=== PATIENT | male | born 1945 | race Caucasian/White ===

== ENCOUNTER → 2017-11-04 17:00 | Outpatient (CLI) | payer MEDICARE, SELFPAY ==
[2017-11-04 17:24] LABS: Absolute Lymphocyte Count 2.17 X10^3/ul (0.83-4.51); Absolute Neutrophil Count 3.2 X10^3/uL (2.0-7.7); Basophil# 0.03 X10^3/uL; Basophil% 0.5 % (0-1); Eosinophil# 0.21 X10^3/uL; Eosinophils% 3.3 % (0-5); Hematocrit 46.7 % (40-54); Hemoglobin 15.7 g/dl (13.0-16.5); Lymphocyte # 2.17 X10^3/ul (4.0); Lymphocyte % 34.5 % (19-41); Mean Corp Hgb Conc 33.6 g/gl (32-36); Mean Corpuscular Hgb 30.4 pg (27.0-32.0); Mean Corpuscular Volume 90.3 fL (80-94); Mean Platelet Vol. 9.8 fl (6.2-12.0); Monocyte# 0.65 X10^3/uL; Monocyte% 10.3 % (0-10); Neutrophil # 3.22 X10^3/uL (2.7-7.7); Neutrophil % 51.2 % (47-70); Platelet Count 216 K/mm3 (150-450); RBC Distribution Width CV 12.7 % (11.6-14.6); RBC Distribution Width SD 41.8 fl (35.1-43.9); Red Blood Count 5.17 M/mm3 (4.6-6.2); White Blood Count 6.3 K/mm3 (4.4-11.0)
[2017-11-04 17:26] LABS: POSITIVE COUNT NO; POSITIVE DIFFERENTIAL NO; POSITIVE MORPHOLOGY NO
[2017-11-04 18:02] LABS: AST(SGOT) 25 U/L (15-37); Alanine Aminotransfer ALT/SGPT 53 U/L (16-61); Albumin, Serum 3.7 g/dL (3.2-5.0); Alkaline Phosphatase 52 U/L (45-117); Anion Gap 7 (5-15); BUN 18 mg/dL (7-18); BUN/Creat Ratio 19.7 RATIO (10-20); Calcium,Total 9.6 mg/dL (8.5-10.1); Chloride 105 mmol/L (98-107); Creatinine, Serum 0.92 mg/dL (0.70-1.30); EST Glomerular Filtration Rate 86 mL/min (>60); Est Glom Filt Rate - Afr Amer 104 mL/min (>60); Globulin 3.6 g/dL (2.2-4.2); Glucose 239 mg/dL (74-106); Potassium 4.2 mmol/L (3.5-5.1); Protein, Total 7.3 g/dL (6.4-8.2); Sodium Level 139 mmol/L (136-145); Thyroid Stim Hormone (TSH) 2.67 uIU/mL (0.358-3.74)
== END ==
PROVIDERS: Family Provider Family Medicine Geriatric Medicine; PCP Family Medicine Geriatric Medicine; Visit Provider Family Medicine Geriatric Medicine
DX: E55.9 Vitamin D deficiency, unspecified (principal); I10 Essential (primary) hypertension; Z13.89 Encounter for screening for other disorder
CPT/HCPCS: 80053; 84443; 85025

== ENCOUNTER → 2017-11-17 06:00 | Outpatient (CLI) | payer MEDICARE, SELFPAY ==
[2017-11-17 07:28] LABS: AST(SGOT) 31 U/L (15-37); Alanine Aminotransfer ALT/SGPT 52 U/L (16-61); Albumin, Serum 3.7 g/dL (3.2-5.0); Alkaline Phosphatase 42 U/L (45-117); Anion Gap 9 (5-15); BUN 16 mg/dL (7-18); BUN/Creat Ratio 16.3 RATIO (10-20); Bilirubin, Direct 0.22 mg/dL (0.00-0.30); Calcium,Total 9.3 mg/dL (8.5-10.1); Chloride 103 mmol/L (98-107); Cholesterol 90 mg/dL (200); Creatinine, Serum 0.98 mg/dL (0.70-1.30); EST Glomerular Filtration Rate 79 mL/min (>60); Est Glom Filt Rate - Afr Amer 96 mL/min (>60); Globulin 3.2 g/dL (2.2-4.2); Glucose 201 mg/dL (74-106); High Density Lipoprotein 39 mg/dL; Potassium 4.1 mmol/L (3.5-5.1); Protein, Total 6.9 g/dL (6.4-8.2); Sodium Level 138 mmol/L (136-145); Triglycerides 63 mg/dL; Very Low Density Lipoprotein 13 mg/dL (5-40)
--- NOTE | 2017-11-17 13:26 | STRESSREP_ITS ---
Stress Test Report Pharmacologic myocardial perfusion stress test. 72-year-old man with a history of coronary artery disease status post previous stenting remotely. Stress protocol: Resting EKG demonstrates normal sinus rhythm with a rate of 63 bpm normal intervals are noted. Resting blood pressure is 116/80 mmHg. 0.4 mg of regadenoson was infused per usual protocol followed by rapid intravenous saline flush injection continuous EKG monitoring was performed. The maximum heart rate attained was 80 bpm which was 54% of maximum predicted heart rate the maximum workload attained was 1 metabolic equivalent. At rest there were no ST or T-wave changes noted suggest abnormal flow reserve at peak infusion no ST or T-wave changes were noted suggest abnormal flow reserve. No clinical angina was noted. The resting blood pressure is 116/80 with a final blood pressure 110 /72 mmHg. Myocardial perfusion protocol. 14.8 mCi of technetium 99m sestamibi was injected at rest. 0.4 mg regadenoson was infused per usual protocol peak infusion 45.0 mCi of technetium 99m sestamibi was injected. Stress images were obtained. Stress and rest images were reconstructed and compared in the short axis vertical long horizontal long axis. Gated images were also obtained. Perfusion SPECT analysis: Review of the stress images demonstrate normal uptake of tracer noted in the septum anterior wall and lateral wall. 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 No reversibility is noted suggest ischemia. Gated SPECT analysis. Gated ejection fraction is 67%. Conclusion: Normal pharmacologic myocardial perfusion stress test. Preserved ejection fraction.
== END ==
PROVIDERS: Family Provider Family Medicine Geriatric Medicine; PCP Family Medicine Geriatric Medicine; Visit Provider Physician Assistant Medical
DX: I25.10 Atherosclerotic heart disease of native coronary artery without angina pectoris (principal); I10 Essential (primary) hypertension; E78.5 Hyperlipidemia, unspecified; Z79.899 Other long term (current) drug therapy
CPT/HCPCS: 36415; 78452; 80048; 80061; 80076; 93017; A9500; G0108; A4216; J2785

== ENCOUNTER 2017-11-17 14:30 | Outpatient (RCR) | payer MEDICARE, SELFPAY | END 2017-11-17 14:31 | disposition home or self-care (01) | LOC: DC 14:30 | PROVIDERS: Family Provider Family Medicine Geriatric Medicine; PCP Family Medicine Geriatric Medicine; Visit Provider Family Medicine Geriatric Medicine | DX: E11.9 Type 2 diabetes mellitus without complications (principal); I25.10 Atherosclerotic heart disease of native coronary artery without angina pectoris; I10 Essential (primary) hypertension; E78.5 Hyperlipidemia, unspecified; Z79.899 Other long term (current) drug therapy; Z71.3 Dietary counseling and surveillance | CPT/HCPCS: 36415; 78452; 80048; 80061; 80076; 93017; 97802; A9500; G0108; A4216; J2785 ==

== ENCOUNTER 2017-11-30 07:48 | Emergency (ER) | payer MEDICARE, SELFPAY ==
[2017-11-30 07:49] VITALS: BP 157/82; PULSE 59; RESP 18; TEMP 36.3; O2SAT 98; BMI 34.1
--- NOTE | 2017-11-30 07:59 | CT_ITS ---
STUDY: CT ABDOMEN AND PELVIS WITHOUT CONTRAST REASON FOR EXAM: Male, 72 years old. Right flank and suprapubic pain. History of kidney stones. RADIATION DOSAGE (If Supplied By Facility): CTDIvol = ( 19.89 ) mGy, DLP = ( 998.81 ) mGycm TECHNIQUE: Transaxial images were obtained from the dome of the diaphragm to the symphysis pubis without oral contrast, and without intravenous contrast. Sagittal and coronal images were reconstructed. Individualized dose optimization techniques were used for this CT. COMPARISON: Comparison is made with prior study dated January 06, 2015. FINDINGS: Stable minimal degree of increased linear markings in the lingular segment of the left upper lobe and right lower lobe suggestive of mild scarring. Coronary artery calcification. Normal liver. Normal gallbladder and extrahepatic biliary system. Normal spleen. Normal pancreas. Normal bilateral adrenal glands. Mild degree of right perinephric stranding. 4 mm calculus is seen in the upper midportion of the right kidney. A tiny calculus is also seen in the lower pole calyx of the right kidney. Mild degree of left perinephric stranding. There is a 3 mm calculus in the upper pole calyx of the left kidney. A 3 mm calculus also seen in the lower pole of the left kidney. There is a 3.5 mm calculus at the base of the bladder on the left side. This most likely represents a recently passed left ureteral calculus. Normal visualized stomach. Normal small intestine. There are multiple colonic diverticula consistent with diverticulosis. The appendix is visualized and appears normal. There is diffuse atherosclerotic calcification of the abdominal aorta and its major visceral branches, without a demonstrated aneurysm. Normal inferior vena cava. There is borderline retroperitoneal lymphadenopathy with enlarged nodes no greater than 10mm in the short axis diameter. Normal urinary bladder. Normal abdominal wall. There are diffuse degenerative changes of the visualized lumbar spine. Grade 1 anterolisthesis of L4 on L5 without spondylolysis. CT/Abdomen/Pelvis without Cont IMPRESSION: Bilateral nonobstructive intrarenal calculi. 3.5 mm calculus at the base of the bladder on the left side most likely from a recently passed left ureteral stone. No significant hydronephrosis is seen. Sigmoid diverticulosis. Electronically Signed: Stephen Ruiz MD at 9:11 EDT Tel [phone], Service support ,
--- NOTE | 2017-11-30 08:01 | ED.VISSUMM ---
- ER Visit Summary Date of Service: 11/30/17 Chief Complaint: Right flank pain History of Present Illness: The patient is a [address] Marquis and was formerly a patient of Dr. Reynoso's. Reports that at 3:00 this morning at the sudden onset of right flank pain. Is a sharp pain is 10 out of 10 at worst and 6 out of 10 currently. Is worsening by nothing and relieved by nothing. Radiates down into the right lower quadrant and into his penis. Is been accompanied by chills and sweats. He has had nausea without vomiting. No diarrhea. His last bowel movements today. He has had no melena or hematochezia. He has had dysuria without frequency. States this is similar when he had kidney stones in the past. Physical Examination: Vitals: Stable. Afebrile. General: Well-nourished and well-developed. Head: Normocephalic atraumatic. Neck: Supple, no lymphadenopathy. No JVD. Nontender. Cardiovascular: Regular rate and rhythm. No murmurs. Respiratory: No respiratory distress. Clear to auscultation bilaterally. Abdominal: Soft, mild right lower quadrant tenderness to palpation, nondistended, normal bowel sounds. No guarding, rebound, or peritoneal signs. Back: Nontender. No CVA tenderness. Extremities: Nontender, no edema. Skin: Normal color, no rash. Neurologic: Alert and oriented ?3. Cranial nerves II through XII are intact. Normal strength and sensation. Psych: Normal affect. Test Results: Patient has bilateral nonobstructive intrarenal calculi. There is 3.5 mm calculus at the base of the bladder on the left. Most likely from a recently passed stone. No significant hydronephrosis. CBC is marked for 7 neutrophils 77 monocytes 14. Chem-7 is more for glucose 193. UA shows no infection. There is 50-100 red blood cells. Emergency Department Course and Treatment: Patient had an IV placed. He is treated with morphine and Zofran IV. He is resting comfortably. Treatment Plan: Will be discharged with Percocet naproxen. Instructed to follow Dr. Trimble as needed. Return to the emergency department for any worsening symptoms. Disposition: To home in improved and stable condition. Impression: 1. Ureteral stone, passed. This note was generated with [employer]ation software. It may contain incorrect words, spelling, and punctuation that were not noted in review of the chart prior to signing ED Disposition - Plan for ED Patient: Chief Complaint: Flank Pain Instructions: ED Stone Renal Passed Prescriptions: Hydrocodone Bitart/Apap 5-325 [[place] 5/325] 1 - 2 tablet PO Q4H PRN PRN 3 Days #20 tablet PRN Reason: Pain Naproxen [Naprosyn] 500 mg PO BID PRN #20 tablet Referrals: Gustavo Vinson Chi, MD [Primary Care Provider] - Alex Trimble MD [STAFF PHYSICIAN] - As Needed
--- NOTE | 2017-11-30 08:01 | NURSING ---
NO LW OR POA
[2017-11-30 08:11] LABS: Absolute Lymphocyte Count 1.21 X10^3/ul (0.83-4.51); Absolute Neutrophil Count 6.7 X10^3/uL (2.0-7.7); Basophil# 0.02 X10^3/uL; Basophil% 0.2 % (0-1); Eosinophils% 1.1 % (0-5); Hematocrit 46.9 % (40-54); Hemoglobin 15.5 g/dl (13.0-16.5); Lymphocyte # 1.21 X10^3/ul (4.0); Lymphocyte % 13.9 % (19-41); Mean Corpuscular Hgb 30.4 pg (27.0-32.0); Mean Platelet Vol. 9.9 fl (6.2-12.0); Monocyte# 0.65 X10^3/uL; Monocyte% 7.4 % (0-10); Neutrophil # 6.74 X10^3/uL (2.7-7.7); Neutrophil % 77.3 % (47-70); POSITIVE COUNT NO; POSITIVE DIFFERENTIAL NO; POSITIVE MORPHOLOGY NO; Platelet Count 212 K/mm3 (150-450); RBC Distribution Width CV 12.9 % (11.6-14.6); RBC Distribution Width SD 42.8 fl (35.1-43.9); White Blood Count 8.7 K/mm3 (4.4-11.0)
[2017-11-30] MEDS: Ondansetron 4 MG/2 ML Vial IV (08:13)
[2017-11-30] MEDS: 0.9% Normal Saline 1,000 ML 250 ML IV (08:13)
[2017-11-30 08:19] LABS: Anion Gap 7 (5-15); BUN 18 mg/dL (7-18); BUN/Creat Ratio 16.2 RATIO (10-20); Calcium,Total 9.6 mg/dL (8.5-10.1); Chloride 105 mmol/L (98-107); Creatinine, Serum 1.11 mg/dL (0.70-1.30); EST Glomerular Filtration Rate 69 mL/min (>60); Est Glom Filt Rate - Afr Amer 83 mL/min (>60); Estimated Creatinine Clearance 55.41 ml/min; Glucose 193 mg/dL (74-106); Potassium 3.9 mmol/L (3.5-5.1); Sodium Level 138 mmol/L (136-145)
[2017-11-30 09:26] LABS: Color, Urine Yellow (Yellow); Glucose, Dipstick Normal (Normal); Ketone-Dipstick 50 mg/dl (Negative); Leukocyte Esterase-Dipstick 25 /ul (Negative); Nitrite-Dipstick Negative (Negative); Occult Blood-Urine 250 /ul (Negative); Protein-Dipstick 15 mg/dl (Negative); Urine Bilirubin Dipstick Negative (Negative); Urine Clarity Cloudy (Clear); Urine Urobilinogen Normal (Normal)
[2017-11-30 09:41] LABS: Bacteria 1+ /hpf (None Seen); Mucous, Urine RARE /hpf (<or=2+); Red Blood Cells-Urine 50-100 SEEN /hpf (0-5); Squamous Epithelial Cells - UA 0-5 SEEN /hpf (0-5); White Blood Cells 0-5 SEEN /hpf (0-5)
[2017-11-30 10:00] VITALS: BP 108/74; PULSE 65; RESP 16; O2SAT 99
== END 2017-11-30 10:10 | disposition home or self-care (01) ==
PROVIDERS: Emergency Provider Emergency Medicine; Family Provider Family Medicine Geriatric Medicine; PCP Family Medicine Geriatric Medicine
DX: N20.1 Calculus of ureter (principal); Z87.442 Personal history of urinary calculi; I25.10 Atherosclerotic heart disease of native coronary artery without angina pectoris; I10 Essential (primary) hypertension; E11.9 Type 2 diabetes mellitus without complications; E78.00 Pure hypercholesterolemia, unspecified; Z79.82 Long term (current) use of aspirin; Z79.899 Other long term (current) drug therapy
CPT/HCPCS: 74176; 80048; 81001; 85025; 96361; 96374; 96375; 99284; J7030; A4216; J2405

== ENCOUNTER 2017-12-09 13:13 | Outpatient (RCR) | payer MEDICARE, SELFPAY | END 2017-12-18 23:59 | LOC: DC 13:13 | PROVIDERS: Family Provider Family Medicine Geriatric Medicine; PCP Family Medicine Geriatric Medicine; Visit Provider Family Medicine Geriatric Medicine | DX: E11.9 Type 2 diabetes mellitus without complications (principal); Z71.3 Dietary counseling and surveillance | CPT/HCPCS: 97803 ==

== ENCOUNTER 2018-01-06 11:00 | Outpatient (RCR) | payer MEDICARE, SELFPAY | END 2018-01-17 23:59 | LOC: DC 11:00 | PROVIDERS: Family Provider Family Medicine Geriatric Medicine; PCP Family Medicine Geriatric Medicine; Visit Provider Family Medicine Geriatric Medicine | DX: E11.9 Type 2 diabetes mellitus without complications (principal); Z71.3 Dietary counseling and surveillance | CPT/HCPCS: 97803; G0109 ==

== ENCOUNTER 2018-02-10 11:00 | Outpatient (RCR) | payer MEDICARE, SELFPAY | END 2018-02-17 23:59 | LOC: DC 11:00 | PROVIDERS: Family Provider Family Medicine Geriatric Medicine; PCP Family Medicine Geriatric Medicine; Visit Provider Family Medicine Geriatric Medicine | DX: E11.9 Type 2 diabetes mellitus without complications (principal); Z71.3 Dietary counseling and surveillance | CPT/HCPCS: 97803; G0109 ==

== ENCOUNTER 2018-03-02 14:59 | Outpatient (RCR) | payer MEDICARE, SELFPAY | END 2018-03-19 23:59 | LOC: DC 14:59 | PROVIDERS: Family Provider Family Medicine Geriatric Medicine; PCP Family Medicine Geriatric Medicine; Visit Provider Family Medicine Geriatric Medicine | DX: E11.9 Type 2 diabetes mellitus without complications (principal); Z71.3 Dietary counseling and surveillance | CPT/HCPCS: G0109 ==

== ENCOUNTER → 2018-03-21 14:47 | Outpatient (CLI) | payer MEDICARE, SELFPAY ==
--- NOTE | 2018-03-21 15:00 | RAD_ITS ---
STUDY: X-RAY - LUMBAR SPINE REASON FOR EXAM: Male, 72 years old. Low back pain after moving tires TECHNIQUE: 5 view(s) of the lumbar spine were obtained. COMPARISON: None FINDINGS: Normal lumbar lordosis. There is no substantial scoliosis. There is a grade 1 anterolisthesis of L4 relative to L5. There is no evidence of associated spondylolysis. There is multilevel endplate spondylosis of the lumbar vertebrae. There is multi-level degenerative disc disease with multi-level disc space narrowing. There is no demonstrated fracture. There are calcified plaques of the abdominal aorta and common iliac arteries. RAD/L/S Spine Min 4 Views IMPRESSION: Degenerative changes of the spine, as detailed above. Grade 1 anterolisthesis of L4 relative to L5. Calcified plaques of the abdominal aorta and common iliac arteries. Electronically Signed: Tesfaye Mcguire MD at 23:32 EDT , Service support ,
== END ==
PROVIDERS: Family Provider Family Medicine Geriatric Medicine; PCP Family Medicine Geriatric Medicine; Visit Provider Family Medicine Geriatric Medicine
DX: M47.896 Other spondylosis, lumbar region (principal); M51.36 Other intervertebral disc degeneration, lumbar region
CPT/HCPCS: 72110

== ENCOUNTER 2018-03-30 15:55 | Outpatient (RCR) | payer MEDICARE, SELFPAY | END 2018-03-30 15:56 | LOC: DC 15:55 | PROVIDERS: Family Provider Family Medicine Geriatric Medicine; PCP Family Medicine Geriatric Medicine; Visit Provider Family Medicine Geriatric Medicine | DX: E11.9 Type 2 diabetes mellitus without complications (principal); Z71.3 Dietary counseling and surveillance | CPT/HCPCS: G0109 ==

== ENCOUNTER → 2018-04-23 09:18 | Outpatient (CLI) | payer MEDICARE, SELFPAY ==
--- NOTE | 2018-04-23 09:21 | US_ITS ---
STUDY: RETROPERITONEAL ULTRASOUND - LIMITED REASON FOR EXAM: Male, 72 years old. History of smoking. TECHNIQUE: Ultrasound evaluation of the abdominal aorta was performed with real-time ultrasonography and static grayscale imaging. COMPARISON: None. FINDINGS: There are peripheral calcifications throughout the abdominal aorta. The proximal abdominal aorta measures 1.5 x 2.4 cm. The mid abdominal aorta measures 1.5 x 2.4 cm. The distal abdominal aorta measures 1.5 x 1.7 cm. The right common iliac artery measures 0.9 x 1.2 cm. The left common iliac artery measures 0.9 x 1.0 cm. No abdominal aortic aneurysm is visualized. US/Aorta IMPRESSION: No abdominal aortic aneurysm. Atherosclerosis. Electronically Signed: Dana Hand MD at 14:31 EDT Tel , Service support ,
== END ==
PROVIDERS: Family Provider Family Medicine Geriatric Medicine; PCP Family Medicine Geriatric Medicine; Visit Provider Family Medicine Geriatric Medicine
DX: I71.4 Abdominal aortic aneurysm, without rupture (principal)
CPT/HCPCS: 76775

== ENCOUNTER → 2018-05-10 13:46 | Outpatient (CLI) | payer MEDICARE, SELFPAY ==
[2018-05-10 15:32] LABS: Absolute Lymphocyte Count 1.71 X10^3/ul (0.83-4.51); Absolute Neutrophil Count 4.8 X10^3/uL (2.0-7.7); Basophil# 0.02 X10^3/uL; Basophil% 0.3 % (0-1); Eosinophil# 0.15 X10^3/uL; Hematocrit 43.9 % (40-54); Hemoglobin 14.7 g/dl (13.0-16.5); Lymphocyte # 1.71 X10^3/ul (4.0); Lymphocyte % 22.9 % (19-41); Mean Corp Hgb Conc 33.5 g/gl (32-36); Mean Corpuscular Hgb 30.8 pg (27.0-32.0); Mean Platelet Vol. 9.8 fl (6.2-12.0); Monocyte# 0.75 X10^3/uL; Neutrophil # 4.82 X10^3/uL (2.7-7.7); Neutrophil % 64.5 % (47-70); Platelet Count 231 K/mm3 (150-450); RBC Distribution Width CV 13.7 % (11.6-14.6); RBC Distribution Width SD 45.1 fl (35.1-43.9); Red Blood Count 4.77 M/mm3 (4.6-6.2); White Blood Count 7.5 K/mm3 (4.4-11.0)
[2018-05-10 15:41] LABS: POSITIVE COUNT NO; POSITIVE DIFFERENTIAL NO; POSITIVE MORPHOLOGY NO
[2018-05-10 16:13] LABS: ALB/GLOB Ratio 1.1 RATIO (0.9-2.4); AST(SGOT) 18 U/L (15-37); Alanine Aminotransfer ALT/SGPT 33 U/L (16-61); Albumin, Serum 3.5 g/dL (3.2-5.0); Alkaline Phosphatase 36 U/L (45-117); Anion Gap 11 (5-15); BUN 17 mg/dL (7-18); BUN/Creat Ratio 19.1 RATIO (10-20); Calcium,Total 9.7 mg/dL (8.5-10.1); Chloride 110 mmol/L (98-107); Creatinine, Serum 0.89 mg/dL (0.70-1.30); EST Glomerular Filtration Rate 89 mL/min (>60); Est Glom Filt Rate - Afr Amer 108 mL/min (>60); Globulin 3.2 g/dL (2.2-4.2); Glucose 157 mg/dL (74-106); Potassium 4.1 mmol/L (3.5-5.1); Protein, Total 6.7 g/dL (6.4-8.2); Sodium Level 146 mmol/L (136-145); Thyroid Stim Hormone (TSH) 3.05 uIU/mL (0.358-3.74)
== END ==
PROVIDERS: Family Provider Family Medicine Geriatric Medicine; PCP Family Medicine Geriatric Medicine; Visit Provider Family Medicine Geriatric Medicine
DX: E55.9 Vitamin D deficiency, unspecified (principal); I10 Essential (primary) hypertension
CPT/HCPCS: 36415; 80053; 82306; 84443; 85025

== ENCOUNTER → 2018-05-20 12:47 | Outpatient (CLI) | payer MEDICARE, SELFPAY | PROVIDERS: Family Provider Family Medicine Geriatric Medicine; PCP Family Medicine Geriatric Medicine; Visit Provider Family Medicine Geriatric Medicine | DX: M54.40 Lumbago with sciatica, unspecified side (principal); M48.07 Spinal stenosis, lumbosacral region | CPT/HCPCS: 72148 ==

== ENCOUNTER 2018-06-02 07:18 | Outpatient (RCR) | payer MEDICARE, SELFPAY ==
--- NOTE | 2018-08-19 09:23 | HP.PTEVAL ---
Patient's Visit Information SYEDA LOBO is a 73 year old M referred to Physical Therapy by Mary Prieto D.C. with a diagnosis of Lumbar DDD, anteriolithesis. Date of Evaluation: 06/02/18 Physical Therapist: Prakash Delgado - Visit Plan Frequency: 1x/Week Duration: 1 Week Plan: Pt. desires to be given core exericses and work on them on his own at this point in time. - Subjective Findings: Pt is here for his initial evaluaton with diagnosis of lumbar DDD, anteriolithesis. Pt. was referred here by his chiropractor. Pt. reports having lumbar spine pain, but no radicular symptoms. He reports no mechanism of injury, but has been progressively getting worse. Pt. reports no numbness or tingling in his legs, but does have occassional legs giving out on him. Pt. reports no changes in B/B. Pt. has had an MRI showing multi level stenosis, and multi level disc bulging. Pt. reports increased pain with sitting and standing. Pt. is also having increased difficulty with sleeping. Pt. 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 - Pain lumbar spine Pain Intensity (Out of 10): 3 Pain Intensity Range: 1, 4 - Objective POSTURE: Pt. has general slouched posture. Pt. has rounded shoulders and reduced lumbar lordosis. Pt. has normal iliac crest heights. PALPATION: Pt. has increased tenderness with spring testing to L1-L5 and increased pain with bilateral lumbar pararspinals. NEURO: Pt. has normal sensation throughout bilateral LEs. Pt. has 2+ achilles and patellar DTR bilateraly. Pt. is able to rise on heels and toes, but does use balance aide to correct. ROM: LUMBAR SPINE: flexion- min/mod loss increase NW, ext mod loss increase NW, SB mod loss increase NW bilat, rotation- mod loss bilat increase NW. Pt. has decreased HS length and decrased hip ext bilat. MMT: Pt. has generall 4+/5 BLE strength. Pt. reports no pain with LE testing. Pt. has no myotomal weakness noted. GAIT: Pt. is able to ambulate without AD. Pt. has flexed posture, decreased lumbar lordosis. Pt. has normal step length bilaterally. STAIRS: heavy use of HRs, step to pattern. - Special Tests L/S Slump test left side: Negative L/S Slump test right side: Negative L/S Left Straight Leg Raise: Negative L/S Right Straight Leg Raise: Negative Lumbar Standing: Flexion - Mechanical Response: No effect Lumbar Standing: Flexion - Symptoms During Testing: Increases Lumbar Standing: Flexion - Symptoms After Testing: No worse Lumbar Standing: Extension - Mechanical Response: No effect Lumbar Standing: Extension - Symptoms During Testing: Increases Lumbar Standing: Extension - Symptoms After Testing: Worse Lumbar Standing: Right Side Glides - Mechanical Response: No effect Lumbar Standing: Right Side [place] - Symptoms During Testing: Increases Lumbar Standing: Right Side [place] - Symptoms After Testing: No worse Lumbar Standing: Left Side [place] - Mechanical Response: No effect Lumbar Standing: Left Side [place] - Symptoms During Testing: Increases Lumbar Standing: Left Side [place] - Symptoms After Testing: No worse Lumbar Lying: Flexion - Mechanical Response: No effect Lumbar Lying: Flexion - Symptoms During Testing: No effect Lumbar Lying: Flexion - Symptoms After Testing: No effect Lumbar Lying: Extension - Mechanical Response: No effect Lumbar Lying: Extension - Symptoms During Testing: Increases Lumbar Lying: Extension - Symptoms After Testing: Worse Lumbar Static: Slouched Sit - Mechanical Response: No effect Lumbar Static: Slouched Sit - Symptoms During Testing: No effect Lumbar Static: Slouched Sit - Symptoms After Testing: No effect Lumbar Static: Sitting Erect - Mechanical Response: No effect Lumbar Static: Sitting Erect - Symptoms During Testing: No effect Lumbar Static: Sitting Erect - Symptoms After Testing: No effect Lumbar Static:Lying Prone in Extension - Mechanical Response: No effect Lumbar Static: Lying Prone in Extension - Sx During Testing: Increases Lumbar Static: Lying Prone in Extension - Sx After Testing: Worse - Goals Goal 1:: Pt. to be I with HEP. Goal Time Frame: 4-6 Weeks Goal 2:: Pt. to have increased ROM of lumbar spine by 25% in all directions. Goal Time Frame: 4-6 Weeks Goal 3:: Pt. to be able to sit with minimal increase in symptom 0-2/10 pain allowing for increase in quality of life. Goal Time Frame: 4-6 Weeks Goal 4:: Pt to walk unlimited distances with 0-2/10 pain allowing for increased functional tolerance. Goal Time Frame: 4-6 Weeks Goal 5:: Pt. to sleep throughout the night with 0-2/10 pain in lumbar spine. Goal Time Frame: 4-6 Weeks Goal 6:: Pt. to have increased core strength by 1/2 grade reudcing stress applied to lumbar spine with all functional mobility. - Rehabilitation Potential Physical Therapy Diagnosis: Pt. has signs and symptoms of lumbar DDD. Pt. did not appear to have a directional preference this date. Pt. would benefit from core stability exercises in neutral spine. Pt. Rehabilitation Potential: Fair - Anticipated Interventions Patient/Client Instruction: Educate patient on: Condition, Plan of Care, Risk Factors, Benefits of Fitness Program For the Purpose of:: To foster healthy habits, To improve decision making, To facilitate caregiver knowledge, To improve self management, To prevent re-injury, To improve ability to perform tasks related to life management, To improve tolerance to ADL's Therapeutic Exercise to Include: Strength training, Power training, Endurance training, Balance training, Postural training, Flexibilty training, Gait and locomotor training, Passive ROM, Active ROM, Dynamic Lumbar Stabilization, Lion Exercises For the Purpose of:: To decrease pain, To increase ROM, To improve nutrient delivery to tissue, To increase oxygenation perfusion, To improve muscle performance and motor function, To improve ability to perform ADL's, To improve health of tissue, To decrease soft tissue restriction Thank you for the opportunity to evaluate your patient. For Medicare and Medicare HMO plans, please review the plan of care and approve it. It will need to be FAXED BACK to us at [phone] for Medicare purposes. For Medicare only, by signing this I certify the plan of care. Please let me know if there are questions or concerns regarding this plan of care. Physician Signature: Date:
--- NOTE | 2018-08-19 09:25 | HP.PTDCNRP_ITS ---
HP - Discharge Summary (1) - Patient Information SYEDA LOBO was seen in my office for initial evaluation on 06/02/18. The following Plan of Care was established for this patient: Initial Frequency: 1x/Week Initial Duration: 1 Week - Anticipated Interventions Patient/Client Instruction: Educate patient on: Condition, Plan of Care, Risk Factors, Benefits of Fitness Program For the Purpose of:: To foster healthy habits, To improve decision making, To facilitate caregiver knowledge, To improve self management, To prevent re- injury, To improve ability to perform tasks related to life management, To improve tolerance to ADL's Therapeutic Exercise to Include: Strength training, Power training, Endurance training, Balance training, Postural training, Flexibilty training, Gait and locomotor training, Passive ROM, Active ROM, Dynamic Lumbar Stabilization, Lion Exercises For the Purpose of:: To decrease pain, To increase ROM, To improve nutrient delivery to tissue, To increase oxygenation perfusion, To improve muscle performance and motor function, To improve ability to perform ADL's, To improve health of tissue, To decrease soft tissue restriction This patient was last seen in our office 06/02/18. Pertinent comments regarding their Physical therapy will appear below: Pt. was seen for his DDD of his lumbar spine. Pt. was evaluation and desired to have exercises to work on his own. Pt. has not been seen since his initial evaluation and will be DC from PT at this point in time. At this point I will be discontinuing this patient from physical therapy. I would be happy to see this patient again in the future if found appropriate by the physician. Thank you! Prakash Delgado
== END 2018-06-02 19:00 | disposition home or self-care (01) ==
LOC: PT 07:18
PROVIDERS: Family Provider Family Medicine Geriatric Medicine; PCP Family Medicine Geriatric Medicine; Visit Provider Chiropractor
DX: M51.36 Other intervertebral disc degeneration, lumbar region (principal); M43.16 Spondylolisthesis, lumbar region
CPT/HCPCS: 97162

== ENCOUNTER → 2018-07-08 07:47 | Outpatient (CLI) | payer MEDICARE, SELFPAY ==
[2018-07-08 08:36] LABS: AST(SGOT) 20 U/L (15-37); Alanine Aminotransfer ALT/SGPT 36 U/L (16-61); Albumin, Serum 3.7 g/dL (3.2-5.0); Alkaline Phosphatase 37 U/L (45-117); Bilirubin, Direct 0.22 mg/dL (0.00-0.30); Cholesterol 101 mg/dL (200); Globulin 3.2 g/dL (2.2-4.2); High Density Lipoprotein 41 mg/dL; Protein, Total 6.9 g/dL (6.4-8.2); Triglycerides 69 mg/dL; Very Low Density Lipoprotein 14 mg/dL (5-40)
== END ==
PROVIDERS: Family Provider Family Medicine Geriatric Medicine; PCP Family Medicine Geriatric Medicine; Referring Provider Physician Assistant Medical; Visit Provider Physician Assistant Medical
DX: E78.5 Hyperlipidemia, unspecified (principal); Z79.899 Other long term (current) drug therapy
CPT/HCPCS: 36415; 80061; 80076

== ENCOUNTER → 2018-08-16 11:42 | Outpatient (CLI) | payer OTHER, SELFPAY ==
[2018-08-16 12:50] LABS: Absolute Lymphocyte Count 1.81 X10^3/ul (0.83-4.51); Absolute Neutrophil Count 4.4 X10^3/uL (2.0-7.7); Basophil# 0.03 X10^3/uL; Basophil% 0.4 % (0-1); Eosinophil# 0.28 X10^3/uL; Eosinophils% 3.8 % (0-5); Hematocrit 46.9 % (40-54); Hemoglobin 15.6 g/dl (13.0-16.5); Lymphocyte # 1.81 X10^3/ul (4.0); Lymphocyte % 24.8 % (19-41); Mean Corp Hgb Conc 33.3 g/gl (32-36); Mean Corpuscular Volume 93.2 fL (80-94); Mean Platelet Vol. 10.3 fl (6.2-12.0); Monocyte# 0.76 X10^3/uL; Monocyte% 10.4 % (0-10); Neutrophil % 60.3 % (47-70); Platelet Count 243 K/mm3 (150-450); RBC Distribution Width CV 12.5 % (11.6-14.6); RBC Distribution Width SD 42.1 fl (35.1-43.9); Red Blood Count 5.03 M/mm3 (4.6-6.2); White Blood Count 7.3 K/mm3 (4.4-11.0)
[2018-08-16 12:55] LABS: POSITIVE COUNT NO; POSITIVE DIFFERENTIAL NO; POSITIVE MORPHOLOGY NO
[2018-08-16 13:42] LABS: ALB/GLOB Ratio 1.2 RATIO (0.9-2.4); AST(SGOT) 24 U/L (15-37); Alanine Aminotransfer ALT/SGPT 38 U/L (16-61); Albumin, Serum 3.8 g/dL (3.2-5.0); Alkaline Phosphatase 37 U/L (45-117); Anion Gap 4 (5-15); BUN 10 mg/dL (7-18); BUN/Creat Ratio 12.1 RATIO (10-20); Calcium,Total 9.5 mg/dL (8.5-10.1); Chloride 107 mmol/L (98-107); Creatinine, Serum 0.83 mg/dL (0.70-1.30); EST Glomerular Filtration Rate 97 mL/min (>60); Est Glom Filt Rate - Afr Amer 117 mL/min (>60); Globulin 3.2 g/dL (2.2-4.2); Glucose 98 mg/dL (74-106); Potassium 4.2 mmol/L (3.5-5.1); Sodium Level 141 mmol/L (136-145); Thyroid Stim Hormone (TSH) 3.88 uIU/mL (0.358-3.74)
[2018-08-16 13:43] LABS: Vitamin D,25 Hydroxy 39.9 ng/mL (29.95-100.01)
--- OUTSIDE RECORDS SUMMARY | 2018-09-28 03:37 | XMS RPT_ITS ---
:1945 Author Organization OHIP Support Name Relationship Address Phone JOSE LUISNIKKO NASSARA Unavailable [address] + [place] [address] CYNDEE LOBO Unavailable . + AK CHIN LIGIA, PA . R Unavailable Unavailable Unavailable DAYAMI LOBO Unavailable [address] + [place] [address] CYNDEE LOBO Unavailable . + AK CHIN LIGIA, PA . R Unavailable Unavailable Unavailable DAYAMI LOBO Unavailable [address] + [place] [address] CYNDEE LOBO Unavailable Unavailable + AK CHIN LIGIA, PA R Unavailable Unavailable Unavailable DAYAMI LOBO Unavailable [address] + [place] [address] CYNDEE LOBO Unavailable Unavailable + AK CHIN LIGIA, PA R Unavailable Unavailable Unavailable DAYAMI LOBO Unavailable [address] + [place] [address] CYNDEE LOBO Unavailable . + AK CHIN LIGIA, PA . R Unavailable Unavailable Unavailable DAYAMI LOBO Unavailable [address] + [place] [address] CYNDEE OLBO Unavailable Unavailable + NADINE STRONG, PA R Unavailable Unavailable Unavailable DAYAMI LOBO Unavailable [address] + [place] [address] CYNDEE LOBO Unavailable . + AK CHIN LIGIA, PA . R Unavailable Unavailable Unavailable DAYAMI LOBO Unavailable [address] + [place] [address] KEMERER, CYNDEE Unavailable . + AK CHIN FALLS, PA . R Unavailable Unavailable Unavailable DAYAMI LOBO Unavailable [address] + [place] [address] KEMERER, YCNDEE Unavailable . + AK CHIN FALLS, PA . R Unavailable Unavailable Unavailable DAYAMI LOBO Unavailable [address] + [place] [address] KEMERER, CYNDEE Unavailable . + AK CHIN FALLS, PA . R Unavailable Unavailable Unavailable DAYAMI LOBO Unavailable [address] + [place] [address] KEMERER, CYNDEE Unavailable . + AK CHIN FALLS, PA . R Unavailable Unavailable Unavailable DAYAMI LOBO Unavailable [address] + [place] [address] KEMERER, CYNDEE Unavailable Unavailable + AK CHIN FALLS, PA U R Unavailable Unavailable Unavailable DAYAMI LOBO Unavailable [address] + [place] [address] KEMERER, CYNDEE Unavailable . + AK CHIN FALLS, PA . R Unavailable Unavailable Unavailable DAYAMI LOBO Unavailable [address] + [place] [address] KEMERER, CYNDEE Unavailable . + AK CHIN FALLS, PA . R Unavailable Unavailable Unavailable DAYAMI LOBO Unavailable [address] + [place] [address] KEMERER, CYNDEE Unavailable Unavailable + AK CHIN FALLS, PA R Unavailable Unavailable Unavailable DAYAMI LOBO Unavailable [address] + [place] [address] KEMERER, CYNDEE Unavailable . + AK CHIN FALLS, PA U R Unavailable Unavailable Unavailable DAYAMI LOBO Unavailable [address] + [place] [address] KEMERER, CYNDEE Unavailable . + NADINE STRONG, PA U R Unavailable Unavailable Unavailable DAYAMI LOBO Unavailable [address] + [place] [address] KEMERER, CYNEDE Unavailable Unavailable + NADINE STRONG, PA U R Unavailable Unavailable Unavailable DAYAMI LOBO Unavailable [address] + [place] [address] KEMERER, CYNDEE Unavailable . + NADINE STRONG, PA U R Unavailable Unavailable Unavailable DAYAMI LOBO Unavailable [address] + [place] [address] KEMERER, CYNDEE Unavailable . + NADINE STRONG, PA U R Unavailable Unavailable Unavailable DAYAMI LOBO Unavailable [address] + [place] [address] KEMERER, CYNDEE Unavailable . + NADINE STRONG, PA U R Unavailable Unavailable Unavailable DAYMAI LOBO Unavailable [address] + [place] [address] KEMERER, CYNDEE Unavailable . + NADINE STRONG, PA U R Unavailable Unavailable Unavailable DAYAMI LOBO Unavailable [address] + [place] [address] KEMERER, CYNDEE Unavailable . + NADINE STRONG, PA U R Unavailable Unavailable Unavailable DAYAMI LOBO Unavailable [address] + [place] [address] KEMERER, YCNDEE Unavailable . + NADINE STRONG, PA U R Unavailable Unavailable Unavailable DAYAMI LOBO Unavailable [address] + [place] [address] KEMERER, CYNDEE Unavailable . + NADINE STRONG, PA U R Unavailable Unavailable Unavailable KEMERER, DAYAMI Unavailable [address] + [place] [address] KEMERER, CYNDEE Unavailable . + AK CHIN FALLS, PA U R Unavailable Unavailable Unavailable DAYAMI LOBO Unavailable [address] + [place] [address] KEMERER, CYNDEE Unavailable . + AK CHIN FALLS, PA U R Unavailable Unavailable Unavailable NIKKO LOBOA Unavailable [address] + [place] [address] KEMERER, CYNDEE Unavailable . + AK CHIN FALLS, PA U S Unavailable Unavailable Unavailable DAYAMI LOBO Unavailable [address] + [place] [address] KEMERER, CYNDEE Unavailable . + AK CHIN FALLS, PA U S Unavailable Unavailable Unavailable Care Team Providers Name Role Phone Karel, Gustavo Chi Attending Unavailable Karel, Gustavo Chi Primary Care Unavailable Lamont Kaiser Attending Unavailable Maki Carmona Attending Unavailable Maki Carmona Referring Unavailable Karel, Gustavo Chi Primary Care Unavailable DossieMary D.C. Attending Unavailable Karel, Gustavo Chi Referring Unavailable Karel, Gustavo Chi Primary Care Unavailable Karel, Gustavo Chi Attending Unavailable Karel, Gustavo Chi Referring Unavailable Karel, Gustavo Chi Primary Care Unavailable DossieMary D.C. Attending Unavailable Karel, Gustavo Chi Referring Unavailable Karel, Gustavo Chi Primary Care Unavailable DossiMary tavares D.C. Attending Unavailable Karel, Gustavo Chi Referring Unavailable Karel, Gustavo Chi Primary Care Unavailable DossiMary tavares D.C. Attending Unavailable Karel, Gustavo Chi Attending Unavailable Karel, Gustavo Chi Primary Care Unavailable DossieMary D.C. Attending Unavailable Karel, Gustavo Chi Referring Unavailable Karel, Gustavo Chi Primary Care Unavailable DossieMary D.C. Attending Unavailable Karel, Gustavo Chi Referring Unavailable Karel, Gustavo Chi Primary Care Unavailable Karel, Gustavo Chi Attending Unavailable Karel, Gustavo Chi Referring Unavailable Karel, Gustavo Chi Primary Care Unavailable DossieMary D.C. Attending Unavailable Karel, Gustavo Chi Referring Unavailable Karel, Gustavo Chi Primary Care Unavailable Karel, Gustavo Chi Attending Unavailable Karel, Gustavo Chi Referring Unavailable Karel, Gustavo Chi Primary Care Unavailable Karel, Gustavo Chi Attending Unavailable Karel, Gustavo Chi Referring Unavailable Karel, Gustavo Chi Primary Care Unavailable Karel, Gustavo Chi Attending Unavailable Karel, Gustavo Chi Referring Unavailable Karel, Gustavo Chi Primary Care Unavailable Karel, Gustavo Chi Attending Unavailable Karel, Gustavo Chi Referring Unavailable Karel, Gustavo Chi Primary Care Unavailable Karel, Gustavo Chi Attending Unavailable Karel, Gustavo Chi Referring Unavailable Karel, Gustavo Chi Primary Care Unavailable Karel, Gustavo Chi Attending Unavailable Karel, Gustavo Chi Referring Unavailable Karel, Gustavo Chi Primary Care Unavailable Awilda, Warren Attending Unavailable CarmonaMaki cabrera Referring Unavailable Karel, Gustavo Chi Primary Care Unavailable Tommie Mills Attending Unavailable Karel, Gustavo Chi Attending Unavailable Karel, Gustavo Chi Referring Unavailable Karel, Gustavo Chi Primary Care Unavailable Karel, Gustavo Chi Attending Unavailable Karel, Gustavo Chi Referring Unavailable Karel, Gustavo Chi Primary Care Unavailable Maki Carmona Attending Unavailable Maki Carmona Referring Unavailable Karel, Gustavo Chi Primary Care Unavailable Karel, Gustavo Chi Attending Unavailable Karel, Gustavo Chi Referring Unavailable Karel, Gustavo Chi Primary Care Unavailable Karel, Gustavo Chi Attending Unavailable Karel, Gustavo Chi Primary Care Unavailable Douglas Walls Attending Unavailable Karel, Gustavo Chi Primary Care Unavailable DossiMary tavares D.C. Attending Unavailable Mary Neal D.C. Referring Unavailable Karel, Gustavo Chi Primary Care Unavailable DosMary mae D.C. Attending Unavailable Karel, Gustavo Chi Referring Unavailable Karel, Gustavo Chi Primary Care Unavailable PROBLEMS PROBLEMS DATE TYPE CONDITION / CODE ATTENDING STATUS SOURCE 07/28/2018 Unknown Z95.5 - Presence of Awilda, Warren Active [place] coronary angioplasty Community implant and graft / Hospital Z95.5(ICD-10) Repository 07/28/2018 Unknown I10 - Essential Awilda, Warren Active [place] (primary) hypertension Community / I10(ICD-10) Hospital Repository 07/28/2018 Unknown E78.1 - Pure Awilda, Warren Active [place] hyperglyceridemia / Community E78.1(ICD-10) Hospital Repository 08/23/2018 Unknown M51.36 - Other DosMary mae Active [place] intervertebral disc D.C. [facility] degeneration, lumbar Hospital region / Repository M51.36(ICD-10) 05/25/2018 Unknown M43.10 - Dossie, Mary Active [place] Spondylolisthesis, D.C. Community site unspecified / Hospital M43.10(ICD-10) Repository 05/25/2018 Unknown M99.05 - Segmental and Dossie, Mary Active [place] somatic dysfunction of D.C. [facility] pelvic region / Hospital M99.05(ICD-10) Repository 05/25/2018 Unknown M99.03 - Segmental and Dossie, Mary Active [place] somatic dysfunction of D.C. [facility] lumbar region / Hospital M99.03(ICD-10) Repository 05/25/2018 Unknown M99.02 - Segmental and Dossie, Mary Active [place] somatic dysfunction of D.C. [facility] thoracic region / Hospital M99.02(ICD-10) Repository 04/21/2018 Unknown E11.9 - Type 2 Karel, Gustavo Chi Active [place] diabetes mellitus [facility] without complications Hospital / E11.9(ICD-10) Repository 03/21/2018 Unknown M54.5 - Low back pain Karel, Gustavo Chi Active [place] / M54.5(ICD-10) [facility] Hospital Repository 11/30/2017 Unknown N20.0 - Calculus of Gene, Active [place] kidney / N20.0(ICD-10) [facility] Repository 11/17/2017 Unknown I25.10 - Carmona, Active [place] Atherosclerotic heart Maki Martinez [facility] disease of [facility] coronary artery Repository without angina pectoris / I25.10(ICD-10) 11/17/2017 Unknown E78.5 - Carmona, Active [place] Hyperlipidemia, Maki Martinez [facility] unspecified / Hospital E78.5(ICD-10) Repository 11/17/2017 Unknown Z79.899 - Other long Kristine Active [place] term (current) drug Maki Martinez [facility] therapy / Hospital Z79.899(ICD-10) Repository PROCEDURES PROCEDURES No Procedure Records FoundRESULTS RESULTS INITAL EVALUATION (1) Observed: 08/19/2018 Status: F Source: [place] - PT 9:23 AM [facility] REPOSITORY [facility] [address] [place] [address] Fax REHABILITATION SERVICES INITIAL EVALUATION MR#: [id number] Acct: [id number] Name: RICKIE LOBO Rep #: [id number] : 1945 73 From: Prakash Delgado DPT Referring Dr.: Mary Prieto D.C. Status: REG RCR Insurance: [employer] SELF PAY INSURANCE Patient's Visit Information RICKIE LOBO is a 73 year old M referred to Physical Therapy by Mary Prieto D.C. with a diagnosis of Lumbar DDD, anteriolithesis. Date of Evaluation: 06/02/18 Physical Therapist: Prakash Delgado - Visit Plan Frequency: 1x/Week Duration: 1 Week Plan: Pt. desires to be given core exericses and work on them on his own at this point in time. - Subjective Findings: Pt is here for his initial evaluaton with diagnosis of lumbar DDD, anteriolithesis. Pt. was referred here by his chiropractor. Pt. reports having lumbar spine pain, but no radicular symptoms. He reports no mechanism of injury, but has been progressively getting worse. Pt. reports no numbness or tingling in his legs, but does have occassional legs giving out on him. Pt. reports no changes in B/B. Pt. has had an MRI showing multi level stenosis, and multi level disc bulging. Pt. reports increased pain with sitting and standing. Pt. is also having increased difficulty with sleeping. Pt. 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 - Pain lumbar spine Pain Intensity (Out of 10): 3 Pain Intensity Range: 1, 4 - Objective POSTURE: Pt. has general slouched posture. Pt. has rounded shoulders and reduced lumbar lordosis. Pt. has normal iliac crest heights. PALPATION: Pt. has increased tenderness with spring testing to L1-L5 and increased pain with bilateral lumbar pararspinals. NEURO: Pt. has normal sensation throughout bilateral LEs. Pt. has 2+ achilles and patellar DTR bilateraly. Pt. is able to rise on heels and toes, but does use balance aide to correct. ROM: LUMBAR SPINE: flexion- min/mod loss increase NW, ext mod loss increase NW, SB mod loss increase NW bilat, rotation- mod loss bilat increase NW. Pt. has decreased HS length and decrased hip ext bilat. MMT: Pt. has generall 4+/5 BLE strength. Pt. reports no pain with LE testing. Pt. has no myotomal weakness noted. GAIT: Pt. is able to ambulate without AD. Pt. has flexed posture, decreased lumbar lordosis. Pt. has normal step length bilaterally. STAIRS: heavy use of HRs, step to pattern. - Special Tests L/S Slump test left side: Negative L/S Slump test right side: Negative L/S Left Straight Leg Raise: Negative L/S Right Straight Leg Raise: Negative Lumbar Standing: Flexion - Mechanical Response: No effect Lumbar Standing: Flexion - Symptoms During Testing: Increases Lumbar Standing: Flexion - Symptoms After Testing: No worse Lumbar Standing: Extension - Mechanical Response: No effect Lumbar Standing: Extension - Symptoms During Testing: Increases Lumbar Standing: Extension - Symptoms After Testing: Worse Lumbar Standing: Right Side Glides - Mechanical Response: No effect Lumbar Standing: Right Side [place] - Symptoms During Testing: Increases Lumbar Standing: Right Side [place] - Symptoms After Testing: No worse Lumbar Standing: Left Side [place] - Mechanical Response: No effect Lumbar Standing: Left Side [place] - Symptoms During Testing: Increases Lumbar Standing: Left Side [place] - Symptoms After Testing: No worse Lumbar Lying: Flexion - Mechanical Response: No effect Lumbar Lying: Flexion - Symptoms During Testing: No effect Lumbar Lying: Flexion - Symptoms After Testing: No effect Lumbar Lying: Extension - Mechanical Response: No effect Lumbar Lying: Extension - Symptoms During Testing: Increases Lumbar Lying: Extension - Symptoms After Testing: Worse Lumbar Static: Slouched Sit - Mechanical Response: No effect Lumbar Static: Slouched Sit - Symptoms During Testing: No effect Lumbar Static: Slouched Sit - Symptoms After Testing: No effect Lumbar Static: Sitting Erect - Mechanical Response: No effect Lumbar Static: Sitting Erect - Symptoms During Testing: No effect Lumbar Static: Sitting Erect - Symptoms After Testing: No effect Lumbar Static:Lying Prone in Extension - Mechanical Response: No effect Lumbar Static: Lying Prone in Extension - Sx During Testing: Increases Lumbar Static: Lying Prone in Extension - Sx After Testing: Worse - Goals Goal 1:: Pt. to be I with HEP. Goal Time Frame: 4-6 Weeks Goal 2:: Pt. to have increased ROM of lumbar spine by 25% in all directions. Goal Time Frame: 4-6 Weeks Goal 3:: Pt. to be able to sit with minimal increase in symptom 0-2/10 pain allowing for increase in quality of life. Goal Time Frame: 4-6 Weeks Goal 4:: Pt to walk unlimited distances with 0-2/10 pain allowing for increased functional tolerance. Goal Time Frame: 4-6 Weeks Goal 5:: Pt. to sleep throughout the night with 0-2/10 pain in lumbar spine. Goal Time Frame: 4-6 Weeks Goal 6:: Pt. to have increased core strength by 1/2 grade reudcing stress applied to lumbar spine with all functional mobility. - Rehabilitation Potential Physical Therapy Diagnosis: Pt. has signs and symptoms of lumbar DDD. Pt. did not appear to have a directional preference this date. Pt. would benefit from core stability exercises in neutral spine. Pt. Rehabilitation Potential: Fair - Anticipated Interventions Patient/Client Instruction: Educate patient on: Condition, Plan of Care, Risk Factors, Benefits of Fitness Program For the Purpose of:: To foster healthy habits, To improve decision making, To facilitate caregiver knowledge, To improve self management, To prevent re-injury, To improve ability to perform tasks related to life management, To improve tolerance to ADL's Therapeutic Exercise to Include: Strength training, Power training, Endurance training, Balance training, Postural training, Flexibilty training, Gait and locomotor training, Passive ROM, Active ROM, Dynamic Lumbar Stabilization, Lion Exercises For the Purpose of:: To decrease pain, To increase ROM, To improve nutrient delivery to tissue, To increase oxygenation perfusion, To improve muscle performance and motor function, To improve ability to perform ADL's, To improve health of tissue, To decrease soft tissue restriction Thank you for the opportunity to evaluate your patient. For Medicare and Medicare HMO plans, please review the plan of care and approve it. It will need to be FAXED BACK to us at [phone] for Medicare purposes. For Medicare only, by signing this I certify the plan of care. Please let me know if there are questions or concerns regarding this plan of care. Physician Signature: Date: <Electronically signed by Prakash Delgado DPT> 08/19/18 0923 CC: Mary Prieto D.C.; Gustavo Vinson MD CLS Signed CBC W/DIFF, AUTOMATED Collected: 08/16/2018 Status: F Source: [place] 11:55 AM [facility] REPOSITORY TYPE CODE TESTS RESULT OUT OF RANGE REFERENCE UNITS LAB L100.1000 4.4-11.0 K/mm3 Normal WBC 7.3 LAB L100.1200 4.6-6.2 M/mm3 Normal RBC 5.03 LAB L100.1300 13.0-16.5 g/dl Normal HGB 15.6 LAB L100.1400 40-54 % Normal HCT 46.9 LAB L100.1500 80-94 fL Normal MCV 93.2 LAB L100.1600 27.0-32.0 pg Normal MCH 31.0 LAB L100.1700 32-36 g/gl Normal MCHC 33.3 LAB L100.1810 11.6-14.6 % Normal RDW CV 12.5 LAB L100.1820 35.1-43.9 fl Normal RDW SD 42.1 LAB L100.1900 150-450 K/mm3 Normal PLT 243 LAB L100.2000 6.2-12.0 fl Normal MPV 10.3 LAB L100.2100 47-70 % Normal NEUT% 60.3 LAB L100.2200 19-41 % Normal LY% 24.8 LAB L100.2300 0-10 % High MONO% 10.4 LAB L100.2400 0-5 % Normal EO% 3.8 LAB L100.2500 0-1 % Normal BASO% 0.4 LAB L100.2550 0.0-0.9 % Normal IM GRAN % 0.300 Result Comment: IG% - Immature Granulocytes (promyelocytes, myelocytes and metamyelocytes) > 1% indicates that a LEFT SHIFT is Present. LAB L100.2620 2.0-7.7 X10 3/uL Normal Absolute Neut 4.4 LAB L100.2720 0.83-4.51 X10 3/ul Normal Absolute Lymph 1.81 Performed By: #### L100.0100 #### [facility] [address] [place], [address] COMPREHENSIVE METABOLIC Collected: 08/16/2018 Status: F Source: [place] 11:55 AM [facility] REPOSITORY TYPE CODE TESTS RESULT OUT OF RANGE REFERENCE UNITS LAB L501.0100 74-106 mg/dL Normal GLU 98 Result Comment: Please note revised GLUCOSE reference range effective 2017. LAB L501.1000 7-18 mg/dL Normal BUN 10 LAB L501.1100 0.70-1.30 mg/dL Normal CREAT,SERUM 0.83 Result Comment: The validity of the calculated GFR AND GFRAA in patients over 70 years has not been determined. Clinical correlation is essential. LAB L501.1110 >60 mL/min Normal EST GFR 97 Result Comment: Non- GFR Calc LAB L501.1115 >60 mL/min Normal EST GFR - AA 117 Result Comment: GFR Calc LAB L501.1300 10-20 RATIO Normal BUN/CRE 12.1 LAB L501.1500 6.4-8.2 g/dL T Normal PROT 7.0 LAB L501.1800 3.2-5.0 g/dL Normal ALB 3.8 LAB L501.1950 2.2-4.2 g/dL Normal GLOB 3.2 LAB L501.2000 0.9-2.4 RATIO Normal A/G 1.2 LAB L501.2200 8.5-10.1 mg/dL CA Normal 9.5 LAB L501.4100 15-37 U/L Normal AST 24 LAB L501.4305 45-117 U/L Low ALK P 37 LAB L501.4405 16-61 U/L Normal ALT 38 LAB L501.4600 0.20-1.00 mg/dL T Normal BILI 0.50 LAB L501.5300 136-145 mmol/L NA Normal 141 LAB L501.5600 3.5-5.1 mmol/L K Normal 4.2 LAB L501.5900 98-107 mmol/L CL Normal 107 LAB L501.6100 21.0-32.0 mmol/L Normal CO2 30.0 LAB L501.6200 5-15 Low GAP 4 Performed By: #### L500.4050, L501.9520 #### [facility] [address] [place], [address] THYROID STIM HORMONE Collected: 08/16/2018 Status: F Source: [place] (TSH) 11:55 AM [facility] REPOSITORY TYPE CODE TESTS RESULT OUT OF RANGE REFERENCE UNITS LAB L501.9520 0.358-3.74 uIU/mL High TSH 3.88 Performed By: #### L500.4050, L501.9520 #### [facility] [address] [place], [address] VITAMIN D,25 HYDROXY Collected: 08/16/2018 Status: F Source: [place] 11:55 AM [facility] REPOSITORY TYPE CODE TESTS RESULT OUT OF RANGE REFERENCE UNITS LAB L506.1000 29.95-100.01 ng/mL Normal Vitamin D 39.9 25-OH Result Comment: Vitamin D 25(OH) Status Range Deficiency <20 ng/mL (50nmol/L) Insuffciency 20 - 30 ng/mL (50 - 75 nmol/L) Sufficiency 30 - 100 ng/mL (75 - 250 nmol/L) Toxicity >100 ng/mL (>250 nmol/L) Performed By: #### L506.1000 #### [facility] [address] [place], [address] CARDIOLOGY VISIT Observed: 07/28/2018 Status: F Source: [place] REPORT 4:08 PM [facility] REPOSITORY [place] [facility] [place] [address] OFFICE VISIT Date of Service: 07/28/18 MR#: [id number] Acct: [id number] Name: RICKIE LOBO Rep #: [id number] : 1945 Provider: Lamont Kaiser MD Age/Sex: 72/M [place] [facility] [place]: Signed HPI [facility] Chief Complaint: Follow-up visit. Details: RICKIE LOBO, is a 72 M who presents to the office today for a follow-up visit. He is a gentleman with a history of coronary artery disease status post non-ST elevation myocardial infarction in 1998 with subsequent stenting to his left anterior descending artery. He returns for follow-up visit he denies any chest pain shortness of breath or paroxysmal nocturnal dyspnea or pedal edema he tells me that he has been recently diagnosed with diabetes mellitus. From the cardiac standpoint however he continues to do well. He is also had some back issues. He has not had any neck arm or jaw discomfort suggest angina no dizziness or diaphoresis no near syncope or syncope. His physical exam today demonstrates clear lung pretty regular rate and rhythm and no pedal edema. Intake Vital Signs07/28/18 Height 5 ft 6 in 07/28/18 Weight: 214 lb 07/28/18 Body Mass Index (BMI) 34.5 07/28/18 Blood Pressure 126/72 H H 07/28/18 Blood Pressure Location Lt brachial Intake Visit Reasons: 1 Y FU [employer] Required: No Accompanied by: none Is patient in pain?: No Allergies No Known Allergies Allergy (Verified 07/28/18 15:59) Medications Aspirin E.C. [Ecotrin] 81 mg PO DAILY@0800 12/20/13 [History Confirmed 07/28/18] Multivitamins,Therapeutic [Multivitamin] 1 tab PO DAILY 12/20/13 [History Confirmed 07/28/18] Nitroglycerin [Nitrostat] 0.4 mg SUBLINGUAL Q5M PRN 12/20/13 [History Confirmed 07/28/18] lisinopril 20 mg tablet 20 mg PO BID #180 tab 09/22/17 [Rx Confirmed 07/28/18] Ascorbic Acid [Vitamin C] 500 mg PO DAILY@0800 11/30/17 [History Confirmed 11/30/17] Glucosam/MSM/Chondroit/Vit D3 [Sv Glucosamine Chondroitin Tab] 1 ea PO DAILY 11/30/17 [History Confirmed 07/28/18] atorvastatin 80 mg tablet 80 mg PO QHS #90 tab 03/07/18 [Rx Confirmed 07/28/18] metoprolol tartrate 100 mg tablet 100 mg PO BID #180 tab 07/18/18 [Rx Confirmed 07/28/18] metformin 1,000 mg tablet 1,000 mg PO BID 07/28/18 [History Confirmed 07/28/18] [facility] Medical History DDD (degenerative disc disease), lumbar (Chronic) Anterolisthesis (Chronic) High triglycerides (Chronic) Environmental allergies (Chronic) Arthritis (Acute) Asthma (Acute) Bilateral headaches (Acute) Diabetes (Acute) Heart disease (Acute) Heart murmur (Acute) High cholesterol (Chronic) Hypertension (Chronic) Surgical History History of ankle surgery (Resolved) History of heart artery stent (Resolved) Family History Mother CAD (coronary artery disease) Myocardial infarction Father No problems noted. Other Arthritis Heart disease Hypertension Social History Smoking Status: Former smoker alcohol intake: current alcohol intake frequency: holidays/special occasions only substance use type: does not use what type of physical activity do you participate in: none ROS Const Const: Negative for fatigue, weakness, night sweats, excessive sweating, frequent falls, headache(s) or daytime sleepiness Eyes Eyes: Negative for loss of peripheral vision, transient loss of vision, blind spots, double vision or blurry vision ENT ENT: Negative for headache(s), dizziness, balance problems, Nosebleed/epistaxis, tongue swelling or lip swelling Cardio Chest Pain: No Palpitations: No Edema: None Muscle aches with walking: None Resp Respiratory: Negative for SOB at rest, SOB orthopnea\SOB lying down, Cough, paroxysmal nocturnal dyspnea or SOB with activity GI GI: Negative nausea, vomiting, heartburn, black,tarry stools or bright, red blood in stools : Negative for hematuria Musc Musc: Negative for balance problems, muscle aches/ myalgia, muscle weakness or joint pain Skin Skin: Negative non-healing lesions, unusual bruising or rash Neuro Neuro: Negative for weakness, frequent falls, headache(s), double vision, dizziness, lightheadedness, orthostatic symptoms, blurry vision or lack of coordination Howard Hematologic/Lymphatic: Negative for easy bruising or easy bleeding Endo Endo: Negative for fatigue, excessive sweating, cold intolerance, heat intolerance, increased thirst/drinking or hair loss Psych Psych: Negative for anxiety or depression Allergy Allergy/Immunology: Negative for throat swelling, Negative for tongue swelling, Negative for hives, Negative for rash, Negative for lip swelling Cardiology Exam Const Appearance: cooperative, healthy appearing, well developed, well groomed and no acute distress Nutritional Appearance: well nourished and average body habitus Orientation: alert, awake and oriented x3 Head Head: normal to inspection, normocephalic and atraumatic Ears: hearing grossly normal bilaterally and external ears normal Nose: external nose normal, nasal mucous membranes and turbinates normal, nares normal, septum normal, no nasal discharge Face and Sinus: face symmetric Mouth: oral mucosae normal, tongue normal, oropharynx normal and moist mucous membranes Teeth and gingiva: dentition normal Throat: posterior oropharynx normal, tonsils normal and uvula midline Eyes General: appearance normal, both eyes and all related structures Eyelids: eyelids normal Conjunctivae: conjunctivae normal Pupils: PERRL, normal by confrontation and accommodation normal EOM: EOM intact bilaterally Neck Neck: normal visual inspection, trachea midline and no JVD JVD: +5 Carotids: normal carotid upstroke and bounding pulses Chest Chest inspection: normal inspection of the chest, symmetric chest movement and normal respiratory effort Auscultation: Bilateral: Clear to Auscultation Cardio Palpation: normal PMI Rate: regular rate Rhythm: regular rhythm Heart sounds: S1 normal, S2 normal and normal, physiologic split S2; negative rub, gallop or murmur GI GI: normal to inspection, soft, no hepatosplenomegaly and bowel sounds present Neuro General: alert, awake, oriented x3, no focal sensory deficit, gait normal and moves all extremities Skin Skin: no rashes or lesions noted Extremities Pulses: Normal: Right Femoral Pulse, Left Femoral Pulse, Right Dorsalis Pedis Pulse, Left Dorsalis Pedis Pulse, Right Posterior Tibial Pulse, Left Posterior Tibial Pulse, Right Radial Pulse, Left Radial Pulse Lower Extremity Edema: None: Bilateral Musculoskel Musculoskeletal: No joint tenderness Psych Psychological: normal affect Assessment AND Plan 1. History of heart artery stent Z95.5 PTCA and stenting of RCA 01/01/99 Plan He does have a history of coronary artery disease status post previous stenting he remains free of any angina and my plan is to continue the same without making any changes. He did undergo stress testing we did not demonstrate any evidence of ischemia. We will continue with medical therapy. 2. Hypertension I10 Plan His blood pressure appears to be under good control at this particular time. No changes in his medications will be made he will remain on his lisinopril as well as his beta-eda. 3. High triglycerides E78.1 Plan He does have a history of hyperlipidemia. His most recent lipid profile was excellent with a total cholesterol 101, HDL 41 and LDL 46. His triglycerides were 69. No changes will be made at this time. He has been encouraged to continue with his weight loss. 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) Coding Level of Care Code Off vis,est,level 3 Diagnoses History of heart artery stent Z95.5 Hypertension I10 High triglycerides E78.1 Coding Level of Care Code Off vis,est,level 3 Diagnoses History of heart artery stent Z95.5 Hypertension I10 High triglycerides E78.1 07/28/18 1608 <Electronically signed by Lamont Kaiser MD> Date Lamont Kaiser MD Cosigner Signature: Date (if applicable) CC: LIVER PROFILE Collected: 07/08/2018 Status: F Source: [place] 7:51 AM [facility] [place] REPOSITORY TYPE CODE TESTS RESULT OUT OF RANGE REFERENCE UNITS LAB L501.1500 6.4-8.2 g/dL Normal T PROT 6.9 LAB L501.1800 3.2-5.0 g/dL Normal ALB 3.7 LAB L501.1950 2.2-4.2 g/dL Normal GLOB 3.2 LAB L501.4100 15-37 U/L Normal AST 20 LAB L501.4305 45-117 U/L Low ALK P 37 LAB L501.4405 16-61 U/L Normal ALT 36 LAB L501.4600 0.20-1.00 mg/dL Normal T BILI 0.80 LAB L501.4700 0.00-0.30 mg/dL Normal D BILI 0.22 Performed By: #### L500.3400, L500.4100 #### [facility] [address] [place], [address] LIPID PROFILE Collected: 07/08/2018 Status: F Source: [place] 7:51 AM [facility] [place] REPOSITORY TYPE CODE TESTS RESULT OUT OF RANGE REFERENCE UNITS LAB L501.4900 200 mg/dL Normal CHOL 101 Result Comment: <200 mg/dL Desirable 200-240 mg/dL Borderline >240 mg/dL High Risk LAB L501.5000 mg/dL Normal TRIG 69 Result Comment: The drugs N-Acetylcysteine and Metamizole may falsely depress this assay. Serum Triglycerides Reference Interval Normal <150 mg/dL Borderline high 150 - 199 mg/dL High 200 - 499 mg/dL Very High > or = 500 mg/dL LAB L501.6400 mg/dL Normal HDL 41 Result Comment: The drugs N-Acetylcysteine and Metamizole may falsely depress this assay. Reference Range HDL <40 mg/dL Low HDL Cholesterol HDL >or= 60 mg/dL High HDL Cholesterol LAB L501.6500 0-130 mg/dL Normal LDL 46 LAB L501.6600 5-40 mg/dL Normal VLDL 14 Performed By: #### L500.3400, L500.4100 #### [facility] [address] [place], [address] CHIROPRACTIC REPORT Observed: 05/24/2018 Status: F Source: [place] 9:19 AM [facility] [place] REPOSITORY [facility] [address] [place] [id number] OFFICE VISIT Date of Service: 05/24/18 MR#: [id number] Acct: [id number] Name: RICKIE LOBO Rep #: [id number] : 1945 Provider: Mary Prieto D.C. Age/Sex: 72/M Location: [facility] [place] Status: Signed Intake Vital Signs05/24/18 Height 5 ft 6.5 in 05/24/18 Weight: 208 lb 05/24/18 Body Mass Index (BMI) 33.0 Intake Visit Reasons: back pain Chief Complaint: low back pain Is patient in pain?: Yes Allergies No Known Allergies Allergy (Verified 10/13/17 11:29) Medications Aspirin E.C. [Ecotrin] 81 mg PO DAILY@0800 12/20/13 [History Confirmed 11/30/17] Metoprolol Tartrate [Lopressor (Beta Eda)] 100 mg PO BID 12/20/13 [History Confirmed 11/30/17] Multivitamins,Therapeutic [Multivitamin] 1 tab PO DAILY 12/20/13 [History Confirmed 11/30/17] Nitroglycerin [Nitrostat] 0.4 mg SUBLINGUAL Q5M PRN 12/20/13 [History Confirmed 11/30/17] lisinopril 20 mg tablet 20 mg PO BID #180 tab 09/22/17 [Rx Confirmed 11/30/17] Ascorbic Acid [Vitamin C] 500 mg PO DAILY@0800 11/30/17 [History Confirmed 11/30/17] Docusate Sodium [Stool Softener] 100 mg PO DAILY 11/30/17 [History Confirmed 11/30/17] Glucosam/MSM/Chondroit/Vit D3 [Sv Glucosamine Chondroitin Tab] 1 ea PO DAILY 11/30/17 [History Confirmed 11/30/17] Hydrocodone Bitart/Apap 5-325 [[place] 5/325] 1 - 2 tab PO Q4H PRN PRN 3 Days #20 tab 11/30/17 [Rx] Naproxen Sodium [Aleve] 220 mg PO DAILY 11/30/17 [History Confirmed 11/30/17] Naproxen [Naprosyn] 500 mg PO BID PRN #20 tab 11/30/17 [Rx] atorvastatin 80 mg tablet 80 mg PO QHS #90 tab 03/07/18 [Rx] PFSH Medical History Anterolisthesis (Chronic) Arthritis (Acute) Asthma (Acute) Bilateral headaches (Acute) Diabetes (Acute) Environmental allergies (Acute) Heart disease (Acute) Heart murmur (Acute) High cholesterol (Acute) High triglycerides (Acute) History of heart artery stent (Acute) Hypertension (Chronic) Family History Other Arthritis Heart disease Hypertension Social History Smoking Status: Former smoker alcohol intake: current alcohol intake frequency: holidays/special occasions only substance use type: does not use what type of physical activity do you participate in: none HPI back pain : Chief Complaint: low back pain Visit Number: 6 Details: RICKIE LOBO is a 72 year old M who presents with increased low back pain. He states that after the ultrasound therapy he is getting some relief for roughly 3 hours until the pain returns. Every day living causes increased pain, specifically walking and mowing (after he gets of the mower). The pain is still radiating into the thighs and lower legs with numbness and tingling. Currently Rickie rates his pain a 6/10 and describes it as a sharp shooting that bands across the low back, and into the legs. Location: low back Duration: constant Aggravating or associated factors: every day living Relieving factors: sitting, mowing Pain Quality: aching, dull, burning, cramping, sharp, radiating Exam Musc General: Yes joint tenderness (T10, T11, L3, L4, L5, B SI); no normal posture (R tilt, flexed antalgia when acute) or normal gait (uses a cane when acute) Thoracic/Lumbar Spine: thor and lumb spine abnorm to inspection (Right tilt), pain with thoraco-lumbar ROM with forward flexion, with lateral flexion to the right, with lateral flexion to the left, with rotation to the right, with rotation to the left and other (extension), thoraco-lumbar ROM limited (lumbar extension) with lateral flexion to the right and with lateral flexion to the left, negative Lasegue's sign, paraspinal tenderness bilaterally in the lower lumbar, in the mid lumbar, in the upper lumbar and in the lower thoracic, thoraco-lumbar spasm bilaterally in the lower thoracic, in the upper lumbar, in the lower lumbar and in the mid lumbar Sacroiliac joints: bilaterally tender to palpation Office Procedures Chiropractic Treatments Procedures Therapeutic Ultrasound, 1 or more areas; ea 15 mins: 15 mins (Thorcic and lumbar ) Assessment AND Plan 1. Anterolisthesis M43.10 L4 on L5 Orders Orders: 2. Segmental and somatic dysfunction of pelvic region M99.05 Orders Orders: 3. Segmental and somatic dysfunction of lumbar region M99.03 Orders Orders: 4. Segmental and somatic dysfunction of thoracic region M99.02 Orders Orders: 5. DDD (degenerative disc disease), lumbar M51.36 Plan Reviewed lumbar MRI. It revealed DDD, anterolisthesis of L4 on L5, disc bulges, Modic Change Type 2, and stenosis. Patient has an injection scheduled for 05/26/18. I provided Rickie with a physical therapy referral to begin after his injection. Should pain continue, refer to neurosurgeon. Plan Detail Goals Decrease pain and inflammation Increase ability to sleep Barriers Anterolisthesis Degenerative changes Follow Up Release from care. Transition to PT Coding Level of Care Code Prob focused, straight fwd Diagnoses Anterolisthesis M43.10 Segmental and somatic dysfunction of pelvic region M99.05 Segmental and somatic dysfunction of lumbar region M99.03 Segmental and somatic dysfunction of thoracic region M99.02 DDD (degenerative disc disease), lumbar M51.36 Additional Codes Procedures - Therapeutic Ultrasound, 1 or more areas; ea 15 mins: 15 mins ([id number]) 05/24/18918 <Electronically signed by Mary rPieto D.C.> Date Mary Prieto D.C. Cosigner Signature: Date (if applicable) CC: SPINE LUMBAR Observed: 05/20/2018 Status: F Source: [place] (ROUTINE) 12:59 PM [facility] [place] REPOSITORY [facility] Imaging Services [address] [place] [id number] Spine Lumbar (Routine) MR#: [id number] Acct: [id number] Name: RICKIE LOBO Rep #: [id number] : 1945 M 72 From: Marie Harmon MD PCP: Karel JIMENEZ,Gustavo Babb Status: REG CLI Study: Spine Lumbar (Routine) Date of Exam: 05/20/18 Exam# [id number] Ordering Dr: Gustavo Vinson MD STUDY: MRI LUMBAR SPINE WITHOUT CONTRAST REASON FOR EXAM: Male, 72 years old. LBP, BILAT leg and butt pain (LTgt;R), fall Oct 2017 Tamp; lifting injury February 2018 TECHNIQUE: Standardized fat and water weighted pulse sequences were obtained in the sagittal and axial planes. COMPARISON: None FINDINGS: There is an exaggerated lumbar lordosis. There is no substantial scoliosis. Normal conus medullaris that terminates at the L1 level. There is grade 1-2 anterolisthesis at L4-5. There is retrolisthesis at L2-3. There is loss of disc height at L2-3 through L5-S1. Vertebral body heights are maintained. There are Modic type II changes at T12-L1. There is prominence of posterior epidural fat at the L3-4 and L4-5 levels. There is multilevel facet arthropathy and ligamentum flavum hypertrophy. This is severe at L4-5. T12/L1: Sagittal images only were obtained. There is a diffuse bulge. There is impression on the ventral thecal sac and mild right without left neuroforaminal stenosis. L1/2: There is a diffuse bulge slightly larger on the left. There is impression on the ventral thecal sac and moderate to severe right and moderate left neuroforaminal stenosis. L2/3: There is a diffuse bulge slightly larger on the left and a moderate-sized left paracentral protrusion. There is severe central canal stenosis and severe left and moderate right neuroforaminal stenosis. L3/4: There is a diffuse bulge. There is moderate central canal stenosis and severe right and moderate left neuroforaminal stenosis. L4/5: There is anterolisthesis. No disc bulge or herniation. There is moderate central canal stenosis and moderate right and mild left neuroforaminal stenosis. L5/S1: There is a diffuse bulge slightly larger on the left. There is no central canal stenosis. There is moderate left and mild right neuroforaminal stenosis. Normal visualized sacral ala. Normal visualized paraspinous soft tissue structures. MRI/Spine Lumbar (Routine) IMPRESSION: Multilevel degenerative changes, as described above. There is an exaggerated lumbar lordosis. L1/2: There is a diffuse bulge slightly larger on the left. There is moderate to severe right and moderate left neuroforaminal stenosis. L2/3: There is a diffuse bulge slightly larger on the left and a moderate-sized left paracentral protrusion. There is severe central canal stenosis and severe left and moderate right neuroforaminal stenosis. L3/4: There is a diffuse bulge. There is moderate central canal stenosis and severe right and moderate left neuroforaminal stenosis. L4/5: There is anterolisthesis. There is moderate central canal stenosis and moderate right neuroforaminal stenosis. L5/S1: There is a diffuse bulge slightly larger on the left. There is moderate left neuroforaminal stenosis. Electronically Signed: Marie Harmon MD at 14:48 EDT , Service support , CC: Gustavo Vinson MD Material Handler: Signed CHIROPRACTIC REPORT Observed: 05/19/2018 Status: F Source: [place] 10:41 AM [facility] [address] [place] [address] OFFICE VISIT Date of Service: 05/19/18 MR#: [id number] Acct: [id number] Name: RICKIE LOBO Rep #: [id number] : 1945 Provider: Mary Prieto D.C. Age/Sex: 72/M [place] [facility] [place] [facility] Status: Signed Intake Vital Signs05/19/18 Height 5 ft 6.5 in 05/19/18 Weight: 208 lb 05/19/18 Body Mass Index (BMI) 33.0 Intake Visit Reasons: back pain Chief Complaint: low back pain Is patient in pain?: Yes Allergies No Known Allergies Allergy (Verified 10/13/17 11:29) Medications Aspirin E.C. [Ecotrin] 81 mg PO DAILY@0800 12/20/13 [History Confirmed 11/30/17] Metoprolol Tartrate [Lopressor (Beta Eda)] 100 mg PO BID 12/20/13 [History Confirmed 11/30/17] Multivitamins,Therapeutic [Multivitamin] 1 tab PO DAILY 12/20/13 [History Confirmed 11/30/17] Nitroglycerin [Nitrostat] 0.4 mg SUBLINGUAL Q5M PRN 12/20/13 [History Confirmed 11/30/17] lisinopril 20 mg tablet 20 mg PO BID #180 tab 09/22/17 [Rx Confirmed 11/30/17] Ascorbic Acid [Vitamin C] 500 mg PO DAILY@0800 11/30/17 [History Confirmed 11/30/17] Docusate Sodium [Stool Softener] 100 mg PO DAILY 11/30/17 [History Confirmed 11/30/17] Glucosam/MSM/Chondroit/Vit D3 [Sv Glucosamine Chondroitin Tab] 1 ea PO DAILY 11/30/17 [History Confirmed 11/30/17] Hydrocodone Bitart/Apap 5-325 [[place] 5/325] 1 - 2 tab PO Q4H PRN PRN 3 Days #20 tab 11/30/17 [Rx] Naproxen Sodium [Aleve] 220 mg PO DAILY 11/30/17 [History Confirmed 11/30/17] Naproxen [Naprosyn] 500 mg PO BID PRN #20 tab 11/30/17 [Rx] atorvastatin 80 mg tablet 80 mg PO QHS #90 tab 03/07/18 [Rx] PFSH Medical History Anterolisthesis (Chronic) Arthritis (Acute) Asthma (Acute) Bilateral headaches (Acute) Diabetes (Acute) Environmental allergies (Acute) Heart disease (Acute) Heart murmur (Acute) High cholesterol (Acute) High triglycerides (Acute) History of heart artery stent (Acute) Hypertension (Chronic) Family History Other Arthritis Heart disease Hypertension Social History Smoking Status: Former smoker alcohol intake: current alcohol intake frequency: holidays/special occasions only substance use type: does not use what type of physical activity do you participate in: none HPI back pain : Chief Complaint: Low back pain Visit Number: 5 Details: RICKIE LOBO is a 72 year old M who presents with persistent low back pain. He states that after his last treatment his pain increased while walking out of the office, although later in the day his pain did subside for roughly one hour. Today Rickie rates his pain a 6/10 and describes it as a deep and tight sharp shooting pain, that still radiates into the legs. Walking, bending, lifting, and twisting all cause increased pain. He is awaiting a lumbar MRI that is to be performed on 05/21/18. Location: low back Duration: constant Aggravating or associated factors: every day living Relieving factors: none Pain Quality: aching, dull, cramping, sharp, radiating Exam Musc General: Yes joint tenderness (T10, T11, L3, L4, L5, B SI); no normal posture (R tilt, flexed antalgia when acute) or normal gait (uses a cane when acute) Thoracic/Lumbar Spine: thor and lumb spine abnorm to inspection (Right tilt), pain with thoraco-lumbar ROM with forward flexion, with lateral flexion to the right, with lateral flexion to the left, with rotation to the right, with rotation to the left and other (extension), thoraco-lumbar ROM limited (lumbar extension) with lateral flexion to the right and with lateral flexion to the left, negative Lasegue's sign, paraspinal tenderness bilaterally in the lower lumbar, in the mid lumbar, in the upper lumbar and in the lower thoracic, thoraco-lumbar spasm bilaterally in the lower thoracic, in the upper lumbar, in the lower lumbar and in the mid lumbar Sacroiliac joints: bilaterally tender to palpation Office Procedures Chiropractic Treatments Procedures Therapeutic Ultrasound, 1 or more areas; ea 15 mins: 15 mins (lumbar ) Assessment AND Plan 1. Anterolisthesis M43.10 L4 on L5 Orders Orders: 2. Segmental and somatic dysfunction of pelvic region M99.05 Orders Orders: 3. Segmental and somatic dysfunction of lumbar region M99.03 Orders Orders: 4. Segmental and somatic dysfunction of thoracic region M99.02 Orders Orders: Plan Detail Additional Comments Review MRI findings on NPV. Goals Decrease pain and inflammation Increase ability to sleep Barriers Anterolisthesis Degenerative changes Follow Up 1x/wk Coding Level of Care Code No Charge Diagnoses Anterolisthesis M43.10 Segmental and somatic dysfunction of pelvic region M99.05 Segmental and somatic dysfunction of lumbar region M99.03 Segmental and somatic dysfunction of thoracic region M99.02 Additional Codes Procedures - Therapeutic Ultrasound, 1 or more areas; ea 15 mins: 15 mins ([id number]) 05/19/18 1041 <Electronically signed by Mary Prieto D.C.> Date Mary Prieto D.C. Cosigner Signature: Date (if applicable) CC: CHIROPRACTIC REPORT Observed: 05/18/2018 Status: F Source: [place] 9:[address] [facility] [facility] [address] [place] [address] OFFICE VISIT Date of Service: 05/17/18 MR#: [id number] Acct: [id number] Name: RICKIE LOBO Rep #: [id number] : 1945 Provider: Mary Prieto D.C. Age/Sex: 72/M Location: [facility] [place] Status: Signed Intake Vital Signs05/17/18 Height 5 ft 6.5 in 05/17/18 Weight: 208 lb 05/17/18 Body Mass Index (BMI) 33.0 Intake Visit Reasons: back pain Chief Complaint: low back pain Is patient in pain?: Yes Allergies No Known Allergies Allergy (Verified 10/13/17 11:29) Medications Aspirin E.C. [Ecotrin] 81 mg PO DAILY@0800 12/20/13 [History Confirmed 11/30/17] Metoprolol Tartrate [Lopressor (Beta Ead)] 100 mg PO BID 12/20/13 [History Confirmed 11/30/17] Multivitamins,Therapeutic [Multivitamin] 1 tab PO DAILY 12/20/13 [History Confirmed 11/30/17] Nitroglycerin [Nitrostat] 0.4 mg SUBLINGUAL Q5M PRN 12/20/13 [History Confirmed 11/30/17] lisinopril 20 mg tablet 20 mg PO BID #180 tab 09/22/17 [Rx Confirmed 11/30/17] Ascorbic Acid [Vitamin C] 500 mg PO DAILY@0800 11/30/17 [History Confirmed 11/30/17] Docusate Sodium [Stool Softener] 100 mg PO DAILY 11/30/17 [History Confirmed 11/30/17] Glucosam/MSM/Chondroit/Vit D3 [Sv Glucosamine Chondroitin Tab] 1 ea PO DAILY 11/30/17 [History Confirmed 11/30/17] Hydrocodone Bitart/Apap 5-325 [[place] 5/325] 1 - 2 tab PO Q4H PRN PRN 3 Days #20 tab 11/30/17 [Rx] Naproxen Sodium [Aleve] 220 mg PO DAILY 11/30/17 [History Confirmed 11/30/17] Naproxen [Naprosyn] 500 mg PO BID PRN #20 tab 11/30/17 [Rx] atorvastatin 80 mg tablet 80 mg PO QHS #90 tab 03/07/18 [Rx] PFSH Medical History Anterolisthesis (Chronic) Arthritis (Acute) Asthma (Acute) Bilateral headaches (Acute) Diabetes (Acute) Environmental allergies (Acute) Heart disease (Acute) Heart murmur (Acute) High cholesterol (Acute) High triglycerides (Acute) History of heart artery stent (Acute) Hypertension (Chronic) Family History Other Arthritis Heart disease Hypertension Social History Smoking Status: Former smoker alcohol intake: current alcohol intake frequency: holidays/special occasions only substance use type: does not use what type of physical activity do you participate in: none HPI back pain : Chief Complaint: Low back pain Visit Number: 4 Details: RICKIE LOBO is a 72 year old M who presents with low back pain. He states his pain has stayed consistent, and may have slightly increased. Today Rickie rates his pain a 6/10 and describes it as a tight, deep and sharp ache that across the entire low back. Walking and standing causing a sharp and increasing pain, he is walking with a very abnormal gait, leaning forward, and with a shuffle. He ambulates using a cane currently. The patient denies any numbness or tingling, although the pain is still radiating into both legs. Location: low back Duration: constant Aggravating or associated factors: walking and standing Relieving factors: chiro Pain Quality: aching, dull, cramping, sharp, radiating Exam Musc General: Yes joint tenderness (T10, T11, L3, L4, L5, B SI); no normal posture (R tilt, flexed antalgia when acute) or normal gait (uses a cane when acute) Thoracic/Lumbar Spine: thor and lumb spine abnorm to inspection (Right tilt), pain with thoraco-lumbar ROM with forward flexion, with lateral flexion to the right, with lateral flexion to the left, with rotation to the right, with rotation to the left and other (extension), thoraco-lumbar ROM limited (lumbar extension) with lateral flexion to the right and with lateral flexion to the left, negative Lasegue's sign, paraspinal tenderness bilaterally in the lower lumbar, in the mid lumbar, in the upper lumbar and in the lower thoracic, thoraco-lumbar spasm bilaterally in the lower thoracic, in the upper lumbar, in the lower lumbar and in the mid lumbar Sacroiliac joints: bilaterally tender to palpation Office Procedures Chiropractic Treatments Procedures Manipulation: 3-4 regions (T10, L3, L5, LIL) Electrical Stimulation: 15 mins (lumbar ) Therapeutic Ultrasound, 1 or more areas; ea 15 mins: 15 mins (lumbar ) Assessment AND Plan 1. Anterolisthesis M43.10 L4 on L5 Orders Orders: 2. Segmental and somatic dysfunction of pelvic region M99.05 Orders Orders: 3. Segmental and somatic dysfunction of lumbar region M99.03 Orders Orders: 4. Segmental and somatic dysfunction of thoracic region M99.02 Orders Orders: Plan Detail Additional Comments Patient is awaiting an injection next week. Recommend lumbar MRI as well. Goals Decrease pain and inflammation Increase ability to sleep Barriers Anterolisthesis Degenerative changes Follow Up 2 x week Coding Level of Care Code No Charge Diagnoses Anterolisthesis M43.10 Segmental and somatic dysfunction of pelvic region M99.05 Segmental and somatic dysfunction of lumbar region M99.03 Segmental and somatic dysfunction of thoracic region M99.02 Additional Codes Procedures - Manipulation: 3-4 regions (76651) Procedures - Electrical Stimulation: 15 mins (38306) Procedures - Therapeutic Ultrasound, 1 or more areas; ea 15 mins: 15 mins (89712) 05/18/18 0957 <Electronically signed by Mary Prieto D.C.> Date Mary Prieto D.C. Cosigner Signature: Date (if applicable) CC: CHIROPRACTIC REPORT Observed: 05/16/2018 Status: F Source: [place] 10:40 AM [facility] [address] [place] [id number] OFFICE VISIT Date of Service: 05/12/18 MR#: [id number] Acct: [id number] Name: RICKIE LOBO Rep #: [id number] : 1945 Provider: Mary Prieto D.C. Age/Sex: 72/M Location: [facility] Status: Signed Intake Intake Visit Reasons: back pain Chief Complaint: low back pain Is patient in pain?: Yes Allergies No Known Allergies Allergy (Verified 10/13/17 11:29) Medications Aspirin E.C. [Ecotrin] 81 mg PO DAILY@0800 12/20/13 [History Confirmed 11/30/17] Metoprolol Tartrate [Lopressor (Beta Eda)] 100 mg PO BID 12/20/13 [History Confirmed 11/30/17] Multivitamins,Therapeutic [Multivitamin] 1 tab PO DAILY 12/20/13 [History Confirmed 11/30/17] Nitroglycerin [Nitrostat] 0.4 mg SUBLINGUAL Q5M PRN 12/20/13 [History Confirmed 11/30/17] lisinopril 20 mg tablet 20 mg PO BID #180 tab 09/22/17 [Rx Confirmed 11/30/17] Ascorbic Acid [Vitamin C] 500 mg PO DAILY@0800 11/30/17 [History Confirmed 11/30/17] Docusate Sodium [Stool Softener] 100 mg PO DAILY 11/30/17 [History Confirmed 11/30/17] Glucosam/MSM/Chondroit/Vit D3 [Sv Glucosamine Chondroitin Tab] 1 ea PO DAILY 11/30/17 [History Confirmed 11/30/17] Hydrocodone Bitart/Apap 5-325 [[place] 5/325] 1 - 2 tab PO Q4H PRN PRN 3 Days #20 tab 11/30/17 [Rx] Naproxen Sodium [Aleve] 220 mg PO DAILY 11/30/17 [History Confirmed 11/30/17] Naproxen [Naprosyn] 500 mg PO BID PRN #20 tab 11/30/17 [Rx] atorvastatin 80 mg tablet 80 mg PO QHS #90 tab 03/07/18 [Rx] PFSH Medical History Anterolisthesis (Chronic) Arthritis (Acute) Asthma (Acute) Bilateral headaches (Acute) Diabetes (Acute) Environmental allergies (Acute) Heart disease (Acute) Heart murmur (Acute) High cholesterol (Acute) High triglycerides (Acute) History of heart artery stent (Acute) Hypertension (Chronic) Family History Other Arthritis Heart disease Hypertension Social History Smoking Status: Former smoker alcohol intake: current alcohol intake frequency: holidays/special occasions only substance use type: does not use what type of physical activity do you participate in: none HPI back pain : Chief Complaint: low back pain Visit Number: 3 Details: RICKIE LOBO is a 72 year old M who presents with increased low back pain. He states that daily his low back pain is increasing, causing a sharp and shooting pain to band across the low back. Rickie is walking with a cane due to the pain, causing the legs to be weak. Today the pain is rated a 7/10 and describes it as as sharp and shooting throb that bands across the low back and radiates into both legs. There is presence of numbness and tingling. Location: low back pain Duration: constant Aggravating or associated factors: walking, bending and prolonged sitting Relieving factors: chiro Pain Quality: aching, dull, sharp Exam Musc General: Yes joint tenderness (T10, T11, L3, L4, L5, B SI); no normal posture (R tilt, flexed antalgia when acute) or normal gait (uses a cane when acute) Thoracic/Lumbar Spine: thor and lumb spine abnorm to inspection (Right tilt), pain with thoraco-lumbar ROM with forward flexion, with lateral flexion to the right, with lateral flexion to the left, with rotation to the right, with rotation to the left and other (extension), thoraco-lumbar ROM limited (lumbar extension) with lateral flexion to the right and with lateral flexion to the left, negative Lasegue's sign, paraspinal tenderness bilaterally in the lower lumbar, in the mid lumbar, in the upper lumbar and in the lower thoracic, thoraco-lumbar spasm bilaterally in the lower thoracic, in the upper lumbar, in the lower lumbar and in the mid lumbar Sacroiliac joints: bilaterally tender to palpation Office Procedures Chiropractic Treatments Procedures Manipulation: 3-4 regions (T10, L3, L4, RIL) Assessment AND Plan Problems 1. Anterolisthesis M43.10 L4 on L5 2. Segmental and somatic dysfunction of pelvic region M99.05 3. Segmental and somatic dysfunction of lumbar region M99.03 4. Segmental and somatic dysfunction of thoracic region M99.02 Plan Referred for pain management. Reviewed knee-chest exercises. Orders Orders: Plan Detail Goals Decrease pain and inflammation Increase ability to sleep Barriers Anterolisthesis Degenerative changes Follow Up 2 x week Coding Level of Care Code No Charge Diagnoses Anterolisthesis M43.10 Segmental and somatic dysfunction of pelvic region M99.05 Segmental and somatic dysfunction of lumbar region M99.03 Segmental and somatic dysfunction of thoracic region M99.02 Additional Codes Procedures - Manipulation: 3-4 regions (24484) 05/16/18 1040 <Electronically signed by Mary Prieto D.C.> Date Mary Prieto D.C. Cosigner Signature: Date (if applicable) CC: CBC W/DIFF, AUTOMATED Collected: 05/10/2018 Status: F Source: [place] 1:47 PM [facility] REPOSITORY TYPE CODE TESTS RESULT OUT OF RANGE REFERENCE UNITS LAB L100.1000 4.4-11.0 K/mm3 Normal WBC 7.5 LAB L100.1200 4.6-6.2 M/mm3 Normal RBC 4.77 LAB L100.1300 13.0-16.5 g/dl Normal HGB 14.7 LAB L100.1400 40-54 % Normal HCT 43.9 LAB L100.1500 80-94 fL Normal MCV 92.0 LAB L100.1600 27.0-32.0 pg Normal MCH 30.8 LAB L100.1700 32-36 g/gl Normal MCHC 33.5 LAB L100.1810 11.6-14.6 % Normal RDW CV 13.7 LAB L100.1820 35.1-43.9 fl High RDW SD 45.1 LAB L100.1900 150-450 K/mm3 Normal PLT 231 LAB L100.2000 6.2-12.0 fl Normal MPV 9.8 LAB L100.2100 47-70 % Normal NEUT% 64.5 LAB L100.2200 19-41 % Normal LY% 22.9 LAB L100.2300 0-10 % Normal MONO% 10.0 LAB L100.2400 0-5 % Normal EO% 2.0 LAB L100.2500 0-1 % Normal BASO% 0.3 LAB L100.2550 0.0-0.9 % Normal IM GRAN % 0.300 Result Comment: IG% - Immature Granulocytes (promyelocytes, myelocytes and metamyelocytes) > 1% indicates that a LEFT SHIFT is Present. LAB L100.2620 2.0-7.7 X10 3/uL Normal Absolute Neut 4.8 LAB L100.2720 0.83-4.51 X10 3/ul Normal Absolute Lymph 1.71 Performed By: #### L100.0100 #### [facility] [address] [place], [address] COMPREHENSIVE METABOLIC Collected: 05/10/2018 Status: F Source: [facility] 1:47 PM [facility] REPOSITORY TYPE CODE TESTS RESULT OUT OF RANGE REFERENCE UNITS LAB L501.0100 74-106 mg/dL High GLU 157 Result Comment: Fasting Glucose result greater than or equal to 126 mg/dL suggests DIABETES MELLITUS per A.D.A. criteria. Please note revised GLUCOSE reference range effective 2017. LAB L501.1000 7-18 mg/dL Normal BUN 17 LAB L501.1100 0.70-1.30 mg/dL Normal CREAT,SERUM 0.89 Result Comment: The validity of the calculated GFR AND GFRAA in patients over 70 years has not been determined. Clinical correlation is essential. LAB L501.1110 >60 mL/min Normal EST GFR 89 Result Comment: Non- GFR Calc LAB L501.1115 >60 mL/min Normal EST GFR - AA 108 Result Comment: GFR Calc LAB L501.1300 10-20 RATIO Normal BUN/CRE 19.1 LAB L501.1500 6.4-8.2 g/dL T Normal PROT 6.7 LAB L501.1800 3.2-5.0 g/dL Normal ALB 3.5 LAB L501.1950 2.2-4.2 g/dL Normal GLOB 3.2 LAB L501.2000 0.9-2.4 RATIO Normal A/G 1.1 LAB L501.2200 8.5-10.1 mg/dL CA Normal 9.7 LAB L501.4100 15-37 U/L Normal AST 18 LAB L501.4305 45-117 U/L Low ALK P 36 LAB L501.4405 16-61 U/L Normal ALT 33 LAB L501.4600 0.20-1.00 mg/dL T Normal BILI 0.50 LAB L501.5300 136-145 mmol/L High NA 146 LAB L501.5600 3.5-5.1 mmol/L K Normal 4.1 LAB L501.5900 98-107 mmol/L High CL 110 LAB L501.6100 21.0-32.0 mmol/L Normal CO2 25.0 LAB L501.6200 5-15 Normal GAP 11 Performed By: #### L500.4050, L501.9520 #### [facility] [address] [place], [place], [address] THYROID STIM HORMONE Collected: 05/10/2018 Status: F Source: [facility] ([facility]) 1:47 PM [facility] REPOSITORY TYPE CODE TESTS RESULT OUT OF RANGE REFERENCE UNITS LAB L501.9520 0.358-3.74 uIU/mL Normal TSH 3.05 Performed By: #### L500.4050, L501.9520 #### [facility] [address] [place], [address] VITAMIN D,25 HYDROXY Collected: 05/10/2018 Status: F Source: [place] 1:47 PM [facility] REPOSITORY TYPE CODE TESTS RESULT OUT OF RANGE REFERENCE UNITS LAB L506.1000 29.95-100.01 ng/mL Normal Vitamin D 45.0 25-OH Result Comment: Vitamin D 25(OH) Status Range Deficiency <20 ng/mL (50nmol/L) Insuffciency 20 - 30 ng/mL (50 - 75 nmol/L) Sufficiency 30 - 100 ng/mL (75 - 250 nmol/L) Toxicity >100 ng/mL (>250 nmol/L) Performed By: #### L506.1000 #### [facility] [place], [address] CHIROPRACTIC REPORT Observed: 05/10/2018 Status: F Source: [place] 8:43 AM [facility] REPOSITORY [facility] [address] [place] [address] OFFICE VISIT Date of Service: 05/10/18 MR#: [id number] Acct: [id number] Name: JOSE LUISMADAYRICKIE Rep #: [id number] : 1945 Provider: Mray Prieto D.C. Age/Sex: 72/M Location: [facility] Status: Signed Intake Vital Signs05/10/18 Height 5 ft 6.5 in 05/10/18 Weight: 198 lb 05/10/18 Body Mass Index (BMI) 31.4 Intake Visit Reasons: back pain Chief Complaint: low back pain Is patient in pain?: Yes Allergies No Known Allergies Allergy (Verified 10/13/17 11:29) Medications Aspirin E.C. [Ecotrin] 81 mg PO DAILY@0800 12/20/13 [History Confirmed 11/30/17] Metoprolol Tartrate [Lopressor (Beta Eda)] 100 mg PO BID 12/20/13 [History Confirmed 11/30/17] Multivitamins,Therapeutic [Multivitamin] 1 tab PO DAILY 12/20/13 [History Confirmed 11/30/17] Nitroglycerin [Nitrostat] 0.4 mg SUBLINGUAL Q5M PRN 12/20/13 [History Confirmed 11/30/17] lisinopril 20 mg tablet 20 mg PO BID #180 tab 09/22/17 [Rx Confirmed 11/30/17] Ascorbic Acid [Vitamin C] 500 mg PO DAILY@0800 11/30/17 [History Confirmed 11/30/17] Docusate Sodium [Stool Softener] 100 mg PO DAILY 11/30/17 [History Confirmed 11/30/17] Glucosam/MSM/Chondroit/Vit D3 [Sv Glucosamine Chondroitin Tab] 1 ea PO DAILY 11/30/17 [History Confirmed 11/30/17] Hydrocodone Bitart/Apap 5-325 [[place] 5/325] 1 - 2 tab PO Q4H PRN PRN 3 Days #20 tab 11/30/17 [Rx] Naproxen Sodium [Aleve] 220 mg PO DAILY 11/30/17 [History Confirmed 11/30/17] Naproxen [Naprosyn] 500 mg PO BID PRN #20 tab 11/30/17 [Rx] atorvastatin 80 mg tablet 80 mg PO QHS #90 tab 03/07/18 [Rx] PFSH Medical History Anterolisthesis (Chronic) Arthritis (Acute) Asthma (Acute) Bilateral headaches (Acute) Diabetes (Acute) Environmental allergies (Acute) Heart disease (Acute) Heart murmur (Acute) High cholesterol (Acute) High triglycerides (Acute) History of heart artery stent (Acute) Hypertension (Chronic) Family History Other Arthritis Heart disease Hypertension Social History Smoking Status: Former smoker alcohol intake: current alcohol intake frequency: holidays/special occasions only substance use type: does not use what type of physical activity do you participate in: none HPI back pain : Chief Complaint: low back pain Visit Number: 2 Details: RICKIE LOBO is a 72 year old M who presents with low back pain. He states that over the weekend he did mow, causing him to sit for roughly six hours. While sitting on the mower the pain was minimal, although when standing up the pain was severe and intense. Since Wednesday his pain has increased, he is unable to walk without a cane. Today Rickie rates his pain a 6/10 and describes it as a tight and sharp ache that bands across the low back and radiates into the buttock and legs (left sided). He denies any numbness or tingling, although bending, lifting, twisting, leaning and walking all cause increased pain. Onset: 05/08/18 Location: low back Duration: constant Aggravating or associated factors: walking, sitting, mowing Relieving factors: laying down Pain Quality: aching, cramping, sharp, radiating, dull Exam Musc General: Yes joint tenderness (T10, T11, L3, L4, L5, B SI); no normal posture (R tilt, flexed antalgia when acute) or normal gait (uses a cane when acute) Thoracic/Lumbar Spine: thor and lumb spine abnorm to inspection (Right tilt), pain with thoraco-lumbar ROM with forward flexion, with lateral flexion to the right, with lateral flexion to the left, with rotation to the right, with rotation to the left and other (extension), thoraco-lumbar ROM limited (lumbar extension) with lateral flexion to the right and with lateral flexion to the left, negative Lasegue's sign, paraspinal tenderness bilaterally in the lower lumbar, in the mid lumbar, in the upper lumbar and in the lower thoracic, thoraco-lumbar spasm bilaterally in the lower thoracic, in the upper lumbar, in the lower lumbar and in the mid lumbar Sacroiliac joints: bilaterally tender to palpation Office Procedures Chiropractic Treatments Procedures Manipulation: 3-4 regions (T10, L3, L5, LIL) Assessment AND Plan 1. Anterolisthesis M43.10 L4 on L5 Orders Orders: 2. Segmental and somatic dysfunction of pelvic region M99.05 Orders Orders: 3. Segmental and somatic dysfunction of lumbar region M99.03 Orders Orders: 4. Segmental and somatic dysfunction of thoracic region M99.02 Orders Orders: Plan Detail Additional Comments Discussed a lumbar brace. Patient will follow up with Dr. Vinson for meds. Goals Decrease pain and inflammation Increase ability to sleep Barriers Anterolisthesis Degenerative changes Follow Up 2 x week Coding Level of Care Code No Charge Diagnoses Anterolisthesis M43.10 Segmental and somatic dysfunction of pelvic region M99.05 Segmental and somatic dysfunction of lumbar region M99.03 Segmental and somatic dysfunction of thoracic region M99.02 Additional Codes Procedures - Manipulation: 3-4 regions (89855) 05/10/18 0843 <Electronically signed by Mary Prieto D.C.> Date Mary Prieto D.C. Cosigner Signature: Date (if applicable) CC: CHIROPRACTIC REPORT Observed: 05/05/2018 Status: Gwendolyn Source: [place] 5:02 PM [facility] [address] [place] [address] OFFICE VISIT Date of Service: 04/28/18 MR#: [id number] Acct: [id number] Name: RICKIE LOBO Rep #: [id number] : 1945 Provider: Mary Prieto D.C. Age/Sex: 72/M Location: [facility] Status: Signed Intake Intake Visit Reasons: back pain Chief Complaint: low back pain Allergies No Known Allergies Allergy (Verified 10/13/17 11:29) Medications Aspirin E.C. [Ecotrin] 81 mg PO DAILY@0800 12/20/13 [History Confirmed 11/30/17] Metoprolol Tartrate [Lopressor (Beta Eda)] 100 mg PO BID 12/20/13 [History Confirmed 11/30/17] Multivitamins,Therapeutic [Multivitamin] 1 tab PO DAILY 12/20/13 [History Confirmed 11/30/17] Nitroglycerin [Nitrostat] 0.4 mg SUBLINGUAL Q5M PRN 12/20/13 [History Confirmed 11/30/17] lisinopril 20 mg tablet 20 mg PO BID #180 tab 09/22/17 [Rx Confirmed 11/30/17] Ascorbic Acid [Vitamin C] 500 mg PO DAILY@0800 11/30/17 [History Confirmed 11/30/17] Docusate Sodium [Stool Softener] 100 mg PO DAILY 11/30/17 [History Confirmed 11/30/17] Glucosam/MSM/Chondroit/Vit D3 [Sv Glucosamine Chondroitin Tab] 1 ea PO DAILY 11/30/17 [History Confirmed 11/30/17] Hydrocodone Bitart/Apap 5-325 [[place] 5/325] 1 - 2 tab PO Q4H PRN PRN 3 Days #20 tab 11/30/17 [Rx] Naproxen Sodium [Aleve] 220 mg PO DAILY 11/30/17 [History Confirmed 11/30/17] Naproxen [Naprosyn] 500 mg PO BID PRN #20 tab 11/30/17 [Rx] atorvastatin 80 mg tablet 80 mg PO QHS #90 tab 03/07/18 [Rx] PFSH Medical History Anterolisthesis (Chronic) Arthritis (Acute) Asthma (Acute) Bilateral headaches (Acute) Diabetes (Acute) Environmental allergies (Acute) Heart disease (Acute) Heart murmur (Acute) High cholesterol (Acute) High triglycerides (Acute) History of heart artery stent (Acute) Hypertension (Chronic) Family History Other Arthritis Heart disease Hypertension Social History Smoking Status: Former smoker alcohol intake: current alcohol intake frequency: holidays/special occasions only substance use type: does not use what type of physical activity do you participate in: none HPI back pain : Chief Complaint: low back pain Visit Number: 3 Details: RICKIE LOBO is a 72 year old M who presents with decreased low back pain. He states that after his last visit his pain greatly decreased, leaving him with a ache that can become sharp. Bending, lifting and twisting still cause increased pain, although it is not as intense. Rickie denies any numbness, tingling, or radiculopathy. Location: low back Duration: frequent Aggravating or associated factors: bending, lifting and twisting Relieving factors: chiro Pain Quality: aching, dull, cramping Exam Musc General: Yes joint tenderness (T10, T11, L3, L4, L5, B SI); no normal posture (R tilt, flexed antalgia when acute) or normal gait (uses a cane when acute) Thoracic/Lumbar Spine: thor and lumb spine abnorm to inspection (Right tilt), pain with thoraco-lumbar ROM with forward flexion, with lateral flexion to the right, with lateral flexion to the left, with rotation to the right, with rotation to the left and other (extension), thoraco-lumbar ROM limited (lumbar extension) with lateral flexion to the right and with lateral flexion to the left, negative Lasegue's sign, paraspinal tenderness (slightly improved) bilaterally in the lower lumbar, in the mid lumbar, in the upper lumbar and in the lower thoracic, thoraco-lumbar spasm (slightly improved) bilaterally in the lower thoracic, in the upper lumbar, in the lower lumbar and in the mid lumbar Sacroiliac joints: bilaterally tender to palpation Office Procedures Chiropractic Treatments Procedures Manipulation: 3-4 regions (T10, L3, L5, LIL) Assessment AND Plan Problems 1. Anterolisthesis M43.10 L4 on L5 2. Segmental and somatic dysfunction of pelvic region M99.05 3. Segmental and somatic dysfunction of lumbar region M99.03 4. Segmental and somatic dysfunction of thoracic region M99.02 Plan Continue with acute care treatment plan. Orders Orders: Plan Detail Goals Decrease pain and inflammation Increase ability to sleep Barriers Anterolisthesis Degenerative changes Follow Up 2 x week Coding Level of Care Code No Charge Diagnoses Anterolisthesis M43.10 Segmental and somatic dysfunction of pelvic region M99.05 Segmental and somatic dysfunction of lumbar region M99.03 Segmental and somatic dysfunction of thoracic region M99.02 Additional Codes Procedures - Manipulation: 3-4 regions (36587) 05/05/18 1702 <Electronically signed by Mary Prieto D.C.> Date Mary Prieto D.C. Cosigner Signature: Date (if applicable) CC: CHIROPRACTIC REPORT Observed: 05/03/2018 Status: F Source: [place] 2:19 PM [facility] [address] [place] [address] OFFICE VISIT Date of Service: 04/26/18 MR#: [id number] Acct: [id number] Name: KARENFERICKIE Rep #: [id number] : 1945 Provider: Mary Prieto D.C. Age/Sex: 72/M Location: [facility] Status: Signed Intake Vital Signs04/26/18 Height 5 ft 6.5 in 04/26/18 Weight: 198 lb 04/26/18 Body Mass Index (BMI) 31.4 Intake Visit Reasons: back pain Chief Complaint: low back pain Is patient in pain?: Yes Allergies No Known Allergies Allergy (Verified 10/13/17 11:29) Medications Aspirin E.C. [Ecotrin] 81 mg PO DAILY@0800 12/20/13 [History Confirmed 11/30/17] Metoprolol Tartrate [Lopressor (Beta Eda)] 100 mg PO BID 12/20/13 [History Confirmed 11/30/17] Multivitamins,Therapeutic [Multivitamin] 1 tab PO DAILY 12/20/13 [History Confirmed 11/30/17] Nitroglycerin [Nitrostat] 0.4 mg SUBLINGUAL Q5M PRN 12/20/13 [History Confirmed 11/30/17] lisinopril 20 mg tablet 20 mg PO BID #180 tab 09/22/17 [Rx Confirmed 11/30/17] Ascorbic Acid [Vitamin C] 500 mg PO DAILY@0800 11/30/17 [History Confirmed 11/30/17] Docusate Sodium [Stool Softener] 100 mg PO DAILY 11/30/17 [History Confirmed 11/30/17] Glucosam/MSM/Chondroit/Vit D3 [Sv Glucosamine Chondroitin Tab] 1 ea PO DAILY 11/30/17 [History Confirmed 11/30/17] Hydrocodone Bitart/Apap 5-325 [[place] 5/325] 1 - 2 tab PO Q4H PRN PRN 3 Days #20 tab 11/30/17 [Rx] Naproxen Sodium [Aleve] 220 mg PO DAILY 11/30/17 [History Confirmed 11/30/17] Naproxen [Naprosyn] 500 mg PO BID PRN #20 tab 11/30/17 [Rx] atorvastatin 80 mg tablet 80 mg PO QHS #90 tab 03/07/18 [Rx] PFSH Medical History Anterolisthesis (Chronic) Arthritis (Acute) Asthma (Acute) Bilateral headaches (Acute) Diabetes (Acute) Environmental allergies (Acute) Heart disease (Acute) Heart murmur (Acute) High cholesterol (Acute) High triglycerides (Acute) History of heart artery stent (Acute) Hypertension (Chronic) Family History Other Arthritis Heart disease Hypertension Social History Smoking Status: Former smoker alcohol intake: current alcohol intake frequency: holidays/special occasions only substance use type: does not use what type of physical activity do you participate in: none HPI back pain: Chief Complaint: low back pain Visit Number: 2 Details: RICKIE LOBO is a 72 year old M who presents with low back pain. He states that his pain has slightly increased, and is using a cane today, rating his pain a 5/10. Rickie describes his pain as a tight and sharp ache that bands across the low back. Twisting, leaning, walking and bending all cause increased pain. Currently Rickie denies any numbness, tingling, or radiculopathy. Location: low back Duration: constant Aggravating or associated factors: bending, lifting, twisting and leaning Pain Quality: aching, dull, cramping, sharp Exam Musc General: Yes joint tenderness (T10, T11, L3, L4, L5, B SI); no normal posture (R tilt, flexed antalgia when acute) or normal gait (uses a cane when acute) Thoracic/Lumbar Spine: thor and lumb spine abnorm to inspection (Right tilt), pain with thoraco-lumbar ROM with forward flexion, with lateral flexion to the right, with lateral flexion to the left, with rotation to the right, with rotation to the left and other (extension), thoraco-lumbar ROM limited (lumbar extension) with lateral flexion to the right and with lateral flexion to the left, negative Lasegue's sign, paraspinal tenderness bilaterally in the lower lumbar, in the mid lumbar, in the upper lumbar and in the lower thoracic, thoraco-lumbar spasm bilaterally in the lower thoracic, in the upper lumbar, in the lower lumbar and in the mid lumbar Sacroiliac joints: bilaterally tender to palpation Office Procedures Chiropractic Treatments Procedures Manipulation: 3-4 regions (T10, L4, LIL) Assessment AND Plan 1. Anterolisthesis M43.10 L4 on L5 Orders Orders: 2. Segmental and somatic dysfunction of pelvic region M99.05 Orders Orders: 3. Segmental and somatic dysfunction of lumbar region M99.03 Orders Orders: 4. Segmental and somatic dysfunction of thoracic region M99.02 Orders Orders: Plan Detail Goals Decrease pain and inflammation Increase ability to sleep Barriers Anterolisthesis Degenerative changes Follow Up 2 x week Coding Level of Care Code No Charge Diagnoses Anterolisthesis M43.10 Segmental and somatic dysfunction of pelvic region M99.05 Segmental and somatic dysfunction of lumbar region M99.03 Segmental and somatic dysfunction of thoracic region M99.02 Additional Codes Procedures - Manipulation: 3-4 regions (30829) 05/03/18 1419 <Electronically signed by Mary Prieto D.C.> Date Mary Prieto D.C. Cosigner Signature: Date (if applicable) CC: AORTA Observed: 04/23/2018 Status: F Source: [place] 9:21 AM [facility] REPOSITORY [facility] Imaging Services [address] [place] [address] Aorta MR#: [id number] Acct: [id number] Name: RICKIE LOBO Rep #: [id number] : 1945 M 72 From: Dana Hand MD PCP: Gustavo Vinson MD, Chi Status: REG CLI Study: Aorta Date of Exam: 04/23/18 Exam# [id number] Ordering Dr: Gustavo Vinson MD STUDY: RETROPERITONEAL ULTRASOUND - LIMITED REASON FOR EXAM: Male, 72 years old. History of smoking. TECHNIQUE: Ultrasound evaluation of the abdominal aorta was performed with real-time ultrasonography and static grayscale imaging. COMPARISON: None. FINDINGS: There are peripheral calcifications throughout the abdominal aorta. The proximal abdominal aorta measures 1.5 x 2.4 cm. The mid abdominal aorta measures 1.5 x 2.4 cm. The distal abdominal aorta measures 1.5 x 1.7 cm. The right common iliac artery measures 0.9 x 1.2 cm. The left common iliac artery measures 0.9 x 1.0 cm. No abdominal aortic aneurysm is visualized. US/Aorta IMPRESSION: No abdominal aortic aneurysm. Atherosclerosis. Electronically Signed: Dana Hand MD at 14:31 EDT Tel , Service support , CC: Gustavo Vinson MD Material Handler: Signed CHIROPRACTIC REPORT Observed: 04/21/2018 Status: F Source: [place] 3:29 PM [facility] [address] [place] [address] OFFICE VISIT Date of Service: 04/21/18 MR#: [id number] Acct: [id number] Name: RICKIE LOBO Rep #: [id number] : 1945 Provider: Mary Prieto D.C. Age/Sex: 72/M Location: [facility] Status: Signed Intake Vital Signs04/21/18 Height 5 ft 6.5 in 04/21/18 Weight: 198 lb 04/21/18 Body Mass Index (BMI) 31.4 Intake Visit Reasons: low back pain Is patient in pain?: Yes Allergies No Known Allergies Allergy (Verified 10/13/17 11:29) Medications Aspirin E.C. [Ecotrin] 81 mg PO DAILY@0800 12/20/13 [History Confirmed 11/30/17] Metoprolol Tartrate [Lopressor (Beta Eda)] 100 mg PO BID 12/20/13 [History Confirmed 11/30/17] Multivitamins,Therapeutic [Multivitamin] 1 tab PO DAILY 12/20/13 [History Confirmed 11/30/17] Nitroglycerin [Nitrostat] 0.4 mg SUBLINGUAL Q5M PRN 12/20/13 [History Confirmed 11/30/17] lisinopril 20 mg tablet 20 mg PO BID #180 tab 09/22/17 [Rx Confirmed 11/30/17] Ascorbic Acid [Vitamin C] 500 mg PO DAILY@0800 11/30/17 [History Confirmed 11/30/17] Docusate Sodium [Stool Softener] 100 mg PO DAILY 11/30/17 [History Confirmed 11/30/17] Glucosam/MSM/Chondroit/Vit D3 [Sv Glucosamine Chondroitin Tab] 1 ea PO DAILY 11/30/17 [History Confirmed 11/30/17] Hydrocodone Bitart/Apap 5-325 [[place] 5/325] 1 - 2 tab PO Q4H PRN PRN 3 Days #20 tab 11/30/17 [Rx] Naproxen Sodium [Aleve] 220 mg PO DAILY 11/30/17 [History Confirmed 11/30/17] Naproxen [Naprosyn] 500 mg PO BID PRN #20 tab 11/30/17 [Rx] atorvastatin 80 mg tablet 80 mg PO QHS #90 tab 03/07/18 [Rx] PFSH Medical History Anterolisthesis (Chronic) Arthritis (Acute) Asthma (Acute) Bilateral headaches (Acute) Diabetes (Acute) Environmental allergies (Acute) Heart disease (Acute) Heart murmur (Acute) High cholesterol (Acute) High triglycerides (Acute) History of heart artery stent (Acute) Hypertension (Chronic) Family History Other Arthritis Heart disease Hypertension Social History Smoking Status: Former smoker alcohol intake: current alcohol intake frequency: holidays/special occasions only substance use type: does not use what type of physical activity do you participate in: none HPI low back pain : Chief Complaint: low back pain Visit Number: 1 Referral source: Details: RICKIE LOBO is a 72 year old M who presents with bilateral low back pain. Rickie states that roughly two months ago the pain began after lifting four tires into the back of a car, at first the pain was achy and then progressed into a sharp shooting pain. The pain is at its worst first thing in the morning, rating it a 10/10, the patient states he has to walk with a cane and taking a shower is extremely painful, although around noon the pain subsides to a sore ache. Currently Rickie rates his pain a 2/10, although in the morning there is presence of pain radiating into the legs and buttock but denies any numbness or tingling. Lifting, standing, bending, and walking all cause increased pain, sitting causes the pain to slightly decrease. 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 Rickie has fallen multiple times in the past, but denies any injury or pain to the low back. Onset: 02/28/18 Location: low back Duration: constant in the morning Aggravating or associated factors: rising from bed, bending, and lifting Relieving factors: sitting Pain Quality: aching, dull, cramping, sharp, radiating Exam Musc General: Yes joint tenderness (T10, T11, L3, L4, L5, B SI); no normal posture (R tilt, flexed antalgia when acute) or normal gait (uses a cane when acute) Thoracic/Lumbar Spine: thor and lumb spine abnorm to inspection (Right tilt), pain with thoraco-lumbar ROM with forward flexion, with lateral flexion to the right, with lateral flexion to the left, with rotation to the right, with rotation to the left and other (extension), thoraco-lumbar ROM limited (lumbar extension) with lateral flexion to the right and with lateral flexion to the left, negative Lasegue's sign, paraspinal tenderness bilaterally in the lower lumbar, in the mid lumbar, in the upper lumbar and in the lower thoracic, thoraco-lumbar spasm bilaterally in the lower thoracic, in the upper lumbar, in the lower lumbar and in the mid lumbar Sacroiliac joints: bilaterally tender to palpation Neuro General: alert, awake, oriented x3, gait abnormal (cane at times), deep tendon reflexes not 2+ bilaterally (1+ bilaterally at patella) Ortho Test CERVICAL THORACIC Dawson: Negative LUMBAR Kemps: Positive, Rig Valsalvas: Positive SLR: Negative Iliac Compression: Positive, Rig Assessment AND Plan Problems 1. Segmental and somatic dysfunction of thoracic region M99.02 2. Segmental and somatic dysfunction of lumbar region M99.03 3. Segmental and somatic dysfunction of pelvic region M99.05 4. Anterolisthesis M43.10 Plan Reviewed previous lumbar xrays. Recommend acute treatment plan. Patient Instructions Ice and brace with mowing. Body pillow with side sleeping Plan Detail Goals Decrease pain and inflammation Increase ability to sleep Barriers Anterolisthesis Degenerative changes Follow Up 2x/wk/3wks Coding Level of Care Code Off vis,new,level 3 Diagnoses Segmental and somatic dysfunction of thoracic region M99.02 Segmental and somatic dysfunction of lumbar region M99.03 Segmental and somatic dysfunction of pelvic region M99.05 Anterolisthesis M43.10 04/21/18 6429 <Electronically signed by Mary Prieto D.C.> Date Mary Romero Signature: Date (if applicable) CC: L/S SPINE MIN 4 Observed: 03/21/2018 Status: F Source: [place] VIEWS 2:52 PM [facility] REPOSITORY [facility] Imaging Services [address] [place] [address] L/S Spine Min 4 Views MR#: [id number] Acct: [id number] Name: RICKIE LOBO Rep #: [id number] : 1945 M 72 From: Tesfaye Mcguire MD PCP: Karel JIMENEZ,Gustavo Babb Status: REG CLI Study: L/S Spine Min 4 Views Date of Exam: 03/21/18 Exam# [id number] Ordering Dr: Gustavo Vinson MD STUDY: X-RAY - LUMBAR SPINE REASON FOR EXAM: Male, 72 years old. Low back pain after moving tires TECHNIQUE: 5 view(s) of the lumbar spine were obtained. COMPARISON: None FINDINGS: Normal lumbar lordosis. There is no substantial scoliosis. There is a grade 1 anterolisthesis of L4 relative to L5. There is no evidence of associated spondylolysis. There is multilevel endplate spondylosis of the lumbar vertebrae. There is multi-level degenerative disc disease with multi-level disc space narrowing. There is no demonstrated fracture. There are calcified plaques of the abdominal aorta and common iliac arteries. RAD/L/S Spine Min 4 Views IMPRESSION: Degenerative changes of the spine, as detailed above. Grade 1 anterolisthesis of L4 relative to L5. Calcified plaques of the abdominal aorta and common iliac arteries. Electronically Signed: Tesfaye Mcguire MD at 23:32 EDT , Service support , CC: Gustavo Vinson MD Material Handler: Signed EMERGENCY DEPARTMENT Observed: 11/30/2017 Status: F Source: [place] SUMMARY 4:28 PM [facility] REPOSITORY [facility] Medical Records Department [address] [place] [address] Emergency Department Summary 11/30/17 0801 MR#: [id number] Acct: [id number] Name: RICKIE LOBO Rep #: [id number] : 1945 72 From: Tommie Mills MD PCP: Gustavo Vinson MD, Chi Status: DEP ER - ER Visit Summary Date of Service: 11/30/17 Chief Complaint: Right flank pain History of Present Illness: The patient is a [address] Marquis and was formerly a patient of Dr. Reynoso's. Reports that at 3:00 this morning at the sudden onset of right flank pain. Is a sharp pain is 10 out of 10 at worst and 6 out of 10 currently. Is worsening by nothing and relieved by nothing. Radiates down into the right lower quadrant and into his penis. Is been accompanied by chills and sweats. He has had nausea without vomiting. No diarrhea. His last bowel movements today. He has had no melena or hematochezia. He has had dysuria without frequency. States this is similar when he had kidney stones in the past. Physical Examination: Vitals: Stable. Afebrile. General: Well-nourished and well-developed. Head: Normocephalic atraumatic. Neck: Supple, no lymphadenopathy. No JVD. Nontender. Cardiovascular: Regular rate and rhythm. No murmurs. Respiratory: No respiratory distress. Clear to auscultation bilaterally. Abdominal: Soft, mild right lower quadrant tenderness to palpation, nondistended, normal bowel sounds. No guarding, rebound, or peritoneal signs. Back: Nontender. No CVA tenderness. Extremities: Nontender, no edema. Skin: Normal color, no rash. Neurologic: Alert and oriented 3. Cranial nerves II through XII are intact. Normal strength and sensation. Psych: Normal affect. Test Results: Patient has bilateral nonobstructive intrarenal calculi. There is 3.5 mm calculus at the base of the bladder on the left. Most likely from a recently passed stone. No significant hydronephrosis. CBC is marked for 7 neutrophils 77 monocytes 14. Chem-7 is more for glucose 193. UA shows no infection. There is 50-100 red blood cells. Emergency Department Course and Treatment: Patient had an IV placed. He is treated with morphine and Zofran IV. He is resting comfortably. Treatment Plan: Will be discharged with Percocet naproxen. Instructed to follow Dr. Trimble as needed. Return to the emergency department for any worsening symptoms. Disposition: To home in improved and stable condition. Impression: 1. Ureteral stone, passed. This note was generated with [employer] dictation software. It may contain incorrect words, spelling, and punctuation that were not noted in review of the chart prior to signing ED Disposition - Plan for ED Patient: Chief Complaint: Flank Pain Instructions: ED Stone Renal Passed Prescriptions: Hydrocodone Bitart/Apap 5-325 [[place] 5/325] 1 - 2 tablet PO Q4H PRN PRN 3 Days #20 tablet PRN Reason: Pain Naproxen [Naprosyn] 500 mg PO BID PRN #20 tablet Referrals: Gustavo Vinson Chi, MD [Primary Care Provider] - Alex Trimble MD [STAFF PHYSICIAN] - As Needed What to do if you have Problems For any increased pain, shortness of breath, bleeding, nausea or vomiting, chest pain, or any unexpected problems, contact your Primary Care Provider. Call [facility] ([phone]) or report to the closest Emergency Room. Call 911 if necessary. 11/30/17 5542 <Electronically signed by Tommie Mills MD> Date Tommie Mills MD Cosigner Signature (If Indicated): Date CC: Gustavo Vinson MD URINALYSIS, COMPLETE Collected: 11/30/2017 Status: F Source: [place] 9:20 AM [facility] REPOSITORY Order Comment: Order Date: 11/30/17 How was Urine Obtained? CLEAN CATCH TYPE CODE TESTS RESULT OUT OF RANGE REFERENCE UNITS LAB L400.3000 Yellow COLOR Normal Yellow LAB L400.3050 Clear Normal CLARITY Cloudy LAB L400.3200 Normal mg/dl Normal GLUCOSE, UR Normal LAB L400.3300 Negative mg/dL Normal BILIRUBIN URINE Negative LAB L400.3400 Negative mg/dl High 50 KETONE UR LAB L400.3465 1.002-1.030 Normal SP.GR. DIPSTX 1.020 LAB L400.3550 5.0 - 8.0 pH UR Normal 5.0 LAB L400.3600 Negative mg/dl High PROT 15 DIPSTX LAB L400.3700 Normal mg/dl Normal UROBILI Normal LAB L400.3750 Negative Normal NITRITE UR Negative LAB L400.3780 Negative /ul High OCCULT BLOOD-UR 250 LAB L400.3800 Negative /ul High LEUK 25 ESTERASE LAB L400.4050 0-5 /hpf WBC Normal 0-5 SEEN LAB L400.4100 0-5 /hpf Normal RBC-UA 50-100 SEEN LAB L400.4150 0-5 /hpf SQUAM Normal EPI 0-5 SEEN LAB L400.4300 None Seen /hpf 1+ Normal BACTERIA LAB L400.4350 <or=2+ /hpf Normal MUCUS, URINE RARE Performed By: #### L400.0001 #### [facility] [address], [address] ABDOMEN/PELVIS WITHOUT Observed: 11/30/2017 Status: F Source: [place] CONT 8:00 AM [facility] REPOSITORY [facility] Imaging Services [address] [place] [address] Abdomen/Pelvis without Cont MR#: [id number] Acct: [id number] Name: RICKIE LOBO Estee Rep #: [id number] : 1945 M 72 From: Stephen Ruiz MD PCP: Karel JIMENEZ,Gustavo Chi Status: REG ER Study: Abdomen/Pelvis without Cont Date of Exam: 11/30/17 Exam# [id number] Ordering Dr: Tommie Mills MD STUDY: CT ABDOMEN AND PELVIS WITHOUT CONTRAST REASON FOR EXAM: Male, 72 years old. Right flank and suprapubic pain. History of kidney stones. RADIATION DOSAGE (If Supplied By Facility): CTDIvol = ( 19.89 ) mGy, DLP = ( 998.81 ) mGycm TECHNIQUE: Transaxial images were obtained from the dome of the diaphragm to the symphysis pubis without oral contrast, and without intravenous contrast. Sagittal and coronal images were reconstructed. Individualized dose optimization techniques were used for this CT. COMPARISON: Comparison is made with prior study dated January 06, 2015. FINDINGS: Stable minimal degree of increased linear markings in the lingular segment of the left upper lobe and right lower lobe suggestive of mild scarring. Coronary artery calcification. Normal liver. Normal gallbladder and extrahepatic biliary system. Normal spleen. Normal pancreas. Normal bilateral adrenal glands. Mild degree of right perinephric stranding. 4 mm calculus is seen in the upper midportion of the right kidney. A tiny calculus is also seen in the lower pole calyx of the right kidney. Mild degree of left perinephric stranding. There is a 3 mm calculus in the upper pole calyx of the left kidney. A 3 mm calculus also seen in the lower pole of the left kidney. There is a 3.5 mm calculus at the base of the bladder on the left side. This most likely represents a recently passed left ureteral calculus. Normal visualized stomach. Normal small intestine. There are multiple colonic diverticula consistent with diverticulosis. The appendix is visualized and appears normal. There is diffuse atherosclerotic calcification of the abdominal aorta and its major visceral branches, without a demonstrated aneurysm. Normal inferior vena cava. There is borderline retroperitoneal lymphadenopathy with enlarged nodes no greater than 10mm in the short axis diameter. Normal urinary bladder. Normal abdominal wall. There are diffuse degenerative changes of the visualized lumbar spine. Grade 1 anterolisthesis of L4 on L5 without spondylolysis. CT/Abdomen/Pelvis without Cont IMPRESSION: Bilateral nonobstructive intrarenal calculi. 3.5 mm calculus at the base of the bladder on the left side most likely from a recently passed left ureteral stone. No significant hydronephrosis is seen. Sigmoid diverticulosis. Electronically Signed: Stephen Ruiz MD at 9:11 EDT Tel [phone], Service support , CC: Tommie Mills MD; Gustavo Vinson MD Material Handler: Signed CBC W/DIFF, AUTOMATED Collected: 11/30/2017 Status: F Source: [place] 7:55 AM [facility] REPOSITORY TYPE CODE TESTS RESULT OUT OF RANGE REFERENCE UNITS LAB L100.1000 4.4-11.0 K/mm3 Normal WBC 8.7 LAB L100.1200 4.6-6.2 M/mm3 Normal RBC 5.10 LAB L100.1300 13.0-16.5 g/dl Normal HGB 15.5 LAB L100.1400 40-54 % Normal HCT 46.9 LAB L100.1500 80-94 fL Normal MCV 92.0 LAB L100.1600 27.0-32.0 pg Normal MCH 30.4 LAB L100.1700 32-36 g/gl Normal MCHC 33.0 LAB L100.1810 11.6-14.6 % Normal RDW CV 12.9 LAB L100.1820 35.1-43.9 fl Normal RDW SD 42.8 LAB L100.1900 150-450 K/mm3 Normal PLT 212 LAB L100.2000 6.2-12.0 fl Normal MPV 9.9 LAB L100.2100 47-70 % High NEUT% 77.3 LAB L100.2200 19-41 % Low LY% 13.9 LAB L100.2300 0-10 % Normal MONO% 7.4 LAB L100.2400 0-5 % Normal EO% 1.1 LAB L100.2500 0-1 % Normal BASO% 0.2 LAB L100.2550 0.0-0.9 % Normal IM GRAN % 0.100 Result Comment: IG% - Immature Granulocytes (promyelocytes, myelocytes and metamyelocytes) > 1% indicates that a LEFT SHIFT is Present. LAB L100.2620 2.0-7.7 X10 3/uL Normal Absolute Neut 6.7 LAB L100.2720 0.83-4.51 X10 3/ul Normal Absolute Lymph 1.21 Performed By: #### L100.0100 #### [facility] [address] [place], [address] BASIC METABOLIC Collected: 11/30/2017 Status: F Source: [place] PROFILE ([facility]) 7:55 AM [facility] REPOSITORY TYPE CODE TESTS RESULT OUT OF RANGE REFERENCE UNITS LAB L501.0100 74-106 mg/dL High GLU 193 Result Comment: Fasting Glucose result greater than or equal to 126 mg/dL suggests DIABETES MELLITUS per A.D.A. criteria. Please note revised GLUCOSE reference range effective 2017. LAB L501.1000 7-18 mg/dL Normal BUN 18 LAB L501.1100 0.70-1.30 mg/dL Normal CREAT,SERUM 1.11 Result Comment: The validity of the calculated GFR AND GFRAA in patients over 70 years has not been determined. Clinical correlation is essential. LAB L501.1110 >60 mL/min Normal EST GFR 69 Result Comment: Non- GFR Calc LAB L501.1115 >60 mL/min Normal EST GFR - AA 83 Result Comment: GFR Calc LAB L501.1255 ml/min Normal Estimated CRCL 55.41 LAB L501.1300 10-20 RATIO Normal BUN/CRE 16.2 LAB L501.2200 8.5-10 mg/dL Normal .1 CA 9.6 LAB L501.5300 136-14 mmol/L Normal 5 NA 138 LAB L501.5600 3.5-5. mmol/L Normal 1 K 3.9 LAB L501.5900 98-107 mmol/L Normal CL 105 LAB L501.6100 21.0-3 mmol/L Normal 2.0 CO2 26.0 LAB L501.6200 5-15 Normal GAP 7 Performed By: #### L500.2500 #### [facility] [address] [facility] [place], [address] STRESS REPORT Observed: 11/17/2017 Status: F Source: [place] 1:26 PM [facility] REPOSITORY [facility] Cardiovascular Services [address] [place] [address] MR#: [id number] Acct: [id number] Name: RICKIE LOBO Rep #: [id number] : 1945 72 From: Lamont Kaiser MD Primary Care: Karel JIMENEZ,Gustavo Babb Status: REG CLI Ordering Dr: Arlet: Michelle Velásquez Stress Test Report Pharmacologic myocardial perfusion stress test. 72-year-old man with a history of coronary artery disease status post previous stenting remotely. Stress protocol: Resting EKG demonstrates normal sinus rhythm with a rate of 63 bpm normal intervals are noted. Resting blood pressure is 116/80 mmHg. 0.4 mg of regadenoson was infused per usual protocol followed by rapid intravenous saline flush injection continuous EKG monitoring was performed. The maximum heart rate attained was 80 bpm which was 54% of maximum predicted heart rate the maximum workload attained was 1 metabolic equivalent. At rest there were no ST or T-wave changes noted suggest abnormal flow reserve at peak infusion no ST or T-wave changes were noted suggest abnormal flow reserve. No clinical angina was noted. The resting blood pressure is 116/80 with a final blood pressure 110/72 mmHg. Myocardial perfusion protocol. 14.8 mCi of technetium 99m sestamibi was injected at rest. 0.4 mg regadenoson was infused per usual protocol peak infusion 45.0 mCi of technetium 99m sestamibi was injected. Stress images were obtained. Stress and rest images were reconstructed and compared in the short axis vertical long horizontal long axis. Gated images were also obtained. Perfusion SPECT analysis: Review of the stress images demonstrate normal uptake of tracer noted in the septum anterior wall and lateral wall. 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 No reversibility is noted suggest ischemia. Gated SPECT analysis. Gated ejection fraction is 67%. Conclusion: Normal pharmacologic myocardial perfusion stress test. Preserved ejection fraction. 11/17/17 1326 <Electronically signed by Lamont Kaiser MD> Date Lamont Kaiser MD CC: Maki Carmona; Gustavo Vinson MD Date Dictated: 11/17/171322 Date Transcribed: 11/17/171322 Material Handler: CO Signed BASIC METABOLIC Collected: 11/17/2017 Status: F Source: [place] PROFILE (BMP) 6:04 AM [facility] REPOSITORY Order Comment: Order Date: 07/28/17 Order Info: [id number] - *BMP Order Date: 05/28/17 Order Info: [id number] - *Hepatic Function Panel Order Info: [id number] - *Lipid Profile CC PCP Comments: 12 hours fasting, may have water. Comments: Reason: TYPE CODE TESTS RESULT OUT OF RANGE REFERENCE UNITS LAB L501.0100 74-106 mg/dL High GLU 201 Result Comment: Glucose result greater than or equal to 200 mg/dL suggests DIABETES MELLITUS per A.D.A. criteria. Please note revised GLUCOSE reference range effective 2017. LAB L501.1000 7-18 mg/dL Normal BUN 16 LAB L501.1100 0.70-1.30 mg/dL Normal CREAT,SERUM 0.98 Result Comment: The validity of the calculated GFR AND GFRAA in patients over 70 years has not been determined. Clinical correlation is essential. LAB L501.1110 >60 mL/min Normal EST GFR 79 Result Comment: Non- GFR Calc LAB L501.1115 >60 mL/min Normal EST GFR - AA 96 Result Comment: GFR Calc LAB L501.1300 10-20 RATIO Normal BUN/CRE 16.3 LAB L501.2200 8.5-10.1 mg/dL CA Normal 9.3 LAB L501.5300 136-145 mmol/L NA Normal 138 LAB L501.5600 3.5-5.1 mmol/L K Normal 4.1 LAB L501.5900 98-107 mmol/L CL Normal 103 LAB L501.6100 21.0-32.0 mmol/L Normal CO2 26.0 LAB L501.6200 5-15 Normal GAP 9 Performed By: #### L500.2500 #### [facility] [address] [place], [address] LIVER PROFILE Collected: 11/17/2017 Status: F Source: [place] 6:04 AM [facility] REPOSITORY Order Comment: Order Date: 07/28/17 Order Info: [id number] - *BMP Order Date: 05/28/17 Order Info: [id number] - *Hepatic Function Panel Order Info: [id number] - *Lipid Profile CC PCP Comments: 12 hours fasting, may have water. Comments: Reason: TYPE CODE TESTS RESULT OUT OF RANGE REFERENCE UNITS LAB L501.1500 6.4-8.2 g/dL Normal T PROT 6.9 LAB L501.1800 3.2-5.0 g/dL Normal ALB 3.7 LAB L501.1950 2.2-4.2 g/dL Normal GLOB 3.2 LAB L501.4100 15-37 U/L Normal AST 31 LAB L501.4305 45-117 U/L Low ALK P 42 LAB L501.4405 16-61 U/L Normal ALT 52 Result Comment: Please note revised ALT reference range effective 2017. LAB L501.4600 0.20-1.00 mg/dL Normal T BILI 0.80 LAB L501.4700 0.00-0.30 mg/dL Normal D BILI 0.22 Performed By: #### L500.3400 #### [facility] [address] [place], [address] LIPID PROFILE Collected: 11/17/2017 Status: F Source: [place] 6:04 AM [facility] REPOSITORY Order Comment: Order Date: 07/28/17 Order Info: [id number] - *BMP Order Date: 05/28/17 Order Info: [id number] - *Hepatic Function Panel Order Info: [id number] - *Lipid Profile CC PCP Comments: 12 hours fasting, may have water. Comments: Reason: TYPE CODE TESTS RESULT OUT OF RANGE REFERENCE UNITS LAB L501.4900 200 mg/dL Normal CHOL 90 Result Comment: <200 mg/dL Desirable 200-240 mg/dL Borderline >240 mg/dL High Risk LAB L501.5000 mg/dL Normal TRIG 63 Result Comment: The drugs N-Acetylcysteine and Metamizole may falsely depress this assay. Serum Triglycerides Reference Interval Normal <150 mg/dL Borderline high 150 - 199 mg/dL High 200 - 499 mg/dL Very High > or = 500 mg/dL LAB L501.6400 mg/dL Low HDL 39 Result Comment: The drugs N-Acetylcysteine and Metamizole may falsely depress this assay. Reference Range HDL <40 mg/dL Low HDL Cholesterol HDL >or= 60 mg/dL High HDL Cholesterol LAB L501.6500 0-130 mg/dL Normal LDL 38 LAB L501.6600 5-40 mg/dL Normal VLDL 13 Performed By: #### L500.4100 #### [facility] [place], [address] CBC W/DIFF, AUTOMATED Collected: 11/04/2017 Status: F Source: [place] 5:13 PM [facility] REPOSITORY TYPE CODE TESTS RESULT OUT OF RANGE REFERENCE UNITS LAB L100.1000 4.4-11.0 K/mm3 Normal WBC 6.3 LAB L100.1200 4.6-6.2 M/mm3 Normal RBC 5.17 LAB L100.1300 13.0-16.5 g/dl Normal HGB 15.7 LAB L100.1400 40-54 % Normal HCT 46.7 LAB L100.1500 80-94 fL Normal MCV 90.3 LAB L100.1600 27.0-32.0 pg Normal MCH 30.4 LAB L100.1700 32-36 g/gl Normal MCHC 33.6 LAB L100.1810 11.6-14.6 % Normal RDW CV 12.7 LAB L100.1820 35.1-43.9 fl Normal RDW SD 41.8 LAB L100.1900 150-450 K/mm3 Normal PLT 216 LAB L100.2000 6.2-12.0 fl Normal MPV 9.8 LAB L100.2100 47-70 % Normal NEUT% 51.2 LAB L100.2200 19-41 % Normal LY% 34.5 LAB L100.2300 0-10 % High MONO% 10.3 LAB L100.2400 0-5 % Normal EO% 3.3 LAB L100.2500 0-1 % Normal BASO% 0.5 LAB L100.2550 0.0-0.9 % Normal IM GRAN % 0.200 Result Comment: IG% - Immature Granulocytes (promyelocytes, myelocytes and metamyelocytes) > 1% indicates that a LEFT SHIFT is Present. LAB L100.2620 2.0-7.7 X10 3/uL Normal Absolute Neut 3.2 LAB L100.2720 0.83-4.51 X10 3/ul Normal Absolute Lymph 2.17 Performed By: #### L100.0100 #### [facility] [address] [place], [place], [address] COMPREHENSIVE METABOLIC Collected: 11/04/2017 Status: F Source: [facility] 5:13 PM [facility] REPOSITORY TYPE CODE TESTS RESULT OUT OF RANGE REFERENCE UNITS LAB L501.0100 74-106 mg/dL High GLU 239 Result Comment: Glucose result greater than or equal to 200 mg/dL suggests DIABETES MELLITUS per A.D.A. criteria. Please note revised GLUCOSE reference range effective 2017. LAB L501.1000 7-18 mg/dL Normal BUN 18 LAB L501.1100 0.70-1.30 mg/dL Normal CREAT,SERUM 0.92 Result Comment: The validity of the calculated GFR AND GFRAA in patients over 70 years has not been determined. Clinical correlation is essential. LAB L501.1110 >60 mL/min Normal EST GFR 86 Result Comment: Non- GFR Calc LAB L501.1115 >60 mL/min Normal EST GFR - AA 104 Result Comment: GFR Calc LAB L501.1300 10-20 RATIO Normal BUN/CRE 19.7 LAB L501.1500 6.4-8.2 g/dL T Normal PROT 7.3 LAB L501.1800 3.2-5.0 g/dL Normal ALB 3.7 LAB L501.1950 2.2-4.2 g/dL Normal GLOB 3.6 LAB L501.2000 0.9-2.4 RATIO Normal A/G 1.0 LAB L501.2200 8.5-10.1 mg/dL CA Normal 9.6 LAB L501.4100 15-37 U/L Normal AST 25 LAB L501.4305 45-117 U/L Normal ALK P 52 LAB L501.4405 16-61 U/L Normal ALT 53 Result Comment: Please note revised ALT reference range effective 2017. LAB L501.4600 0.20-1.00 mg/dL Normal T BILI 0.80 LAB L501.5300 136-145 mmol/L Normal NA 139 LAB L501.5600 3.5-5.1 mmol/L Normal K 4.2 LAB L501.5900 98-107 mmol/L Normal CL 105 LAB L501.6100 21.0-32.0 mmol/L Normal CO2 27.0 LAB L501.6200 5-15 Normal GAP 7 Performed By: #### L500.4050, L501.9520 #### [facility] [address] [place], [address] THYROID STIM HORMONE Collected: 11/04/2017 Status: F Source: IVON (TSH) 5:13 PM [facility] REPOSITORY TYPE CODE TESTS RESULT OUT OF RANGE REFERENCE UNITS LAB L501.9520 0.358-3.74 uIU/mL Normal TSH 2.67 Performed By: #### L500.4050, L501.9520 #### [facility] [address] [place], [address] EMERGENCY DEPARTMENT Observed: 10/13/2017 Status: F Source: IVON SUMMARY 4:50 PM [facility] REPOSITORY [facility] Medical Records Department [address] [place] [address] Emergency Department Summary 10/13/17 1213 MR#: [id number] Acct: [id number] Name: RICKIE LOBO Rep #: [id number] : 1945 72 From: Douglas Walls MD PCP: Gustavo Vinson MD, Chi Status: DEP ER - ER Visit Summary Date of Service: 10/13/17 Chief Complaint: Slipped and fell on the ice with medial right shoulder discomfort History of Present Illness: The patient is a 72 M doing well. He was walking today slipped on the ice and fell backwards. Said some discomfort in his right medial shoulder otherwise is okay. He is not on blood thinners other than aspirin. He did not have any significant head injury. He was not knocked out. He denies any back pain, chest pain, abdominal pain or lower extremity pain. He is right-hand dominant. He has never had any surgeries to his right shoulder. Physical Examination: Older male no acute distress. Vital signs are stable afebrile. HEENT exam is atraumatic. Nontender. No hematomas. Pupils round reactive light. Back and spine are completely nontender. He has normal range of motion to his neck. Trachea is midline. Lungs clear to auscultation bilaterally. Heart regular rate and rhythm. Chest wall nontender. Abdomen soft nontender. Pelvic girdle intact. Both the left upper extremity both lower extremities are nontender with normal range of motion, motor strength and sensation. He has a mild abrasion to his right elbow. However he has full range of motion the right elbow is nontender nonswollen. He has full flexion-extension supination and pronation. Right forearm wrist and hand are nontender neurovascular intact with normal DP pulses. 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 His right shoulder there is no deformity. There is no dislocation. He has full AB and adduction. He has full internal/external rotation. He is able lift his arm above his head without any difficulty and is able to put his right hand behind his head. There is no signs of any rotator cuff tear. Neurologic exam is normal. GCS is 15. He is awake alert answering all questions. Test Results: Right shoulder x-ray calcific tendinitis. Old avulsion of the distal. Degenerative arthritic changes but no acute fracture or dislocation read both by myself and the radiologist. I did reexamine the patient after the x-ray and I do not think that is an acute avulsion I think it is chronic. He is not significantly tender over that area. Emergency Department Course and Treatment: X-ray showed degenerative changes. Clinically he has no signs of a rotator cuff injury. He will be treated as a right shoulder strain. Treatment Plan: Repeat exam he is doing well at 1340. He has normal range of motion of the shoulder. I went over the x-ray with both the patient is . Disposition: Discharge Impression: Slipped and fell on ice. Right shoulder soft tissue strain This note was generated with [employer] dictation software. It may contain incorrect words, spelling, and punctuation that were not noted in review of the chart prior to signing ED Disposition - Plan for ED Patient: Chief Complaint: Fall Referrals: Gustavo Vinson Chi, MD [Primary Care Provider] - What to do if you have Problems For any increased pain, shortness of breath, bleeding, nausea or vomiting, chest pain, or any unexpected problems, contact your Primary Care Provider. Call [facility] ([phone]) or report to the closest Emergency Room. Call 911 if necessary. 10/13/17 1650 <Electronically signed by Douglas Walls MD> Date Douglas Walls MD Cosigner Signature (If Indicated): Date CC: Gustavo Vinson MD DISCHARGE INSTRUCTION Observed: 10/13/2017 Status: F Source: IVON 4:50 PM [facility] REPOSITORY [facility] Medical Records Department [address] [place] [address] Discharge Instruction 10/13/17 1346 MR#: [id number] Acct: [id number] Name: RICKIE LOBO Rep #: [id number] : 1945 72 From: Douglas Walls MD PCP: Gustavo Vinson MD, Chi Status: DEP ER ED Disposition - Plan for ED Patient: Disposition: Home or Assisted Living Chief Complaint: Fall Instructions: ED Sprain Shoulder Referrals: Gustavo Vinson Chi, MD [Primary Care Provider] - 1 Week if not improving Additional Instructions: Ice and rest the right shoulder. Increase activity as tolerated. Tylenol and Limited Motrin for pain and inflammation. If not improving in a week follow-up your primary care physician for further evaluation and possible MRI but at this time that is not needed. What to do if you have Problems For any increased pain, shortness of breath, bleeding, nausea or vomiting, chest pain, or any unexpected problems, contact your Primary Care Provider. Call [facility] ([phone]) or report to the closest Emergency Room. Call 911 if necessary. 10/13/17 1650 <Electronically signed by Douglas Walls MD> Date Douglas Walls MD Cosigner Signature (If Indicated): Date CC: Gustavo Vinson MD SHOULDER MIN 2 VIEWS Observed: 10/13/2017 Status: F Source: IVON 12:08 PM [facility] REPOSITORY [facility] Imaging Services [address] [place] [address] Shoulder min 2 Views MR#: [id number] Acct: [id number] Name: RICKIE LOBO Rep #: [id number] : 1945 M 72 From: Stephen Ruiz MD PCP: Gustavo Vinson MD, Chi Status: REG ER Study: Shoulder min 2 Views Date of Exam: 10/13/17 Exam# [id number] Ordering Dr: Douglas Walls MD STUDY: X-RAY - RIGHT SHOULDER REASON FOR EXAM: Male, 72 years old. Pain following a fall. TECHNIQUE: 5 view(s) of the shoulder. COMPARISON: None. FINDINGS: There is moderate degenerative arthrosis of the glenohumeral articulation. There is degenerative arthrosis of the acromioclavicular joint without inferior osseous spur formation. Questionable tiny avulsion fracture along the superior lateral portion of the acromion. Normal humeral head and visualized proximal humerus. There is periarticular soft tissue calcification consistent with a calcific tendinitis. Normal visualized pulmonary apex. 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 Questionable avulsion fracture of the acromion. Calcific tendinitis. Electronically Signed: Stephen Ruiz MD at 12:35 EST Tel [phone], Service support , CC: Douglas Walls MD; Gustavo Vinson MD Material Handler: Signed ALLERGIES ALLERGIES DATE TYPE / CODE NAME / CODE REACTION SEVERITY SOURCE 07/28/2018 Drug No Known Unknown [place] [facility] Allergy/4160 Allergies/F00 Hospital 90520(SNOMED 9771089(RXNOR Repository CT) M) ENCOUNTERS ENCOUNTERS ADMIT/DISCHARGE ACCOUNT ADMITTING ENCOUNTER LOCATION SOURCE NUMBER CLASS 08/16/2018 [id number] Ambulatory [place] 9 [facility] Hospital ing:POLAB3 Repository 07/28/2018/ [id number] Ambulatory BMSBuilding:B [facility] 8 3 [facility] Repository 07/08/2018 [id number] Ambulatory [place] 4 [facility] ing:LAB Repository 06/02/2018/ [id number] Ambulatory [place] 8 9 [facility] ing:PT Repository 05/24/2018/ [id number] Ambulatory BMSBuilding:B [place] 8 5 [facility] Repository 05/20/2018 [id number] Ambulatory [place] I[place] 6 [facility] ing:MRI Repository 05/19/2018/ [id number] Ambulatory BMSBuilding:B [place] 8 5 [facility] Repository 05/17/2018/ [id number] Ambulatory BMSBuilding:B [place] 8 8 [facility] Repository 05/12/2018/ [id number] Ambulatory BMSBuilding:B [place] 8 7 [facility] Repository 05/10/2018 [id number] Ambulatory [place] 9 [facility] Hospital ing:POLAB3 Repository 05/10/2018/ [id number] Ambulatory BMSBuilding:B [place] 8 9 [facility] Repository 04/30/2018 [id number] Ambulatory [place] 5 [facility] Hospital ing:DC Repository 04/28/2018/ [id number] Ambulatory BMSBuilding:B [place] 8 2 [facility] Repository 04/26/2018/ [id number] Ambulatory BMSBuilding:B [place] 8 9 [facility] Repository 04/23/2018 [id number] Ambulatory [place] 0 [facility] Hospital ing:US Repository 04/21/2018/ [id number] Ambulatory BMSBuilding:B [place] 8 1 [facility] Repository 03/30/2018/ [id number] [place] 5 [facility] Hospital ing:DC Repository 03/21/2018 [id number] Ambulatory [place] I[place] 3 [facility] Hospital ing:RAD Repository 03/02/2018/ [id number] Ambulatory [place] 8 8 [facility] ing[facility]DC Repository 02/10/2018 [id number] [facility] [place] [facility] [facility] Repository 02/10/2018/ [id number] Ambulatory [place] 8 7 [facility] ing[facility]DC Repository 01/06/2018/ [id number] Amb[place] 4 [facility] Hospital ing:DC Repository 12/09/2017/ [id number] [place] [facility] 6 [facility] ing:DC Repository 11/30/2017/ [id number] Emergency [place] [facility] 3 [facility] ing[facility]ED Repository 11/17/2017 [id number] Ambulatory BMSBuilding:W [place] 5 [facility] Repository 11/17/2017/ [id number] Ambulatory [place] I[place] 8 5 [facility] Hospital ing:DC Repository 11/17/2017 [id number] Ambulatory [place] 5 [facility] ing:[facility] Repository 11/04/2017 [id number] Ambulatory [place] 3 [facility] ing:LAB Repository 10/13/2017/ [id number] Emergency [place] 8 2 [facility] ing[facility]ED Repository PAYERS PAYERS ENCOUNTER GUARANTOR PAYER SUBSCRIBER SOURCE 08/16/2018 RICKIE [id number] Insurance:ABRAM NAIR: [facility] Number: [id number] [id number] Repository [address]Avl: (330) Date:0086-91-18GD [phone] (HP) [place] [address]JY: 08/16/2018 Secondary NOT GIVENUNK [place] Insurance:SELF PAY [facility] Number: Effective Repository Date:2018-08-16 07/28/2018 RICKIE Fontanez Primary [address] [place] [address] [id number] [facility] KEMERERDOB: [facility] Number: [id number] [id number] Repository [address]Wsh: (330) Date:3363-89-80ZB [phone] (HP) [address] [place] [address]LD: 07/28/2018 Secondary NOT GIVENUNK [place] Insurance:SELF PAY [facility] Number: Effective Repository Date:2018-07-28 07/08/2018 RICKIE Fontanez Primary RICKIE [address] [id number] Insurance:[facility] KEMERERDOB: Community [place]AMARACK MEDICAREPolicy [id number], [place] Number: Repository [address]His: (330) [id number] [phone] () Date:7340-59-23FV [address]OX [facility] [address]NR: 07/08/2018 Secondary NOT GIVENUNK [place] Insurance:SELF PAY [facility] Number: Effective Repository Date:2018-07-08 06/02/2018 RICKIE Fontanez Primary RICKIE [place] [id number] Insurance:[facility] CARE KEMERERDOB: Community TAMARACK MEDICAREPolicy [id number], [place] Number: Repository [address]Lqj: 330 [id number] [phone] (HP) Date:8504-12-29BV [address] CL[place]SV[place]AY[place], [place] [address]ED: 06/02/2018 Secondary NOT GIVENUNK [place] Insurance:SELF PAY [facility] Number: Effective Repository Date:2018-05-24 05/24/2018 RICKIE Fontanez Primary RICKIE [place] [id number] Insurance:[facility] CARE [facility]ULTMAN [facility]OSPITALERD[facility]: Community T[place] MEDICAREPolicy [address] [place] Number: Repository [address]Hvx: (330 [id number] [phone] (HP) Date:3595-40-24FS [address] CL[place]SV[place]AY[place], [place] [address]YT: 05/24/2018 Secondary NOT GIVENUNK [place] Insurance:SELF PAY [facility] Number: Effective Repository Date:2018-05-24 05/20/2018 RICKIE Fontanez Primary RICKIE [place] [id number] Insurance:[facility] Community TAM[place] MEDICAREPolicy 1944[facility] [place] Number: Repository [address]Gia: 330 [id number] [phone] (HP) Date:0847-96-63CT [address] [place] [address]CL: 05/20/2018 Secondary NOT GIVENUNK [place] Insurance:SELF PAY [facility] Number: Effective Repository Date:2018-05-17 05/19/2018 RICKIE Fontanez Primary RICKIE [place] [id number] Insurance:[facility] Community T[place] MEDICAREPolicy [address] [place] Number: Repository [address]Vfz: 330 [id number] [phone] (HP) Date:8045-57-97JS [address] [place] [address] 170[address]SA: 05/19/2018 Secondary NOT GIVENUNK [place] Insurance:SELF PAY [facility] Number: Effective Repository Date:2018-05-19 05/17/2018 RICKIE Fontanez Primary RICKIE [place] [id number] Insurance:[facility]: Community [place] MEDICAREPolicy [address] [place] Number: Repository [address]Bqe: 330 [id number] [phone] (HP) Date:2101-82-49LL [address] [place] [address] 73[address]SZ: 05/17/2018 Secondary NOT GIVENUNK [place] Insurance:SELF PAY [facility] Number: Effective Repository Date:2018-05-17 05/12/2018 RICKIE Fontanez Primary RICKIE [place] [id number] Insurance:[employer] KEMERERDOB: Community TAMARACK MEDICAREPolicy [id number] Number: Repository [address]Pyr: 330 [id number] [phone] () Date:2191-22-33HR [address] [place] [address] 88932GN: 05/12/2018 Secondary NOT GIVENUNK [place] Insurance:SELF PAY [facility] Hospital Number: Effective Repository Date:2018-05-12 05/10/2018 RICKIE Fontanez Primary RICKIE [place] [id number] Insurance:[facility] CARE KEMERERDOB: Community TAMARACK MEDICAREPolicy [id number] Number: Repository [address]Zys: 330 [id number] [phone] () Date:1052-02-21QT [address] [place] [address]IP: 05/10/2018 Secondary NOT GIVENUNK [place] Insurance:SELF PAY [facility] Number: Effective Repository Date:2018-05-10 05/10/2018 RICKIE Fontanez Primary RICKIE [place] [id number] Insurance:[employer] KEMERERDOB: Community [place] MEDICAREPolicy [address] [place] Number: Repository [address]Qpv: 330 [id number] [phone] () Date:8994-06-01RI [address] [place] [address] 14423MR: 05/10/2018 Secondary NOT GIVENUNK [place] Insurance:SELF PAY [facility] Number: Effective Repository Date:2018-05-10 04/30/2018 Rickie Fontanez Primary Rickie [place] [id number] Insurance:[facility] CARE KemererDOB: Community T[place] MEDICAREPolicy [address] [place] Number: Repository [address]Dce: 330 [id number] [phone] (HP) Date:2657-00-63RP [address] [place] [address] 87394YT: 04/30/2018 Secondary NOT GIVENUNK [place] Insurance:SELF PAY [facility] Number: Effective Repository Date:2018-04-20 04/28/2018 RICKIE Fontanez Primary RICKIE [place] [id number] Insurance:[employer] KEMERERDOB: Community [place] MEDICAREPolicy [place] Number: Repository [address]Qwn: 330 [id number] [phone] (HP) Date:0209-27-34JH [address] [place] [address] 844[address]GO: 04/28/2018 Secondary NOT GIVENUNK [place] Insurance:SELF PAY [facility] Number: Effective Repository Date:2018-04-28 04/26/2018 RICKIE Fontanez Primary RICKIE [place] [id number] Insurance:[employer] KEMERERDOB: Community [place] MEDICAREPolicy [address] [place] Number: Repository [address]Wkr: 330 [id number] [phone] (HP) Date:2876-28-92KL [address] [place] [address] 19733CI: 04/26/2018 Secondary NOT GIVENUNK [place] Insurance:SELF PAY [facility] Number: Effective Repository Date:2018-04-26 04/23/2018 RICKIE Fontanez Primary RICKIE [place] [id number] Insurance:[employer] KEMERERDOB: Community [place] MEDICAREPolicy [address] [place] Number: Repository [address]Jib: 330 [id number] [phone] (HP) Date:1284-96-22OQ [address] [place] [address] 51316PU: 04/23/2018 Secondary NOT GIVENUNK [place] Insurance:SELF PAY [facility] Number: Effective Repository Date:2018-04-18 04/21/2018 RICKIE R Primary RICKIE [place] [id number] Insurance:[facility]ARE [facility]: Community [place] MEDICAREPolicy [address] [place] Number: Repository [address]Lpv: 330 [id number] [phone] (HP) Date:8996-74-85VT [address] [place] [address] 46052IG: 04/21/2018 Secondary NOT GIVENUNK [place] Insurance:SELF PAY [facility] Number: Effective Repository Date:2018-04-21 03/30/2018 RICKIE R Primary RICKIE [place] [id number] Insurance:[facility]: Community [place] MEDICAREPolicy [address] [place] Number: Repository [address]Uwo: 330 [id number] [phone] (HP) Date:4539-76-45PK [address] [place] [address] 07507GL: 03/30/2018 Secondary NOT GIVENUNK [place] Insurance:SELF PAY [facility] Number: Effective Repository Date:2018-03-20 03/21/2018 Rickie R Primary Rickie [place] [id number] Insurance:[facility] CARE KemerDOB: Community T[place] MEDICAREPolicy [address] [place] Number: Repository [address]Swv: (330 [id number] [phone] (HP) Date:7715-46-38DU [address] [place] [address] 89453JM: 03/21/2018 Secondary NOT GIVENUNK [place] Insurance:SELF PAY [facility] Number: Effective Repository Date:2018-03-21 03/02/2018 Rickie R Primary Rickie [place] [id number] Insurance:[facility]ARE [facility] [place] MEDICAREPolicy [address] [place] Number: Repository [address]Jut: 330 [id number] [phone] (HP) Date:3848-22-52VY [address] [place] [address] 27490JJ: 03/02/2018 Secondary NOT GIVENUNK [place] Insurance:SELF PAY [facility] Number: Effective Repository Date:2018-02-18 02/10/2018 Rickie R Primary Rickie [place] [id number] Insurance:[facility] KemererDOB: Community [place] MEDICAREPolicy [address] [place] Number: Repository [address]Lfi: 330 [id number] [phone] (HP) Date:8991-42-18EM [address] [place] [address] 95860BW: 02/10/2018 Secondary NOT GIVENUNK [place] Insurance:SELF PAY [facility] Number: Effective Repository Date:2018-01-18 02/10/2018 Rickie R Primary Rickie [id number] Insurance:[facility] KemererDOB: Community T[place] MEDICAREPolicy [address] [place] Number: Repository [address]Gmk: 330 [id number] [phone] (HP) Date:5117-26-45WE [address] [place] [address] 41368DY: 02/10/2018 Secondary NOT GIVENUNK [place] Insurance:SELF PAY [facility] Number: Effective Repository Date:2017-11-18 01/06/2018 Rickie R Primary Rickie [place] [id number] Insurance:[employer] C[employer] KemererDOB: Community T[place] MEDICAREPolicy [address] [place] Number: Repository [id number]: 330 [id number] [phone] (HP) Date:8936-38-70BY [address] [place] [address] 41571OQ: 01/06/2018 Secondary NOT GIVENUNK [place] Insurance:[facility] Center Number: Effective Repository Date:2017-12-19 12/09/2017 Rickie R Primary Rickie Del Valle [id number] Insurance:[employer] KemererDOB: Community [employer] MEDICAREPolicy [id number] Number: Repository [id number]: 330 [id number] [phone] (HP) Date:[id number] [address] [place] [address]KP: 12/09/2017 Secondary NOT GIVENUNK [place] Insurance:SELF PAY [facility] Number: Effective Repository Date:2017-11-18 11/30/2017 Rickie R Primary Rickie Valenciaoster [id number] Insurance:[employer] KemererDOB: Community [place] [facility] [place] Number[place] Repository [id number]: (330 [id number] [phone] (HP) Date:7612-50-65GB [address] [place] [address] 87370OD: 11/30/2017 Secondary NOT GIVENUNK [place] Insurance:SELF PAY [facility] Number: Effective Repository Date:2017-11-30 11/17/2017 Rickie R Primary Rickie Del Valle [id number] Insurance:[employer] KemererDOB: Community [place] [address] [place] Number[place] Repository [id number]: (330 [id number] [phone] (HP) Date:2695-95-37NL [address] [place] [address] 49827QZ: 11/17/2017 Secondary NOT GIVENUNK [place] Insurance:SELF PAY [facility] Number: Effective Repository Date:2017-11-17 11/17/2017 Rickie Fontanez Primary Rickie Valenciaoster [id number] [facility] KemererDOB: Community [place] MEDICAREPolicy [address] [place] Number: Repository [id number]: (330 [id number] [phone] (HP) Date:3611-30-95VC [address] [place] [address] 938[address]FD: 11/17/2017 Secondary NOT GIVENUNK [place] Insurance:SELF PAY [facility] Number: Effective Repository Date:2017-11-15 11/17/2017 Rickie Fontanez Primary Rickie Del Valle [id number] [facility] [place] MED[employer]ARE[place] [address] [facility] [place] Number: Repository [id number]: 330 [id number] [phone] () Date:0564-83-09ZX [address] [place] [address] 05142HK: 11/17/2017 Secondary NOT GIVENUNK [place] Insurance:SELF PAY [facility] Number: Effective Repository Date:2017-11-05 11/04/2017 Rickie Fontanez Primary Rickie Del Valle [id number] [facility] [place] MED[place] [address] [facility] [place] Number[place] Repository [id number]: 330 [id number] [phone] () Date:5712-86-36BC [address] [place] [address] 67057OO: 11/04/2017 Secondary NOT GIVENUNK [place] Insurance:SELF PAY [facility] Number: Effective Repository Date:2017-11-04 10/13/2017 Rickie Fontanez Primary Rickie Del Valle [id number] [facility] Community [place] MED[employer] [address] [place] Number[place] Repository [phone]: (330 [id number] [phone] (HP) Date:8016-87-32XY [address] [place] [address] 29868VD: 10/13/2017 Secondary NOT GIVENUNK [place] Insurance:SELF PAY [facility] Number: Effective Repository Date:2017-10-13
== END ==
PROVIDERS: Family Provider Family Medicine Geriatric Medicine; PCP Family Medicine Geriatric Medicine; Visit Provider Family Medicine Geriatric Medicine
DX: E11.9 Type 2 diabetes mellitus without complications (principal); E55.9 Vitamin D deficiency, unspecified; I10 Essential (primary) hypertension
CPT/HCPCS: 36415; 80053; 82306; 84443; 85025

== ENCOUNTER → 2018-11-08 15:03 | Outpatient (CLI) | payer OTHER, SELFPAY ==
[2018-07-28 15:59] VITALS: BMI 34.5
[2018-11-08 15:47] LABS: Absolute Neutrophil Count 3.8 X10^3/uL (2.0-7.7); Basophil# 0.04 X10^3/uL; Basophil% 0.6 % (0-1); Eosinophils% 4.3 % (0-5); Hematocrit 48.5 % (40-54); Hemoglobin 16.1 g/dl (13.0-16.5); Lymphocyte % 28.9 % (19-41); Mean Corp Hgb Conc 33.2 g/gl (32-36); Mean Corpuscular Hgb 31.1 pg (27.0-32.0); Mean Corpuscular Volume 93.6 fL (80-94); Mean Platelet Vol. 10.4 fl (6.2-12.0); Monocyte# 0.76 X10^3/uL; Neutrophil # 3.81 X10^3/uL (2.7-7.7); Neutrophil % 54.9 % (47-70); Platelet Count 243 K/mm3 (150-450); RBC Distribution Width CV 13.2 % (11.6-14.6); RBC Distribution Width SD 44.2 fl (35.1-43.9); Red Blood Count 5.18 M/mm3 (4.6-6.2); White Blood Count 6.9 K/mm3 (4.4-11.0)
[2018-11-08 15:57] LABS: Vitamin D,25 Hydroxy 32.3 ng/mL (29.95-100.01)
[2018-11-08 16:02] LABS: ALB/GLOB Ratio 1.1 RATIO (0.9-2.4); AST(SGOT) 29 U/L (15-37); Alanine Aminotransfer ALT/SGPT 54 U/L (16-61); Albumin, Serum 3.9 g/dL (3.2-5.0); Alkaline Phosphatase 37 U/L (45-117); Anion Gap 9 (5-15); BUN 18 mg/dL (7-18); Calcium,Total 9.5 mg/dL (8.5-10.1); Chloride 104 mmol/L (98-107); EST Glomerular Filtration Rate 88 mL/min (>60); Est Glom Filt Rate - Afr Amer 106 mL/min (>60); Globulin 3.4 g/dL (2.2-4.2); Glucose 128 mg/dL (74-106); POSITIVE COUNT NO; POSITIVE DIFFERENTIAL NO; POSITIVE MORPHOLOGY NO; Potassium 4.1 mmol/L (3.5-5.1); Protein, Total 7.3 g/dL (6.4-8.2); Sodium Level 139 mmol/L (136-145); Thyroid Stim Hormone (TSH) 5.29 uIU/mL (0.358-3.74)
== END ==
PROVIDERS: Family Provider Family Medicine Geriatric Medicine; PCP Family Medicine Geriatric Medicine; Visit Provider Family Medicine Geriatric Medicine
DX: E05.90 Thyrotoxicosis, unspecified without thyrotoxic crisis or storm (principal); E55.9 Vitamin D deficiency, unspecified; I10 Essential (primary) hypertension
CPT/HCPCS: 36415; 80053; 82306; 84403; 84443; 85025

== ENCOUNTER → 2018-12-26 | Outpatient (CLI) | payer OTHER, SELFPAY ==
[2018-07-28 15:59] VITALS: BMI 34.5
[2018-12-26 12:39] LABS: Thyroid Stim Hormone (TSH) 2.96 uIU/mL (0.358-3.74)
== END | disposition home or self-care (01) ==
LOC: POLAB3 09:37
PROVIDERS: Family Provider Family Medicine Geriatric Medicine; PCP Family Medicine Geriatric Medicine; Visit Provider Family Medicine Geriatric Medicine
DX: E03.9 Hypothyroidism, unspecified (principal)
CPT/HCPCS: 36415; 84443

== ENCOUNTER → 2019-02-21 08:49 | Outpatient (CLI) | payer MEDICARE, SELFPAY | PROVIDERS: Family Provider Family Medicine Geriatric Medicine; PCP Family Medicine Geriatric Medicine; Referring Provider Internal Medicine Cardiovascular Disease; Visit Provider Internal Medicine Cardiovascular Disease | DX: I47.1 Supraventricular tachycardia (principal); I25.10 Atherosclerotic heart disease of native coronary artery without angina pectoris; I10 Essential (primary) hypertension; E78.5 Hyperlipidemia, unspecified; Z95.5 Presence of coronary angioplasty implant and graft | CPT/HCPCS: 93225; 93226 ==

== ENCOUNTER → 2019-05-08 10:49 | Outpatient (CLI) | payer MEDICARE, SELFPAY ==
[2018-07-28 15:59] VITALS: BMI 34.5
[2019-05-08 12:38] LABS: Absolute Lymphocyte Count 1.68 X10^3/uL (0.83-4.51); Absolute Neutrophil Count 4.6 X10^3/uL (2.0-7.7); Basophil# 0.04 X10^3/uL; Basophil% 0.5 % (0-1); Eosinophil# 0.31 X10^3/uL; Eosinophils% 4.2 % (0-5); Hematocrit 47.8 % (40-54); Lymphocyte # 1.68 X10^3/ul (4.0); Mean Corp Hgb Conc 33.5 g/dL (32-36); Mean Corpuscular Hgb 30.7 pg (27.0-32.0); Mean Corpuscular Volume 91.7 fL (80-94); Monocyte# 0.67 X10^3/uL; Monocyte% 9.2 % (0-10); NRBC Flagged by Analyzer 0 % (0-5); Neutrophil # 4.58 X10^3/uL (2.7-7.7); Neutrophil % 62.7 % (47-70); Platelet Count 252 K/mm3 (150-450); RBC Distribution Width CV 12.5 % (11.6-14.6); RBC Distribution Width SD 41.7 fl (35.1-43.9); Red Blood Count 5.21 M/mm3 (4.6-6.2); White Blood Count 7.3 K/mm3 (4.4-11.0)
[2019-05-08 12:57] LABS: ALB/GLOB Ratio 1.1 RATIO (0.9-2.4); AST(SGOT) 30 U/L (15-37); Alanine Aminotransfer ALT/SGPT 62 U/L (16-61); Albumin, Serum 3.6 g/dL (3.2-5.0); Alkaline Phosphatase 41 U/L (45-117); Anion Gap 7 (5-15); BUN 14 mg/dL (7-18); BUN/Creat Ratio 16.3 RATIO (10-20); Calcium,Total 9.4 mg/dL (8.5-10.1); Chloride 107 mmol/L (98-107); Creatinine, Serum 0.86 mg/dL (0.70-1.30); EST Glomerular Filtration Rate 92 mL/min (>60); Est Glom Filt Rate - Afr Amer 112 mL/min (>60); Globulin 3.3 g/dL (2.2-4.2); Glucose 133 mg/dL (74-106); Potassium 4.2 mmol/L (3.5-5.1); Protein, Total 6.9 g/dL (6.4-8.2); Sodium Level 140 mmol/L (136-145); Thyroid Stim Hormone (TSH) 3.33 uIU/mL (0.358-3.74)
== END ==
PROVIDERS: Family Provider Family Medicine Geriatric Medicine; PCP Family Medicine Geriatric Medicine; Visit Provider Family Medicine Geriatric Medicine
DX: E11.9 Type 2 diabetes mellitus without complications (principal); E55.9 Vitamin D deficiency, unspecified; I10 Essential (primary) hypertension
CPT/HCPCS: 36415; 80053; 82306; 84443; 85025

== ENCOUNTER → 2019-07-24 08:45 | Outpatient (CLI) | payer MEDICARE, SELFPAY ==
[2018-07-28 15:59] VITALS: BMI 34.5
[2019-07-24 09:41] LABS: AST(SGOT) 35 U/L (15-37); Alanine Aminotransfer ALT/SGPT 75 U/L (16-61); Albumin, Serum 3.8 g/dL (3.2-5.0); Alkaline Phosphatase 38 U/L (45-117); Bilirubin, Direct 0.15 mg/dL (0.00-0.30); Cholesterol 137 mg/dL (200); Globulin 3.2 g/dL (2.2-4.2); High Density Lipoprotein 42 mg/dL; Triglycerides 73 mg/dL; Very Low Density Lipoprotein 15 mg/dL (5-40)
== END ==
PROVIDERS: Family Provider Family Medicine Geriatric Medicine; PCP Family Medicine Geriatric Medicine; Referring Provider Internal Medicine Cardiovascular Disease; Visit Provider Internal Medicine Cardiovascular Disease
DX: E78.5 Hyperlipidemia, unspecified (principal); I25.10 Atherosclerotic heart disease of native coronary artery without angina pectoris; Z95.5 Presence of coronary angioplasty implant and graft
CPT/HCPCS: 36415; 80061; 80076

== ENCOUNTER → 2019-08-21 12:39 | Outpatient (CLI) | payer MEDICARE, SELFPAY ==
[2019-07-27 10:17] VITALS: BMI 35.8
--- NOTE | 2019-08-21 12:41 | ECHOD_ITS ---
Reason For Study: HTN Procedure This was a 2D Doppler, Color Flow transthoracic echocardiogram. Exam performed in department. Left Ventricle Normal LV size. Left ventricular systolic function is normal. The estimated ejection fraction is 60 %. No regional wall motion abnormalities noted. Right Ventricle Normal RV size. Normal systolic function. Atria Normal left atrium. Normal right atrium. Mitral Valve Normal mitral valve. Tricuspid Valve Normal tricuspid valve. Mild tricuspid valve insufficiency. Pulmonary artery systolic pressure is 23 mmHg. Aortic Valve Normal aortic valve. Mild (1+) aortic valve insufficiency. Pulmonic Valve Normal pulmonic valve. Great Vessels Normal aortic root. The pulmonary artery is normal size. Normal inferior vena cava. Pericardium/Pleural No pericardial effusion. MMode/2D Measurements & Calculations LVIDd: 4.1 cm IVSd: 0.93 cm Ao root diam: 3.8 cm LVIDs: 2.4 cm LVPWd: 1.2 cm LA dimension: 3.8 cm RVDd: 3.6 cm FS: 40.2 % LAV(MOD-bp): 48.4 ml LA A4 area: 18.5 cm2 RA A4 area: 12.6 cm2 LAV(MOD-bp) Indexed: 22.5 ml/m2 LAV(MOD-sp2): 47.2 ml LAV(MOD-sp4): 51.4 ml Time Measurements MV dec time: 0.28 sec Doppler Measurements & Calculations MV E max agustin: 75.1 cm/sec Lat Peak E' Agustin: 8.2 cm/sec Med Peak E' Agustin: 5.8 cm/sec MV A max agustin: 105.2 cm/sec E/E' lat: 9.2 E/E' med: 12.9 MV E/A: 0.71 MV V2 max: 92.5 cm/sec MV P1/2t max agustin: 93.4 cm/sec Ao V2 max: 138.9 cm/sec MV max P.4 mmHg MV P1/2t: 74.7 msec Ao max P.7 mmHg MV V2 mean: 55.0 cm/sec MV dec slope: 366.1 cm/sec2 Ao V2 mean: 88.2 cm/sec MV mean P.4 mmHg MVA(P1/2t): 2.9 cm2 Ao mean P.5 mmHg MV V2 VTI: 28.5 cm Ao V2 VTI: 25.1 cm AI max agustin: 327.2 cm/sec LV V1 max: 117.5 cm/sec PA V2 max: 139.6 cm/sec AI max P.8 mmHg LV V1 max P.5 mmHg LV V1 mean P.2 mmHg AI dec slope: 139.4 cm/sec2 LV V1 mean: 66.7 cm/sec AI P1/2t: 687.6 msec LV V1 VTI: 22.2 cm TR max agustin: 228.1 cm/sec TR max P.8 mmHg Interpretation Summary Normal LV size. Left ventricular systolic function is normal. The estimated ejection fraction is 60 %. No regional wall motion abnormalities noted. Mild (1+) aortic valve insufficiency. Mild tricuspid valve insufficiency. Ordering Physician: Lamont Kaiser Referring Physician: Gustavo Vinson Chi Performed By: Gabriel Oswald RCS
== END ==
PROVIDERS: Family Provider Family Medicine Geriatric Medicine; PCP Family Medicine Geriatric Medicine; Referring Provider Internal Medicine Cardiovascular Disease; Visit Provider Internal Medicine Cardiovascular Disease
DX: I10 Essential (primary) hypertension (principal); I47.1 Supraventricular tachycardia
CPT/HCPCS: 93306

== ENCOUNTER → 2019-11-13 09:09 | Outpatient (CLI) | payer MEDICARE, SELFPAY ==
[2019-07-27 10:17] VITALS: BMI 35.8
[2019-11-13 12:17] LABS: Basophil# 0.05 X10^3/uL; Basophil% 0.5 % (0-1); Eosinophil# 0.33 X10^3/uL; Eosinophils% 3.3 % (0-5); Hematocrit 49.9 % (40-54); Lymphocyte % 26.7 % (19-41); Mean Corp Hgb Conc 32.1 g/dL (32-36); Mean Corpuscular Hgb 29.7 pg (27.0-32.0); Mean Corpuscular Volume 92.6 fL (80-94); Mean Platelet Vol. 9.8 fl (6.2-12.0); Monocyte# 0.98 X10^3/uL; Monocyte% 9.7 % (0-10); NRBC Flagged by Analyzer 0 % (0-5); Neutrophil # 5.99 X10^3/uL (2.7-7.7); Neutrophil % 59.1 % (47-70); Platelet Count 352 K/mm3 (150-450); RBC Distribution Width CV 12.5 % (11.6-14.6); RBC Distribution Width SD 42.4 fl (35.1-43.9); Red Blood Count 5.39 M/mm3 (4.6-6.2); White Blood Count 10.1 K/mm3 (4.4-11.0)
[2019-11-13 12:29] LABS: ALB/GLOB Ratio 0.8 RATIO (0.9-2.4); AST(SGOT) 57 U/L (15-37); Alanine Aminotransfer ALT/SGPT 87 U/L (16-61); Albumin, Serum 3.5 g/dL (3.2-5.0); Alkaline Phosphatase 53 U/L (45-117); Anion Gap 7 (5-15); BUN 17 mg/dL (7-18); BUN/Creat Ratio 14.4 RATIO (10-20); Calcium,Total 9.7 mg/dL (8.5-10.1); Chloride 102 mmol/L (98-107); Creatinine, Serum 1.18 mg/dL (0.70-1.30); EST Glomerular Filtration Rate 64 mL/min (>60); Est Glom Filt Rate - Afr Amer 77 mL/min (>60); Globulin 4.4 g/dL (2.2-4.2); Glucose 150 mg/dL (74-106); Protein, Total 7.9 g/dL (6.4-8.2); Sodium Level 137 mmol/L (136-145); Thyroid Stim Hormone (TSH) 3.64 uIU/mL (0.358-3.74)
[2019-11-14 09:14] LABS: Vitamin D,25 Hydroxy 56.4 ng/mL
== END ==
PROVIDERS: PCP Family Medicine Geriatric Medicine; Visit Provider Family Medicine Geriatric Medicine
DX: E11.9 Type 2 diabetes mellitus without complications (principal); E55.9 Vitamin D deficiency, unspecified; R53.83 Other fatigue
CPT/HCPCS: 36415; 80053; 82306; 84443; 85025

== ENCOUNTER → 2020-01-30 08:20 | Outpatient (CLI) | payer MEDICARE, SELFPAY ==
[2019-07-27 10:17] VITALS: BMI 35.8
[2020-01-30 09:32] LABS: AST(SGOT) 32 U/L (15-37); Alanine Aminotransfer ALT/SGPT 57 U/L (16-61); Albumin, Serum 3.7 g/dL (3.2-5.0); Alkaline Phosphatase 40 U/L (45-117); Bilirubin, Direct 0.24 mg/dL (0.00-0.30); Cholesterol 112 mg/dL (200); Globulin 3.2 g/dL (2.2-4.2); High Density Lipoprotein 48 mg/dL; Protein, Total 6.9 g/dL (6.4-8.2); Triglycerides 66 mg/dL; Very Low Density Lipoprotein 13 mg/dL (5-40)
== END ==
PROVIDERS: PCP Family Medicine Geriatric Medicine; Referring Provider Internal Medicine Cardiovascular Disease; Visit Provider Internal Medicine Cardiovascular Disease
DX: E78.00 Pure hypercholesterolemia, unspecified (principal); E78.5 Hyperlipidemia, unspecified
CPT/HCPCS: 36415; 80061; 80076

== ENCOUNTER → 2020-02-15 10:24 | Outpatient (CLI) | payer MEDICARE, SELFPAY ==
[2019-07-27 10:17] VITALS: BMI 35.8
[2020-02-15 12:46] LABS: Absolute Lymphocyte Count 1.39 X10^3/uL (0.83-4.51); Absolute Neutrophil Count 3.9 X10^3/uL (2.0-7.7); Basophil# 0.04 X10^3/uL; Basophil% 0.6 % (0-1); Eosinophil# 0.28 X10^3/uL; Eosinophils% 4.5 % (0-5); Hematocrit 46.9 % (40-54); Hemoglobin 14.8 g/dL (13.0-16.5); Lymphocyte # 1.39 X10^3/ul (4.0); Lymphocyte % 22.3 % (19-41); Mean Corp Hgb Conc 31.6 g/dL (32-36); Mean Corpuscular Hgb 29.9 pg (27.0-32.0); Mean Corpuscular Volume 94.7 fL (80-94); Mean Platelet Vol. 10.2 fl (6.2-12.0); Monocyte# 0.58 X10^3/uL; Monocyte% 9.3 % (0-10); NRBC Flagged by Analyzer 0 % (0-5); Neutrophil # 3.93 X10^3/uL (2.7-7.7); Platelet Count 243 K/mm3 (150-450); RBC Distribution Width CV 13.2 % (11.6-14.6); RBC Distribution Width SD 46.7 fl (35.1-43.9); Red Blood Count 4.95 M/mm3 (4.6-6.2); White Blood Count 6.2 K/mm3 (4.4-11.0)
[2020-02-15 12:57] LABS: Vitamin D,25 Hydroxy 47.3 ng/mL
[2020-02-15 13:09] LABS: ALB/GLOB Ratio 1.1 RATIO (0.9-2.4); AST(SGOT) 24 U/L (15-37); Alanine Aminotransfer ALT/SGPT 48 U/L (16-61); Albumin, Serum 3.5 g/dL (3.2-5.0); Alkaline Phosphatase 37 U/L (45-117); Anion Gap 8 (5-15); BUN 17 mg/dL (7-18); Calcium,Total 9.5 mg/dL (8.5-10.1); Chloride 106 mmol/L (98-107); Creatinine, Serum 0.94 mg/dL (0.70-1.30); EST Glomerular Filtration Rate 83 mL/min (>60); Est Glom Filt Rate - Afr Amer 100 mL/min (>60); Globulin 3.3 g/dL (2.2-4.2); Glucose 135 mg/dL (74-106); Protein, Total 6.8 g/dL (6.4-8.2); Sodium Level 140 mmol/L (136-145); Thyroid Stim Hormone (TSH) 1.88 uIU/mL (0.358-3.74)
== END ==
PROVIDERS: PCP Family Medicine Geriatric Medicine; Visit Provider Family Medicine Geriatric Medicine
DX: E11.9 Type 2 diabetes mellitus without complications (principal); E55.9 Vitamin D deficiency, unspecified; I10 Essential (primary) hypertension
CPT/HCPCS: 36415; 80053; 82306; 84443; 85025

== ENCOUNTER → 2020-05-16 11:14 | Outpatient (CLI) | payer MEDICARE, SELFPAY ==
[2019-07-27 10:17] VITALS: BMI 35.8
[2020-05-16 12:18] LABS: Absolute Lymphocyte Count 1.46 X10^3/uL (0.83-4.51); Absolute Neutrophil Count 3.2 X10^3/uL (2.0-7.7); Basophil# 0.03 X10^3/uL; Basophil% 0.5 % (0-1); Eosinophil# 0.26 X10^3/uL; Eosinophils% 4.7 % (0-5); Hematocrit 45.5 % (40-54); Hemoglobin 14.5 g/dL (13.0-16.5); Lymphocyte # 1.46 X10^3/ul (4.0); Lymphocyte % 26.3 % (19-41); Mean Corp Hgb Conc 31.9 g/dL (32-36); Mean Corpuscular Hgb 30.6 pg (27.0-32.0); Mean Platelet Vol. 10.4 fl (6.2-12.0); Monocyte# 0.63 X10^3/uL; Monocyte% 11.4 % (0-10); NRBC Flagged by Analyzer 0 % (0-5); Neutrophil # 3.15 X10^3/uL (2.7-7.7); Neutrophil % 56.7 % (47-70); Platelet Count 222 K/mm3 (150-450); RBC Distribution Width CV 13.1 % (11.6-14.6); RBC Distribution Width SD 46.5 fl (35.1-43.9); Red Blood Count 4.74 M/mm3 (4.6-6.2); White Blood Count 5.6 K/mm3 (4.4-11.0)
[2020-05-16 12:32] LABS: Vitamin D,25 Hydroxy 51.8 ng/mL
[2020-05-16 12:39] LABS: ALB/GLOB Ratio 1.2 RATIO (0.9-2.4); AST(SGOT) 22 U/L (15-37); Alanine Aminotransfer ALT/SGPT 40 U/L (16-61); Albumin, Serum 3.7 g/dL (3.2-5.0); Alkaline Phosphatase 35 U/L (45-117); Anion Gap 2 (5-15); BUN 16 mg/dL (7-18); BUN/Creat Ratio 17.1 RATIO (10-20); Calcium,Total 9.3 mg/dL (8.5-10.1); Chloride 106 mmol/L (98-107); Creatinine, Serum 0.93 mg/dL (0.70-1.30); EST Glomerular Filtration Rate 84 mL/min (>60); Est Glom Filt Rate - Afr Amer 101 mL/min (>60); Globulin 3.2 g/dL (2.2-4.2); Glucose 125 mg/dL (74-106); Potassium 4.4 mmol/L (3.5-5.1); Protein, Total 6.9 g/dL (6.4-8.2); Sodium Level 139 mmol/L (136-145); Thyroid Stim Hormone (TSH) 1.88 uIU/mL (0.358-3.74)
== END ==
PROVIDERS: PCP Family Medicine Geriatric Medicine; Visit Provider Family Medicine Geriatric Medicine
DX: E11.9 Type 2 diabetes mellitus without complications (principal); E55.9 Vitamin D deficiency, unspecified; F52.8 Other sexual dysfunction not due to a substance or known physiological condition; I10 Essential (primary) hypertension
CPT/HCPCS: 36415; 80053; 82306; 84403; 84443; 85025

== ENCOUNTER → 2020-07-29 08:38 | Outpatient (CLI) | payer MEDICARE, SELFPAY ==
[2019-07-27 10:17] VITALS: BMI 35.8
[2020-07-29 09:36] LABS: AST(SGOT) 20 U/L (15-37); Alanine Aminotransfer ALT/SGPT 40 U/L (16-61); Albumin, Serum 3.7 g/dL (3.2-5.0); Alkaline Phosphatase 41 U/L (45-117); Bilirubin, Direct 0.26 mg/dL (0.00-0.30); Cholesterol 105 mg/dL (200); Globulin 3.3 g/dL (2.2-4.2); High Density Lipoprotein 50 mg/dL; Triglycerides 51 mg/dL; Very Low Density Lipoprotein 10 mg/dL (5-40)
== END ==
PROVIDERS: PCP Family Medicine Geriatric Medicine; Referring Provider Internal Medicine Cardiovascular Disease; Visit Provider Internal Medicine Cardiovascular Disease
DX: E78.00 Pure hypercholesterolemia, unspecified (principal); E78.5 Hyperlipidemia, unspecified
CPT/HCPCS: 36415; 80061; 80076

== ENCOUNTER 2020-08-18 23:14 | Emergency (ER) | payer MEDICARE, SELFPAY ==
[2020-08-08 08:52] VITALS: BMI 36.8
[2020-08-18 23:14] VITALS: BP 178/108; PULSE 73; RESP 16; TEMP 36.2; O2SAT 98; BMI 34.5
--- NOTE | 2020-08-18 23:18 | CT_ITS ---
STUDY: CT ABDOMEN AND PELVIS WITHOUT CONTRAST REASON FOR EXAM: Male, 75 years old. RIGHT FLANK PAIN SINCE WEDNESDAY, HS TURP X 2 AND KS REMOVAL RADIATION DOSAGE (If Supplied By Facility): CTDIvol = ( 17.59 ) mGy, DLP = ( 927.46 ) mGycm TECHNIQUE: Transaxial images were obtained from the dome of the diaphragm to the symphysis pubis without oral contrast, and without intravenous contrast. Sagittal and coronal images were reconstructed. Individualized dose optimization techniques were used for this CT. COMPARISON: None. FINDINGS: Mild bilateral lower lobe atelectasis. The visualized portions of the heart are within normal limits. Normal liver. Normal gallbladder and extrahepatic biliary system. Normal spleen. Normal pancreas. Normal bilateral adrenal glands. There are at least 2 small stones visualized within the right kidney, largest seen within the mid lower pole and measuring 2.8 mm. There is mild right hydronephrosis with perinephric stranding. There is mild periatrial stranding. Otherwise unremarkable right kidney. There is a 9.4 mm stone within the distal aspect of the right ureter, approximately 3 cm below the iliac crest. There is left perinephric stranding with at least 3 stones visualized within the left middle and lower pole, largest seen in the middle pole and measuring 9 mm. There is no left hydronephrosis, remainder of the left kidney unremarkable. Minimal hiatal hernia otherwise normal visualized stomach. Normal small intestine. Normal colon. The appendix is visualized and appears normal. There is mild atherosclerotic calcification of the abdominal aorta, without a demonstrated aneurysm. Normal inferior vena cava. Normal retroperitoneum. Urinary bladder is decompressed with nonspecific thickening of the wall. Normal abdominal wall. There are diffuse degenerative changes of the visualized lumbar spine. CT/Abdomen/Pelvis without Cont IMPRESSION: Mild right hydronephrosis due to a stone within the distal right ureter measuring 9.4 mm. Bilateral intrarenal stones as described. No acute appendicitis or bowel obstruction. Electronically Signed: Hilda Lopez MD at 0:24 EST , Service support ,
--- NOTE | 2020-08-18 23:41 | ED.VIS.GEN ---
History of Present Illness Chief Complaint: Flank Pain Informant: Patient Narrative: Patient stated he had some right-sided flank pain on Wednesday. Then again tonight at 8 PM it came back. He describes a sharp pain in his right flank lower. He has had this in the past and thinks he has a recurrent kidney stone. He has had 5 kidney stones in the past. One of them required surgery remotely. No home treatment. Feels nauseous. Waxes and wanes. Current severity is moderate. Difficult to get comfortable. Denies any blood in his urine. - Past Medical History (1) Atherosclerosis of coronary artery of [place] heart without angina pectoris Status: Chronic Comment: HRX-Pqdsf-Djth LAD w/ 4.0 x 13 mm Duet Stent 01/01/99 (2) Essential (primary) hypertension Status: Chronic (3) Hyperlipidemia Status: Chronic (4) Paroxysmal supraventricular tachycardia Status: Chronic (5) History of coronary artery stent placement Status: Resolved Comment: RSH-Ioaov-Sbaf LAD w/ 4.0 x 13 mm Duet Stent 01/01/99 Past Medical History - Allergies and Home Meds Allergies/Adverse Reactions: Allergies No Known Allergies Allergy (Verified 08/18/20 23:16) Primary Care Physician: Gustavo Vinson Chi, MD [Primary Care Provider] - Prior records reviewed: Yes Past Medical History: - - See problem list, kidney stone Surgical History: - - Reviewed Smoking Status: Former smoker Alcohol: None Drugs: None Review of Systems General: Denies: Chills, Fever, Sweats Eyes: Denies: Visual changes - bilaterally, Diplopia ENT: Denies: Rhinorrhea, Sore throat Cardiovascular: Denies: Chest pain, Palpitations Respiratory: Denies: Dyspnea, Cough, Dyspnea on exertion Gastrointestinal: Reports: Nausea. Denies: Abdominal pain, Vomiting, Diarrhea, Melena, Hematochezia Genitourinary: Denies: Dysuria, Hematuria, Frequency Musculoskeletal: Reports: Back pain - R Sided flank pain. Denies: Extremity Pain Skin: Denies: Rash, Wounds Neurological: Denies: Headache, Weakness, Numbness Physical Exam Vital Signs/Narrative: Vital Signs Temp Pulse Resp BP Pulse Ox 08/18/20 23:14 97.2 F L 73 16 178/108 H 98 General: Well nourished, Well developed, No Acute Distress Head: Normocephalic, Atraumatic Eyes: Perrl, EOMI ENT: Moist mucous membranes, No rhinorrhea Neck: Supple, Nontender Cardiovascular: Regular rate, Regular rhythm, No murmurs Respiratory: No distress, CTA bilaterally, Chest nontender Abdomen: Soft, Nontender, Nondistended, Normal bowel sounds Back: Nontender, Normal Inspection Extremities: Nontender, No edema Skin: Normal color, No rash Neurological: Alert, Oriented x3, Cranial nerves II-XII grossly intact, Normal Strength, Normal Sensation Psychological: Normal affect, Normal Mood Diagnostic/Tx/Re-eval - Medical Decision Making Given IV fluids lab work obtained. Given morphine and Zofran. CT abdomen pelvis obtained. CT abdomen pelvis shows mild right hydronephrosis with a 9.4 mm distal renal stone. Positive renal stones bilaterally. Mild perinephric stranding noted. Discussed the findings with the patient. Lab work shows mild white blood cells in his urine but no infection. CBC normal with no acute abnormalities. BUN slightly elevated with normal creatinine. Patient felt asymptomatic on reevaluation. He is pain-free. I discussed admission with the patient due to the fact that he has such a significant 9.4 mm stone that is unlikely to pass on its own. He stated he wants to try to pass it on his own see if he is able to as it is already in the distal ureter. I did offer him admission for inpatient treatment of the stone. He would like to follow-up with Dr. Trimble as an outpatient. He understands the risk of doing so. I do not feel there is any evidence of infection. He will be discharged with Zofran Flomax and Percocet. He will return if he worsens as he knows there is a large percentage chance he would not pass this. He has had a procedure done on a kidney stone in the past and understands he may and likely will need this ED Disposition - Plan for ED Patient: Disposition: Home or Assisted Living Diagnosis: Ureterolithiasis Instructions: ED Renal Stone w Colic Prescriptions: Tamsulosin HCl [Flomax] 0.4 mg PO DAILY #7 cap Transmission Status: Pending to [facility] [address] Oxycodone HCl/Acetaminophen [Percocet 5/325] 1 tab PO Q6H PRN PRN 5 Days #15 tab PRN Reason: Pain 1-10 Or Fever Transmission Status: Received by [facility] [address] Ondansetron [Zofran Odt] 8 mg PO Q8H PRN PRN #20 tab PRN Reason: Nausea Transmission Status: Pending to [id number] Referrals: Alex Trimble MD [STAFF PHYSICIAN] -
[2020-08-18] MEDS: Ondansetron 4 MG/2 ML Vial IV (23:48)
[2020-08-18] MEDS: Morphine 4 MG/ML Syringe IV (23:49)
[2020-08-18 23:51] LABS: Absolute Lymphocyte Count 1.88 X10^3/uL (0.83-4.51); Absolute Neutrophil Count 6.9 X10^3/uL (2.0-7.7); Basophil# 0.05 X10^3/uL; Basophil% 0.5 % (0-1); Eosinophil# 0.31 X10^3/uL; Eosinophils% 3.1 % (0-5); Hematocrit 48.9 % (40-54); Hemoglobin 15.7 g/dL (13.0-16.5); Lymphocyte # 1.88 X10^3/ul (4.0); Lymphocyte % 18.7 % (19-41); Mean Corp Hgb Conc 32.1 g/dL (32-36); Mean Corpuscular Hgb 30.8 pg (27.0-32.0); Mean Corpuscular Volume 96.1 fL (80-94); Mean Platelet Vol. 9.5 fl (6.2-12.0); Monocyte# 0.88 X10^3/uL; Monocyte% 8.8 % (0-10); NRBC Flagged by Analyzer 0 % (0-5); Neutrophil # 6.87 X10^3/uL (2.7-7.7); Neutrophil % 68.5 % (47-70); Platelet Count 255 K/mm3 (150-450); RBC Distribution Width CV 12.5 % (11.6-14.6); RBC Distribution Width SD 44.6 fl (35.1-43.9); Red Blood Count 5.09 M/mm3 (4.6-6.2)
[2020-08-18 23:52] LABS: Bacteria 0 SEEN /hpf (None Seen); Color, Urine Yellow (Yellow); Glucose, Dipstick Normal (Normal); Ketone-Dipstick 5 mg/dl (Negative); Leukocyte Esterase-Dipstick 25 /ul (Negative); Mucous, Urine 0 SEEN /hpf (<or=2+); Nitrite-Dipstick Negative (Negative); Occult Blood-Urine 250 /ul (Negative); Protein-Dipstick 30 mg/dl (Negative); Specific Gravity, Urine 1.025 (1.002-1.030); Squamous Epithelial Cells - UA 0 SEEN /hpf (0-5); Urine Bilirubin Dipstick Negative (Negative); Urine Clarity Clear (Clear); Urine Urobilinogen Normal (Normal)
[2020-08-18 23:58] LABS: Red Blood Cells-Urine 5-10 SEEN /hpf (0-5); White Blood Cells 10-25 SEEN /hpf (0-5)
[2020-08-19 00:04] LABS: Anion Gap 5 (5-15); BUN 23 mg/dL (7-18); BUN/Creat Ratio 19.7 RATIO (10-20); Calcium,Total 10.1 mg/dL (8.5-10.1); Chloride 109 mmol/L (98-107); Creatinine, Serum 1.17 mg/dL (0.70-1.30); EST Glomerular Filtration Rate 64 mL/min (>60); Est Glom Filt Rate - Afr Amer 78 mL/min (>60); Estimated Creatinine Clearance 51.97 ml/min; Glucose 166 mg/dL (74-106); Potassium 4.7 mmol/L (3.5-5.1); Sodium Level 143 mmol/L (136-145)
[2020-08-19 01:11] VITALS: BP 147/87; PULSE 78; RESP 16; O2SAT 96
== END 2020-08-19 01:23 | disposition home or self-care (01) ==
LOC: ED 08-19 01:19
PROVIDERS: Emergency Medicine; Emergency Provider Emergency Medicine; PCP Family Medicine Geriatric Medicine
DX: N20.1 Calculus of ureter (principal); I25.10 Atherosclerotic heart disease of native coronary artery without angina pectoris; E78.5 Hyperlipidemia, unspecified; I10 Essential (primary) hypertension; Z95.5 Presence of coronary angioplasty implant and graft; Z87.442 Personal history of urinary calculi; Z87.891 Personal history of nicotine dependence; Z79.82 Long term (current) use of aspirin; Z79.899 Other long term (current) drug therapy
CPT/HCPCS: 74176; 80048; 81001; 85025; 96374; 96375; 99283; J7040; A4216; J2405

== ENCOUNTER → 2020-08-19 10:30 | Outpatient (CLI) | payer MEDICARE, SELFPAY ==
[2020-08-18 23:14] VITALS: BMI 34.5
[2020-08-19 12:05] LABS: Absolute Lymphocyte Count 1.66 X10^3/uL (0.83-4.51); Absolute Neutrophil Count 5.2 X10^3/uL (2.0-7.7); Basophil# 0.06 X10^3/uL; Basophil% 0.7 % (0-1); Eosinophils% 2.4 % (0-5); Lymphocyte # 1.66 X10^3/ul (4.0); Lymphocyte % 20.2 % (19-41); Mean Corp Hgb Conc 31.9 g/dL (32-36); Mean Corpuscular Hgb 30.9 pg (27.0-32.0); Mean Corpuscular Volume 96.9 fL (80-94); Mean Platelet Vol. 10.1 fl (6.2-12.0); Monocyte# 1.05 X10^3/uL; Monocyte% 12.8 % (0-10); NRBC Flagged by Analyzer 0 % (0-5); Neutrophil # 5.21 X10^3/uL (2.7-7.7); Neutrophil % 63.7 % (47-70); Platelet Count 252 K/mm3 (150-450); RBC Distribution Width CV 12.8 % (11.6-14.6); Red Blood Count 4.85 M/mm3 (4.6-6.2); White Blood Count 8.2 K/mm3 (4.4-11.0)
[2020-08-19 12:11] LABS: Vitamin D,25 Hydroxy 34.3 ng/mL
[2020-08-19 12:18] LABS: ALB/GLOB Ratio 1.2 RATIO (0.9-2.4); AST(SGOT) 24 U/L (15-37); Alanine Aminotransfer ALT/SGPT 47 U/L (16-61); Albumin, Serum 3.7 g/dL (3.2-5.0); Alkaline Phosphatase 44 U/L (45-117); Anion Gap 5 (5-15); BUN 21 mg/dL (7-18); Calcium,Total 10.1 mg/dL (8.5-10.1); Chloride 107 mmol/L (98-107); Creatinine, Serum 1.05 mg/dL (0.70-1.30); EST Glomerular Filtration Rate 73 mL/min (>60); Est Glom Filt Rate - Afr Amer 88 mL/min (>60); Globulin 3.2 g/dL (2.2-4.2); Glucose 137 mg/dL (74-106); Potassium 4.4 mmol/L (3.5-5.1); Protein, Total 6.9 g/dL (6.4-8.2); Sodium Level 141 mmol/L (136-145); Thyroid Stim Hormone (TSH) 4.75 uIU/mL (0.358-3.74)
== END ==
PROVIDERS: PCP Family Medicine Geriatric Medicine; Visit Provider Family Medicine Geriatric Medicine
DX: E55.9 Vitamin D deficiency, unspecified (principal); F52.8 Other sexual dysfunction not due to a substance or known physiological condition; I10 Essential (primary) hypertension
CPT/HCPCS: 36415; 80053; 82306; 84403; 84443; 85025

== ENCOUNTER 2020-08-23 23:37 | Observation (INO) | payer MEDICARE, SELFPAY ==
[2020-08-23 23:38] VITALS: BP 152/86; PULSE 90; RESP 16; TEMP 35.8; O2SAT 96; BMI 34.7
[2020-08-24] VITALS (11 sets, daily range): BP systolic 104–168; BP diastolic 67–95; PULSE 71–97; RESP 16–22; TEMP 36.4–37.2; O2SAT 89–98; BMI 33.4; BMI 33.5
--- NOTE | 2020-08-24 00:01 | ED.VIS.GEN ---
History of Present Illness Chief Complaint: Flank Pain Informant: Patient Narrative: Patient is a 75-year-old male with a past medical history of CAD, diabetes who presents to the emergency department for right flank pain. He was recently diagnosed with a 9.4 mm right distal ureter stone. He had followed up with urology and is currently on oxycodone, Zofran and Flomax. He is returning to the emergency department because he states his pain is not controlled. It has been coming and going very frequently. It has been happening all day. He has been taking his oxycodone which does give him temporary relief. He states that lying flat seems to help. Whenever he stands up the pain gets better but he has bad knees so he cannot stand for long. He is scheduled for surgery this coming Wednesday. He has had some urinary frequency but states that this is chronic for him. He denies any fevers or chills. He has developed some lower abdominal pain. Past Medical History - Allergies and Home Meds Allergies/Adverse Reactions: Allergies No Known Allergies Allergy (Verified 08/23/20 23:41) Prior records reviewed: Yes Surgical History: - - Reviewed Smoking Status: Former smoker Review of Systems All systems negative except as indicated General: Denies: Chills, Fever, Sweats Eyes: Denies: Visual changes - bilaterally, Diplopia ENT: Denies: Rhinorrhea, Sore throat Cardiovascular: Denies: Chest pain, Palpitations Respiratory: Denies: Dyspnea, Cough, Dyspnea on exertion Gastrointestinal: Reports: Abdominal pain, Nausea. Denies: Vomiting, Diarrhea Genitourinary: Reports: Frequency. Denies: Dysuria, Hematuria Musculoskeletal: Reports: Back pain. Denies: Extremity Pain Skin: Denies: Rash, Wounds Neurological: Denies: Headache, Weakness, Numbness Physical Exam Vital Signs/Narrative: Vital Signs Temp Pulse Resp BP Pulse Ox 08/23/20 23:38 96.4 F L 90 16 152/86 H 96 Inital Vital Signs reviewed: Yes General: Well nourished, Well developed, No Acute Distress Head: Normocephalic, Atraumatic Eyes: Perrl, EOMI ENT: Moist mucous membranes, No rhinorrhea Neck: Supple, Nontender Cardiovascular: Regular rate, Regular rhythm, No murmurs Respiratory: No distress, CTA bilaterally, Chest nontender Abdomen: Soft, Nontender, Nondistended, Normal bowel sounds Back: Nontender, Normal Inspection Extremities: Nontender, No edema Skin: Normal color, No rash Neurological: Alert, Oriented x3, Normal Strength, Normal Sensation Psychological: Normal affect, Normal Mood Diagnostic/Tx/Re-eval - Medical Decision Making Patient presents to the ED for renal colic. He has a known right ureteral stone. Upon arrival to the emergency department he is mildly hypertensive but otherwise normal vital signs. He does not appear in any acute distress. His pain is currently at a 1 out of 10. I did call and speak to his urologist, Dr. Trimble. He said that he can place a stent in him tomorrow so we will bring him into the hospital for further evaluation and management. I did check basic lab work and urinalysis. His creatinine is showing a mild JETHRO. No evidence of urinary tract infection. Patient otherwise has been stable throughout ED stay. Patient understands and is agreeable with this plan. ED Disposition - Plan for ED Patient: Disposition: Acute Care [facility] Diagnosis: Renal colic on right side, Ureterolithiasis
[2020-08-24 00:33] LABS: Bacteria 0 SEEN /hpf (None Seen); Mucous, Urine 0 SEEN /hpf (<or=2+); White Blood Cells 0 SEEN /hpf (0-5)
[2020-08-24 00:35] LABS: Absolute Lymphocyte Count 0.94 X10^3/uL (0.83-4.51); Absolute Neutrophil Count 8.9 X10^3/uL (2.0-7.7); Basophil# 0.03 X10^3/uL; Basophil% 0.3 % (0-1); Eosinophil# 0.06 X10^3/uL; Eosinophils% 0.5 % (0-5); Hematocrit 44.9 % (40-54); Hemoglobin 14.7 g/dL (13.0-16.5); Lymphocyte # 0.94 X10^3/ul (4.0); Lymphocyte % 8.6 % (19-41); Mean Corp Hgb Conc 32.7 g/dL (32-36); Mean Corpuscular Hgb 31.2 pg (27.0-32.0); Mean Corpuscular Volume 95.3 fL (80-94); Mean Platelet Vol. 9.9 fl (6.2-12.0); Monocyte# 1.03 X10^3/uL; Monocyte% 9.4 % (0-10); NRBC Flagged by Analyzer 0 % (0-5); Neutrophil # 8.89 X10^3/uL (2.7-7.7); Neutrophil % 80.8 % (47-70); Platelet Count 236 K/mm3 (150-450); RBC Distribution Width CV 12.6 % (11.6-14.6); RBC Distribution Width SD 44.4 fl (35.1-43.9); Red Blood Count 4.71 M/mm3 (4.6-6.2)
[2020-08-24 00:39] LABS: Color, Urine Yellow (Yellow); Glucose, Dipstick Normal (Normal); Ketone-Dipstick 5 mg/dl (Negative); Leukocyte Esterase-Dipstick 25 /ul (Negative); Nitrite-Dipstick Negative (Negative); Occult Blood-Urine 50 /ul (Negative); Protein-Dipstick 30 mg/dl (Negative); Urine Bilirubin Dipstick Negative (Negative); Urine Clarity Clear (Clear); Urine Urobilinogen Normal (Normal)
[2020-08-24 00:56] LABS: Red Blood Cells-Urine 0-5 SEEN /hpf (0-5); Squamous Epithelial Cells - UA 0-5 SEEN /hpf (0-5)
[2020-08-24 01:03] LABS: Anion Gap 6 (5-15); BUN 30 mg/dL (7-18); BUN/Creat Ratio 15.4 RATIO (10-20); Calcium,Total 9.5 mg/dL (8.5-10.1); Chloride 105 mmol/L (98-107); Creatinine, Serum 1.95 mg/dL (0.70-1.30); EST Glomerular Filtration Rate 36 mL/min (>60); Est Glom Filt Rate - Afr Amer 43 mL/min (>60); Estimated Creatinine Clearance 31.18 ml/min; Glucose 160 mg/dL (74-106); Potassium 4.8 mmol/L (3.5-5.1); Sodium Level 140 mmol/L (136-145)
[2020-08-24] MEDS: Morphine 2 MG/ML Syringe IV ×3 (01:57→07:20)
[2020-08-24] MEDS: 0.9% Normal Saline 1,000 ML 75 ML IV ×2 (01:59→11:53)
[2020-08-24] MEDS: Ondansetron 4 MG/2 ML Vial IV (02:01)
--- NOTE | 2020-08-24 05:30 | EKG12_ITS ---
Test Reason : PRE-OP Blood Pressure : / mmHG Vent. Rate : 087 BPM Atrial Rate : 087 BPM P-R Int : 154 ms QRS Dur : 080 ms QT Int : 350 ms P-R-T Axes : 046 003 005 degrees QTc Int : 421 ms Normal sinus rhythm Normal ECG Confirmed by HANNA JIMENEZ, SYEDA ([id number]), supervising editor news reel CHLOÉ MIMS ([id number]) on 08/28/2020 1:29:23 PM Referred By: Alex Trimble Confirmed By:SYEDA FERREIRA MD
--- NOTE | 2020-08-24 07:41 | HP.PCM_ITS ---
Problem List (1) Renal colic on right side Status: Acute History of Present Illness Date of Admission: 08/24/20 Chief Complaint: Renal colic from kidney stone The patient is a 75 year old male who presented to the hospital with severe pain in the right side he has a known kidney stone I saw him in the office been having severe pain off-and-on pain is out of control so again taken to surgery put a stent in will be discharged after I put the stent in will plan for surgery this coming Wednesday to laser the stone. Past Medical History Past Medical History (Chronic Problems): Chronic Problems (Last Reviewed 08/08/20 @ 09:[address] Lamont Kaiser MD) Atherosclerosis of coronary artery of [place] heart without angina pectoris (Chronic) DWH-Mjmlo-Kjyx LAD w/ 4.0 x 13 mm Duet Stent 01/01/99 Paroxysmal supraventricular tachycardia (Chronic) Essential (primary) hypertension (Chronic) Hyperlipidemia (Chronic) Medical History: Medical History (Last Reviewed 08/24/20 @ 07:[address] Alex Trimble MD) Atherosclerosis of coronary artery of [place] heart without angina pectoris (Chronic) I25.10 SPO-Lnbpj-Nvmt LAD w/ 4.0 x 13 mm Duet Stent 01/01/99 Paroxysmal supraventricular tachycardia (Chronic) I47.1 Essential (primary) hypertension (Chronic) I10 Hyperlipidemia (Chronic) E78.5 Anterolisthesis M43.10 L4-L5 Arthritis M19.90 Asthma J45.909 Bilateral headaches R51 Obstructive sleep apnea G47.33 Segmental and somatic dysfunction of lumbar region M99.03 Segmental and somatic dysfunction of pelvic region M99.05 Segmental and somatic dysfunction of thoracic region M99.02 Type 2 diabetes mellitus E11.9 Environmental allergies (Inactive) Z91.09 Allergies No Known Allergies Allergy (Verified 08/23/20 23:41) Home Medications: Ambulatory Orders Medication Instructions Recorded Multivitamins,Therapeutic 1 tab PO DAILY 12/20/13 [Multivitamin] Nitroglycerin (INPATIENT USE) 0.4 mg SUBLINGUAL Q5M PRN 12/20/13 [Nitrostat] Glucosam/MSM/Chondroit/Vit D3 [Sv 1 ea PO DAILY 11/30/17 Glucosamine Chondroitin Tab] metformin 1,000 mg tablet 1,000 mg PO BID 07/28/18 aspirin 81 mg tablet,delayed 81 mg PO DAILY 07/27/19 release cinnamon bark 500 mg capsule 1,000 mg PO DAILY cap 07/27/19 levothyroxine 50 mcg capsule 50 mcg PO DAILY 07/27/19 atorvastatin 80 mg tablet 80 mg PO QHS #90 tab 01/15/20 metoprolol tartrate 100 mg tablet 100 mg PO BID #180 tab 04/17/20 lisinopril 20 mg tablet 20 mg PO BID #180 tab 07/15/20 amoxicillin 500 mg capsule 2,000 mg PO ONCE PRN cap 08/08/20 hydrochlorothiazide 25 mg tablet 25 mg PO DAILY #90 tab 08/08/20 pioglitazone 30 mg tablet 30 mg PO DAILY tab 08/08/20 sildenafil 100 mg tablet 100 mg PO DAILY PRN tab 08/08/20 Ondansetron [Zofran Odt] 8 mg PO Q8H PRN PRN #20 tab 08/19/20 Tamsulosin HCl [Flomax] 0.4 mg PO DAILY #7 cap 08/19/20 Oxycodone HCl/Acetaminophen 1 tab PO Q6H PRN PRN 08/24/20 [Percocet 5/325] Surgical History: Surgical History (Last Reviewed 08/08/20 @ 09:[address] Lamont Kaiser MD) History of coronary artery stent placement (Resolved) Onset Date: 01/01/99 Z95.5 EHV-Fynxh-Loco LAD w/ 4.0 x 13 mm Duet Stent 01/01/99 History of ankle surgery Z98.890 Surgical History: - - Reviewed Smoking Status: Former smoker Tobacco Use: Non-smoker Review of Systems Constitutional: Denies: Chills, Fever, Weight Change HEENT: Denies: Head Aches, Sinus Congestion, Sinus Drainage Cardiovascular: Denies: Chest Pain, Palpitations Respiratory: Denies: Cough, Shortness of breath at rest, Sputum production Gastrointestinal: Denies: Abdominal Pain, Nausea, Vomiting Genitourinary: Denies: Dysuria Musculoskeletal: Denies: Joint Pain, Joint Tenderness Skin: Denies: Rash, Wounds Neurological: Denies: Numbness, Tingling, Focal weakness Psychiatric: Denies: Anxiety, Depression, Homicidal Ideations, Suicidal Ideations Hematologic/ Lymphatic: Denies: Easy Bruising, Easy Bleeding VTE Information - Inpt Only VTE Present on Admission: No Patient Problems: Active and Suspected Problems (Last Reviewed 08/08/20 @ 09:[address] Lamont Kaiser MD) Renal colic on right side (Acute) Ureterolithiasis (Acute) - Physical Exam Vitals/I&O's: Vital Signs Temp Pulse Resp BP Pulse Ox 98.1 F 87 18 155/87 H 95 08/24/20 05:21 08/24/20 05:21 08/24/20 05:21 08/24/20 05:21 08/24/20 05:21 Oxygen Delivery Method Room Air Weight: 99.79 kg Body Mass Index (BMI) 33.4 Intake and Output for Last 24 Hours 08/22/20 08/23/20 08/24/20 23:59 23:59 23:59 Output Total 200 / 200 Balance -200 / -200 General: Alert, Oriented x3, Cooperative HEENT: Atraumatic, PERRLA, EOMI, Normocephalic Neck: Supple, No JVD, Negative Carotid Bruits Lungs: Clear to auscultation, Normal air movement Cardiovascular: Regular rate, No murmurs Abdomen: Bowel Sounds Present, Soft, Non Tender Extremities: No edema, Capillary Refill Less than 3 Seconds Skin: No rashes, No breakdown Musculoskeletal: No Tenderness to Palpation of Joints or Extremities Neurological: Cranial nerves II-XII grossly intact Psych/Mental Status: Normal Affect, Appropriate Microbiology Past 72 Hours 08/24/20 00:20 Mucosa - Nose SARS-CoV-2 Antigen (Rapid) - Final Laboratory Results 08/24/20 00:20: WBC 11.0, RBC 4.71, Hgb 14.7, Hct 44.9, MCV 95.3 H, MCH 31.2, MCHC 32.7, RDW Std Deviation 44.4 H, RDW Coeff of Zainab 12.6, Plt Count 236, MPV 9.9, Immature Gran % (Auto) 0.400, Neut % (Auto) 80.8 H, Lymph % (Auto) 8.6 L, [place] % (Auto) 9.4, Eos % (Auto) 0.5, Baso % (Auto) 0.3, Absolute Neuts (auto) 8.9 H, Absolute Lymphs (auto) 0.94, Nucleated RBC % 0 08/24/20 00:20: Sodium 140, Potassium 4.8, Chloride 105, Carbon Dioxide 29.0, Anion Gap 6, BUN 30 H, Creatinine 1.95 H, Estim Creat Clear Calc 31.18, Est GFR (MDRD) Af Amer 43 L, Est GFR (MDRD) Non-Af 36 L, BUN/Creatinine Ratio 15.4, Glucose 160 H, Calcium 9.5 08/24/20 00:20: Urine Color Yellow, Urine Clarity Clear, Urine pH 5.0, Ur Specific [place] 1.020, Urine Protein 30 H, Urine Glucose (UA) Normal, Urine Ketones 5 H, Urine Occult Blood 50 H, Urine Nitrite Negative, Urine Bilirubin Negative, Urine Urobilinogen Normal, Ur Leukocyte Esterase 25 H, Urine RBC 0-5 SEEN, Urine WBC 0 SEEN, Ur Squamous Epith Cells 0-5 SEEN, Urine Bacteria 0 SEEN, Urine Mucus 0 SEEN 08/24/20 00:20: Hemoglobin A1c Pending Current Medications Sodium Chloride () 1,000 mls @ 75 mls/hr IV .[id number] SANDY Last Admin: 08/24/20 01:59 Dose: 75 mls/hr Documented by: Morphine Sulfate (Morphine 2 Mg/Ml Syringe) 2 mg IV Q2H PRN PRN PRN Reason: Pain Score 1-10 Last Admin: 08/24/20 07:20 Dose: 2 mg Documented by: Ondansetron HCl (Ondansetron 4 Mg/2 Ml Vial) 4 mg IV Q6H PRN PRN PRN Reason: NAUSEA Last Admin: 08/24/20 02:01 Dose: 4 mg Documented by: Sodium Chloride (0.9% Saline Lock 10 Ml Syringe) 10 - 40 ml IV UD PRN PRN Reason: SALINE FLUSH Assessment/Plan All Active Problems (Last Reviewed 08/08/20 @ 09:[address] Lamont Kaiser MD) Renal colic on right side (Acute) Ureterolithiasis (Acute) History of coronary artery stent placement (Resolved 01/01/99) Plan for cystoscopy and right stent placement retrograde pyelogram today.
--- NOTE | 2020-08-24 08:16 | DCINST_ITS ---
Discharge Diet: No Restrictions Discharge Activity: Return to Normal Activity, May Not Drive - for 2 days. Additional Activity Instructions:: Please be aware that pain medications may cause nausea. You should typically eat light foods as you take your pain medication. Pain medication may cause constipation, if this is a problem for you, please discuss with your doctor. Allergies/Adverse Reactions: Allergies No Known Allergies Allergy (Verified 08/23/20 23:41) Medications to take at Discharge Multivitamins,Therapeutic [Multivitamin] 1 tab PO DAILY 12/20/13 Nitroglycerin (INPATIENT USE) [Nitrostat] 0.4 mg SUBLINGUAL Q5M PRN 12/20/13 Glucosam/MSM/Chondroit/Vit D3 [Sv Glucosamine Chondroitin Tab] 1 ea PO DAILY 11/30/17 metformin 1,000 mg tablet 1,000 mg PO BID 07/28/18 aspirin 81 mg tablet,delayed release 81 mg PO DAILY 07/27/19 cinnamon bark 500 mg capsule 1,000 mg PO DAILY cap 07/27/19 levothyroxine 50 mcg capsule 50 mcg PO DAILY 07/27/19 atorvastatin 80 mg tablet 80 mg PO QHS #90 tab 01/15/20 metoprolol tartrate 100 mg tablet 100 mg PO BID #180 tab 04/17/20 lisinopril 20 mg tablet 20 mg PO BID #180 tab 07/15/20 amoxicillin 500 mg capsule 2,000 mg PO ONCE PRN cap 08/08/20 hydrochlorothiazide 25 mg tablet 25 mg PO DAILY #90 tab 08/08/20 pioglitazone 30 mg tablet 30 mg PO DAILY tab 08/08/20 sildenafil 100 mg tablet 100 mg PO DAILY PRN tab 08/08/20 Ondansetron [Zofran Odt] 8 mg PO Q8H PRN PRN #20 tab 08/19/20 Tamsulosin HCl [Flomax] 0.4 mg PO DAILY #7 cap 08/19/20 Ciprofloxacin [Cipro] 500 mg PO BID #6 tab 08/24/20 Hydrocodone/Acetaminophen [[place] 5-325 Tablet] 1 each PO Q4H PRN PRN 7 Days #10 tablet 08/24/20 Oxycodone HCl/Acetaminophen [Percocet 5/325] 1 tab PO Q6H PRN PRN 08/24/20 Primary Care Physician: Gustavo Vinson Chi, MD [Primary Care Provider] - Test Results: Test results from this visit will be discussed in further detail at your follow- up appointment, if applicable. Please Follow Up With: Alex Trimble MD
--- NOTE | 2020-08-24 08:31 | PCM.OPRPT ---
Problem List (1) Renal colic on right side Status: Acute Report of Operation Date of Procedure: 08/24/20 Pre-Operative Diagnosis: Obstructing right ureteral calculi Post-Operative Diagnosis: Same Surgery/Procedure Performed:: Cystoscopy right stent placement Description of Surgical Findings:: 75-year-old male was taken back to the operating room at this of induction of general anesthesia he was placed in dorsolithotomy position went into the bladder with a 21 [place] rigid cystourethroscope the entire length of the urethra was normal the meatus was slightly tight but was able to get the 21 Palestinian scope through it without any problems the entire length the urethra is normal no scar tissue strictures along the urethra the sphincter was intact the prostate was normal he did have a resection of the prostate still had an open channel from that resection some mild regrowth but no obstruction inside the bladder identified the right ureteral orifice advanced a wire up into the kidney and over the wire I push the stent it was a 6 Palestinian by 26 cm stent once a stent was a good position pulled the wire in the kidney coiled in the kidney and bladder good position. He will be discharged home today and he will come back on Wednesday for planned ureteroscopy and laser of the stone. Type of Anesthesia:: General Drains: stent right - Admit VTE Documentation VTE Present on Admission: No
[2020-08-24 08:56] LABS: Bedside Glucose 116 mg/dL (70-110)
[2020-08-24 09:15] LABS: Hemoglobin A1c 6.9 % (3.8-5.6)
--- NOTE | 2020-08-24 15:27 | NURSING ---
Patient discharged home into the care of . [facility] at this time. VSS. IV d/c from [facility]. Discharge paperwork discussed with patient and Rxs sent to [facility].
== END 2020-08-24 15:22 | disposition home or self-care (01) ==
LOC: ED 08-24 00:11 → MS3 08-24 01:29
PROVIDERS: Anesthesiology; Admitting Provider Urology; Emergency Provider Emergency Medicine; PCP Family Medicine Geriatric Medicine; Visit Provider Urology
PROC: (CPT 52332; principal; 2020-08-24 08:00)
DX: N20.1 Calculus of ureter (principal); E11.9 Type 2 diabetes mellitus without complications; I25.10 Atherosclerotic heart disease of native coronary artery without angina pectoris; I10 Essential (primary) hypertension; E78.5 Hyperlipidemia, unspecified; M19.90 Unspecified osteoarthritis, unspecified site; J45.909 Unspecified asthma, uncomplicated; G47.33 Obstructive sleep apnea (adult) (pediatric); Z87.891 Personal history of nicotine dependence; Z79.899 Other long term (current) drug therapy; Z79.84 Long term (current) use of oral hypoglycemic drugs; Z79.82 Long term (current) use of aspirin
CPT/HCPCS: 00910; 52332; 76000; 80048; 81001; 82962; 83036; 85025; 87426; 93005; 96361; 96374; 96375; 96376; 99218; 99283; J7030; A4216; C1769; C2617; G0378; J2405

== ENCOUNTER 2020-08-28 09:49 | Day surgery (SDC) | payer MEDICARE, SELFPAY ==
[2020-08-24 07:44] VITALS: BMI 33.4
[2020-08-28 10:22] VITALS: BP 137/88; PULSE 75; RESP 18; TEMP 36.3; O2SAT 99; BMI 33.7
[2020-08-28] MEDS: Lactated Ringers 1,000 ML 100 ML IV (10:40)
[2020-08-28 11:21] LABS: Bedside Glucose 144 mg/dL (70-110)
--- NOTE | 2020-08-28 13:29 | HP.PCM_ITS ---
History of Present Illness Date of Admission: 08/28/20 Chief Complaint: Right obstructing ureteral calculus The patient is a 75 year old male who presented to the hospital with obstructing stone underwent a stent placement on the right side today he presents for ureteroscopy and laser and stent removal Past Medical History Past Medical History (Chronic Problems): Chronic Problems (Last Reviewed 08/24/20 @ 07:[address] Alex Trimble MD) Atherosclerosis of coronary artery of [place] heart without angina pectoris (Chronic) VQP-Ztjae-Ctwp LAD w/ 4.0 x 13 mm Duet Stent 01/01/99 Paroxysmal supraventricular tachycardia (Chronic) Essential (primary) hypertension (Chronic) Hyperlipidemia (Chronic) Medical History: Medical History (Last Reviewed 08/28/20 @ 13:[address] Alex Trimble MD) Atherosclerosis of coronary artery of [place] heart without angina pectoris (Chronic) I25.10 CAT-Awbwa-Cdov LAD w/ 4.0 x 13 mm Duet Stent 01/01/99 Paroxysmal supraventricular tachycardia (Chronic) I47.1 Essential (primary) hypertension (Chronic) I10 Hyperlipidemia (Chronic) E78.5 Anterolisthesis M43.10 L4-L5 Arthritis M19.90 Asthma J45.909 Bilateral headaches R51 Obstructive sleep apnea G47.33 Segmental and somatic dysfunction of lumbar region M99.03 Segmental and somatic dysfunction of pelvic region M99.05 Segmental and somatic dysfunction of thoracic region M99.02 Type 2 diabetes mellitus E11.9 Environmental allergies (Inactive) Z91.09 Allergies No Known Allergies Allergy (Verified 08/28/20 10:14) Home Medications: Ambulatory Orders Medication Instructions Recorded Multivitamins,Therapeutic 1 tab PO DAILY 12/20/13 [Multivitamin] Nitroglycerin (INPATIENT USE) 0.4 mg SUBLINGUAL Q5M PRN 12/20/13 [Nitrostat] Glucosam/MSM/Chondroit/Vit D3 [Sv 1 ea PO DAILY 11/30/17 Glucosamine Chondroitin Tab] metformin 1,000 mg tablet 1,000 mg PO BID 07/28/18 aspirin 81 mg tablet,delayed 81 mg PO QHS 07/27/19 release cinnamon bark 500 mg capsule 1,000 mg PO BID cap 07/27/19 levothyroxine 50 mcg capsule 50 mcg PO DAILY 07/27/19 atorvastatin 80 mg tablet 80 mg PO QHS #90 tab 01/15/20 amoxicillin 500 mg capsule 2,000 mg PO ONCE PRN cap 08/08/20 pioglitazone 30 mg tablet 30 mg PO DAILY tab 08/08/20 sildenafil 100 mg tablet 100 mg PO DAILY PRN tab 08/08/20 Ondansetron [Zofran Odt] 8 mg PO Q8H PRN PRN #20 tab 08/19/20 Tamsulosin HCl [Flomax] 0.4 mg PO DAILY #7 cap 08/19/20 Hydrocodone/Acetaminophen [[place] 1 ea PO Q4H PRN PRN 7 Days #10 tab 08/24/20 5-325 Tablet] Ciprofloxacin [Cipro] 500 mg PO BID 08/26/20 Lisinopril 20 mg PO BID 08/26/20 Metoprolol Tartrate [Lopressor 100 mg PO BID 08/26/20 (beta daniel)] Ciprofloxacin [Cipro] 500 mg PO BID #10 tab 08/28/20 Hydrochlorothiazide [Hctz] 25 mg PO DAILY 08/28/20 Surgical History: Surgical History (Last Reviewed 08/08/20 @ 09:[address] Lamont Kaiser MD) History of coronary artery stent placement (Resolved) Onset Date: 01/01/99 Z95.5 TUP-Fjxyq-Ntgt LAD w/ 4.0 x 13 mm Duet Stent 01/01/99 History of ankle surgery Z98.890 Surgical History: - - Reviewed Smoking Status: Former smoker Review of Systems Constitutional: Denies: Chills, Fever, Weight Change HEENT: Denies: Head Aches, Sinus Congestion, Sinus Drainage Cardiovascular: Denies: Chest Pain, Palpitations Respiratory: Denies: Cough, Shortness of breath at rest, Sputum production Gastrointestinal: Denies: Abdominal Pain, Nausea, Vomiting Genitourinary: Denies: Dysuria Musculoskeletal: Denies: Joint Pain, Joint Tenderness Skin: Denies: Rash, Wounds Neurological: Denies: Numbness, Tingling, Focal weakness Psychiatric: Denies: Anxiety, Depression, Homicidal Ideations, Suicidal Ideations Hematologic/ Lymphatic: Denies: Easy Bruising, Easy Bleeding VTE Information - Inpt Only VTE Present on Admission: No - Physical Exam Vitals/I&O's: Vital Signs Temp Pulse Resp BP Pulse Ox 97.3 F L 75 18 137/88 H 99 08/28/20 10:22 08/28/20 10:22 08/28/20 10:22 08/28/20 10:22 08/28/20 10:22 Oxygen Delivery Method Room Air Weight: 100.5 kg Body Mass Index (BMI) 33.7 Finger Stick Blood Glucose 117 General: Alert, Oriented x3, Cooperative HEENT: Atraumatic, PERRLA, EOMI, Normocephalic Neck: Supple, No JVD, Negative Carotid Bruits Lungs: Clear to auscultation, Normal air movement Cardiovascular: Regular rate, No murmurs Abdomen: Bowel Sounds Present, Soft, Non Tender Extremities: No edema, Capillary Refill Less than 3 Seconds Skin: No rashes, No breakdown Musculoskeletal: No Tenderness to Palpation of Joints or Extremities Neurological: Cranial nerves II-XII grossly intact Psych/Mental Status: Normal Affect, Appropriate Laboratory Results 08/28/20 10:26: POC Glucose 144 H Current Medications Lactated Ringer's () 1,000 mls @ 100 mls/hr IV .Q10H SANDY Last Admin: 08/28/20 10:40 Dose: 100 mls/hr Documented by: Assessment/Plan All Active Problems (Last Reviewed 08/08/20 @ 09:[address] Lamont Kaiser MD) Renal colic on right side (Acute) Ureterolithiasis (Acute) History of coronary artery stent placement (Resolved 01/01/99) Plan to proceed with right ureteroscopy laser lithotripsy of stone and stent removal.
--- NOTE | 2020-08-28 13:30 | DCINST_ITS ---
Discharge Diet: No Restrictions, Light diet - advance as tolerated Discharge Activity: Return to Normal Activity, May Not Drive - for 2 days. Additional Activity Instructions:: Please be aware that pain medications may cause nausea. You should typically eat light foods as you take your pain medication. Pain medication may cause constipation, if this is a problem for you, please discuss with your doctor. Allergies/Adverse Reactions: Allergies No Known Allergies Allergy (Verified 08/28/20 10:14) Medications to take at Discharge Multivitamins,Therapeutic [Multivitamin] 1 tab PO DAILY 12/20/13 Nitroglycerin (INPATIENT USE) [Nitrostat] 0.4 mg SUBLINGUAL Q5M PRN 12/20/13 Glucosam/MSM/Chondroit/Vit D3 [Sv Glucosamine Chondroitin Tab] 1 ea PO DAILY 11/30/17 metformin 1,000 mg tablet 1,000 mg PO BID 07/28/18 aspirin 81 mg tablet,delayed release 81 mg PO QHS 07/27/19 cinnamon bark 500 mg capsule 1,000 mg PO BID cap 07/27/19 levothyroxine 50 mcg capsule 50 mcg PO DAILY 07/27/19 atorvastatin 80 mg tablet 80 mg PO QHS #90 tab 01/15/20 amoxicillin 500 mg capsule 2,000 mg PO ONCE PRN cap 08/08/20 pioglitazone 30 mg tablet 30 mg PO DAILY tab 08/08/20 sildenafil 100 mg tablet 100 mg PO DAILY PRN tab 08/08/20 Ondansetron [Zofran Odt] 8 mg PO Q8H PRN PRN #20 tab 08/19/20 Tamsulosin HCl [Flomax] 0.4 mg PO DAILY #7 cap 08/19/20 Hydrocodone/Acetaminophen [[place] 5-325 Tablet] 1 ea PO Q4H PRN PRN 7 Days #10 tab 08/24/20 Ciprofloxacin [Cipro] 500 mg PO BID 08/26/20 Lisinopril 20 mg PO BID 08/26/20 Metoprolol Tartrate [Lopressor (beta daniel)] 100 mg PO BID 08/26/20 Ciprofloxacin [Cipro] 500 mg PO BID #10 tab 08/28/20 Hydrochlorothiazide [Hctz] 25 mg PO DAILY 08/28/20 The following prescriptions were given: Ciprofloxacin [Cipro] 500 mg PO BID #10 tab Transmission Status: Pending to [facility] Primary Care Physician: Gustavo Vinson Chi, MD [Primary Care Provider] - Test Results: Test results from this visit will be discussed in further detail at your follow- up appointment, if applicable. Please Follow Up With: Alex Trimble MD When: in 2 weeks, please call to make an appointment.
--- NOTE | 2020-08-28 14:18 | OP.PCM_ITS ---
Report of Operation Date of Procedure: 08/28/20 Pre-Operative Diagnosis: Right ureteral calculi status post stent Post-Operative Diagnosis: Same Surgery/Procedure Performed:: Cystoscopy, right ureteroscopy laser lithotripsy of stone and stent Description of Surgical Findings:: 75-year-old male taken back to the operating room with us with induction of general anesthesia he was placed in dorsolithotomy position. I went into the bladder with a 21 [place] rigid cystourethroscope grabbed the existing stent pulled out the meatus put a wire through the stent up into the right kidney and then went back into the bladder with a 21 [place] scope the first wire was then clipped to the drapes as a safety wire then put a second wire of the ureter and then backed out the scope over the wire over the working wire went in with a flexible ureteroscope was able to get into the ureter quite easily. Worked my way up the ureter and encountered a fairly large stone that was occupying the entire space of the ureter from [id number] safety wire was running underneath the stone up into the ureter I then advanced a 200 ?m laser fiber through the ureteroscope. I then started laser lithotripsy at energy 7 to 1 J 0.6 Hz I then lasered the stone little tiny pieces would break off in the laser the stone tiny pieces and then go behind behind my ureteroscope kept on lasering with the flexible scope and then I pulled this flexible scope back and laser some of the fragments of broken off and the need flow into the bladder. As I kept on working on the stone it was very impacted in the ureter a lot of scar tissue all the way around the stone had to be lasering very carefully to stand the stone but there was a lot of inflammation and scarring white scar tissue around the ureter on the stone as I lasered it finally it broke free and then floated down to the distal ureter I lasered it some more then I removed the flexible scope left the safety wire in place and then next of the safety wire went in with a Slim[place] rigid ureteroscope went up the ureter and laser the remaining fragments and then all these fragments passed into the bladder. In inspecting the ureter there was no perforation or trauma but there was a lot of scar tissue and whitish inflammation around the area where the stone was stuck from a chronic obstruction stuck being stuck in the ureter so in order to make sure that this heals up correctly but stent over the safety wire once a stent was a good position I pulled the wire and the stent coil in the kidney bladder good position I drained the bladder with a leave the stent in for 2 weeks and in the office I think the stent out. Type of Anesthesia:: General Drains: stent right - Admit VTE Documentation VTE Present on Admission: No VTE Mechan Device Prophylaxis: SCD's
[2020-08-28 14:29] VITALS: BP 137/88; BP 141/87; PULSE 78; RESP 14; TEMP 36.2; O2SAT 98
[2020-08-28 14:45] VITALS: BP 137/88; BP 138/85; PULSE 71; RESP 16; O2SAT 99
[2020-08-28 15:00] VITALS: BP 137/88; BP 146/93; PULSE 66; RESP 16; TEMP 36.4; O2SAT 99
[2020-08-28 15:11] LABS: Bedside Glucose 115 mg/dL (70-110)
[2020-08-28 16:10] VITALS: BP 137/88; BP 141/86; PULSE 81; RESP 16; TEMP 36.2; O2SAT 97
== END 2020-08-28 16:30 | disposition home or self-care (01) ==
LOC: SDC 09:55 → AC 09:55
PROVIDERS: PCP Family Medicine Geriatric Medicine; Referring Provider Urology; Visit Provider Urology
PROC: 0TJ98ZZ Inspection of Ureter, Via Natural or Artificial Opening Endoscopic (ICD-10-PCS; CPT 52352; principal; 2020-08-28 12:00)
DX: N20.1 Calculus of ureter (principal); I25.10 Atherosclerotic heart disease of native coronary artery without angina pectoris; I10 Essential (primary) hypertension; E78.5 Hyperlipidemia, unspecified; I47.1 Supraventricular tachycardia; J45.909 Unspecified asthma, uncomplicated; M19.90 Unspecified osteoarthritis, unspecified site; G47.33 Obstructive sleep apnea (adult) (pediatric); M99.02 Segmental and somatic dysfunction of thoracic region; M99.03 Segmental and somatic dysfunction of lumbar region; M99.05 Segmental and somatic dysfunction of pelvic region; E11.9 Type 2 diabetes mellitus without complications; Z79.899 Other long term (current) drug therapy; Z79.84 Long term (current) use of oral hypoglycemic drugs; Z79.82 Long term (current) use of aspirin; Z87.891 Personal history of nicotine dependence; E07.9 Disorder of thyroid, unspecified; I25.2 Old myocardial infarction
CPT/HCPCS: 52356; 82962; J7120; C2617; J2405

== ENCOUNTER 2020-09-27 09:51 | Day surgery (SDC) | payer MEDICARE, SELFPAY ==
--- NOTE | 2020-09-27 09:58 | RAD_ITS ---
STUDY: X-RAY - ABDOMEN/PELVIS REASON FOR EXAM: Male, 75 years old. Pre op eswl, left side stone TECHNIQUE: Single AP view of the abdomen / pelvis. COMPARISON: None. FINDINGS: There is a moderate amount of colonic fecal material. There is a 9.4 mm calculus in the upper midportion of the left kidney. A faint 7.7 mm linear calculus is seen in the lower pole calyx of the left kidney. There are calcified phleboliths in the pelvis. There are degenerative changes of the visualized lumbar spine. RAD/Abdomen Single View IMPRESSION: 9.4 mm calculus in the upper midportion of the left kidney as well as a 7.7 mm linear calculus in the lower pole of the left kidney Electronically Signed: Stephen Ruiz, at 10:21 EST , Service support ,
[2020-09-27 10:29] VITALS: BP 149/89; PULSE 71; RESP 16; TEMP 36.6; O2SAT 97; BMI 33.4
[2020-09-27] MEDS: Lactated Ringers 1,000 ML 100 ML IV (10:55)
[2020-09-27 11:35] LABS: Bedside Glucose 175 mg/dL (70-110)
--- NOTE | 2020-09-27 12:26 | HP.PCM_ITS ---
Problem List (1) Left renal stone Status: Acute History of Present Illness Date of Admission: 09/27/20 Chief Complaint: Left renal calculi The patient is a 75 year old male with a stone in the left kidney plan to treat the stone we will proceed with shockwave lithotripsy possible stent Past Medical History Past Medical History (Chronic Problems): Chronic Problems (Last Reviewed 08/28/20 @ 13:[address] Alex Trimble MD) Atherosclerosis of coronary artery of [place] heart without angina pectoris (Chronic) CUC-Fzxtf-Mlvz LAD w/ 4.0 x 13 mm Duet Stent 01/01/99 Paroxysmal supraventricular tachycardia (Chronic) Essential (primary) hypertension (Chronic) Hyperlipidemia (Chronic) Medical History: Medical History (Last Reviewed 09/27/20 @ 12:[address] Alex Trimble MD) Atherosclerosis of coronary artery of [place] heart without angina pectoris (Chronic) I25.10 VWO-Pcufj-Voqd LAD w/ 4.0 x 13 mm Duet Stent 01/01/99 Paroxysmal supraventricular tachycardia (Chronic) I47.1 Essential (primary) hypertension (Chronic) I10 Hyperlipidemia (Chronic) E78.5 Anterolisthesis M43.10 L4-L5 Arthritis M19.90 Asthma J45.909 Bilateral headaches R51 Obstructive sleep apnea G47.33 Segmental and somatic dysfunction of lumbar region M99.03 Segmental and somatic dysfunction of pelvic region M99.05 Segmental and somatic dysfunction of thoracic region M99.02 Type 2 diabetes mellitus E11.9 Environmental allergies (Inactive) Z91.09 Allergies No Known Allergies Allergy (Verified 09/18/20 14:15) Home Medications: Ambulatory Orders Medication Instructions Recorded Multivitamins,Therapeutic 1 tab PO DAILY 12/20/13 [Multivitamin] Nitroglycerin (INPATIENT USE) 0.4 mg SUBLINGUAL Q5M PRN 12/20/13 [Nitrostat] Glucosam/MSM/Chondroit/Vit D3 [Sv 1 ea PO DAILY 11/30/17 Glucosamine Chondroitin Tab] metformin 1,000 mg tablet 1,000 mg PO BID 07/28/18 aspirin 81 mg tablet,delayed 81 mg PO QHS 07/27/19 release cinnamon bark 500 mg capsule 1,000 mg PO BID cap 07/27/19 levothyroxine 50 mcg capsule 25 mcg PO DAILY 07/27/19 atorvastatin 80 mg tablet 80 mg PO QHS #90 tab 01/15/20 amoxicillin 500 mg capsule 2,000 mg PO ONCE PRN cap 08/08/20 pioglitazone 30 mg tablet 30 mg PO DAILY tab 08/08/20 sildenafil 100 mg tablet 100 mg PO DAILY PRN tab 08/08/20 Lisinopril 20 mg PO BID 08/26/20 Metoprolol Tartrate [Lopressor 100 mg PO BID 08/26/20 (beta daniel)] Surgical History: Surgical History (Last Reviewed 08/08/20 @ 09:[address] Lamont Kaiser MD) History of coronary artery stent placement (Resolved) Onset Date: 01/01/99 Z95.5 LDZ-Ydnxz-Pmee LAD w/ 4.0 x 13 mm Duet Stent 01/01/99 History of ankle surgery Z98.890 Surgical History: - - Reviewed Smoking Status: Former smoker Tobacco Use: Non-smoker Review of Systems Constitutional: Denies: Chills, Fever, Weight Change HEENT: Denies: Head Aches, Sinus Congestion, Sinus Drainage Cardiovascular: Denies: Chest Pain, Palpitations Respiratory: Denies: Cough, Shortness of breath at rest, Sputum production Gastrointestinal: Denies: Abdominal Pain, Nausea, Vomiting Genitourinary: Denies: Dysuria Musculoskeletal: Denies: Joint Pain, Joint Tenderness Skin: Denies: Rash, Wounds Neurological: Denies: Numbness, Tingling, Focal weakness Psychiatric: Denies: Anxiety, Depression, Homicidal Ideations, Suicidal Idea tions Hematologic/ Lymphatic: Denies: Easy Bruising, Easy Bleeding VTE Information - Inpt Only VTE Present on Admission: No VTE Mechan Device Prophylaxis: SCD's - Physical Exam Vitals/I&O's: Vital Signs Temp Pulse Resp BP Pulse Ox 97.8 F 71 16 149/89 H 97 09/27/20 10:29 09/27/20 10:29 09/27/20 10:29 09/27/20 10:29 09/27/20 10:29 Oxygen Delivery Method Room Air Weight: 102.6 kg Body Mass Index (BMI) 33.4 Finger Stick Blood Glucose 115 General: Alert, Oriented x3, Cooperative HEENT: Atraumatic, PERRLA, EOMI, Normocephalic Neck: Supple, No JVD, Negative Carotid Bruits Lungs: Clear to auscultation, Normal air movement Cardiovascular: Regular rate, No murmurs Abdomen: Bowel Sounds Present, Soft, Non Tender Extremities: No edema, Capillary Refill Less than 3 Seconds Skin: No rashes, No breakdown Musculoskeletal: No Tenderness to Palpation of Joints or Extremities Neurological: Cranial nerves II-XII grossly intact Psych/Mental Status: Normal Affect, Appropriate Microbiology Past 72 Hours 09/26/20 08:20 Interface Orders SARS-CoV-2 Antigen (Rapid) - Final Laboratory Results 09/27/20 10:42: POC Glucose 175 H Current Medications Lactated Ringer's () 1,000 mls @ 100 mls/hr IV .Q10H SANDY Last Admin: 09/27/20 10:55 Dose: 100 mls/hr Documented by: Assessment/Plan All Active Problems (Last Reviewed 08/08/20 @ 09:[address] Lamont Kaiser MD) Renal colic on right side (Acute) Ureterolithiasis (Acute) Left renal stone (Acute) History of coronary artery stent placement (Resolved 01/01/99) Plan to proceed with left ESWL possible stent
--- NOTE | 2020-09-27 12:30 | DCINST_ITS ---
Discharge Diet: Light diet - advance as tolerated Discharge Activity: Return to Normal Activity Call your doctor if your incision/area has: Continuous Slow Oozing, Sudden Increased Bleeding Suture Line Care: Avoid Pulling/Pushing, Avoid Pinching/Bending Instructions: Shock Wave Lithotripsy Allergies/Adverse Reactions: Allergies No Known Allergies Allergy (Verified 09/18/20 14:15) Medications to take at Discharge Multivitamins,Therapeutic [Multivitamin] 1 tab PO DAILY 12/20/13 Nitroglycerin (INPATIENT USE) [Nitrostat] 0.4 mg SUBLINGUAL Q5M PRN 12/20/13 Glucosam/MSM/Chondroit/Vit D3 [Sv Glucosamine Chondroitin Tab] 1 ea PO DAILY 11/30/17 metformin 1,000 mg tablet 1,000 mg PO BID 07/28/18 aspirin 81 mg tablet,delayed release 81 mg PO QHS 07/27/19 cinnamon bark 500 mg capsule 1,000 mg PO BID cap 07/27/19 levothyroxine 50 mcg capsule 25 mcg PO DAILY 07/27/19 atorvastatin 80 mg tablet 80 mg PO QHS #90 tab 01/15/20 amoxicillin 500 mg capsule 2,000 mg PO ONCE PRN cap 08/08/20 pioglitazone 30 mg tablet 30 mg PO DAILY tab 08/08/20 sildenafil 100 mg tablet 100 mg PO DAILY PRN tab 08/08/20 Lisinopril 20 mg PO BID 08/26/20 Metoprolol Tartrate [Lopressor (beta daniel)] 100 mg PO BID 08/26/20 Ciprofloxacin [Cipro] 500 mg PO BID #6 tab 09/27/20 Hydrocodone/Acetaminophen [[place] 5-325 Tablet] 1 each PO Q4H PRN PRN 7 Days #14 tablet 09/27/20 The following prescriptions were given: Ciprofloxacin [Cipro] 500 mg PO BID #6 tab Transmission Status: Pending to [facility] Hydrocodone/Acetaminophen [[place] 5-325 Tablet] 1 each PO Q4H PRN PRN 7 Days #14 tablet PRN Reason: Pain Score 1-10 Transmission Status: Sent to [facility] Primary Care Physician: Gustavo Vinson Chi, MD [Primary Care Provider] - Test Results: Test results from this visit will be discussed in further detail at your follow- up appointment, if applicable. Please Follow Up With: Alex Trimble MD When: please call to make an appointment.
[2020-09-27] MEDS: Cefazolin 2 GM in 0.9% Normal Saline 100 ML IV (12:34)
--- NOTE | 2020-09-27 13:32 | OP.PCM_ITS ---
Problem List (1) Left renal stone Status: Acute Report of Operation Date of Procedure: 09/27/20 Pre-Operative Diagnosis: Left proximal ureteral calculi Post-Operative Diagnosis: Same Surgery/Procedure Performed:: Cystoscopy left stent placement, left extracorporeal shockwave lithotripsy Description of Surgical Findings:: Patient presents to the hospital for treatment of a kidney stone with shockwave lithotripsy. In the preoperative area and x-ray was done to confirm the location of the stone on the Left side. The x-ray was reviewed and the stone location was reviewed. In the preoperative setting I spoke with the patient regarding the treatment of the stone how the treatment would be conducted and the expectations after surgery. The patient understands there is a risk of blee ding and infection. Also discussed the very rare risk of hematoma or damage to the kidney. We also discussed the risk that the shockwave machine will fail to break the stone adequately and that the patient may need other surgical procedures. We also discussed the possibility that the patient may need a stent after the procedure. After reviewing the procedure with the patient, the patient is signed the consent form all the patient's questions were addressed and was taken back to the operating room for treatment of a kidney stone. Patient was taken back to the operating room, patient was identified by the nursing staff, we identified the side of the treatment and the patient side of treatment had been marked by my initials. The patient underwent general anesthetic and was placed supine on the lithotripter table. We then used fluoroscopy to identify the stone on the Left side. We then positioned the patient under the lithotripter and we used triangulation technique to identify the location of the stone and then we made sure that the stone was engaged in the F2 focal point of F2 Donier lithoprior machine. Once the patient was positioned appropriately and the stone was identified and placed in the F2 focal point of the lithotripter machine we then proceeded with shockwave lithotripsy. In the beginning the shockwave was delivered at a rate of 90 shocks per minute, we monitor the EKG for any ectopy. The power was slowly increased to 5 kV and subsequently at the 7 kV. Using a 21 Turkmen rigid cystourethroscope the entire length of the urethra was normal then went into the bladder. Identified the trigone the left and right ureteral orifice. I then cannulated the left orifice and advanced a wire up into the kidney. I then backloaded a 5 Turkmen open ended catheter over the wire and injected contrast to delineate the anatomy. After the retrograde was performed I then used fluoroscopic images and guidance to advanced a wire up into the kidney and over the 0.038 glidewire I advanced a 6 Turkmen by 26 cm double pigtail stent. The stent had a string on it but cut it very short to prevent extraction. I then pulled the 0.038 Glidewire off and the stent coiled in the kidney bladder good position. The bladder was then drained. We confirmed the position of the stent by fluoroscopy. We then proceeded with more ESWL treatment we move the therapy had around du ring the treatment to make sure the stone stayed in the F2 focal point during the entire treatment. Once the stone had broken up completely then we stopped the treatment a total of about 4000 shockwaves were delivered to the stone under fluoroscopic guidance. At this point the patient's anesthetic was reversed patient was extubated and taken back to the PACU in stable condition. The patient was given instructions to call the office to make an a follow-up appointment. Type of Anesthesia:: General Drains: stent left side - Admit VTE Documentation VTE Present on Admission: No VTE Mechan Device Prophylaxis: SCD's
[2020-09-27 13:51] VITALS: BP 144/91; BP 149/89; PULSE 61; RESP 16; TEMP 36.3; O2SAT 93
[2020-09-27 14:00] VITALS: BP 148/82; BP 149/89; PULSE 68; RESP 16; O2SAT 95
[2020-09-27 14:10] LABS: Bedside Glucose 124 mg/dL (70-110)
[2020-09-27 14:15] VITALS: BP 132/90; BP 149/89; PULSE 65; RESP 16; O2SAT 94
[2020-09-27 14:29] VITALS: BP 149/89; PULSE 66; RESP 16; TEMP 36.2; O2SAT 94
[2020-09-27 14:56] VITALS: BP 149/89; BP 154/106; PULSE 74; RESP 18; TEMP 36.2; O2SAT 96
== END 2020-09-27 15:10 | disposition home or self-care (01) ==
LOC: SDC 09:52 → AC 09:52
PROVIDERS: PCP Family Medicine Geriatric Medicine; Referring Provider Urology; Visit Provider Urology
PROC: (CPT 50590; principal; 2020-09-27 12:05)
DX: N20.2 Calculus of kidney with calculus of ureter (principal); I25.10 Atherosclerotic heart disease of native coronary artery without angina pectoris; I10 Essential (primary) hypertension; E78.5 Hyperlipidemia, unspecified; G47.33 Obstructive sleep apnea (adult) (pediatric); M19.90 Unspecified osteoarthritis, unspecified site; J45.909 Unspecified asthma, uncomplicated; M99.03 Segmental and somatic dysfunction of lumbar region; M99.05 Segmental and somatic dysfunction of pelvic region; M99.02 Segmental and somatic dysfunction of thoracic region; E11.9 Type 2 diabetes mellitus without complications; Z79.84 Long term (current) use of oral hypoglycemic drugs; Z79.899 Other long term (current) drug therapy; Z79.82 Long term (current) use of aspirin; Z87.891 Personal history of nicotine dependence; I25.2 Old myocardial infarction; Z68.32 Body mass index [BMI] 32.0-32.9, adult
CPT/HCPCS: 00873; 50590; 52332; 74018; 82962; 87426; C9803; J7120; C1769; C2617; J2405

== ENCOUNTER → 2020-10-01 09:19 | Outpatient (CLI) | payer MEDICARE, SELFPAY ==
[2020-09-27 10:29] VITALS: BMI 33.4
--- NOTE | 2020-10-01 09:30 | RAD_ITS ---
STUDY: X-RAY - ABDOMEN/PELVIS REASON FOR EXAM: Male, 75 years old. CHECKING FOR KIDNEY STONES. HAD STONES REMOVED X2 WEEKS AGO. PATIENT STATES HE HAS HAD SOME BLOOD IN HIS URINE TECHNIQUE: Two AP supine views of the abdomen and pelvis. COMPARISON: September 27, 2020 [facility] FINDINGS: There is moderate stool in the colon. There is no demonstrated free abdominal air. Since prior, There is a left-sided double-J stent. The 2 stones that were seen on the prior study are not well visualized. In the mid aspect of the stent there is a suggestion that there may be several 1 to 2 mm stones along the left side of the stent this is allowing for summation of shadows with the adjacent bowel. Normal soft tissue structures. Normal visualized osseous structures. RAD/Abdomen Single View IMPRESSION: Possible multiple tiny stones versus artifact along the border of the mid aspect of the double-J stent stent. Constipation. Electronically Signed: Judy Arteaga MD at 2:58 EST Tel , Service support ,
== END ==
PROVIDERS: PCP Family Medicine Geriatric Medicine; Referring Provider Urology; Visit Provider Urology
DX: N20.0 Calculus of kidney (principal)
CPT/HCPCS: 74018

== ENCOUNTER → 2020-11-12 10:04 | Outpatient (CLI) | payer MEDICARE, SELFPAY ==
--- NOTE | 2020-11-12 10:06 | RAD_ITS ---
STUDY: X-RAY - ABDOMEN/PELVIS REASON FOR EXAM: Male, 75 years old. Previous left-sided kidney stone. Lithotripsy in September. TECHNIQUE: AP supine abdomen. COMPARISON: CT abdomen and pelvis August 18, 2020. Report only of abdomen October 01, 2020. FINDINGS: There is an unremarkable bowel gas pattern. There is no demonstrated free abdominal air. Faint 4 mm calcification overlies the superior pole left kidney. Probable phleboliths in the pelvis. Normal soft tissue structures. Degenerative changes of the hips and lower lumbar spine. RAD/Abdomen Single View IMPRESSION: Possible 4 mm left renal calculus. Electronically Signed: Cole Eduardo MD at 4:59 EST , Service support ,
== END ==
PROVIDERS: PCP Family Medicine Geriatric Medicine; Referring Provider Urology; Visit Provider Urology
DX: N20.0 Calculus of kidney (principal)
CPT/HCPCS: 74018

== ENCOUNTER → 2020-11-14 10:09 | Outpatient (CLI) | payer MEDICARE, SELFPAY ==
[2020-11-14 12:32] LABS: Absolute Lymphocyte Count 1.21 X10^3/uL (0.83-4.51); Absolute Neutrophil Count 3.6 X10^3/uL (2.0-7.7); Basophil# 0.05 X10^3/uL; Basophil% 0.8 % (0-1); Eosinophil# 0.39 X10^3/uL; Eosinophils% 6.5 % (0-5); Hematocrit 45.1 % (40-54); Hemoglobin 14.6 g/dL (13.0-16.5); Lymphocyte # 1.21 X10^3/ul (4.0); Lymphocyte % 20.1 % (19-41); Mean Corp Hgb Conc 32.4 g/dL (32-36); Mean Corpuscular Hgb 30.5 pg (27.0-32.0); Mean Corpuscular Volume 94.4 fL (80-94); Mean Platelet Vol. 10.4 fl (6.2-12.0); Monocyte# 0.71 X10^3/uL; Monocyte% 11.8 % (0-10); NRBC Flagged by Analyzer 0 % (0-5); Neutrophil # 3.63 X10^3/uL (2.7-7.7); Neutrophil % 60.5 % (47-70); Platelet Count 258 K/mm3 (150-450); RBC Distribution Width SD 44.7 fl (35.1-43.9); Red Blood Count 4.78 M/mm3 (4.6-6.2)
[2020-11-14 13:13] LABS: Vitamin D,25 Hydroxy 40.8 ng/mL
[2020-11-14 13:16] LABS: ALB/GLOB Ratio 1.1 RATIO (0.9-2.4); AST(SGOT) 25 U/L (15-37); Alanine Aminotransfer ALT/SGPT 52 U/L (16-61); Albumin, Serum 3.7 g/dL (3.2-5.0); Alkaline Phosphatase 43 U/L (45-117); Anion Gap 7 (5-15); BUN 19 mg/dL (7-18); Calcium,Total 9.6 mg/dL (8.5-10.1); Chloride 106 mmol/L (98-107); Creatinine, Serum 0.95 mg/dL (0.70-1.30); EST Glomerular Filtration Rate 82 mL/min (>60); Est Glom Filt Rate - Afr Amer 99 mL/min (>60); Globulin 3.3 g/dL (2.2-4.2); Glucose 159 mg/dL (74-106); Potassium 4.1 mmol/L (3.5-5.1); Sodium Level 139 mmol/L (136-145); Thyroid Stim Hormone (TSH) 3.45 uIU/mL (0.358-3.74)
== END ==
PROVIDERS: PCP Family Medicine Geriatric Medicine; Visit Provider Family Medicine Geriatric Medicine
DX: E11.9 Type 2 diabetes mellitus without complications (principal); E55.9 Vitamin D deficiency, unspecified; F52.8 Other sexual dysfunction not due to a substance or known physiological condition; I10 Essential (primary) hypertension
CPT/HCPCS: 36415; 80053; 82306; 84403; 84443; 85025

== ENCOUNTER 2020-11-26 10:34 | Outpatient (RCR) | payer MEDICARE, SELFPAY ==
[2020-11-26] MEDS: COVID-19 VACC, MRNA(PFIZER)/PF 30 MCG/0.3 ML SYRINGE IM (07:38)
[2020-12-17] MEDS: COVID-19 VACC, MRNA(PFIZER)/PF 30 MCG/0.3 ML SYRINGE IM (07:35)
== END 2021-02-25 23:59 ==
LOC: IMMUN 10:34
PROVIDERS: PCP Family Medicine Geriatric Medicine; Visit Provider Family Medicine
DX: Z23 Encounter for immunization (principal)
CPT/HCPCS: 0001A; 0002A; 91300

== ENCOUNTER → 2021-02-03 12:22 | Outpatient (CLI) | payer MEDICARE, SELFPAY ==
[2021-02-03 12:56] LABS: Absolute Lymphocyte Count 1.79 X10^3/uL (0.83-4.51); Absolute Neutrophil Count 3.6 X10^3/uL (2.0-7.7); Basophil# 0.04 X10^3/uL; Basophil% 0.6 % (0-1); Eosinophil# 0.17 X10^3/uL; Eosinophils% 2.7 % (0-5); Hematocrit 45.1 % (40-54); Hemoglobin 14.7 g/dL (13.0-16.5); Lymphocyte # 1.79 X10^3/ul (0.83-4.51); Lymphocyte % 28.9 % (19-41); Mean Corp Hgb Conc 32.6 g/dL (32-36); Mean Corpuscular Hgb 29.9 pg (27.0-32.0); Mean Corpuscular Volume 91.7 fL (80-94); Mean Platelet Vol. 10.1 fl (6.2-12.0); Monocyte# 0.59 X10^3/uL; Monocyte% 9.5 % (0-10); NRBC Flagged by Analyzer 0 % (0-5); Neutrophil # 3.59 X10^3/uL (2.7-7.7); Platelet Count 235 K/mm3 (150-450); RBC Distribution Width CV 12.5 % (11.6-14.6); RBC Distribution Width SD 42.3 fl (35.1-43.9); Red Blood Count 4.92 M/mm3 (4.6-6.2); White Blood Count 6.2 K/mm3 (4.4-11.0)
[2021-02-03 13:25] LABS: Vitamin D,25 Hydroxy 59.2 ng/mL
[2021-02-03 13:46] LABS: ALB/GLOB Ratio 1.1 RATIO (0.9-2.4); AST(SGOT) 27 U/L (15-37); Alanine Aminotransfer ALT/SGPT 43 U/L (16-61); Albumin, Serum 3.7 g/dL (3.2-5.0); Alkaline Phosphatase 43 U/L (45-117); Anion Gap 7 (5-15); BUN 18 mg/dL (7-18); BUN/Creat Ratio 20.3 RATIO (10-20); Calcium,Total 9.4 mg/dL (8.5-10.1); Chloride 108 mmol/L (98-107); Creatinine, Serum 0.89 mg/dL (0.70-1.30); EST Glomerular Filtration Rate 89 mL/min (>60); Est Glom Filt Rate - Afr Amer 107 mL/min (>60); Globulin 3.4 g/dL (2.2-4.2); Glucose 117 mg/dL (74-106); Protein, Total 7.1 g/dL (6.4-8.2); Sodium Level 140 mmol/L (136-145); Thyroid Stim Hormone (TSH) 2.75 uIU/mL (0.358-3.74)
== END ==
PROVIDERS: PCP Family Medicine Geriatric Medicine; Visit Provider Family Medicine Geriatric Medicine
DX: E11.9 Type 2 diabetes mellitus without complications (principal); I10 Essential (primary) hypertension; E55.9 Vitamin D deficiency, unspecified; E23.6 Other disorders of pituitary gland
CPT/HCPCS: 36415; 80053; 82306; 84403; 84443; 85025

== ENCOUNTER → 2021-05-19 12:13 | Outpatient (CLI) | payer MEDICARE, SELFPAY ==
[2021-05-19 12:36] LABS: Absolute Lymphocyte Count 1.81 X10^3/uL (0.83-4.51); Basophil# 0.04 X10^3/uL; Basophil% 0.6 % (0-1); Eosinophil# 0.23 X10^3/uL; Eosinophils% 3.4 % (0-5); Hematocrit 43.9 % (40-54); Hemoglobin 14.4 g/dL (13.0-16.5); Lymphocyte # 1.81 X10^3/ul (0.83-4.51); Mean Corp Hgb Conc 32.8 g/dL (32-36); Mean Corpuscular Hgb 30.4 pg (27.0-32.0); Mean Corpuscular Volume 92.8 fL (80-94); Mean Platelet Vol. 9.6 fl (6.2-12.0); Monocyte# 0.59 X10^3/uL; Monocyte% 8.8 % (0-10); NRBC Flagged by Analyzer 0 % (0-5); Neutrophil # 4.02 X10^3/uL (2.7-7.7); Neutrophil % 59.9 % (47-70); Platelet Count 222 K/mm3 (150-450); RBC Distribution Width SD 44.5 fl (35.1-43.9); Red Blood Count 4.73 M/mm3 (4.6-6.2); White Blood Count 6.7 K/mm3 (4.4-11.0)
[2021-05-19 13:07] LABS: Vitamin D,25 Hydroxy 57.3 ng/mL
[2021-05-19 13:15] LABS: ALB/GLOB Ratio 1.2 RATIO (0.9-2.4); AST(SGOT) 22 U/L (15-37); Alanine Aminotransfer ALT/SGPT 38 U/L (16-61); Albumin, Serum 3.7 g/dL (3.2-5.0); Alkaline Phosphatase 40 U/L (45-117); Anion Gap 4 (5-15); BUN 17 mg/dL (7-18); BUN/Creat Ratio 19.5 RATIO (10-20); Calcium,Total 9.6 mg/dL (8.5-10.1); Chloride 109 mmol/L (98-107); Creatinine, Serum 0.87 mg/dL (0.70-1.30); EST Glomerular Filtration Rate 91 mL/min (>60); Est Glom Filt Rate - Afr Amer 110 mL/min (>60); Glucose 113 mg/dL (74-106); Protein, Total 6.7 g/dL (6.4-8.2); Sodium Level 139 mmol/L (136-145)
== END ==
PROVIDERS: PCP Family Medicine Geriatric Medicine; Referring Provider Family Medicine Geriatric Medicine; Visit Provider Family Medicine Geriatric Medicine
DX: E11.9 Type 2 diabetes mellitus without complications (principal); E55.9 Vitamin D deficiency, unspecified; F52.8 Other sexual dysfunction not due to a substance or known physiological condition; I10 Essential (primary) hypertension
CPT/HCPCS: 36415; 80053; 82306; 84403; 84443; 85025

== ENCOUNTER 2021-06-09 09:13 | Emergency (ER) | payer MEDICARE, SELFPAY ==
[2021-06-09 09:13] VITALS: BP 100/71; PULSE 73; RESP 18; TEMP 35.7; O2SAT 98; BMI 33.2
--- NOTE | 2021-06-09 09:43 | RAD_ITS ---
STUDY: X-RAY CHEST REASON FOR EXAM: Male, 75 years old. Chest pain TECHNIQUE: Single AP portable view of the chest. COMPARISON: None. FINDINGS: EKG electrodes are seen. Mild increased markings at the left lung base suggestive of possible atelectasis and/or scarring. There is no demonstrated pleural abnormality. There is mild cardiac enlargement. Normal mediastinum and isabela. Normal visualized pulmonary arteries. There is atherosclerotic calcification of the aortic arch with tortuosity. There are diffuse degenerative changes of the visualized thoracic spine. Normal visualized ribs, clavicles, and shoulders. There is no demonstrated abnormality of the visualized soft tissue structures of the upper abdomen. RAD/Chest 1 View (Portable) IMPRESSION: Mild increased markings at the left lung base suggestive of atelectasis and/or scarring. Electronically Signed: Stephen Ruiz MD at 10:33 EDT , Service support ,
--- NOTE | 2021-06-09 09:43 | EKG12_ITS ---
Test Reason : CHEST PAIN Blood Pressure : / mmHG Vent. Rate : 066 BPM Atrial Rate : 066 BPM P-R Int : 160 ms QRS Dur : 082 ms QT Int : 396 ms P-R-T Axes : 037 016 021 degrees QTc Int : 415 ms Normal sinus rhythm Normal ECG Confirmed by JESSICA JIMENEZ, FERNANDA ([id number]), photography editor SAL SHARMA ([id number]) on 06/10/2021 2:05:32 PM Referred By: Confirmed By:FERNANDA LOPEZ MD
[2021-06-09 09:56] LABS: Absolute Lymphocyte Count 1.19 X10^3/uL (0.83-4.51); Absolute Neutrophil Count 9.7 X10^3/uL (2.0-7.7); Basophil# 0.04 X10^3/uL; Basophil% 0.3 % (0-1); Eosinophil# 0.29 X10^3/uL; Eosinophils% 2.3 % (0-5); Hematocrit 46.8 % (40-54); Hemoglobin 14.9 g/dL (13.0-16.5); Lymphocyte # 1.19 X10^3/ul (0.83-4.51); Lymphocyte % 9.6 % (19-41); Mean Corp Hgb Conc 31.8 g/dL (32-36); Mean Corpuscular Hgb 30.6 pg (27.0-32.0); Mean Corpuscular Volume 96.1 fL (80-94); Mean Platelet Vol. 10.1 fl (6.2-12.0); Monocyte# 1.07 X10^3/uL; Monocyte% 8.6 % (0-10); NRBC Flagged by Analyzer 0 % (0-5); Neutrophil # 9.74 X10^3/uL (2.7-7.7); Neutrophil % 78.7 % (47-70); Platelet Count 245 K/mm3 (150-450); RBC Distribution Width SD 46.1 fl (35.1-43.9); Red Blood Count 4.87 M/mm3 (4.6-6.2); White Blood Count 12.4 K/mm3 (4.4-11.0)
--- NOTE | 2021-06-09 10:02 | EX.ED.DYSGE1 ---
HPI History of Present Illness Chief Complaint: Abd Pain Informant: patient and spouse/S.O. Narrative Narrative: 75-year-old male presenting to the emergency department for the evaluation of chest pain. Patient states that last night prior to going to bed he had an upset stomach. This morning he had several bouts of diarrhea. He states that having diarrhea is not unusual for him due to his Metformin. He went to work but he began to feel like he was going to throw up. He states that he looked pale and was getting diaphoretic. He then began to have a midsternal discomfort. He went home and was not getting better so he took some nitroglycerin. He states overall now he feels significantly better. [facility] Medical History (Updated 06/09/21 @ 12:[address] 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 Bilateral headaches Environmental allergies Essential (primary) hypertension Hyperlipidemia Obstructive sleep apnea Paroxysmal supraventricular tachycardia Segmental and somatic dysfunction of lumbar region Segmental and somatic dysfunction of pelvic region Segmental and somatic dysfunction of thoracic region Type 2 diabetes mellitus Home Medications multivitamin with folic acid 1 tab PO DAILY 12/20/13 [History Last Taken Unknown] nitroglycerin 0.4 mg SUBLINGUAL Q5M PRN 12/20/13 [History Last Taken Unknown] nzoapwde-kwx-gfrfhfitx-vit D3 1 ea PO DAILY 11/30/17 [History Last Taken Unknown] metformin 1,000 mg tablet 1,000 mg PO BID 07/28/18 [History Last Taken Unknown] aspirin 81 mg tablet,delayed release 81 mg PO QHS 07/27/19 [History Last Taken 08/23/20] cinnamon bark 500 mg capsule 1,000 mg PO BID cap 07/27/19 [History Last Taken Unknown] levothyroxine 50 mcg capsule 25 mcg PO DAILY 07/27/19 [History Last Taken 09/27/20 09:00 25 MCG] pioglitazone 30 mg tablet 30 mg PO DAILY tab 08/08/20 [History Last Taken Unknown] sildenafil 100 mg tablet 100 mg PO DAILY PRN tab 08/08/20 [History Last Taken Unknown] lisinopril 20 mg PO BID 08/26/20 [History Last Taken 09/27/20 09:00 20 MG] atorvastatin 80 mg tablet 80 mg PO QHS #90 tab 02/27/21 [Rx Last Taken Unknown] metoprolol tartrate 100 mg tablet 100 mg PO BID #180 tab 04/14/21 [Rx Last Taken Unknown] Allergy/AdvReac Type Severity Reaction Status Date / Time No Known Allergies Allergy Verified 06/09/21 09:16 Family History Mother CAD (coronary artery disease) Myocardial infarction Father No problems noted. Other Arthritis Heart disease Hypertension Surgical History History of ankle surgery History of coronary artery stent placement (01/01/99) Social History Smoking Status: Former smoker alcohol intake: current alcohol intake frequency: holidays/special occasions only substance use type: does not use what type of physical activity do you participate in: none ROS ROS ED Constitutional Constitutional ED: Reports sweats; Denies chills or weight loss Eyes Eyes: Denies change in vision or diplopia ENT ENT ED: Denies ear pain, rhinorrhea or sore throat Cardiovascular Cardiovascular: Reports chest pain; Denies orthopnea, palpitations or racing heartbeat Respiratory/Chest Respiratory/Chest: Denies cough, dyspnea or orthopnea Gastrointestinal Gastrointestinal: Reports abdominal pain, diarrhea and nausea; Denies vomiting Genitourinary Genitourinary ED: Denies dysuria, hematuria or urinary frequency Musculoskeletal Musculoskeletal: Denies arthralgias or myalgias Integumentary Denies abscess or rash Neurologic Neurologic: Denies headache(s) or weakness Psychiatric Psychiatric: Denies anxiety, depression, suicidal ideation or suicidal thoughts Endocrine Endocrinology: Denies polydipsia, polyphagia or polyuria Allergic/Immunologic Allergic/Immunologic ED: Denies mouth swelling, tongue swelling or urticaria EXAM Physical Exam Const Vital Signs: 06/09/21 09:13 06/09/21 10:18 Temperature 96.2 F L Temperature Source Temporal Pulse Rate 73 70 Respiratory Rate 18 17 Blood Pressure 100/71 109/65 Blood Pressure Mean 80 79 Pulse Ox 98 95 Oxygen Delivery Method Room Air Room Air Positive well nourished and well developed General Appearance ED: well developed HEENT Reports normocephalic, head/scalp atraumatic and moist mucous membranes Eyes PERRL and EOMs intact bilaterally Neck no lymphadenopathy, supple and no JVD Resp normal respiratory effort and clear to auscultation bilaterally Cardio regular rate, regular rhythm and no murmurs GI normal to inspection, nondistended, normoactive bowel sounds and non-tender Palpation: soft Back/Spine no CVA tenderness and normal ROM Extremity normal to inspection General Extremety ED: Negative for edema General Extremity: Negative for edema Neuro oriented x3 and CN's II-XII intact bilaterally Sensorium / Orientation: alert Motor Exam: strength 5/5 throughout Psych mental status grossly normal Mood & Affect: Negative for depressed or tearful Skin no rashes or lesions noted and no wounds MDM MDM MDM Narrative Medical decision making narrative: My interpretation of the chest x-ray is no acute process. Basic blood work was obtained and was negative. Noted leukocytosis of 12.4 which is nonspecific. 2 sets of high-sensitivity troponins were ordered and essentially no change at 5 and 6. He said no events on the monitor. Most likely this was vagally mediated. He was experiencing diarrhea as well as nausea. He reports being pale and diaphoretic. Symptoms have abated as his abdominal symptoms abated. Think after this period of observation and 2 sets of heart enzymes I feel that this is most likely not ACS. Patient will be encouraged to follow-up with his doctors return if worsening or concerns Lab Data Attestation: I reviewed the patient's lab results. Labs: Laboratory Results - last 24 hr 06/09/21 06/09/21 06/09/21 09:25 09:25 11:25 WBC 12.4 H RBC 4.87 Hgb 14.9 Hct 46.8 MCV 96.1 H MCH 30.6 MCHC 31.8 L RDW Std Deviation 46.1 H RDW Coeff of Zainab 13.0 Plt Count 245 MPV 10.1 Immature Gran % (Auto) 0.500 Neut % (Auto) 78.7 H Lymph % (Auto) 9.6 L [place] % (Auto) 8.6 Eos % (Auto) 2.3 Baso % (Auto) 0.3 Absolute Neuts (auto) 9.7 H Absolute Lymphs (auto) 1.19 Nucleated RBC % 0 Sodium 141 Potassium 3.9 Chloride 107 Carbon Dioxide 29.0 Anion Gap 5 BUN 20 H Creatinine 1.03 Estim Creat Clear Calc 61.01 Est GFR (MDRD) Af Amer 90 Est GFR (MDRD) Non-Af 75 BUN/Creatinine Ratio 19.4 Glucose 175 H Calcium 9.5 Troponin I High Sens 5 6 Radiography Diagnostic Testing: Radiology Impression Chest X-Ray 06/09/21 09:43 IMPRESSION: Mild increased markings at the left lung base suggestive of atelectasis and/or scarring. Electronically Signed: Stephen Ruiz MD at 10:33 EDT , Service support , EKG Initial EKG: Attestation: I personally reviewed and interpreted this EKG as follows: Comments: Normal sinus rhythm with a ventricular rate of 66 bpm. No concerning features of ACS or ectopy noted Discharge Plan Triage Chief Complaint: Abd Pain ED Provider: Babatunde Silva Dx/Rx/DC Orders Clinical Impression: Chest pain Instructions: ED Chest Pain, Noncardiac Prescriptions: No Action metformin 1,000 mg tablet 1,000 mg PO BID RF: 0 cinnamon bark [Cinnamon] 500 mg capsule 1,000 mg PO BID RF: 0 levothyroxine 50 mcg capsule 50 mcg capsule 25 mcg PO DAILY RF: 0 aspirin [Adult Aspirin Regimen] 81 mg tablet,delayed release (DR/EC) 81 mg PO QHS RF: 0 pioglitazone 30 mg tablet 30 mg PO DAILY RF: 0 sildenafil 100 mg tablet 100 mg PO DAILY PRN (Reason: other) RF: 0 nitroglycerin 0.4 MG tablet 0.4 mg Sublingual Q5M PRN (Reason: Chest Pain) RF: 0 multivitamin with folic acid 1 TABLET tablet 1 tab PO DAILY RF: 0 uukrfaej-etj-knsdstkod-vit D3 1 EACH tablet 1 ea PO DAILY RF: 0 lisinopril 20 MG tablet 20 mg PO BID RF: 0 atorvastatin 80 mg tablet 80 mg PO QHS Qty: 90 RF: 3 metoprolol tartrate 100 mg tablet 100 mg PO BID Qty: 180 RF: 3 Primary Care Provider: Gustavo Vinson Chi Referrals: Lamont Kaiser MD [STAFF PHYSICIAN] - 1 Week if not improving Gustavo Vinson Chi, MD [Primary Care Provider] - As Needed Disposition Disposition: Home, Self Care
[2021-06-09 10:14] LABS: Anion Gap 5 (5-15); BUN 20 mg/dL (7-18); BUN/Creat Ratio 19.4 RATIO (10-20); Calcium,Total 9.5 mg/dL (8.5-10.1); Chloride 107 mmol/L (98-107); Creatinine, Serum 1.03 mg/dL (0.70-1.30); EST Glomerular Filtration Rate 75 mL/min (>60); Est Glom Filt Rate - Afr Amer 90 mL/min (>60); Estimated Creatinine Clearance 61.01 ml/min; Glucose 175 mg/dL (74-106); Potassium 3.9 mmol/L (3.5-5.1); Sodium Level 141 mmol/L (136-145); Troponin-I HS 5 pg/mL (3.0-78.0)
[2021-06-09 10:18] VITALS: BP 109/65; PULSE 70; RESP 17; O2SAT 95
[2021-06-09 11:53] LABS: Troponin-I HS 6 pg/mL (3.0-78.0)
[2021-06-09 12:30] VITALS: BP 115/72; PULSE 67; RESP 16; O2SAT 99
== END 2021-06-09 12:31 | disposition home or self-care (01) ==
PROVIDERS: Emergency Provider Emergency Medicine; PCP Family Medicine Geriatric Medicine
DX: R07.9 Chest pain, unspecified (principal); I25.10 Atherosclerotic heart disease of native coronary artery without angina pectoris; E11.9 Type 2 diabetes mellitus without complications; E78.5 Hyperlipidemia, unspecified; G47.33 Obstructive sleep apnea (adult) (pediatric); I10 Essential (primary) hypertension; Z79.82 Long term (current) use of aspirin; Z79.84 Long term (current) use of oral hypoglycemic drugs; Z87.891 Personal history of nicotine dependence
CPT/HCPCS: 71045; 80048; 84484; 85025; 93005; 99284

== ENCOUNTER → 2021-07-01 06:49 | Outpatient (CLI) | payer MEDICARE, SELFPAY ==
--- NOTE | 2021-07-01 06:53 | ECHOCS_ITS ---
Reason For Study: Unstable Angina Procedure This was a 2D Doppler, Color Flow transthoracic echocardiogram. The study was technically difficult. Contrast injection was performed. Exam performed in department. Left Ventricle Normal LV size. Mild concentric left ventricular hypertrophy. Left ventricular systolic function is normal. The estimated ejection fraction is 60 %. Stage 1 diastolic dysfunction. No regional wall motion abnormalities noted. Right Ventricle Normal RV size. Normal systolic function. Atria Normal left atrium. Normal right atrium. Mitral Valve Normal mitral valve. Tricuspid Valve Normal tricuspid valve. Mild tricuspid valve insufficiency. Pulmonary artery systolic pressure is 20 mmHg. Aortic Valve Trisinus/trileaflet aortic valve. Mild (1+) aortic valve insufficiency. Pulmonic Valve Normal pulmonic valve. Great Vessels Normal aortic root. The pulmonary artery is normal size. Normal inferior vena cava. Pericardium/Pleural No pericardial effusion. Medication 22 gauge I.V. with prn adaptor inserted into right arm. Diluted definity 2ml given slow IV push to enhance endocardial definition. MMode/2D Measurements & Calculations LVIDd: 4.4 cm IVSd: 1.3 cm LA dimension: 5.2 cm LVIDs: 3.2 cm LVPWd: 1.3 cm FS: 27.3 % LAV(MOD-bp): 54.0 ml LA A4 area: 19.9 cm2 LAV(MOD-bp) Indexed: 25.5 ml/m2 LAV(MOD-sp2): 50.4 ml LAV(MOD-sp4): 57.0 ml Time Measurements MV dec time: 0.27 sec Doppler Measurements & Calculations MV E max agustin: 65.8 cm/sec Lat Peak E' Agustin: 6.8 cm/sec Med Peak E' Agustin: 5.4 cm/sec MV A max agustin: 94.4 cm/sec E/E' lat: 9.7 E/E' med: 12.1 MV E/A: 0.70 MV V2 max: 96.5 cm/sec MV P1/2t max agustin: 74.4 cm/sec Ao V2 max: 123.1 cm/sec MV max P.7 mmHg MV P1/2t: 79.3 msec Ao max P.1 mmHg MV V2 mean: 49.0 cm/sec MV dec slope: 274.8 cm/sec2 MV mean P.1 mmHg MV V2 VTI: 28.2 cm MVA(P1/2t): 2.8 cm2 AI max agustin: 369.9 cm/sec LV V1 max: 90.2 cm/sec PA V2 max: 120.4 cm/sec AI max P.8 mmHg LV V1 max P.3 mmHg AI dec slope: 155.5 cm/sec2 AI P1/2t: 697.0 msec TR max agustin: 205.4 cm/sec TR max P.9 mmHg ECHO/Echo Complete W/ Contrast Interpretation Summary Normal LV size. Left ventricular systolic function is normal. The estimated ejection fraction is 60 %. Stage 1 diastolic dysfunction. Mild concentric left ventricular hypertrophy. Mild (1+) aortic valve insufficiency. Contrast injection was performed. Ordering Physician: Gustavo Vinson Referring Physician: Gustavo Vinson Chi Performed By: Gabriel Oswald RCS
--- NOTE | 2021-07-01 17:51 | STRESSREP ---
Stress Test Report Pharmacologic myocardial perfusion stress test. 75-year-old man with a history of chest pain. Stress protocol: Resting EKG demonstrates normal sinus rhythm with a rate of 62 bpm normal intervals are noted resting blood pressure is 124/78 mmHg. 0.4 mg of regadenoson was infused per usual protocol followed by rapid intravenous saline flush injection continuous EKG monitoring was performed. The maximum heart rate attained was 91 bpm which was 63% of maximum predicted heart rate the maximum workload was 1 metabolic equivalent. At rest there were no ST or T wave changes noted to suggest abnormal flow reserve and at peak infusion nonspecific ST changes were noted with did not meet the criteria for ischemia. No clinical angina was noted. The final blood pressure was 124/70 mmHg. Myocardial perfusion protocol. 14.8 mCi of technetium 99m sestamibi was injected at rest. 0.4 mg of regadenoson was infused per usual protocol. At peak infusion 44.7 mCi of technetium 99m sestamibi was injected stress images were obtained stress and rest images were reconstructed and compared in the short axis vertical long horizontal long axis. Gated images were also obtained to Perfusion SPECT analysis: Review of the stress images demonstrate normal uptake of tracer noted in all areas of the myocardium. The resting images similarly demonstrate normal uptake of tracer noted in all areas of the myocardium. No areas of reversibility are noted suggest ischemia and no previous infarct is noted. Gated SPECT analysis: The gated ejection fraction is noted to be 65%. Conclusion: Normal pharmacologic myocardial perfusion stress test. Preserved ejection fraction.
== END ==
PROVIDERS: PCP Family Medicine Geriatric Medicine; Visit Provider Family Medicine Geriatric Medicine
DX: I20.0 Unstable angina (principal)
CPT/HCPCS: 78452; 93017; 93306; A9500; Q9957; A4216; C8929; J2785; J3490

== ENCOUNTER → 2021-08-26 09:21 | Outpatient (CLI) | payer MEDICARE, SELFPAY ==
[2021-08-26 12:28] LABS: Absolute Lymphocyte Count 1.76 X10^3/uL (0.83-4.51); Absolute Neutrophil Count 3.7 X10^3/uL (2.0-7.7); Basophil# 0.05 X10^3/uL; Basophil% 0.8 % (0-1); Eosinophil# 0.37 X10^3/uL; Eosinophils% 5.6 % (0-5); Hematocrit 46.6 % (40-54); Hemoglobin 14.9 g/dL (13.0-16.5); Lymphocyte # 1.76 X10^3/ul (0.83-4.51); Lymphocyte % 26.4 % (19-41); Monocyte# 0.74 X10^3/uL; Monocyte% 11.1 % (0-10); NRBC Flagged by Analyzer 0 % (0-5); Neutrophil # 3.73 X10^3/uL (2.7-7.7); Neutrophil % 55.9 % (47-70); Platelet Count 251 K/mm3 (150-450); RBC Distribution Width CV 12.9 % (11.6-14.6); RBC Distribution Width SD 44.4 fl (35.1-43.9); Red Blood Count 4.96 M/mm3 (4.6-6.2); White Blood Count 6.7 K/mm3 (4.4-11.0)
[2021-08-26 12:42] LABS: Vitamin D,25 Hydroxy 46.3 ng/mL
[2021-08-26 12:49] LABS: AST(SGOT) 19 U/L (15-37); Alanine Aminotransfer ALT/SGPT 38 U/L (16-61); Albumin, Serum 3.5 g/dL (3.2-5.0); Alkaline Phosphatase 42 U/L (45-117); Anion Gap 6 (5-15); BUN 14 mg/dL (7-18); BUN/Creat Ratio 15.9 RATIO (10-20); Calcium,Total 9.3 mg/dL (8.5-10.1); Chloride 107 mmol/L (98-107); Creatinine, Serum 0.88 mg/dL (0.70-1.30); EST Glomerular Filtration Rate 89 mL/min (>60); Est Glom Filt Rate - Afr Amer 108 mL/min (>60); Globulin 3.5 g/dL (2.2-4.2); Glucose 139 mg/dL (74-106); Potassium 4.4 mmol/L (3.5-5.1); Sodium Level 139 mmol/L (136-145); Thyroid Stim Hormone (TSH) 2.69 uIU/mL (0.358-3.74)
== END ==
PROVIDERS: PCP Family Medicine Geriatric Medicine; Visit Provider Family Medicine Geriatric Medicine
DX: E11.9 Type 2 diabetes mellitus without complications (principal); E55.9 Vitamin D deficiency, unspecified; F52.8 Other sexual dysfunction not due to a substance or known physiological condition; I10 Essential (primary) hypertension
CPT/HCPCS: 36415; 80053; 82306; 84403; 84443; 85025

== ENCOUNTER 2021-11-25 11:10 | Outpatient (CLI) | payer MEDICARE, SELFPAY ==
[2021-11-25 12:31] LABS: Absolute Lymphocyte Count 1.39 X10^3/uL (0.83-4.51); Absolute Neutrophil Count 2.8 X10^3/uL (2.0-7.7); Basophil# 0.03 X10^3/uL; Basophil% 0.6 % (0-1); Eosinophil# 0.28 X10^3/uL; Eosinophils% 5.2 % (0-5); Hematocrit 47.5 % (40-54); Hemoglobin 15.5 g/dL (13.0-16.5); Lymphocyte # 1.39 X10^3/ul (0.83-4.51); Lymphocyte % 25.6 % (19-41); Mean Corp Hgb Conc 32.6 g/dL (32-36); Mean Corpuscular Hgb 30.5 pg (27.0-32.0); Mean Corpuscular Volume 93.5 fL (80-94); Mean Platelet Vol. 10.2 fl (6.2-12.0); Monocyte# 0.95 X10^3/uL; Monocyte% 17.5 % (0-10); NRBC Flagged by Analyzer 0 % (0-5); Neutrophil # 2.76 X10^3/uL (2.7-7.7); Neutrophil % 50.7 % (47-70); Platelet Count 225 K/mm3 (150-450); RBC Distribution Width CV 13.1 % (11.6-14.6); RBC Distribution Width SD 44.7 fl (35.1-43.9); Red Blood Count 5.08 M/mm3 (4.6-6.2); White Blood Count 5.4 K/mm3 (4.4-11.0)
[2021-11-25 12:40] LABS: Vitamin D,25 Hydroxy 46.9 ng/mL
[2021-11-25 13:00] LABS: ALB/GLOB Ratio 0.9 RATIO (0.9-2.4); AST(SGOT) 33 U/L (15-37); Alanine Aminotransfer ALT/SGPT 58 U/L (16-61); Albumin, Serum 3.5 g/dL (3.2-5.0); Alkaline Phosphatase 44 U/L (45-117); Anion Gap 6 (5-15); BUN 14 mg/dL (7-18); BUN/Creat Ratio 13.9 RATIO (10-20); Calcium,Total 9.6 mg/dL (8.5-10.1); Chloride 105 mmol/L (98-107); Creatinine, Serum 1.01 mg/dL (0.70-1.30); EST Glomerular Filtration Rate 76 mL/min (>60); Est Glom Filt Rate - Afr Amer 92 mL/min (>60); Globulin 3.8 g/dL (2.2-4.2); Glucose 133 mg/dL (74-106); Potassium 4.1 mmol/L (3.5-5.1); Protein, Total 7.3 g/dL (6.4-8.2); Sodium Level 137 mmol/L (136-145); Thyroid Stim Hormone (TSH) 6.01 uIU/mL (0.358-3.74)
== END 2021-11-25 23:59 | disposition home or self-care (01) ==
LOC: POLAB3 11:11
PROVIDERS: PCP Family Medicine Geriatric Medicine; Visit Provider Family Medicine Geriatric Medicine
DX: E55.9 Vitamin D deficiency, unspecified (principal); I10 Essential (primary) hypertension; F52.8 Other sexual dysfunction not due to a substance or known physiological condition
CPT/HCPCS: 36415; 80053; 82306; 84403; 84443; 85025

== ENCOUNTER → 2022-01-19 | Outpatient (CLI) | payer MEDICARE, SELFPAY ==
[2022-01-19 11:11] LABS: Thyroid Stim Hormone (TSH) 3.26 uIU/mL (0.358-3.74)
== END | disposition home or self-care (01) ==
LOC: LAB 09:09
PROVIDERS: PCP Family Medicine Geriatric Medicine; Referring Provider Family Medicine Geriatric Medicine; Visit Provider Family Medicine Geriatric Medicine
DX: E03.9 Hypothyroidism, unspecified (principal)
CPT/HCPCS: 36415; 84443

== ENCOUNTER → 2022-02-23 | Outpatient (CLI) | payer MEDICARE, SELFPAY ==
[2022-02-23 12:35] LABS: Absolute Lymphocyte Count 1.48 X10^3/uL (0.83-4.51); Absolute Neutrophil Count 3.8 X10^3/uL (2.0-7.7); Basophil# 0.04 X10^3/uL; Basophil% 0.6 % (0-1); Eosinophil# 0.26 X10^3/uL; Eosinophils% 4.2 % (0-5); Hematocrit 42.7 % (40-54); Hemoglobin 14.1 g/dL (13.0-16.5); Lymphocyte # 1.48 X10^3/ul (0.83-4.51); Lymphocyte % 23.9 % (19-41); Mean Corpuscular Hgb 30.8 pg (27.0-32.0); Mean Corpuscular Volume 93.2 fL (80-94); Mean Platelet Vol. 9.9 fl (6.2-12.0); Monocyte# 0.62 X10^3/uL; NRBC Flagged by Analyzer 0 % (0-5); Neutrophil # 3.78 X10^3/uL (2.7-7.7); Platelet Count 237 K/mm3 (150-450); RBC Distribution Width CV 13.2 % (11.6-14.6); RBC Distribution Width SD 45.1 fl (35.1-43.9); Red Blood Count 4.58 M/mm3 (4.6-6.2); White Blood Count 6.2 K/mm3 (4.4-11.0)
[2022-02-23 12:50] LABS: Vitamin D,25 Hydroxy 49.5 ng/mL
[2022-02-23 13:32] LABS: ALB/GLOB Ratio 1.1 RATIO (0.9-2.4); AST(SGOT) 24 U/L (15-37); Alanine Aminotransfer ALT/SGPT 43 U/L (16-61); Albumin, Serum 3.5 g/dL (3.2-5.0); Alkaline Phosphatase 41 U/L (45-117); Anion Gap 7 (5-15); BUN 14 mg/dL (7-18); BUN/Creat Ratio 15.5 RATIO (10-20); Calcium,Total 9.5 mg/dL (8.5-10.1); Chloride 108 mmol/L (98-107); EST Glomerular Filtration Rate 86 mL/min (>60); Est Glom Filt Rate - Afr Amer 105 mL/min (>60); Globulin 3.2 g/dL (2.2-4.2); Glucose 145 mg/dL (74-106); Potassium 4.2 mmol/L (3.5-5.1); Protein, Total 6.7 g/dL (6.4-8.2); Sodium Level 139 mmol/L (136-145); Thyroid Stim Hormone (TSH) 1.67 uIU/mL (0.358-3.74)
== END | disposition home or self-care (01) ==
LOC: LAB 11:54
PROVIDERS: PCP Family Medicine Geriatric Medicine; Referring Provider Family Medicine Geriatric Medicine; Visit Provider Family Medicine Geriatric Medicine
DX: E11.65 Type 2 diabetes mellitus with hyperglycemia (principal); E55.9 Vitamin D deficiency, unspecified; F52.8 Other sexual dysfunction not due to a substance or known physiological condition; I10 Essential (primary) hypertension
CPT/HCPCS: 36415; 80053; 82306; 84403; 84443; 85025

== ENCOUNTER → 2022-06-01 | Outpatient (CLI) | payer MEDICARE, SELFPAY ==
[2022-06-01 12:03] LABS: Absolute Lymphocyte Count 1.75 X10^3/uL (0.83-4.51); Absolute Neutrophil Count 4.3 X10^3/uL (2.0-7.7); Basophil# 0.04 X10^3/uL; Basophil% 0.6 % (0-1); Eosinophil# 0.36 X10^3/uL; Hematocrit 46.4 % (40-54); Hemoglobin 15.7 g/dL (13.0-16.5); Lymphocyte # 1.75 X10^3/ul (0.83-4.51); Lymphocyte % 24.5 % (19-41); Mean Corp Hgb Conc 33.8 g/dL (32-36); Mean Corpuscular Hgb 31.6 pg (27.0-32.0); Mean Corpuscular Volume 93.4 fL (80-94); Mean Platelet Vol. 10.1 fl (6.2-12.0); Monocyte# 0.67 X10^3/uL; Monocyte% 9.4 % (0-10); NRBC Flagged by Analyzer 0 % (0-5); Neutrophil # 4.31 X10^3/uL (2.7-7.7); Neutrophil % 60.2 % (47-70); Platelet Count 269 K/mm3 (150-450); RBC Distribution Width SD 44.1 fl (35.1-43.9); Red Blood Count 4.97 M/mm3 (4.6-6.2); White Blood Count 7.2 K/mm3 (4.4-11.0)
[2022-06-01 12:32] LABS: Vitamin D,25 Hydroxy 42.6 ng/mL
[2022-06-01 12:43] LABS: AST(SGOT) 24 U/L (15-37); Alanine Aminotransfer ALT/SGPT 46 U/L (16-61); Albumin, Serum 3.6 g/dL (3.2-5.0); Alkaline Phosphatase 43 U/L (45-117); Anion Gap 7 (5-15); BUN 21 mg/dL (7-18); BUN/Creat Ratio 22.8 RATIO (10-20); Calcium,Total 10.3 mg/dL (8.5-10.1); Chloride 107 mmol/L (98-107); Creatinine, Serum 0.92 mg/dL (0.70-1.30); EST Glomerular Filtration Rate 85 mL/min (>60); Est Glom Filt Rate - Afr Amer 102 mL/min (>60); Globulin 3.6 g/dL (2.2-4.2); Glucose 144 mg/dL (74-106); Potassium 4.2 mmol/L (3.5-5.1); Protein, Total 7.2 g/dL (6.4-8.2); Sodium Level 139 mmol/L (136-145)
== END | disposition home or self-care (01) ==
LOC: POLAB3 09:26
PROVIDERS: PCP Family Medicine Geriatric Medicine; Visit Provider Family Medicine Geriatric Medicine
DX: E11.9 Type 2 diabetes mellitus without complications (principal); E55.9 Vitamin D deficiency, unspecified; F52.8 Other sexual dysfunction not due to a substance or known physiological condition; I10 Essential (primary) hypertension
CPT/HCPCS: 36415; 80053; 82306; 84403; 84443; 85025

== ENCOUNTER → 2022-07-14 | Outpatient (CLI) | payer MEDICARE, SELFPAY ==
[2022-07-14 15:58] LABS: Thyroid Stim Hormone (TSH) 1.69 uIU/mL (0.358-3.74)
== END | disposition home or self-care (01) ==
LOC: LAB 13:56
PROVIDERS: PCP Family Medicine Geriatric Medicine; Referring Provider Family Medicine Geriatric Medicine; Visit Provider Family Medicine Geriatric Medicine
DX: E03.9 Hypothyroidism, unspecified (principal)
CPT/HCPCS: 36415; 84443

== ENCOUNTER → 2022-08-31 | Outpatient (CLI) | payer MEDICARE, SELFPAY ==
[2022-08-31 12:41] LABS: AST(SGOT) 25 U/L (15-37); Alanine Aminotransfer ALT/SGPT 51 U/L (16-61); Albumin, Serum 3.6 g/dL (3.2-5.0); Alkaline Phosphatase 41 U/L (45-117); Bilirubin, Direct 0.24 mg/dL (0.00-0.30); Cholesterol 101 mg/dL (200); Globulin 3.1 g/dL (2.2-4.2); High Density Lipoprotein 46 mg/dL; Protein, Total 6.7 g/dL (6.4-8.2); Triglycerides 47 mg/dL; Very Low Density Lipoprotein 9 mg/dL (5-40)
== END | disposition home or self-care (01) ==
LOC: LAB 11:02
PROVIDERS: PCP Family Medicine Geriatric Medicine; Referring Provider Internal Medicine Cardiovascular Disease; Visit Provider Internal Medicine Cardiovascular Disease
DX: E78.5 Hyperlipidemia, unspecified (principal)
CPT/HCPCS: 36415; 80061; 80076

== ENCOUNTER → 2022-09-03 | Outpatient (CLI) | payer MEDICARE, SELFPAY ==
[2022-09-03 10:34] LABS: Absolute Lymphocyte Count 1.43 X10^3/uL (0.83-4.51); Absolute Neutrophil Count 3.5 X10^3/uL (2.0-7.7); Basophil# 0.04 X10^3/uL; Basophil% 0.7 % (0-1); Eosinophils% 5.1 % (0-5); Hematocrit 46.2 % (40-54); Hemoglobin 14.7 g/dL (13.0-16.5); Lymphocyte # 1.43 X10^3/ul (0.83-4.51); Lymphocyte % 24.2 % (19-41); Mean Corp Hgb Conc 31.8 g/dL (32-36); Mean Corpuscular Hgb 30.1 pg (27.0-32.0); Mean Corpuscular Volume 94.5 fL (80-94); Mean Platelet Vol. 10.1 fl (6.2-12.0); Monocyte# 0.59 X10^3/uL; NRBC Flagged by Analyzer 0 % (0-5); Neutrophil # 3.53 X10^3/uL (2.7-7.7); Neutrophil % 59.7 % (47-70); Platelet Count 229 K/mm3 (150-450); RBC Distribution Width CV 13.1 % (11.6-14.6); RBC Distribution Width SD 45.4 fl (35.1-43.9); Red Blood Count 4.89 M/mm3 (4.6-6.2); White Blood Count 5.9 K/mm3 (4.4-11.0)
[2022-09-03 10:49] LABS: Vitamin D,25 Hydroxy 44.2 ng/mL
[2022-09-03 11:49] LABS: ALB/GLOB Ratio 1.1 RATIO (0.9-2.4); AST(SGOT) 20 U/L (15-37); Alanine Aminotransfer ALT/SGPT 41 U/L (16-61); Albumin, Serum 3.5 g/dL (3.2-5.0); Alkaline Phosphatase 39 U/L (45-117); Anion Gap 7 (5-15); BUN 16 mg/dL (7-18); BUN/Creat Ratio 17.1 RATIO (10-20); Calcium,Total 9.5 mg/dL (8.5-10.1); Chloride 107 mmol/L (98-107); Creatinine, Serum 0.94 mg/dL (0.70-1.30); EST Glomerular Filtration Rate 83 mL/min (>60); Est Glom Filt Rate - Afr Amer 100 mL/min (>60); Globulin 3.3 g/dL (2.2-4.2); Glucose 155 mg/dL (74-106); Potassium 3.8 mmol/L (3.5-5.1); Protein, Total 6.8 g/dL (6.4-8.2); Sodium Level 140 mmol/L (136-145); Thyroid Stim Hormone (TSH) 2.35 uIU/mL (0.358-3.74)
== END | disposition home or self-care (01) ==
LOC: POLAB3 09:53
PROVIDERS: PCP Family Medicine Geriatric Medicine; Visit Provider Family Medicine Geriatric Medicine
DX: E55.9 Vitamin D deficiency, unspecified (principal); E11.65 Type 2 diabetes mellitus with hyperglycemia; I10 Essential (primary) hypertension; F52.8 Other sexual dysfunction not due to a substance or known physiological condition
CPT/HCPCS: 36415; 80053; 82306; 84403; 84443; 85025

== ENCOUNTER 2022-09-27 23:15 | Emergency (ER) | payer MEDICARE, SELFPAY ==
[2022-09-27 23:15] VITALS: BP 162/92; PULSE 76; RESP 15; TEMP 36.3; O2SAT 98; BMI 35.7
--- NOTE | 2022-09-27 23:47 | EDS_ITS ---
HPI HPI - GI History of Present Illness Chief Complaint: Flank Pain Informant: patient Abdominal Pain/Flank Pain Onset: Hours (2-3) Context: Sudden Onset Timing: Continuous and Waxes and wanes Quality: Aching Location: Right Flank Current Severity: 2/10 Maximum Severity: Severe Worsened by: Nothing Relieved by: Nothing Nausea/Vomiting/Emesis GI Symptom: Positive for Nausea; Negative for Vomiting Diarrhea/Melena/Hematochezia GI Symptom: Negative for Diarrhea, Melena or Hematochezia Associated Symptoms Associated Symptoms: Negative for Dysuria, Frequency, Hematuria or Urgency Narrative Narrative: 77-year-old male with a history of kidney stones states that he had sudden onset of kidney stone pain several hours ago. Pain was severe. He waited in the waiting room for 20 or 30 minutes before getting to bed, he states in that period of time the pain is almost completely resolved and now is barely there. He took a shower and urinated prior to leaving his home. He does not remember seeing a stone. He urinated here and to a cup for urinalysis and there is no stone in it. He states he feels a lot better now. He was feeling fine prior to this. He had some mild discomfort in his low back coming around his lower abdomen bilaterally for the past 2 or 3 days but states that he has bad knees and has been having to work on his feet using his cane for the past week and thinks it might be affecting his low back as well. No fevers or chills or hematuria or other urinary symptoms. He has had lithotripsy a couple times in the past for stones. [facility] Medical History Anterolisthesis Arthritis Asthma Atherosclerosis of coronary artery of [place] heart without angina pectoris Bilateral headaches Environmental allergies Essential (primary) hypertension Hyperlipidemia Left renal stone Obstructive sleep apnea Paroxysmal supraventricular tachycardia Renal colic on right side Segmental and somatic dysfunction of lumbar region Segmental and somatic dysfunction of pelvic region Segmental and somatic dysfunction of thoracic region Type 2 diabetes mellitus Ureterolithiasis Home Medications nitroglycerin 0.4 mg sublingual tablet 0.4 mg sublingual Q5M PRN Chest Pain 12/20/13 [History Last Taken Unknown] glucosamine 750 mg-msm 125 mg-chondroitin 600 mg-D3 1,000 unit tablet 1 ea PO DAILY 11/30/17 [History Last Taken Unknown] metformin 1,000 mg tablet 1,000 mg PO BID 07/28/18 [History Last Taken Unknown] aspirin 81 mg tablet,delayed release (Adult Aspirin Regimen) 81 mg PO QHS 07/27/19 [History Last Taken 08/23/20] pioglitazone 30 mg tablet 30 mg PO DAILY 08/08/20 [History Last Taken Unknown] sildenafil 100 mg tablet 100 mg PO DAILY PRN other 08/08/20 [History Last Taken Unknown] atorvastatin 80 mg tablet 80 mg PO QHS #90 tabs 01/14/22 [Rx Last Taken Unknown] metoprolol tartrate 100 mg tablet 100 mg PO BID bp,heart #180 tabs 01/14/22 [Rx Last Taken Unknown] lisinopril 20 mg tablet 20 mg PO BID b p #180 tabs 07/14/22 [Rx Last Taken Unknown] amoxicillin 500 mg tablet 2,000 mg PO ONCE PRN 09/08/22 [History Last Taken Unknown] levothyroxine 75 mcg tablet 75 mcg PO DAILY 09/08/22 [History Last Taken Unknown] Allergy/AdvReac Type Severity Reaction Status Date / Time No Known Allergies Allergy Verified 09/27/22 23:15 Family History Mother CAD (coronary artery disease) Myocardial infarction Father No problems noted. Other Arthritis Heart disease Hypertension Surgical History History of ankle surgery History of coronary artery stent placement (01/01/99) Social History Smoking Status: Former smoker how long ago did patient quit smokin alcohol intake: current alcohol intake frequency: a few times a month Alcohol type: beer and wine substance use type: does not use caffeine: Yes Type: tea Number of servings: 1 what type of physical activity do you participate in: none ROS ROS ED Constitutional Constitutional ED: Denies chills or fever(s) Eyes Eyes: Denies change in vision or diplopia ENT ENT ED: Denies rhinorrhea or sore throat Cardiovascular Cardiovascular: Denies chest pain or palpitations Respiratory/Chest Respiratory/Chest: Denies cough or dyspnea Gastrointestinal Gastrointestinal: Reports abdominal pain and nausea; Denies diarrhea or vomiting Genitourinary Genitourinary ED: Reports flank pain; Denies dysuria or hematuria Musculoskeletal Musculoskeletal: Reports back pain; Denies neck pain Integumentary Denies abscess or rash Neurologic Neurologic: Denies headache(s), paresthesias or weakness Psychiatric Psychiatric: Denies anxiety or suicidal thoughts EXAM Physical Exam Const Vital Signs: 09/27/22 23:15 Temperature 97.3 F L Temperature Source Temporal Pulse Rate 76 Respiratory Rate 15 Blood Pressure 162/92 H Blood Pressure Mean 115 Pulse Ox 98 Oxygen Delivery Method Room Air Positive well nourished, well developed and obese General Appearance ED: well developed and NAD Nutritional Appearance: obese HEENT Reports moist mucous membranes normocephalic and atraumatic Eyes PERRL and EOMs intact bilaterally Neck full ROM and supple Resp normal respiratory effort Cardio Cardio Narrative: Equal 2+/4 bilateral dorsalis pedis pulses. No pulsatile mass in the abdomen. GI non-tender and non-distended Auscultation: normoactive bowel sounds Palpation: soft Back/Spine no CVA tenderness General Back: other FROM Extremity normal to inspection General Extremety ED: Negative for edema, pulses abnormal or tenderness General Extremity: Negative for edema or pulses abnormal Neuro oriented x3, CN's II-XII intact bilaterally and no sensory deficits noted Sensorium / Orientation: awake and alert Motor Exam: strength 5/5 throughout Skin no rashes or lesions noted and no wounds MDM MDM MDM Narrative Medical decision making narrative: Patient was offered analgesics for his residual pain, he declined and preferred to be observed while we are any urinalysis. With observation, his pain completely resolved. He was monitored for a while longer, did not recur. Urinalysis interpreted by myself shows red cells no signs of infection, all consistent with his symptoms of a stone. Since his symptoms resolved, he is comfortable going home with strainers and no prescriptions, expectant management indicated at this time I do not think he needs to be scanned even though he has had large stones in the past, suspect this 1 passed into his bladder and he needs to urinate it out. Lab Data Attestation: I reviewed the patient's lab results. Labs: Laboratory Results - last 24 hr 09/27/22 23:37 Urine Color Yellow Urine Clarity Clear Urine pH 5.0 Ur Specific [place] 1.020 Urine Protein 30 H Urine Glucose (UA) Normal Urine Ketones 5 H Urine Occult Blood 250 H Urine Nitrite Negative Urine Bilirubin Negative Urine Urobilinogen Normal Ur Leukocyte Esterase Negative Urine RBC 25-50 SEEN Urine WBC 0 SEEN Ur Squamous Epith Cells 0-5 SEEN Urine Bacteria 0 SEEN Urine Mucus 0 SEEN Discharge Plan Triage Chief Complaint: Flank Pain ED Provider: Jonny Hoff Dx/Rx/DC Orders Clinical Impression: Renal colic on right side Instructions: ED Kidney Stone w/ Colic Prescriptions: No Action metformin 1,000 mg tablet 1,000 mg PO BID aspirin [Adult Aspirin Regimen] 81 mg tablet,delayed release (DR/EC) 81 mg PO QHS Label Comments: stopped for surgery pioglitazone 30 mg tablet 30 mg PO DAILY sildenafil 100 mg tablet 100 mg PO DAILY PRN (Reason: other) Label Comments: take 1 tablet by mouth by mouth prior to intercourse levothyroxine 75 mcg tablet 75 mcg PO DAILY amoxicillin 500 mg tablet 2,000 mg PO ONCE PRN Rx Instructions: Take 1 hour prior to dental procedure. nitroglycerin 0.4 MG tablet 0.4 mg sublingual Q5M PRN (Reason: Chest Pain) Label Comments: CHEST PAIN [id number] D3 1 EACH tablet 1 ea PO DAILY atorvastatin 80 mg tablet 80 mg PO QHS Qty: 90 3RF metoprolol tartrate 100 mg tablet 100 mg PO BID Qty: 180 3RF lisinopril 20 mg tablet 20 mg PO BID Qty: 180 3RF Primary Care Provider: Gustavo Vinson Chi Referrals: Urologist, your [Other] - 1 Week if not improving Gustavo Vinson Chi, MD [Primary Care Provider] - Disposition Disposition: Home, Self Care
[2022-09-28 00:07] LABS: Bacteria 0 SEEN /hpf (None Seen); Mucous, Urine 0 SEEN /hpf (<or=2+)
[2022-09-28 00:18] LABS: Color, Urine Yellow (Yellow); Glucose, Dipstick Normal (Normal); Ketone-Dipstick 5 mg/dl (Negative); Leukocyte Esterase-Dipstick Negative /ul (Negative); Nitrite-Dipstick Negative (Negative); Occult Blood-Urine 250 /ul (Negative); Protein-Dipstick 30 mg/dl (Negative); Urine Bilirubin Dipstick Negative (Negative); Urine Clarity Clear (Clear); Urine Urobilinogen Normal (Normal)
[2022-09-28 00:36] LABS: Red Blood Cells-Urine 25-50 SEEN /hpf (0-5); Squamous Epithelial Cells - UA 0-5 SEEN /hpf (0-5); White Blood Cells 0 SEEN /hpf (0-5)
== END 2022-09-28 01:44 | disposition home or self-care (01) ==
PROVIDERS: Emergency Provider Emergency Medicine; PCP Family Medicine Geriatric Medicine; Visit Provider Emergency Medicine
DX: N23 Unspecified renal colic (principal); I25.10 Atherosclerotic heart disease of native coronary artery without angina pectoris; G47.33 Obstructive sleep apnea (adult) (pediatric); E66.9 Obesity, unspecified; Z95.5 Presence of coronary angioplasty implant and graft; Z87.891 Personal history of nicotine dependence
CPT/HCPCS: 81001; 99283; A4216

== ENCOUNTER → 2022-10-27 | Outpatient (CLI) | payer MEDICARE, OTHER, SELFPAY ==
--- NOTE | 2022-10-27 16:19 | CT_ITS ---
STUDY: CT BRAIN WITHOUT CONTRAST REASON FOR EXAM: Male, 77 years old. CLOSED HEAD INJURY RADIATION DOSAGE (If Supplied By Facility): CTDIvol = ( 47.06 ) mGy, DLP = ( 925.62 ) mGycm TECHNIQUE: Transaxial CT imaging of the brain was performed without administration of intravenous contrast material. Individualized dose optimization techniques were used for this CT. COMPARISON: No relevant priors. FINDINGS: Normal soft tissue structures. Normal calvarium. Mild atrophy and periventricular white matter ischemic changes.. Normal basal ganglia and thalami. Normal brainstem. Normal cerebellum. There is no intracranial hemorrhage. There are no findings of an acute ischemic infarction. Postsurgical changes of the orbits. Normal visualized paranasal sinuses. CT/Brain/Head without Contrast IMPRESSION: Mild atrophy and periventricular white matter ischemic change No evidence for acute intracranial bleed. Electronically Signed: Douglas Quinteros MD at 16:39 EST ,
--- NOTE | 2022-10-27 16:25 | RAD_ITS ---
STUDY: X-RAY - RIGHT KNEE REASON FOR EXAM: Male, 77 years old. PAIN TECHNIQUE: 3 view(s) of the knee. COMPARISON: None. FINDINGS: Normal visualized distal femur. Normal visualized proximal tibia and fibula. Normal proximal tibiofibular articulation. Narrowed medial femorotibial compartment with mild valgus deformity. Normal lateral femorotibial compartment. Narrowed patellofemoral articulation. The soft tissue structures are unremarkable. RAD/Knee 3 Views IMPRESSION: Moderate osteoarthritic changes. No evidence for acute fracture or other significant bony pathology Electronically Signed: Douglas Quinteros MD at 20:57 EST ,
== END | disposition home or self-care (01) ==
LOC: CT 16:18
PROVIDERS: PCP Family Medicine Geriatric Medicine; Referring Provider Family Medicine Geriatric Medicine; Visit Provider Family Medicine Geriatric Medicine
DX: S09.90XA Unspecified injury of head, initial encounter (principal); M25.561 Pain in right knee
CPT/HCPCS: 70450; 73562

== ENCOUNTER → 2022-12-03 | Outpatient (CLI) | payer MEDICARE, SELFPAY ==
[2022-12-03 12:23] LABS: Absolute Lymphocyte Count 1.28 X10^3/uL (0.83-4.51); Absolute Neutrophil Count 5.5 X10^3/uL (2.0-7.7); Basophil# 0.03 X10^3/uL; Basophil% 0.4 % (0-1); Eosinophil# 0.19 X10^3/uL; Eosinophils% 2.5 % (0-5); Hematocrit 45.7 % (40-54); Hemoglobin 14.9 g/dL (13.0-16.5); Lymphocyte # 1.28 X10^3/ul (0.83-4.51); Lymphocyte % 16.6 % (19-41); Mean Corp Hgb Conc 32.6 g/dL (32-36); Mean Corpuscular Hgb 30.9 pg (27.0-32.0); Mean Corpuscular Volume 94.8 fL (80-94); Mean Platelet Vol. 9.7 fl (6.2-12.0); Monocyte# 0.67 X10^3/uL; Monocyte% 8.7 % (0-10); NRBC Flagged by Analyzer 0 % (0-5); Neutrophil # 5.47 X10^3/uL (2.7-7.7); Platelet Count 274 K/mm3 (150-450); RBC Distribution Width CV 12.8 % (11.6-14.6); RBC Distribution Width SD 44.9 fl (35.1-43.9); Red Blood Count 4.82 M/mm3 (4.6-6.2); White Blood Count 7.7 K/mm3 (4.4-11.0)
[2022-12-03 12:51] LABS: Vitamin D,25 Hydroxy 39.2 ng/mL
[2022-12-03 13:10] LABS: AST(SGOT) 22 U/L (15-37); Alanine Aminotransfer ALT/SGPT 42 U/L (16-61); Albumin, Serum 3.5 g/dL (3.2-5.0); Alkaline Phosphatase 45 U/L (45-117); Anion Gap 9 (5-15); BUN 17 mg/dL (7-18); BUN/Creat Ratio 17.7 RATIO (10-20); Chloride 108 mmol/L (98-107); Creatinine, Serum 0.96 mg/dL (0.70-1.30); EST Glomerular Filtration Rate 80 mL/min (>60); Est Glom Filt Rate - Afr Amer 97 mL/min (>60); Globulin 3.5 g/dL (2.2-4.2); Glucose 147 mg/dL (74-106); Potassium 4.3 mmol/L (3.5-5.1); Sodium Level 142 mmol/L (136-145); Thyroid Stim Hormone (TSH) 1.54 uIU/mL (0.358-3.74)
== END | disposition home or self-care (01) ==
PROVIDERS: PCP Family Medicine Geriatric Medicine; Visit Provider Family Medicine Geriatric Medicine
DX: E55.9 Vitamin D deficiency, unspecified (principal); E11.65 Type 2 diabetes mellitus with hyperglycemia; I10 Essential (primary) hypertension; N52.9 Male erectile dysfunction, unspecified
CPT/HCPCS: 36415; 80053; 82306; 84403; 84443; 85025

== ENCOUNTER 2022-12-25 21:01 | Emergency (ER) | payer MEDICARE, SELFPAY ==
[2022-12-25 21:01] VITALS: BP 175/97; PULSE 68; RESP 15; TEMP 36.4; O2SAT 94; BMI 34.9
[2022-12-25 21:28] LABS: Bacteria 0 SEEN /hpf (None Seen); Mucous, Urine 0 SEEN /hpf (<or=2+); Squamous Epithelial Cells - UA 0 SEEN /hpf (0-5); White Blood Cells 0 SEEN /hpf (0-5)
[2022-12-25 21:30] LABS: Color, Urine Yellow (Yellow); Glucose, Dipstick Normal (Normal); Ketone-Dipstick 5 mg/dl (Negative); Leukocyte Esterase-Dipstick Negative /ul (Negative); Nitrite-Dipstick Negative (Negative); Occult Blood-Urine 150 /ul (Negative); Protein-Dipstick 30 mg/dl (Negative); Specific Gravity, Urine 1.025 (1.002-1.030); Urine Bilirubin Dipstick Negative (Negative); Urine Clarity Clear (Clear); Urine Urobilinogen Normal (Normal)
[2022-12-25 21:36] LABS: Red Blood Cells-Urine 0-5 SEEN /hpf (0-5)
--- NOTE | 2022-12-25 21:48 | CT_ITS ---
STUDY: CT ABDOMEN AND PELVIS WITHOUT CONTRAST REASON FOR EXAM: Male, 77 years old. Kidney stone RADIATION DOSAGE (If Supplied By Facility): CTDIvol = ( 19.14 ) mGy, DLP = ( 1018.81 ) mGycm TECHNIQUE: Transaxial images were obtained from the dome of the diaphragm to the symphysis pubis without oral contrast, and without intravenous contrast. Sagittal and coronal images were reconstructed. Individualized dose optimization techniques were used for this CT. COMPARISON: August 18, 2020 CT scan abdomen and pelvis FINDINGS: There is minimal lower lobe atelectasis. And/or minimal fibrosis. There are trace coronary calcifications. Normal liver. Normal gallbladder and extrahepatic biliary system. Normal spleen. Normal pancreas. Normal bilateral adrenal glands. There is moderate right hydronephrosis. There is right-sided perinephric stranding. There is distention of the right ureter proximal to the distal ureter approximately 1.2 cm proximal to the bladder, where there is a distal right ureteral stone obstructing the ureter measuring 8 x 5.8 mm.. There is mild left perinephric stranding there is a punctate stone left kidney no hydronephrosis. Both kidneys are surrounded by hypertrophy of perinephric fat. Normal visualized stomach. Normal small intestine. There is mild to moderate stool within the colon. The appendix is visualized and appears normal. The aorta is partially calcified. Normal inferior vena cava. Normal retroperitoneum. The bladder is mostly decompressed. Normal visualized prostate gland. Normal abdominal wall. There is visualized degenerative change in the thoracolumbar spine. There is multilevel disc space narrowing spondylosis vacuum phenomenon. At L2-L3 there is a left lateral disc osteophyte protrusion moderate neural foramina narrowing mild central stenosis. At L3-L4 there is a right lateral disc osteophyte protrusion facet arthropathy moderate to severe neural foramina narrowing moderate central stenosis. At L4-L5 there is disc space narrowing vacuum phenomenon and slight anterolisthesis moderate neural foramina narrowing moderate central stenosis. At L5-S1 there is vacuum phenomena and disc space narrowing and mild left neural foramina narrowing. There is degenerative change of the SI joints. There is degenerative change of the hip joints. CT/Abdomen/Pelvis without Cont IMPRESSION: Moderate right hydronephrosis distention of the right ureter secondary to a stone measuring 8.0 x 5.8 mm in the distal right ureter approximately 1.2 cm proximal to the bladder. Punctate Stone left kidney no hydronephrosis Constipation. Advanced degenerative change of the thoracolumbar spine. Visualized coronary calcification. Minimal lower lobe atelectasis. Electronically Signed: Judy Arteaga MD at 22:42 EDT ,
--- NOTE | 2022-12-25 21:50 | EX.ED.DYSGE1 ---
HPI History of Present Illness Chief Complaint: Flank Pain Detail of Chief Complaint: Right flank pain Informant: patient Onset/Context/Timing Onset: Today Context: Gradual Onset Narrative Narrative: Patient presents secondary to right flank pain. He states this evening he noted pain in the right lower quadrant initially thought he may have appendicitis. As the night progressed he has pain wrapping around into his back and it feels more like his kidney stones that he has had previously. He did take 1 ibuprofen prior to arrival. He states his pain is currently only a 2 or 3. He has required surgery for kidney stones in the past. [facility] Medical History Anterolisthesis Arthritis Asthma Atherosclerosis of coronary artery of [place] heart without angina pectoris Bilateral headaches Environmental allergies Essential (primary) hypertension Hyperlipidemia Left renal stone Obstructive sleep apnea Paroxysmal supraventricular tachycardia Renal colic on right side Segmental and somatic dysfunction of lumbar region Segmental and somatic dysfunction of pelvic region Segmental and somatic dysfunction of thoracic region Type 2 diabetes mellitus Ureterolithiasis Home Medications nitroglycerin 0.4 mg sublingual tablet 0.4 mg sublingual Q5M PRN Chest Pain 12/20/13 [History Last Taken Unknown] glucosamine 750 mg-msm 125 mg-chondroitin 600 mg-D3 1,000 unit tablet 1 ea PO DAILY 11/30/17 [History Last Taken Unknown] metformin 1,000 mg tablet 1,000 mg PO BID 07/28/18 [History Last Taken Unknown] aspirin 81 mg tablet,delayed release (Adult Aspirin Regimen) 81 mg PO QHS 07/27/19 [History Last Taken 08/23/20] pioglitazone 30 mg tablet 30 mg PO DAILY 08/08/20 [History Last Taken Unknown] sildenafil 100 mg tablet 100 mg PO DAILY PRN other 08/08/20 [History Last Taken Unknown] atorvastatin 80 mg tablet 80 mg PO QHS #90 tabs 01/14/22 [Rx Last Taken Unknown] metoprolol tartrate 100 mg tablet 100 mg PO BID bp,heart #180 tabs 01/14/22 [Rx Last Taken Unknown] lisinopril 20 mg tablet 20 mg PO BID b p #180 tabs 07/14/22 [Rx Last Taken Unknown] amoxicillin 500 mg tablet 2,000 mg PO ONCE PRN 09/08/22 [History Last Taken Unknown] levothyroxine 75 mcg tablet 75 mcg PO DAILY 09/08/22 [History Last Taken Unknown] hydrocodone-acetaminophen 5-325mg 5mg-325mg 1 tab PO Q6H PRN PRN Pain 3 days #10 TABLETS 12/25/22 [Rx Last Taken Unknown] ondansetron 4 mg disintegrating tablet 4 mg PO Q8H PRN PRN Nausea #10 tabs 12/25/22 [Rx Last Taken Unknown] tamsulosin 0.4 mg capsule (Flomax) 0.4 mg PO DAILY #7 caps 12/25/22 [Rx Last Taken Unknown] Allergy/AdvReac Type Severity Reaction Status Date / Time No Known Allergies Allergy Verified 12/25/22 21:05 Family History Mother CAD (coronary artery disease) Myocardial infarction Father No problems noted. Other Arthritis Heart disease Hypertension Surgical History History of ankle surgery History of coronary artery stent placement (01/01/99) Social History Smoking Status: Former smoker how long ago did patient quit smokin alcohol intake: current alcohol intake frequency: a few times a month Alcohol type: beer and wine substance use type: does not use caffeine: Yes Type: tea Number of servings: 1 what type of physical activity do you participate in: none ROS ROS ED Constitutional Constitutional ED: Denies chills or fever(s) Eyes Eyes: Denies change in vision or discharge from eye(s) ENT ENT ED: Denies discharge from eye(s), rhinorrhea or sore throat Cardiovascular Cardiovascular: Denies chest pain or palpitations Respiratory/Chest Respiratory/Chest: Denies cough or dyspnea Gastrointestinal Gastrointestinal: Reports abdominal pain; Denies diarrhea, nausea or vomiting Genitourinary Genitourinary ED: Denies difficulty urinating or dysuria Musculoskeletal Musculoskeletal: Reports back pain; Denies extremity pain Integumentary Denies Abrasions or rash Neurologic Neurologic: Denies headache(s) or weakness Allergic/Immunologic Allergic/Immunologic ED: Denies lip swelling or urticaria EXAM Physical Exam Const Vital Signs: 12/25/22 21:01 12/25/22 22:46 12/25/22 23:39 Temperature 97.5 F L Temperature Source Temporal Pulse Rate 68 75 Respiratory Rate 15 Respiratory Effort Normal Non-Labored Respiratory Pattern Normal Blood Pressure 175/97 H 132/64 H Blood Pressure Mean 123 Pulse Ox 94 95 Oxygen Delivery Method Room Air Positive well nourished and well developed General Appearance ED: well developed HEENT Reports normocephalic and head/scalp atraumatic Eyes PERRL and EOMs intact bilaterally Neck supple Chest Wall inspection of chest normal and palpation of chest normal Resp normal respiratory effort and clear to auscultation bilaterally Cardio regular rate and regular rhythm GI normal to inspection, nondistended, normoactive bowel sounds Palpation: soft Back/Spine no CVA tenderness Extremity normal to inspection Neuro oriented x3 and no sensory deficits noted Sensorium / Orientation: alert Motor Exam: strength 5/5 throughout Psych mental status grossly normal Skin no rashes or lesions noted MDM MDM MDM Narrative Medical decision making narrative: Patient was given 15 mg of IV Toradol. He declined anything stronger for pain at this time. IV fluids initiated. Labwork obtained to evaluate for leukocytosis, anemia, and electrolyte derangement. Urinalysis obtained to evaluate for infection/hematuria. CT flank obtained to evaluate for kidney stone. Lab Data Attestation: I reviewed the patient's lab results. Labs: Laboratory Results - last 24 hr 12/25/22 12/25/22 12/25/22 21:20 22:05 22:05 WBC 7.5 RBC 4.79 Hgb 14.8 Hct 45.0 MCV 93.9 MCH 30.9 MCHC 32.9 RDW Std Deviation 46.6 H RDW Coeff of Zainab 13.5 Plt Count 267 MPV 10.4 Immature Gran % (Auto) 0.300 Neut % (Auto) 65.2 Lymph % (Auto) 19.1 [place] % (Auto) 12.7 H Eos % (Auto) 2.0 Baso % (Auto) 0.7 Absolute Neuts (auto) 4.9 Absolute Lymphs (auto) 1.43 Nucleated RBC % 0 Sodium 142 Potassium 4.1 Chloride 109 H Carbon Dioxide 28.0 Anion Gap 5 BUN 19 H Creatinine 1.43 H Estim Creat Clear Calc 42.57 Est GFR (MDRD) Af Amer 61 Est GFR (MDRD) Non-Af 51 L BUN/Creatinine Ratio 13.3 Glucose 153 H Calcium 10.0 Urine Color Yellow Urine Clarity Clear Urine pH 5.0 Ur Specific [place] 1.025 Urine Protein 30 H Urine Glucose (UA) Normal Urine Ketones 5 H Urine Occult Blood 150 H Urine Nitrite Negative Urine Bilirubin Negative Urine Urobilinogen Normal Ur Leukocyte Esterase Negative Urine RBC 0-5 SEEN Urine WBC 0 SEEN Ur Squamous Epith Cells 0 SEEN Urine Bacteria 0 SEEN Urine Mucus 0 SEEN Radiography Diagnostic Testing: Clinical Impression(s) from Imaging Studies Abdomen/Pelvis CT 12/25/22 21:48 IMPRESSION: Moderate right hydronephrosis distention of the right ureter secondary to a stone measuring 8.0 x 5.8 mm in the distal right ureter approximately 1.2 cm proximal to the bladder. Punctate Stone left kidney no hydronephrosis Constipation. Advanced degenerative change of the thoracolumbar spine. Visualized coronary calcification. Minimal lower lobe atelectasis. Electronically Signed: Judy Arteaga MD at 22:42 EDT Reading Location ID and State: [facility] / [place] Tel , Service support , Differential Diagnosis Abdominal Pain: Appendicitis Reason(s) appendicitis less likely: Positive for clinical exam does not supportclinical exam does not support and Appendix Normal on Imaging and UTI Reason(s) UTI less likely: no evidence of infection on urinalysis Additional Tests and Interventions Additional Tests or Interventions: CBC unremarkable. Chemistry studies significant for a creatinine of 1.43. This is slightly elevated from his baseline of 0.9-1.0. Urinalysis reveals 3-5 RBCs but no sign of infection. CT flank reveals an 8 x 6 mm stone in the distal right ureter with hydronephrosis. On repeat evaluation patient denies any pain. Test results are discussed with patient and . He will be written for analgesics for home. He will call Dr. Trimble's office on Wednesday for follow-up. Return instructions are provided. Discharge Plan Triage Chief Complaint: Flank Pain ED Provider: Erika Davalos Dx/Rx/DC Orders Clinical Impression: Ureterolithiasis Instructions: ED Kidney Stone w/ Colic Prescriptions: New hydrocodone-acetaminophen 5-325 mg tablet 1 tab PO Q6H PRN PRN (Reason: Pain) 3 Days Qty: 10 0RF ondansetron 4 mg tablet,disintegrating 4 mg PO Q8H PRN PRN (Reason: Nausea) Qty: 10 0RF tamsulosin [Flomax] 0.4 mg capsule 0.4 mg PO DAILY Qty: 7 0RF No Action metformin 1,000 mg tablet 1,000 mg PO BID aspirin [Adult Aspirin Regimen] 81 mg tablet,delayed release (DR/EC) 81 mg PO QHS Label Comments: stopped for surgery pioglitazone 30 mg tablet 30 mg PO DAILY sildenafil 100 mg tablet 100 mg PO DAILY PRN (Reason: other) Label Comments: take 1 tablet by mouth by mouth prior to intercourse levothyroxine 75 mcg tablet 75 mcg PO DAILY amoxicillin 500 mg tablet 2,000 mg PO ONCE PRN Rx Instructions: Take 1 hour prior to dental procedure. nitroglycerin 0.4 MG tablet 0.4 mg sublingual Q5M PRN (Reason: Chest Pain) Label Comments: CHEST PAIN [id number]-vit D3 1 EACH tablet 1 ea PO DAILY atorvastatin 80 mg tablet 80 mg PO QHS Qty: 90 3RF metoprolol tartrate 100 mg tablet 100 mg PO BID Qty: 180 3RF lisinopril 20 mg tablet 20 mg PO BID Qty: 180 3RF Primary Care Provider: Gustavo Vinson Chi Referrals: Alex Trimble MD [Med Staff - Active Staff] - 3-5 Days if not improving Gustavo Vinson Chi, MD [Primary Care Provider] - Disposition Disposition: Home, Self Care Discharge Date/Time: 12/25/22 23:40
[2022-12-25] MEDS: 0.9% Normal Saline 1,000 ML 150 ML IV (22:14)
[2022-12-25] MEDS: Ketorolac 15 MG/ML Vial IV (22:15)
[2022-12-25 22:22] LABS: Absolute Lymphocyte Count 1.43 X10^3/uL (0.83-4.51); Absolute Neutrophil Count 4.9 X10^3/uL (2.0-7.7); Basophil# 0.05 X10^3/uL; Basophil% 0.7 % (0-1); Eosinophil# 0.15 X10^3/uL; Hemoglobin 14.8 g/dL (13.0-16.5); Lymphocyte # 1.43 X10^3/ul (0.83-4.51); Lymphocyte % 19.1 % (19-41); Mean Corp Hgb Conc 32.9 g/dL (32-36); Mean Corpuscular Hgb 30.9 pg (27.0-32.0); Mean Corpuscular Volume 93.9 fL (80-94); Mean Platelet Vol. 10.4 fl (6.2-12.0); Monocyte# 0.95 X10^3/uL; Monocyte% 12.7 % (0-10); NRBC Flagged by Analyzer 0 % (0-5); Neutrophil # 4.87 X10^3/uL (2.7-7.7); Neutrophil % 65.2 % (47-70); Platelet Count 267 K/mm3 (150-450); RBC Distribution Width CV 13.5 % (11.6-14.6); RBC Distribution Width SD 46.6 fl (35.1-43.9); Red Blood Count 4.79 M/mm3 (4.6-6.2); White Blood Count 7.5 K/mm3 (4.4-11.0)
[2022-12-25 22:48] LABS: Anion Gap 5 (5-15); BUN 19 mg/dL (7-18); BUN/Creat Ratio 13.3 RATIO (10-20); Chloride 109 mmol/L (98-107); Creatinine, Serum 1.43 mg/dL (0.70-1.30); EST Glomerular Filtration Rate 51 mL/min (>60); Est Glom Filt Rate - Afr Amer 61 mL/min (>60); Estimated Creatinine Clearance 42.57 ml/min; Glucose 153 mg/dL (74-106); Potassium 4.1 mmol/L (3.5-5.1); Sodium Level 142 mmol/L (136-145)
[2022-12-25 23:39] VITALS: BP 132/64; PULSE 75; O2SAT 95
== END 2022-12-25 23:40 | disposition home or self-care (01) ==
PROVIDERS: Emergency Provider Emergency Medicine; PCP Family Medicine Geriatric Medicine; Visit Provider Emergency Medicine
DX: N20.2 Calculus of kidney with calculus of ureter (principal); I25.10 Atherosclerotic heart disease of native coronary artery without angina pectoris; G47.33 Obstructive sleep apnea (adult) (pediatric); Z95.5 Presence of coronary angioplasty implant and graft; Z87.891 Personal history of nicotine dependence
CPT/HCPCS: 74176; 80048; 81001; 85025; 96374; 99282; J7030

== ENCOUNTER → 2023-01-04 | Outpatient (CLI) | payer MEDICARE, SELFPAY ==
[2023-01-09 16:22] LABS: Source Not Provided
== END | disposition home or self-care (01) ==
LOC: LABSPEC 16:34
PROVIDERS: PCP Family Medicine Geriatric Medicine; Referring Provider Urology; Visit Provider Urology
DX: N20.1 Calculus of ureter (principal)
CPT/HCPCS: 82360

== ENCOUNTER → 2023-02-26 | Outpatient (CLI) | payer MEDICARE, SELFPAY ==
--- NOTE | 2023-02-26 12:58 | CT_ITS ---
STUDY: CT ABDOMEN AND PELVIS WITHOUT CONTRAST REASON FOR EXAM: Male, 77 years old. CALCULUS OF URETER RADIATION DOSAGE (If Supplied By Facility): CTDIvol = ( 17.28 ) mGy, DLP = ( 910.67 ) mGycm TECHNIQUE: Transaxial images were obtained from the dome of the diaphragm to the symphysis pubis without oral contrast, and without intravenous contrast. Sagittal and coronal images were reconstructed. Individualized dose optimization techniques were used for this CT. COMPARISON: December 25, 2022. FINDINGS: The visualized lung bases are unremarkable. The visualized portions of the heart are within normal limits. There are coronary arterial calcifications. Normal liver. Normal gallbladder and extrahepatic biliary system. Normal spleen. Normal pancreas. Normal bilateral adrenal glands. Normal right kidney. Normal left kidney. Small hiatal hernia. Normal small intestine. Normal colon. The appendix is visualized and appears normal. Calcified abdominal aorta. Normal inferior vena cava. Normal retroperitoneum. Normal urinary bladder. Normal abdominal wall. Degenerative vertebral changes. Grade 1 spondylolisthesis at L4-5. CT/Abdomen/Pelvis without Cont IMPRESSION: Small hiatal hernia. No hydronephrosis. No obstructive urinary calculi. Electronically Signed: Audi Strickland DO at 23:36 EDT Reading Location ID and State: [facility] / [place] Tel [phone], Service support ,
== END | disposition home or self-care (01) ==
PROVIDERS: PCP Family Medicine Geriatric Medicine; Referring Provider Urology; Visit Provider Urology
DX: N20.1 Calculus of ureter (principal)
CPT/HCPCS: 74176

== ENCOUNTER → 2023-03-01 | Outpatient (CLI) | payer MEDICARE, SELFPAY ==
[2023-03-01 11:25] LABS: Absolute Lymphocyte Count 1.44 X10^3/uL (0.83-4.51); Absolute Neutrophil Count 4.1 X10^3/uL (2.0-7.7); Basophil# 0.05 X10^3/uL; Basophil% 0.8 % (0-1); Eosinophil# 0.34 X10^3/uL; Eosinophils% 5.2 % (0-5); Hematocrit 46.6 % (40-54); Hemoglobin 14.9 g/dL (13.0-16.5); Lymphocyte # 1.44 X10^3/ul (0.83-4.51); Lymphocyte % 22.1 % (19-41); Mean Corpuscular Hgb 30.7 pg (27.0-32.0); Mean Corpuscular Volume 96.1 fL (80-94); Monocyte# 0.62 X10^3/uL; Monocyte% 9.5 % (0-10); NRBC Flagged by Analyzer 0 % (0-5); Neutrophil # 4.06 X10^3/uL (2.7-7.7); Neutrophil % 62.1 % (47-70); Platelet Count 227 K/mm3 (150-450); RBC Distribution Width CV 13.1 % (11.6-14.6); RBC Distribution Width SD 46.6 fl (35.1-43.9); Red Blood Count 4.85 M/mm3 (4.6-6.2); White Blood Count 6.5 K/mm3 (4.4-11.0)
[2023-03-01 11:49] LABS: Vitamin D,25 Hydroxy 62.7 ng/mL
[2023-03-01 11:57] LABS: AST(SGOT) 20 U/L (15-37); Alanine Aminotransfer ALT/SGPT 34 U/L (16-61); Albumin, Serum 3.5 g/dL (3.2-5.0); Alkaline Phosphatase 43 U/L (45-117); Bilirubin, Direct 0.23 mg/dL (0.00-0.30); Cholesterol 99 mg/dL (200); Globulin 3.5 g/dL (2.2-4.2); High Density Lipoprotein 43 mg/dL; Thyroid Stim Hormone (TSH) 1.31 uIU/mL (0.358-3.74); Triglycerides 71 mg/dL; Very Low Density Lipoprotein 14 mg/dL (5-40)
== END | disposition home or self-care (01) ==
LOC: LAB 10:43
PROVIDERS: PCP Family Medicine Geriatric Medicine; Referring Provider Nurse Practitioner Gerontology; Visit Provider Nurse Practitioner Gerontology
DX: E11.65 Type 2 diabetes mellitus with hyperglycemia (principal); I10 Essential (primary) hypertension; E55.9 Vitamin D deficiency, unspecified
CPT/HCPCS: 36415; 80061; 80076; 82306; 84443; 85025

== ENCOUNTER → 2023-06-07 | Outpatient (CLI) | payer MEDICARE, SELFPAY ==
[2023-06-07 11:00] LABS: Absolute Neutrophil Count 4.1 X10^3/uL (2.0-7.7); Basophil# 0.05 X10^3/uL; Basophil% 0.8 % (0-1); Eosinophil# 0.24 X10^3/uL; Eosinophils% 3.8 % (0-5); Hematocrit 46.4 % (40-54); Hemoglobin 14.8 g/dL (13.0-16.5); Lymphocyte % 20.6 % (19-41); Mean Corp Hgb Conc 31.9 g/dL (32-36); Mean Corpuscular Hgb 30.1 pg (27.0-32.0); Mean Corpuscular Volume 94.5 fL (80-94); Mean Platelet Vol. 10.2 fl (6.2-12.0); Monocyte# 0.58 X10^3/uL; Monocyte% 9.2 % (0-10); NRBC Flagged by Analyzer 0 % (0-5); Neutrophil # 4.12 X10^3/uL (2.7-7.7); Neutrophil % 65.1 % (47-70); Platelet Count 245 K/mm3 (150-450); RBC Distribution Width CV 13.4 % (11.6-14.6); RBC Distribution Width SD 46.3 fl (35.1-43.9); Red Blood Count 4.91 M/mm3 (4.6-6.2); White Blood Count 6.3 K/mm3 (4.4-11.0)
[2023-06-07 11:15] LABS: Vitamin D,25 Hydroxy 48.7 ng/mL
[2023-06-07 11:22] LABS: ALB/GLOB Ratio 1.1 RATIO (0.9-2.4); AST(SGOT) 23 U/L (15-37); Alanine Aminotransfer ALT/SGPT 42 U/L (16-61); Albumin, Serum 3.7 g/dL (3.2-5.0); Alkaline Phosphatase 44 U/L (45-117); Anion Gap 6 (5-15); BUN 15 mg/dL (7-18); BUN/Creat Ratio 14.7 RATIO (10-20); Calcium,Total 9.3 mg/dL (8.5-10.1); Chloride 106 mmol/L (98-107); Creatinine, Serum 1.02 mg/dL (0.70-1.30); EST Glomerular Filtration Rate 75 mL/min (>60); Est Glom Filt Rate - Afr Amer 91 mL/min (>60); Globulin 3.3 g/dL (2.2-4.2); Glucose 146 mg/dL (74-106); Potassium 4.1 mmol/L (3.5-5.1); Sodium Level 140 mmol/L (136-145); Thyroid Stim Hormone (TSH) 2.67 uIU/mL (0.358-3.74)
== END | disposition home or self-care (01) ==
LOC: POLAB3 10:16
PROVIDERS: PCP Family Medicine Geriatric Medicine; Visit Provider Family Medicine Geriatric Medicine
DX: E11.65 Type 2 diabetes mellitus with hyperglycemia (principal); E55.9 Vitamin D deficiency, unspecified; I10 Essential (primary) hypertension
CPT/HCPCS: 36415; 80053; 82306; 84443; 85025

== ENCOUNTER → 2023-08-28 | Outpatient (CLI) | payer MEDICARE, SELFPAY ==
[2023-08-28 10:20] LABS: AST(SGOT) 22 U/L (15-37); Alanine Aminotransfer ALT/SGPT 37 U/L (16-61); Albumin, Serum 3.5 g/dL (3.2-5.0); Alkaline Phosphatase 42 U/L (45-117); Bilirubin, Direct 0.22 mg/dL (0.00-0.30); Cholesterol 112 mg/dL (200); Globulin 3.5 g/dL (2.2-4.2); High Density Lipoprotein 47 mg/dL; Triglycerides 72 mg/dL; Very Low Density Lipoprotein 14 mg/dL (5-40)
== END | disposition home or self-care (01) ==
LOC: LAB 09:07
PROVIDERS: PCP Family Medicine Geriatric Medicine; Referring Provider Nurse Practitioner Gerontology; Visit Provider Nurse Practitioner Gerontology
DX: E78.00 Pure hypercholesterolemia, unspecified (principal)
CPT/HCPCS: 36415; 80061; 80076

== ENCOUNTER → 2023-10-05 | Outpatient (CLI) | payer MEDICARE, SELFPAY ==
--- NOTE | 2023-10-05 09:19 | SKIN_PTH ---
PATHOLOGY RESULTS PATIENT: SYEDA LOBO LOC: [facility] U#:[id number] AGE/SX: 78/M ROOM: RE10/05/[address]: Dr. Gustavo Vinson MD : 1945 BED: DIS: 10/05/2023 SPEC #: [id number] RECD: 10/05/23 13:27 STATUS: HODAN JUAN #: [id number] KESHIA: 10/05/23 09:[address]: Gustavo Vinson [facility] DEPT: SURGICAL PATHOLOGY RECD BY: Macey Bianchi ENTERED: 10/05/23 13:28 SP TYPE: SKIN Tissues: Skin of forehead Procedures: Surgery Specimen Level IV HEADER OPERATION: Not noted PRE-OP DIAGNOSIS: L81.9 Disorder of pigmentation TISSUE SUBMITTED: Forehead MICROSCOPIC DIAGNOSIS Forehead lesion, shave biopsy: Seborrheic keratosis with focal features of actinic keratosis with mild atypia. See comment. BINU:giorgio 10/06/2023 COMMENT The specimen consists of superficial portion of the lesion. Complete excision of the lesion is suggested for definite classification, if clinically indicated. Case has been reviewed in consultation with Dr. Longoria who concurs with the above diagnosis. IDC:AM MICROSCOPIC DESCRIPTION Slides are reviewed. GROSS DESCRIPTION Received in fixative is one container labeled with the patient's name and designated forehead. The specimen consists of a piece of doran-white skin measuring 0.6 x 0.5 x 0.1 cm. The specimen is inked, serially sectioned and submitted entirely in one cassette. / SJ:rg 10/05/2023 TC:5 CPT: 76903
== END | disposition home or self-care (01) ==
LOC: LABSPEC 10:05
PROVIDERS: PCP Family Medicine Geriatric Medicine; Visit Provider Family Medicine Geriatric Medicine
DX: L81.9 Disorder of pigmentation, unspecified (principal)
CPT/HCPCS: 88305

== ENCOUNTER → 2023-12-08 | Outpatient (CLI) | payer MEDICARE, SELFPAY ==
[2023-12-08 11:09] LABS: Absolute Lymphocyte Count 1.19 X10^3/uL (0.83-4.51); Basophil# 0.05 X10^3/uL; Basophil% 0.8 % (0-1); Eosinophil# 0.33 X10^3/uL; Eosinophils% 5.2 % (0-5); Hematocrit 46.8 % (40-54); Lymphocyte # 1.19 X10^3/ul (0.83-4.51); Lymphocyte % 18.9 % (19-41); Mean Corp Hgb Conc 32.1 g/dL (32-36); Mean Corpuscular Hgb 29.9 pg (27.0-32.0); Mean Corpuscular Volume 93.2 fL (80-94); Mean Platelet Vol. 10.3 fl (6.2-12.0); Monocyte# 0.75 X10^3/uL; Monocyte% 11.9 % (0-10); NRBC Flagged by Analyzer 0 % (0-5); Neutrophil # 3.97 X10^3/uL (2.7-7.7); Neutrophil % 62.9 % (47-70); Platelet Count 248 K/mm3 (150-450); RBC Distribution Width CV 13.3 % (11.6-14.6); RBC Distribution Width SD 45.1 fl (35.1-43.9); Red Blood Count 5.02 M/mm3 (4.6-6.2); White Blood Count 6.3 K/mm3 (4.4-11.0)
[2023-12-08 11:27] LABS: Vitamin D,25 Hydroxy 45.5 ng/mL
[2023-12-08 11:36] LABS: ALB/GLOB Ratio 1.1 RATIO (0.9-2.4); AST(SGOT) 21 U/L (15-37); Alanine Aminotransfer ALT/SGPT 42 U/L (16-61); Albumin, Serum 3.6 g/dL (3.2-5.0); Alkaline Phosphatase 43 U/L (45-117); Anion Gap 6 (5-15); BUN 16 mg/dL (7-18); Calcium,Total 9.5 mg/dL (8.5-10.1); Chloride 107 mmol/L (98-107); Cholesterol 109 mg/dL (200); Creatinine, Serum 0.94 mg/dL (0.70-1.30); EST Glomerular Filtration Rate 82 mL/min (>60); Est Glom Filt Rate - Afr Amer 100 mL/min (>60); Globulin 3.4 g/dL (2.2-4.2); Glucose 150 mg/dL (74-106); High Density Lipoprotein 46 mg/dL; Potassium 4.3 mmol/L (3.5-5.1); Sodium Level 139 mmol/L (136-145); Thyroid Stim Hormone (TSH) 1.39 uIU/mL (0.358-3.74); Triglycerides 63 mg/dL; Very Low Density Lipoprotein 13 mg/dL (5-40)
[2023-12-08 13:34] LABS: Hemoglobin A1c 7.4 % (3.8-5.6)
== END | disposition home or self-care (01) ==
LOC: POLAB3 09:49
PROVIDERS: PCP Family Medicine Geriatric Medicine; Visit Provider Family Medicine Geriatric Medicine
DX: E11.65 Type 2 diabetes mellitus with hyperglycemia (principal); I10 Essential (primary) hypertension; E55.9 Vitamin D deficiency, unspecified; E78.5 Hyperlipidemia, unspecified
CPT/HCPCS: 36415; 80053; 80061; 82306; 83036; 84443; 85025

== ENCOUNTER → 2024-06-09 | Outpatient (CLI) | payer MEDICARE, SELFPAY ==
[2024-06-09 10:02] LABS: Absolute Lymphocyte Count 1.87 X10^3/uL (0.83-4.51); Absolute Neutrophil Count 4.1 X10^3/uL (2.0-7.7); Basophil# 0.05 X10^3/uL; Basophil% 0.7 % (0-1); Eosinophil# 0.34 X10^3/uL; Eosinophils% 4.6 % (0-5); Hematocrit 45.4 % (40-54); Hemoglobin 14.6 g/dL (13.0-16.5); Lymphocyte # 1.87 X10^3/ul (0.83-4.51); Lymphocyte % 25.5 % (19-41); Mean Corp Hgb Conc 32.2 g/dL (32-36); Mean Corpuscular Hgb 30.2 pg (27.0-32.0); Mean Corpuscular Volume 93.8 fL (80-94); Mean Platelet Vol. 10.2 fl (6.2-12.0); Monocyte% 12.3 % (0-10); NRBC Flagged by Analyzer 0 % (0-5); Neutrophil # 4.14 X10^3/uL (2.7-7.7); Neutrophil % 56.5 % (47-70); Platelet Count 254 K/mm3 (150-450); RBC Distribution Width CV 13.3 % (11.6-14.6); RBC Distribution Width SD 45.6 fl (35.1-43.9); Red Blood Count 4.84 M/mm3 (4.6-6.2); White Blood Count 7.3 K/mm3 (4.4-11.0)
[2024-06-09 11:02] LABS: ALB/GLOB Ratio 1.1 RATIO (0.9-2.4); AST(SGOT) 23 U/L (15-37); Alanine Aminotransfer ALT/SGPT 40 U/L (16-61); Albumin, Serum 3.7 g/dL (3.2-5.0); Alkaline Phosphatase 49 U/L (45-117); Anion Gap 7 (5-15); BUN 15 mg/dL (7-18); BUN/Creat Ratio 15.3 RATIO (10-20); Calcium,Total 9.2 mg/dL (8.5-10.1); Chloride 110 mmol/L (98-107); Cholesterol 105 mg/dL (200); Creatinine, Serum 0.98 mg/dL (0.70-1.30); EST Glomerular Filtration Rate 78 mL/min (>60); Est Glom Filt Rate - Afr Amer 95 mL/min (>60); Globulin 3.3 g/dL (2.2-4.2); Glucose 153 mg/dL (74-106); High Density Lipoprotein 49 mg/dL; Potassium 4.1 mmol/L (3.5-5.1); Sodium Level 140 mmol/L (136-145); Triglycerides 83 mg/dL; Very Low Density Lipoprotein 17 mg/dL (5-40)
[2024-06-09 11:24] LABS: Vitamin D,25 Hydroxy 37.3 ng/mL
[2024-06-09 12:19] LABS: Hemoglobin A1c 7.5 % (3.8-5.6)
== END | disposition home or self-care (01) ==
LOC: POLAB3 09:09
PROVIDERS: PCP Family Medicine Geriatric Medicine; Visit Provider Family Medicine Geriatric Medicine
DX: E11.65 Type 2 diabetes mellitus with hyperglycemia (principal); E55.9 Vitamin D deficiency, unspecified; E78.5 Hyperlipidemia, unspecified; I10 Essential (primary) hypertension
CPT/HCPCS: 36415; 80053; 80061; 82306; 83036; 84443; 85025

== ENCOUNTER 2024-06-12 15:58 | Outpatient (CLI) | payer MEDICARE, SELFPAY | END 2024-06-12 23:59 | disposition home or self-care (01) | LOC: POLAB3 15:59 | PROVIDERS: PCP Family Medicine Geriatric Medicine; Visit Provider Family Medicine Geriatric Medicine | DX: R50.9 Fever, unspecified (principal) | CPT/HCPCS: 87631 ==

== ENCOUNTER → 2024-10-31 | Outpatient (CLI) | payer MEDICARE, SELFPAY ==
[2024-10-31 09:23] LABS: AST(SGOT) 22 U/L (15-37); Alanine Aminotransfer ALT/SGPT 37 U/L (16-61); Albumin, Serum 3.5 g/dL (3.2-5.0); Alkaline Phosphatase 43 U/L (45-117); Bilirubin, Direct 0.16 mg/dL (0.00-0.30); Cholesterol 107 mg/dL (200); Globulin 3.4 g/dL (2.2-4.2); High Density Lipoprotein 48 mg/dL; Protein, Total 6.9 g/dL (6.4-8.2); Triglycerides 69 mg/dL; Very Low Density Lipoprotein 14 mg/dL (5-40)
== END | disposition home or self-care (01) ==
LOC: LAB 07:41
PROVIDERS: PCP Family Medicine Geriatric Medicine; Referring Provider Internal Medicine Cardiovascular Disease; Visit Provider Internal Medicine Cardiovascular Disease
DX: E78.5 Hyperlipidemia, unspecified (principal); I25.10 Atherosclerotic heart disease of native coronary artery without angina pectoris
CPT/HCPCS: 36415; 80061; 80076

== ENCOUNTER → 2024-12-08 | Outpatient (CLI) | payer MEDICARE, SELFPAY ==
[2024-12-08 09:28] LABS: Absolute Lymphocyte Count 1.37 X10^3/uL (0.83-4.51); Absolute Neutrophil Count 4.7 X10^3/uL (2.0-7.7); Basophil# 0.04 X10^3/uL; Basophil% 0.6 % (0-1); Eosinophil# 0.28 X10^3/uL; Eosinophils% 3.9 % (0-5); Hematocrit 47.4 % (40-54); Hemoglobin 15.5 g/dL (13.0-16.5); Lymphocyte # 1.37 X10^3/ul (0.83-4.51); Lymphocyte % 19.2 % (19-41); Mean Corp Hgb Conc 32.7 g/dL (32-36); Mean Corpuscular Hgb 30.5 pg (27.0-32.0); Mean Corpuscular Volume 93.1 fL (80-94); Mean Platelet Vol. 9.9 fl (6.2-12.0); Monocyte# 0.73 X10^3/uL; Monocyte% 10.2 % (0-10); NRBC Flagged by Analyzer 0 % (0-5); Neutrophil # 4.69 X10^3/uL (2.7-7.7); Neutrophil % 65.7 % (47-70); Platelet Count 247 K/mm3 (150-450); RBC Distribution Width SD 44.4 fl (35.1-43.9); Red Blood Count 5.09 M/mm3 (4.6-6.2); White Blood Count 7.1 K/mm3 (4.4-11.0)
[2024-12-08 10:08] LABS: Hemoglobin A1c 8.3 % (<=5.6)
[2024-12-08 10:14] LABS: ALB/GLOB Ratio 1.5 RATIO (0.9-2.4); AST(SGOT) 26 U/L (<=37); Alanine Aminotransfer ALT/SGPT 32 U/L (<=46); Albumin, Serum 4.2 g/dL (3.4-4.8); Alkaline Phosphatase 47 U/L (40-129); Anion Gap 12 (5-15); BUN 14 mg/dL (4-19); BUN/Creat Ratio 14.7 RATIO (10-20); Carbon Dioxide 22.4 mmol/L (21.0-32.0); Chloride 105 mmol/L (98-108); Cholesterol 113 mg/dL (<=200); Creatinine, Serum 0.94 mg/dL (0.70-1.20); EST Glomerular Filtration Rate 82 (>60); Globulin 2.8 g/dL (2.2-4.2); Glucose 157 mg/dL (70-99); High Density Lipoprotein 48 mg/dL; Low Density Lipoprotein Calc. 49 mg/dL; Potassium 4.2 mmol/L (3.3-5.1); Sodium Level 139 mmol/L (133-145); Triglycerides 80 mg/dL; Very Low Density Lipoprotein 16 mg/dL (5-40); Vitamin D,25 Hydroxy 26.4 ng/mL (30-100); cholesterol:hdl ratio screen 2.37
[2024-12-08 11:04] LABS: Microalbumin,Random Urine 57.5 mg/L (NO RANGE EST.); Microalbumin:Creatinine Ratio 321.2 mg/g CRE
== END | disposition home or self-care (01) ==
LOC: POLAB3 09:17
PROVIDERS: PCP Family Medicine Geriatric Medicine; Visit Provider Family Medicine Geriatric Medicine
DX: E11.65 Type 2 diabetes mellitus with hyperglycemia (principal); E78.5 Hyperlipidemia, unspecified; I10 Essential (primary) hypertension; E55.9 Vitamin D deficiency, unspecified
CPT/HCPCS: 36415; 80053; 80061; 82043; 82306; 82570; 83036; 84443; 85025

== ENCOUNTER → 2025-03-06 | Outpatient (CLI) | payer MEDICARE, SELFPAY ==
[2025-03-06 13:32] LABS: Hemoglobin A1c 6.9 % (<=5.6)
--- OUTSIDE RECORDS SUMMARY | 2025-03-06 22:36 | XMS RPT_ITS | CCD ---
Author Organization [facility] Care Team Providers Care Reconciliation Manager Name Role Phone Dr. Gustavo Vinson Chi Primary Care Provider Karel, Dr. Gustavo Babb Referring Provider Dr. Lamont Kaiser Attending Provider Karel, Dr. Gustavo Babb Primary Care Provider [phone] Karel, Dr. Gustavo Babb Referring Provider Akil SHOTBLAST EQUIPMENT OPERATOR, SHOTBLAST EQUIPMENT OPERATOR-C Lisha Attending Provider Karel, Dr. Gustavo Babb Primary Care Provider [phone] Karel, Dr. Gustavo Babb Referring Provider Akil SHOTBLAST EQUIPMENT OPERATOR, SHOTBLAST EQUIPMENT OPERATOR-C Lisha Attending Provider Lamont Kaiser Attending Unavailable Lamont Kaiser Referring Unavailable Karel, Gustavo Chi Primary Care Unavailable Karel, Gustavo Chi Attending Unavailable Karel, Gustavo Chi Primary Care Unavailable Karel, Gustavo Chi Attending Unavailable Karel, Gustavo Chi Primary Care Unavailable Karel, Gustavo Chi Attending Unavailable Karel, Gustavo Chi Primary Care Unavailable Karel, Gustavo Chi Referring Unavailable Karel, Gustavo Chi Primary Care Unavailable Lamont Kaiser Attending Unavailable KarelDr. Gustavo ortiz MD, Chi Primary Care Provider Dr. Lamont Kaiser MD Attending Provider Dr. Lamont aKiser MD Referring Provider Dr. Gustavo Vinson MD, Chi Referring Provider Dr. Gustavo Vinson MD, Chi Attending Provider Medications Current Medications Medication Drug Class(es) Dates Sig (Normalized) Sig (Original) aspirin 81 mg delayed release oral tablet (20 sources) Platelet Aggregation Inhibitor, Nonsteroidal Anti-inflammatory Drug Start: 07-27-2019 take 1 tablet by mouth at bedtime Aspirin (Adult Aspirin Regimen) 81 mg tablet,delayed release (DR/EC) Active 81 mg PO AT BEDTIME July 27, 2019 1:00am Start: 12-20-2013 End: 07-27-2019 Aspirin 325 MG tablet Discon tinued 81 mg PO DAILY@799December 20, 2013 12:00am July 27, 2019 4:25pm Start: 12-20-2013 End: 07-27-2019 take 81 mg by mouth once daily Aspirin Discontinued 81 MG PO DAILY@799December 20, 2013 12:00am July 27, 2019 4:25pm atorvastatin 80 mg oral tablet (20 sources) HMG-CoA Reductase Inhibitor Start: 10-13-2017 End: 04-03-2024 take 1 tablet by mouth at bedtime Atorvastatin 80 mg tablet Active 80 mg PO AT BEDTIME 90 April 03, 2024 8:02am Ugyjpgwb-Ofg-Jqmteu oit-Vit D3 (12 sources) Start: 11-30-2017 Pvkxksea-Osz-L hondr oit-Vit D3 Active 1 EACH PO DAILY November 30, 2017 8:17am Start: 11-30-2017 Tnsdgpwh-Dti-E hondroit-Vit D3 Active 1 EACH PO DAILY November 29, 2017 11:00pm Start: 11-30-2017 Bpcrzbuo-Orp-D hondroit-Vit D3 Active 1 EACH PO DAILY November 30, 2017 12:00am Hldlwgxf-Ssw-Hldinraao-Vit D 3 750 mg-125 mg -600 mg tablet (1 source) Start: 10-31-2024 Bjqygyre-Skw-Vhnyvdhsf-Vit D 3 750 mg-125 mg -600 mg tablet Active 1 {tbl} PO TWICE A DAY October 31, 2024 2:56pm levothyroxine sodium 0.075 m g oral tablet (20 sources) l-Th yrox ine Start: 09-08-2022 take 1 tablet by mouth once daily Levothyroxine 75 mcg tablet Active 75 ug PO DAILY September 08, 2022 1:00am Start: 07-27-2019 End: 09-08-2022 Levothyroxine 50 mcg capsule Discontinued 25 ug PO DAILY July 27, 2019 1:00am September 08, 2022 2:37pm lisinopril 20 mg oral tablet (20 sources) Angiotensin Converting Enzyme Inhibitor Start: 12-20-2013 End: 09-19-2024 take 1 tablet by mouth twice daily Lisinopril 20 mg tablet Active 20 mg PO TWICE A DAY 180 September 19, 2024 11:07am metFORMIN hydrochloride 1000 mg oral tablet (13 sources) Biguanide Start: 07-28-2018 take 1 tablet by mouth twice daily Metformin 1,000 mg tablet Active 1000 mg PO TWICE A DAY July 28, 2018 1:00am metoprolol tartrate 100 mg oral tablet (20 sources) beta-Adrenergic Eda Start: 12-20-2013 End: 04-03-2024 take 1 tablet by mouth twice daily Metoprolol Tartrate 100 mg tablet Active 100 mg PO TWICE A DAY 180 April 03, 2024 8:02am Multivitamin With Folic Acid (12 sources) Start: 12-20-2013 take 1 tablet by mouth once daily Multivitamin With Folic Acid Active 1 TABLET PO DAILY December 20, 2013 2:59pm Start: 12-20-2013 End: 09-08-2022 take 1 tablet by mouth once daily Multivitamin With Folic Acid Discontinued 1 TABLET PO DAILY December 20, 2013 12:00am September 08, 2022 2:36pm Start: 12-20-2013 End: 09-08-2022 take 1 tablet by mouth once daily Multivitamin With Folic Acid Discontinued 1 TABLET PO DAILY December 19, 2013 11:00pm September 08, 2022 1:36pm Start: 12-20-2013 take 1 tablet by berhane th once daily Multivitamin With Folic Acid Active 1 TABLET PO DAILY December 19, 2013 11:00pm Start: 12-20-2013 take 1 tablet by berhane th once daily Multivitamin With Folic Acid Active 1 TABLET PO DAILY December 20, 2013 12:00am nitroglycerin 0.4 mg sublingual tablet (13 sources) Nitrate Vasodilator Start: 12-20-2013 Nitroglyce rin 0.4 MG tablet Active 0.4 mg SL Q5M as needed for Chest Pain December 20, 2013 12:00am Start: 12-20-2013 Nitroglycerin Active 0.4 MG SL Q5M December 20, 2013 12:00am pioglitazone 30 mg oral tablet (13 sources) Peroxisome Proliferator Receptor alpha Agonist, Peroxisome Proliferator Receptor gamma Agonist, Thiazolidinedione Start: 08-08-2020 take 1 tablet by mouth once daily Pioglitazone 30 mg tablet Active 30 mg PO DAILY August 08, 2020 1:00am sildenafil 100 mg oral tablet (13 sources) Phosphodiesterase 5 Inhibitor Start: 08-08-2020 take 1 tablet by mouth once daily as needed Sildenafil 100 mg tablet Active 100 mg PO DAILY as needed for other August 08, 2020 1:00am Completed/Discontinued Medications Medication Drug Class(es) Dates Sig (Normalized) Sig (Original) acetaminophen 325 mg / HYDROcodone bitartrate 5 mg oral tablet (20 sources) Opioid Agonist Start: 12-25-2022 End: 08-30-2023 Hydrocodone-Acetami nophen 5-325 mg tablet Discontinued 1 {tbl} PO EVERY 6 HOURS NEEDED as needed for Pain 10 December 25, 2022 August 30, 2023 11:43am Start: 12-25-2022 End: 08-30-2023 take 1 tablet by mouth every six hours as needed Hydrocodone-Acetaminophen Discontinued 1 TABLET PO EVERY 6 HOURS NEEDED 10 December 25, 2022 August 30, 2023 11:43am Start: 09-27-2020 End: 10-04-2020 Hydrocodone-Acetaminophen 1 EACH tablet Discontinued 1 NMA PO EVERY 4 HOURS NEEDED as needed for Pain Score 1-10 14 September 27, 2020 October 03, 2020 1:00am October 04, 2020 1:03am Start: 09-27-2020 End: 10-04-2020 Hydrocodone-Acetaminophen Di scontinued 1 EACH PO EVERY 4 HOURS NEEDED 14 September 27, 2020 October 04, 2020 1:03am Start: 08-24-2020 End: 08-31-2020 Hydrocodone-Acetaminophen 1 EACH tablet Discontinued 1 NMA PO EVERY 4 HOURS NEEDED as needed for Pain Score 1-10 10 August 24, 2020 August 30, 2020 1:00am August 31, 2020 1:03am Start: 08-24-2020 End: 08-31-2020 Hydrocodone-Acetaminophen Di scontinued 1 EACH PO EVERY 4 HOURS NEEDED 10 August 24, 2020 August 31, 2020 1:03am Start: 11-30-2017 End: 07-28-2018 Hydrocodone-Acetaminophen 1 TABLET tablet Discontinued 1 - 2 {tbl} PO EVERY 4 HOURS NEEDED as needed for Pain 20 November 30, 2017 12:00am July 28, 2018 4:58pm Start: 11-30-2017 End: 07-28-2018 take 1 tablet by mouth every four hours as needed Hydrocodone-Acetaminophen Discontinued 1 - 2 TABLET PO EVERY 4 HOURS NEEDED 07 12November 30, 2017 12:00am July 28, 2018 4:58pm acetaminophen 325 mg / oxyCODONE hydrochloride 5 mg oral tablet (13 sources) Opioid Agonist Start: 08-19-2020 End: 08-24-2020 take 1-10 tablets by mouth every six hours as needed for pain Oxycodone-Acetaminophen 1 TABLET tablet Discontinued 1 {tbl} PO EVERY 6 HOURS NEEDED as needed for Pain 1-10 Or Fever 15 August 19, 2020 August 23, 2020 1:00am August 24, 2020 1:03am Start: 08-19-2020 End: 08-24-2020 take 1 tablet by mouth every six hours as needed Oxycodone-Acetaminophen Discontinued 1 TABLET PO EVERY 6 HOURS NEEDED 15 August 19, 2020 August 24, 2020 1:03am amoxicillin 500 mg oral tablet (8 sources) Penicillin-class Antibacterial Start: 09-08-2022 End: 08-30-2023 take 4 tablets by mouth once as needed Amoxicillin 500 mg tablet Discontinued 2000 mg PO ONCE as needed September 08, 2022 1:00am August 30, 2023 11:43am Take 1 hour prior to dental procedure. Start: 09-08-2022 End: 08-30-2023 take 2000 mg by mouth once Amoxicillin Discontinued 20 00 MG PO ONCE September 08, 2022 1:00am August 30, 2023 11:43am Take 1 hour prior to dental procedure. ascorbic acid 500 mg oral tablet (13 sources) Vitamin C Start: 11-30-2017 End: 07-27-2019 take 1 tablet by mouth once daily Ascorbic Acid (Vitamin C) 500 MG tablet Discontinued 500 mg PO DAILY@799November 30, 2017 12:00am July 27, 2019 4:25pm cinnamon bark 500 mg oral capsule (13 sources) Start: 07-27-2019 End: 09-08-2022 take 1 capsule by mouth twice daily Cinnamon Bark (Cinnamon) 500 mg capsule Discontinued 1000 mg PO TWICE A DAY July 27, 2019 1:00am September 08, 2022 2:38pm docusate sodium 100 mg oral capsule (13 sources) Start: 11-30-2017 End: 07-28-2018 take 1 capsule by mouth once daily Docusate Sodium 100 MG capsule Discontinued 100 mg PO DAILY November 30, 2017 12:00am July 28, 2018 4:58pm Nmwshpmv-Pha-Pwihkiojd- Vit D3 1 EACH tablet (1 source) Start: 11-30-2017 End: 10-31-2024 Zkjdslww-Qmx-Fzopdqrwp -Vit D3 1 EACH tablet Discontinued 1 NMA PO DAILY November 30, 2017 12:00am October 31, 2024 2:57pm hydroCHLOROthiazide 25 mg oral tablet (13 sources) Thiazide Diuretic Start: 08-11-2021 End: 09-08-2022 take 1 tablet by mouth once daily Hydrochlorothiazide 25 mg tablet Discontinued 25 mg PO DAILY August 11, 2021 1:04pm September 08, 2022 2:38pm Multivitamin With Folic Acid 1 TABLET tablet (1 source) Start: 12-20-2013 End: 09-08-2022 take 1 tablet by mouth once daily Multivitamin With Folic Acid 1 TABLET tablet Discontinued 1 {tbl} PO DAILY December 20, 2013 12:00am September 08, 2022 2:36pm naproxen sodium 220 mg oral tablet (20 sources) Nonsteroidal Anti-inflammator y Drug Start: 11-30-2017 End: 07-28-2018 take 1 tablet by mouth twice daily as needed Naproxen 500 MG tablet Discontinued 500 mg PO TWICE DAILY NEEDED November 30, 2017 12:00am July 28, 2018 4:58pm Start: 11-30-2017 End: 07-28-2018 take 1 tablet by mouth once daily Naproxen Sodium 220 MG tablet Discontinued 220 mg PO DAILY November 30, 2017 12:00am July 28, 2018 4:58pm ondansetron 4 mg disintegrating oral tablet (7 sources) Serotonin-3 Receptor Antagonist Start: 12-25-2022 End: 08-30-2023 take 1 tablet by mouth every eight hours as needed for nausea Ondansetron 4 mg tablet,disintegrating Discontinued 4 mg PO EVERY 8 HOURS NEEDED as needed for Nausea December 25, 2022 12:00am August 30, 2023 11:42am tamsulosin hydrochloride 0.4 mg oral capsule (7 sources) alpha-Adrenergic Eda Start: 12-25-2022 End: 08-30-2023 take 1 capsule by mouth once daily Tamsulosin (Flomax) 0.4 mg capsule Discontinued 0.4 mg PO DAILY December 25, 2022 12:00am August 30, 2023 11:42am Problems Active Problems Problem Classification Problem Date Documented Date Episodic/Chronic Allergic reactions (13 sources) Environmental allergy; Translations: [Other allergy status, other than to drugs and biological substances] 02-04-2019 Episodic Calculus of urinary tract (20 sources) Ureteric stone; Translations: [Calculus of ureter] 12-25-2022 Episodic Cardiac dysrhythmias (18 sources) Paroxysmal supraventricular tachycardia; Translations: [Supraventricular tachycardia] Chronic Coronary atherosclerosis and other heart disease (18 sources) Coronary atherosclerosis; Translations: [Atherosclerotic heart disease of [place] coronary artery without angina pectoris] Chronic Comment on above: WVJ-Nvkry-Mqgp LAD w / 4.0 x 13 mm Duet Stent 01/01/99 Diabetes mellitus with complications (1 source) Type 2 diabetes mellitus with hyperglycemia; Translations: [Type 2 diabetes mellitus with hyperglycemia] Onset: 12-14-2024 Chronic Disorders of lipid metabolism (19 sources) Hyperlipidemia; Translations: [Hyperlipidemia, unspecified] Onset: 11-16-2024 Chronic Essential hypertension (18 sources) Essential hypertension; Translations: [Essential (primary) hypertension] Chronic Nonspecific chest pain (13 sources) Chest pain; Translations: [Chest pain, unspecified] 06-17-2021 Episodic Past or Other Problems Problem Classification Problem Date Documented Da te Episodic/Chronic Fever of unknown origin (1 source) Fever, unspecified; Translations: [Fever, unspecified] Onset: 2024 Episodic Results Test Name Value Interpretation Reference Range Facility Absolute neutrophil countOrd ered By: Gustavo Vinson on 12-08-2024 Neutrophils (Bld) [#/Vol] 4.7 10*3/uL 2.0-7.7 [facility] Albumin DL <= 20 mg/L (U) [M ass/Vol]Ordered By: Gustavo Vinson on 12-08-2024 Urine Random Microalbumin 57.5 mg/L NO RANGE EST. [facility] Anion gap in Serum or Plasma Ordered By: Gustavo Vinson on 12-08-2024 Anion gap [Moles/Vol] 12 mmol/L 5-15 [facility] BUN/creatinine ratioOrdered By: Gustavo Vinson on 12-08-2024 Urea nitrogen/Creatinine [Mass ratio] 14.7 mg/mg 10-20 [facility] Basophil percentageOrdered B y: Gustavo Vinson on 12-08-2024 Basophils/100 WBC (Bld) 0.6 % 0-1 [facility] Bilirubin, totalOrdered By: Gustavo Vinson on 12-08-2024 Bilirubin [Mass/Vol] 0.60 mg/dL 0.00-1.30 [facility] CBC W/Diff, Automatedon 11-19-2024 Absolute Lymph 1.37 X10 3/uL Normal 0.83-4.51 [facility] Comment on above: Performed By: #### L 502.0250, L500.4050, L501.9985, L500.4100, L506.1001, L501.9520, L100.0100 #### [facility] [address] [place], [address] Absolute Neut 4.7 X10 3/uL Normal 2.0-7.7 [facility] Comment on above: Performed By: #### L 502.0250, L500.4050, L501.9985, L500.4100, L506.1001, L501.9520, L100.0100 #### [facility] [address] [place], [address] Basophils/100 WBC (Bld) 0.6 % Normal 0-1 [facility] Comment on above: Performed By: #### L 502.0250, L500.4050, L501.9985, L500.4100, L506.1001, L501.9520, L100.0100 #### [facility] [address] [place], [address] Eosinophils/100 WBC (Bld) 3.9 % Normal 0-5 [facility] Comment on above: Performed By: #### L 502.0250, L500.4050, L501.9985, L500.4100, L506.1001, L501.9520, L100.0100 #### [facility] [address] [place], [address] Erythrocyte distribution width (RBC) [Ratio] 13.0 % Normal 11.6-14.6 [facility] Comment on above: Performed By: #### L 502.0250, L500.4050, L501.9985, L500.4100, L506.1001, L501.9520, L100.0100 #### [facility] [address] [place], [address] Hematocrit (Bld) [Volume fraction] 47.4 % Normal 40-54 [facility] Comment on above: Performed By: #### L 502.0250, L500.4050, L501.9985, L500.4100, L506.1001, L501.9520, L100.0100 #### [facility] [address] [place], [address] Hemoglobin (Bld) [Mass/Vol] 15.5 g/dL Normal 13.0-16.5 [facility] Comment on above: Performed By: #### L 502.0250, L500.4050, L501.9985, L500.4100, L506.1001, L501.9520, L100.0100 #### [facility] [address] [place], [address] IG% 0.400 Normal 0.0-0.9 [facility] Comment on above: Result Comment: IG% - Immature Granulocytes (promyelocytes, myelocytes and metamyelocytes) > 1% indicates that a LEFT SHIFT is Present. Performed By: #### L 502.0250, L500.4050, L501.9985, L500.4100, L506.1001, L501.9520, L100.0100 #### [facility] [address] [place], [address] Lymphocytes/100 WBC (Bld) 19.2 % Normal 19-41 [facility] Comment on above: Performed By: #### L 502.0250, L500.4050, L501.9985, L500.4100, L506.1001, L501.9520, L100.0100 #### [facility] [address] [place], [address] MCH (RBC) [Entitic mass] 30.5 pg Normal 27.0-32.0 [facility] Comment on above: Performed By: #### L 502.0250, L500.4050, L501.9985, L500.4100, L506.1001, L501.9520, L100.0100 #### [facility] [address] [place], [address] MCHC (RBC) [Mass/Vol] 32.7 g/dL Normal 32-36 [facility] Comment on above: Performed By: #### L 502.0250, L500.4050, L501.9985, L500.4100, L506.1001, L501.9520, L100.0100 #### [facility] [address] [place], [address] MCV (RBC) [Entitic vol] 93.1 fL Normal 80-94 [facility] Comment on above: Performed By: #### L 502.0250, L500.4050, L501.9985, L500.4100, L506.1001, L501.9520, L100.0100 #### [facility] [address] [place], [address] Monocytes/100 WBC (Bld) 10.2 % High 0-10 [facility] Comment on above: Performed By: #### L 502.0250, L500.4050, L501.9985, L500.4100, L506.1001, L501.9520, L100.0100 #### [facility] [address] [place], [address] Neutrophils/100 WBC (Bld) 65.7 % Normal 47-70 [facility] Comment on above: Performed By: #### L 502.0250, L500.4050, L501.9985, L500.4100, L506.1001, L501.9520, L100.0100 #### [facility] [address] [place], [address] Nucleated RBC (Bld) [#/Vol] 0 10*3/uL Normal 0-5 [facility] Comment on above: Performed By: #### L 502.0250, L500.4050, L501.9985, L500.4100, L506.1001, L501.9520, L100.0100 #### [facility] [address] [place], [address] Platelet mean volume (Bld) [Entitic vol] 9.9 fL Normal 6.2-12.0 [facility] Comment on above: Performed By: #### L 502.0250, L500.4050, L501.9985, L500.4100, L506.1001, L501.9520, L100.0100 #### [facility] [address] [place], [address] Platelets (Bld) [#/Vol] 247 10*3/uL Normal 150-450 [facility] Comment on above: Performed By: #### L 502.0250, L500.4050, L501.9985, L500.4100, L506.1001, L501.9520, L100.0100 #### [facility] [address] [place], [address] RBC (Bld) [#/Vol] 5.09 10*6/uL Normal 4.6-6.2 [facility] Comment on above: Performed By: #### L 502.0250, L500.4050, L501.9985, L500.4100, L506.1001, L501.9520, L100.0100 #### [facility] [address] [place], [place], [id number] RDW SD 44.4 fl High 35.1-43.9 [facility] Comment on above: Performed By: #### L 502.0250, L500.4050, L501.9985, L500.4100, L506.1001, L501.9520, L100.0100 #### [facility] [address] [place], [address] WBC (Bld) [#/Vol] 7.1 10*3/uL Normal 4.4-11.0 [facility] Comment on above: Performed By: #### L 502.0250, L500.4050, L501.9985, L500.4100, L506.1001, L501.9520, L100.0100 #### [facility] [address] [place], [address] Calculated very low density lipoprotein (VLDL) cholesterol measurementOrdered By: Gustavo Vinson on 12-08-2024 VLDL Cholesterol 16 mg/dL 5-40 [facility] Carbon dioxide, total [Moles /volume] in Central venous bloodOrdered By: Gustavo Vinson on 12-08-2024 CO2 [Moles/Vol] 22.4 mmol/L 21.0-32.0 [facility] Chloride assayOrdered By: George Vinson on 12-08-2024 Chloride [Moles/Vol] 105 mmol/L 98-108 [facility] Comprehensive Metabolic Prof ilon 12-08-2024 Albumin [Mass/Vol] 4.2 g/dL Normal 3.4-4.8 [facility] Comment on above: Performed By: #### L 502.0250, L500.4050, L501.9985, L500.4100, L506.1001, L501.9520, L100.0100 #### [facility] [address] [place], [address] Albumin/Globulin [Mass ratio] 1.5 {ratio} Normal 0.9-2.4 [facility] Comment on above: Performed By: #### L 502.0250, L500.4050, L501.9985, L500.4100, L506.1001, L501.9520, L100.0100 #### [facility] [address] [place], [address] ALK PHOS 47 U/L Normal 40-129 [facility] Comment on above: Performed By: #### L 502.0250, L500.4050, L501.9985, L500.4100, L506.1001, L501.9520, L100.0100 #### [facility] [address] [place], [address] ALT [Catalytic activity/Vol] 32 U/L Normal <=46 [facility] Comment on above: Performed By: #### L 502.0250, L500.4050, L501.9985, L500.4100, L506.1001, L501.9520, L100.0100 #### [facility] [address] [place], [address] AST [Catalytic activity/Vol] 26 U/L Normal <=37 [facility] Comment on above: Performed By: #### L 502.0250, L500.4050, L501.9985, L500.4100, L506.1001, L501.9520, L100.0100 #### [facility] [address] [place], [address] Bilirubin [Mass/Vol] 0.60 mg/dL Normal 0.00-1.30 [facility] Comment on above: Performed By: #### L 502.0250, L500.4050, L501.9985, L500.4100, L506.1001, L501.9520, L100.0100 #### [facility] [address] [place], [address] BUN/CRE 14.7 RATIO Normal 10-20 [facility] Comment on above: Performed By: #### L 502.0250, L500.4050, L501.9985, L500.4100, L506.1001, L501.9520, L100.0100 #### [facility] [address] [place], [address] Calcium [Mass/Vol] 10.0 mg/dL Normal 7.6-11.0 [facility] Comment on above: Performed By: #### L 502.0250, L500.4050, L501.9985, L500.4100, L506.1001, L501.9520, L100.0100 #### [facility] [address] [place], [address] Chloride [Moles/Vol] 105 mmol/L Normal 98-108 [facility] Comment on above: Performed By: #### L 502.0250, L500.4050, L501.9985, L500.4100, L506.1001, L501.9520, L100.0100 #### [facility] [address] [place], [address] CO2 [Moles/Vol] 22.4 mmol/L Normal 21.0-32.0 [facility] Comment on above: Performed By: #### L 502.0250, L500.4050, L501.9985, L500.4100, L506.1001, L501.9520, L100.0100 #### [facility] [address] [place], [address] Creatinine [Mass/Vol] 0.94 mg/dL Normal 0.70-1.20 [facility] Comment on above: Performed By: #### L 502.0250, L500.4050, L501.9985, L500.4100, L506.1001, L501.9520, L100.0100 #### [facility] [address] [place], [address] GAP 12 Normal 5-15 [facility] Comment on above: Performed By: #### L 502.0250, L500.4050, L501.9985, L500.4100, L506.1001, L501.9520, L100.0100 #### [facility] [address] [place], [address] GFR/1.73 sq M.predicted among non-blacks MDRD (S/P/Bld) [Vol rate/Area] 82 mL/min/{1.73_m2} Normal >60 [facility] Comment on above: Result Comment: mL/m in/1.73m2 CKD-EPI Creatinine Equation (2020) Performed By: #### L 502.0250, L500.4050, L501.9985, L500.4100, L506.1001, L501.9520, L100.0100 #### [facility] [address] [place], [address] Globulin (S) [Mass/Vol] 2.8 g/dL Normal 2.2-4.2 [facility] Comment on above: Performed By: #### L 502.0250, L500.4050, L501.9985, L500.4100, L506.1001, L501.9520, L100.0100 #### [facility] [address] [place], [address] Glucose [Mass/Vol] 157 mg/dL High 70-99 [facility] Comment on above: Performed By: #### L 502.0250, L500.4050, L501.9985, L500.4100, L506.1001, L501.9520, L100.0100 #### [facility] Laboratory [address] [place], [address] Potassium [Moles/Vol] 4.2 mmol/L Normal 3.3-5.1 [facility] Comment on above: Performed By: #### L 502.0250, L500.4050, L501.9985, L500.4100, L506.1001, L501.9520, L100.0100 #### [facility] Laboratory [address] [place], [address] Sodium [Moles/Vol] 139 mmol/L Normal 133-145 [facility] Comment on above: Performed By: #### L 502.0250, L500.4050, L501.9985, L500.4100, L506.1001, L501.9520, L100.0100 #### [facility] Laboratory [address] [place], [address] T PROT 7.0 g/dL Normal 5.9-8.4 [facility] Comment on above: Performed By: #### L 502.0250, L500.4050, L501.9985, L500.4100, L506.1001, L501.9520, L100.0100 #### [facility] Laboratory [address] [place], [address] Urea nitrogen [Mass/Vol] 14 mg/dL Normal 4-19 [facility] Comment on above: Performed By: #### L 502.0250, L500.4050, L501.9985, L500.4100, L506.1001, L501.9520, L100.0100 #### [facility] Laboratory [address] [place], [address] Creatinine Unsp time (U) [Ma ss/Vol]Ordered By: Gustavo Vinson on 12-08-2024 Creatinine (U) [Mass/Vol] 179.00 mg/dL 39.00-259.00 [facility] Eosinophil percentageOrdered By: Gustavo Vinson on 12-08-2024 Eosinophils/100 WBC (Bld) 3.9 % 0-5 [facility] Erythrocyte distribution wid th ratioOrdered By: Gustavo Vinson on 12-08-2024 Erythrocyte distribution width (RBC) [Ratio] 13.0 % 11.6-14.6 [facility] Erythrocyte distribution wid th standard deviationOrdered By: Gustavo Vinson on 12-08-2024 Erythrocyte distribution width (RBC) [Entitic vol] 44.4 fL High 35.1-43.9 [facility] GFR/1.73 sq M.predicted lexi g non-blacks MDRD (S/P/Bld) [Vol rate/Area]Ordered By: Gustavo Vinson on 12-08-2024 Estimated GFR (MDRD) Non-Af Amer 82 >60 [facility] Comment on above: mL/min/1.73m2 CKD-EP I Creatinine Equation (2020) Hematocrit Auto (Bld) [Volum e fraction]Ordered By: Gustavo Vinson on 12-08-2024 Hematocrit (Bld) [Volume fraction] 47.4 % 40-54 [facility] Hemoglobin A1con 12-08-2024 HbA1c (Bld) [Mass fraction] 8.3 % Normal <=5.6 [facility] Comment on above: Performed By: #### L 502.0250, L500.4050, L501.9985, L500.4100, L506.1001, L501.9520, L100.0100 #### [facility] Laboratory [address] [place] [address], [address] Hemoglobin A1c percentageOrd ered By: Gustavo Vinson on 12-08-2024 HbA1c (Bld) [Mass fraction] 8.3 % >5.7 [facility] Hemoglobin measurementOrdere d By: Gustavo Vinson on 12-08-2024 Hemoglobin (Bld) [Mass/Vol] 15.5 g/dL 13.0-16.5 [facility] Immature granulocytes/100 WB C Auto (Bld)Ordered By: Gustavo Vinson on 12-08-2024 Immature granulocytes/100 WBC (Bld) 0.400 % 0.0-0.9 [facility] Comment on above: IG% - Immature Granu locytes (promyelocytes, myelocytes and metamyelocytes) > 1% indicates that a LEFT SHIFT is Present. L506.1001on 12-08-2024 Vitamin D 25-OH 26.4 ng/mL Low 30-100 [facility] Comment on above: Result Comment: Yessenia min D Status Deficiency: <20 ng/mL (50nmol/L) Insufficiency: 20-30 ng/mL (50-75 nmol/L) Sufficiency: 30-100 ng/mL (75-250 nmol/L) Toxicity: >100 ng/mL (>250 nmol/L) Performed By: #### L 502.0250, L500.4050, L501.9985, L500.4100, L506.1001, L501.9520, L100.0100 #### [facility] Laboratory [address] [place], [address] LDL calc ser/plasOrdered By: Gustavo Vinson on 12-08-2024 LDL Cholesterol, Calculated 49 mg/dL [facility] Comment on above: Xrbevywved=592-206 m g/dL & Higher Jusd=861 mg/dL or greater Laboratory - Chemistry and C hemistry - challengeOrdered By: Gustavo Vinson on 12-08-2024 AST [Catalytic activity/Vol] 26 U/L <38 [facility] Lipid Profileon 12-08-2024 CHOL:HDL 2.37 Normal [facility] Comment on above: Performed By: #### L 502.0250, L500.4050, L501.9985, L500.4100, L506.1001, L501.9520, L100.0100 #### [facility] Laboratory [address] [place], [address] Cholesterol [Mass/Vol] 113 mg/dL Normal <=200 [facility] Comment on above: Result Comment: Chol esterol level, Desirable <200 mg/dL Borderline high cholesterol 200-239 mg/dL High cholesterol >=240 mg/dL Recommendations of the NCEP Adult Treatment Panel for the following risk-cutoff thresholds for the [place] population. Performed By: #### L 502.0250, L500.4050, L501.9985, L500.4100, L506.1001, L501.9520, L100.0100 #### [facility] Laboratory [address] [place], [address] Cholesterol in HDL [Mass/Vol] 48 mg/dL Normal [facility] Comment on above: Result Comment: Luann onal Cholesterol Education Program (NCEP) guidelines: <40 mg/dL: Low HDL-cholesterol (major risk factor for CHD) >= 60 mg/dL: High HDL-cholesterol (negative risk factor for CHD) HDL-cholesterol is affected by a number of factors, e.g. smoking, exercise, hormones, sex and age. Performed By: #### L 502.0250, L500.4050, L501.9985, L500.4100, L506.1001, L501.9520, L100.0100 #### [facility] Laboratory [address] [place], [address] Cholesterol in LDL [Mass/Vol] 49 mg/dL Normal [facility] Comment on above: Result Comment: Bord czywkq=844-252 mg/dL Higher Njsr=579 mg/dL or greater Performed By: #### L 502.0250, L500.4050, L501.9985, L500.4100, L506.1001, L501.9520, L100.0100 #### [facility] Laboratory [address] [place], [address] Cholesterol in VLDL [Mass/Vol] 16 mg/dL Normal 5-40 [facility] Comment on above: Performed By: #### L 502.0250, L500.4050, L501.9985, L500.4100, L506.1001, L501.9520, L100.0100 #### [facility] Laboratory [address] [place], [address] Triglyceride [Mass/Vol] 80 mg/dL Normal [facility] Comment on above: Result Comment: The drugs N-Acetylcysteine and Metamizole may falsely depress this assay. Normal range: <150 mg/dL Borderline High: 150-199 mg/dL High: 200-499 mg/dL Very High: >500 mg/dL Performed By: #### L 502.0250, L500.4050, L501.9985, L500.4100, L506.1001, L501.9520, L100.0100 #### [facility] Laboratory [address] [place], [place], [address] Lymphocytes Auto (Unsp spec) [#/Vol]Ordered By: Gustavo Vinson on 12-08-2024 Lymphocytes (Bld) [#/Vol] 1.37 10*3/uL 0.83-4.51 [facility] Lymphocytes/100 WBC Auto (Un sp spec)Ordered By: Gustavo Vinson on 12-08-2024 Lymphocytes/100 WBC (Bld) 19.2 % 19-41 [facility] MCV (mean corpuscular volume ) determinationOrdered By: Gustavo Vinson on 12-08-2024 MCV (RBC) [Entitic vol] 93.1 fL 80-94 [facility] Mean corpuscular hemoglobin (MCH) determinationOrdered By: Gustavo Vinson on 12-08-2024 MCH (RBC) [Entitic mass] 30.5 pg 27.0-32.0 [facility] Mean corpuscular hemoglobin concentration (MCHC) determinationOrdered By: Gustavo Vinson on 12-08-2024 MCHC (RBC) [Mass/Vol] 32.7 g/dL 32-36 [facility] Mean platelet volume determi nationOrdered By: Gustavo Vinson on 12-08-2024 Platelet mean volume (Bld) [Entitic vol] 9.9 fL 6.2-12.0 [facility] Microalb:Creat Ratio,Random URon 12-08-2024 Creatinine [Mass/Vol] 179.00 mg/dL Normal 39.00-259.00 [facility] Comment on above: Performed By: #### L 502.0250, L500.4050, L501.9985, L500.4100, L506.1001, L501.9520, L100.0100 #### [facility] Laboratory [address] [place], [address] MALB:CREAT 321.2 mg/g CRE Normal [facility] Comment on above: Performed By: #### L 502.0250, L500.4050, L501.9985, L500.4100, L506.1001, L501.9520, L100.0100 #### [facility] Laboratory [address] [place], [address] MICROALBUMIN,UR 57.5 mg/L Normal NO RANGE EST. [facility] Comment on above: Performed By: #### L 502.0250, L500.4050, L501.9985, L500.4100, L506.1001, L501.9520, L100.0100 #### [facility] Laboratory [address] [place], [address] Microalbumin/creat ratio urO rdered By: Gustavo Vinson on 12-08-2024 Urine Microalbumin/Creatinine Ratio 321.2 mg/g CRE [facility] Monocyte percentageOrdered B y: Gustavo Vinson on 12-08-2024 Monocytes/100 WBC (Bld) 10.2 % High 0-10 [facility] Neutrophil percentageOrdered By: Gustavo Vinson on 12-08-2024 Neutrophils/100 WBC (Bld) 65.7 % 47-70 [facility] Nucleated red blood cell per centageOrdered By: Gustavo Vinson on 12-08-2024 Nucleated RBC/100 WBC (Bld) [Ratio] 0 % 0-5 [facility] Platelet countOrdered By: George Vinson on 12-08-2024 Platelets (Bld) [#/Vol] 247 10*3/uL 150-450 [facility] Potassium (Unsp spec) [Mass/ Vol]Ordered By: Gustavo Vinson on 12-08-2024 Potassium [Moles/Vol] 4.2 mmol/L 3.3-5.1 [facility] RBC Auto (Bld) [#/Vol]Ordere d By: Gustavo Vinson on 12-08-2024 RBC (Bld) [#/Vol] 5.09 10*6/uL 4.6-6.2 [facility] Screening total cholesterol/ high density lipoprotein (HDL) cholesterol ratioOrdered By: Gustavo Vinson on 12-08-2024 Cholesterol.total/Choles terol in HDL [Mass ratio] 2.37 {ratio} [facility] Serum creatinine measurement (mass/volume)Ordered By: Gustavo Vinson on 12-08-2024 Creatinine [Mass/Vol] 0.94 mg/dL 0.70-1.20 [facility] Serum globulin measurementOr dered By: Gustavo Vinson on 12-08-2024 Globulin (S) [Mass/Vol] 2.8 g/dL 2.2-4.2 [facility] Serum glucose measurement (m ass/volume)Ordered By: Gustavo Vinson on 12-08-2024 Glucose [Mass/Vol] 157 mg/dL High 70-99 [facility] Serum or plasma alanine [place]aver[place] otransferase (ALT) measurementOrdered By: Gustavo Vinson 12-08-2024 ALT [Catalytic activity/Vol] 32 U/L <47 [facility] Serum or plasma albumin emmy urement (mass/volume)Ordered By: Gustavo Vinson 12-08-2024 Albumin [Mass/Vol] 4.2 g/dL 3.4-4.8 [facility] Serum or plasma albumin/glob ulin mass ratioOrdered By: Gustavo Vinson 12-08-2024 Albumin/Globulin [Mass ratio] 1.5 {ratio} 0.9-2.4 [facility] Serum or plasma alkaline ciro sphatase measurementOrdered By: Gustavo Vinson 12-08-2024 ALP [Catalytic activity/Vol] 47 U/L 40-129 [facility] Serum or plasma calcium emmy urement (mass/volume)Ordered By: Gustavo Vinson 12-08-2024 Calcium [Mass/Vol] 10.0 mg/dL 7.6-11.0 [facility] Serum or plasma cholesterol in HDL measurement (mass/volume)Ordered By: Gustavo Vinson 12-08-2024 Cholesterol in HDL [Mass/Vol] 48 mg/dL >40 [facility] Comment on above: National Cholesterol Education Program (NCEP) guidelines:<40 mg/dL: Low HDL-cholesterol (major risk factor for CHD)>= 60 mg/dL: High HDL-cholesterol (negative risk factor for CHD)HDL-cholesterol is affected by a number of factors, e.g. smoking, exercise, hormones, sex and age. Serum or plasma cholesterol measurement (mass/volume)Ordered By: Gustavo Vinson on 12-08-2024 Cholesterol [Mass/Vol] 113 mg/dL <201 [facility] Comment on above: Cholesterol level, D esirable <200 mg/dLBorderline high cholesterol 200-239 mg/dLHigh cholesterol >=240 mg/dLRecommendations of the NCEP Adult Treatment Panel for the following risk-cutoff thresholds for the [place] population. Serum or plasma urea nitroge n measurement (mass/volume)Ordered By: Gustavo Vinson on 12-08-2024 Urea nitrogen [Mass/Vol] 14 mg/dL 4-19 [facility] Sodium levelOrdered By: Gustavo Vinson on 12-08-2024 Sodium [Moles/Vol] 139 mmol/L 133-145 [facility] TSH DL <= 0.005 mIU/L QnOrde red By: Gustavo Vinson on 12-08-2024 Thyroid Stimulating Hormone (TSH) 3.480 uIU/mL 0.300-4.200 [facility] Thyroid Stim Hormone (TSH)on 12-08-2024 TSH 3.480 uIU/mL Normal 0.300-4.200 [facility] Comment on above: Performed By: #### L 502.0250, L500.4050, L501.9985, L500.4100, L506.1001, L501.9520, L100.0100 #### [facility] Laboratory [address] [place], [address] Total proteinOrdered By: Gustavo Vinson on 12-08-2024 Protein [Mass/Vol] 7.0 g/dL 5.9-8.4 [facility] Triglycerides measurementOrd ered By: Gustavo Vinson on 12-08-2024 Triglyceride [Mass/Vol] 80 mg/dL <199 [facility] Comment on above: The drugs N-Acetylcy steine and Metamizole may falsely depress this assay. Normal range: <150 mg/dLBorderline High: 150-199 mg/dLHigh: 200-499 mg/dLVery High: >500 mg/dL Vitamin D, 25-hydroxyOrdered By: Gustavo Vinson on 12-08-2024 Vitamin D 25-Hydroxy 26.4 ng/mL Low 30-100 [facility] Comment on above: Vitamin D StatusDefi ciency: <20 ng/mL (50nmol/L)Insufficiency: 20-30 ng/mL (50-75 nmol/L)Sufficiency: 30-100 ng/mL (75-250 nmol/L)Toxicity: >100 ng/mL (>250 nmol/L) White blood cell (WBC) count Ordered By: Gustavo Vinson on 12-08-2024 WBC (Bld) [#/Vol] 7.1 10*3/uL 4.4-11.0 [facility] Bilirubin directOrdered By: Lamont Kaiser on 10-31-2024 Bilirubin.direct [Mass/Vol] 0.16 mg/dL 0.00-0.30 [facility] Bilirubin, totalOrdered By: Lamont Kaiser on 10-31-2024 Bilirubin [Mass/Vol] 0.50 mg/dL 0.20-1.00 [facility] Comment on above: For patients on eltr ombopag therapy, use of Dimension [place]angel[place] TBIL is not recommended. Cardiology Visit Reporton Cardiology Visit Report [facility] [address] [place] [address] OFFICE VISIT Date of Service: 10/31/24 MR#: [id number] Acct: [id number] Name: SYEDA LOBO Rep #: [id number] : 1945 Provider: Dr. Lamont Kaiser MD Age/Sex: 79/M Location: [facility] Status: Signed HPI HPI History of Present Illness Details: SYEDA LOBO, is a 79 M who presents to the office today for a follow-up visit. He is a gentleman with a history of coronary artery disease status post non-ST elevation myocardial infarction in 1998 with subsequent stenting to his left anterior descending artery. From a cardiac standpoint, the patient is doing well. He denies any palpitations, chest pain, pressure or heaviness. He denies SOB, Orthopnea, and PND. He does use a CPAP at night. He does not have bleeding issues; no blood in urine, stool or nosebleeds. He denies any decrease in energy level, myalgias, or claudication. He does not have edema, or sudden weight gain. He denies dizziness, lightheadedness, syncopal or near syncopal episodes, and headaches. Intake Vital Signs 08/30/23 10:44 10/31/24 13:51 Height 5 ft 9 in 5 ft 9 in Weight: 236 lb BMI 34.8 BP 153/94 H Blood Pressure Location Rt brachial Position Sitting Respiration 18 Pulse 68 Pulse Source Monitor Intake Visit Reasons: 1 Y FU Flexible Babysitter Required: No Accompanied by: Self Is patient in pain?: No Allergies No Known Allergies Allergy (Verified 10/31/24 13:55) Medications ???Medication ???Instructions ???Recorded ???Confirmed ???Type nitroglycerin 0.4 mg sublingual 0.4 mg sublingual Q5M PRN Chest 10/31/24 History tablet Pain metformin 1,000 mg tablet 1,000 mg PO BID 07/28/18 10/31/24 History aspirin 81 mg tablet,delayed 81 mg PO QHS 07/27/19 10/31/24 His tory release (Adult Aspirin Regimen) pioglitazone 30 mg tablet 30 mg PO DAILY 08/08/20 10/31/24 H istory sildenafil 100 mg tablet 100 mg PO DAILY PRN other 08/08/20 10/31/24 History levothyroxine 75 mcg tablet 75 mcg PO DAILY 09/08/22 10/31/24 History atorvastatin 80 mg tablet 80 mg PO QHS #90 TABLETS 04/03/24 10/31/24 Rx metoprolol tartrate 100 mg tablet 100 mg PO BID for blood pressure 04/03/24 10/31/24 Rx #180 TABLETS lisinopril 20 mg tablet 20 mg PO BID b p #180 tabs 4 10/31/24 Rx glucosamine 750 mg-msm 125 1 tab PO BID 10/31/24 10/31/24 His tory mg-chondroitin 600 mg-D3 1,000 unit tablet Have you fallen in the past year?: Yes [facility] Medical History Left renal stone Ureterolithiasis Renal colic on right side Obstructive sleep apnea Paroxysmal supraventricular tachycardia Segmental and somatic dysfunction of thoracic region Segmental and somatic dysfunction of lumbar region Segmental and somatic dysfunction of pelvic region Atherosclerosis of coronary artery of marsh[place] heart without angina pectoris Essential (primary) hypertension Hyperlipidemia Anterolisthesis Type 2 diabetes mellitus Bilateral headaches Asthma Arthritis Environmental allergies Surgical History History of ankle surgery History of coronary artery stent placement (01/01/99) Family History Mother CAD (coronary artery disease) Myocardial infarction Father No problems noted. Other Arthritis Heart disease Hypertension Social History Smoking Status: Former smoker how long ago did patient quit smokin alcohol intake: current alcohol intake frequency: a few times a month Alcohol type: beer and wine substance use type: does not use caffeine: Yes Type: tea Number of servings: 1 what type of physical activity do you participate in: none ROS Const Const: Positive for fatigue and headache(s); Negative for weakness, daytime sleepiness or difficulty sleeping ENT ENT: Positive for headache(s); Negative for dizziness or Nosebleed/epistaxis Cardio Chest Pain: No Palpitations: No Edema: Bilateral (wears compression stockings) Resp Respiratory: Positive for SOB with activity; Negative for SOB at rest, SOB orthopnea SOB lying down or Cough GI GI: Negative nausea, vomiting or heartburn Neuro Neuro: Positive for headache(s); Negative for dizziness, lightheadedness, near syncope or weakness Endo Endo: Positive for fatigue Cardiology Exam Const Appearance: cooperative and no acute distress Nutritional Appearance: obese Orientation: alert and oriented x3 Head Head: normal to inspection Ears: hearing grossly normal bilaterally Nose: external nose normal Face and Sinus: face symmetric Eyes G (more content not included)... Normal [facility] High density lipoprotein (HD L) measurementOrdered By: Lamont Kaiser on 10-31-2024 Cholesterol in HDL [Mass/Vol] 48 mg/dL >40 [facility] Comment on above: The drugs N-Acetylcy steine and Metamizole may falsely depress this assay. Reference Range HDL <40 mg/dL Low HDL Cholesterol HDL >or= 60 mg/dL High HDL Cholesterol Laboratory - Chemistry and C hemistry - challengeOrdered By: Lamont Kaiser on 10-31-2024 AST [Catalytic activity/Vol] 22 U/L 15-37 [facility] Lipid Profileon 10-31-2024 Cholesterol [Mass/Vol] 107 mg/dL Normal 200 [facility] Comment on above: Result Comment: <200 mg/dL Desirable 200-240 mg/dL Borderline >240 mg/dL High Risk Performed By: #### L 502.0250, L500.4050, L501.9985, L500.4100, L506.1001, L501.9520, L100.0100 #### [facility] Laboratory [address] [place], [address] Cholesterol in HDL [Mass/Vol] 48 mg/dL Normal [facility] Comment on above: Result Comment: The drugs N-Acetylcysteine and Metamizole may falsely depress this assay. Reference Range HDL <40 mg/dL Low HDL Cholesterol HDL >or= 60 mg/dL High HDL Cholesterol Performed By: #### L 502.0250, L500.4050, L501.9985, L500.4100, L506.1001, L501.9520, L100.0100 #### [facility] Laboratory [address] [place], [address] Cholesterol in LDL [Mass/Vol] 45 mg/dL Normal 0-130 [facility] Comment on above: Performed By: #### L 502.0250, L500.4050, L501.9985, L500.4100, L506.1001, L501.9520, L100.0100 #### [facility] Laboratory [address] [place], [address] Cholesterol in VLDL [Mass/Vol] 14 mg/dL Normal 5-40 [facility] Comment on above: Performed By: #### L 502.0250, L500.4050, L501.9985, L500.4100, L506.1001, L501.9520, L100.0100 #### [facility] Laboratory [address] [place], [address] Triglyceride [Mass/Vol] 69 mg/dL Normal [facility] Comment on above: Result Comment: The drugs N-Acetylcysteine and Metamizole may falsely depress this assay. Serum Triglycerides Reference Interval Normal <150 mg/dL Borderline high 150 - 199 mg/dL High 200 - 499 mg/dL Very High > or = 500 mg/dL Performed By: #### L 502.0250, L500.4050, L501.9985, L500.4100, L506.1001, L501.9520, L100.0100 #### [facility] Laboratory [address] [place], [address] Liver Profileon 10-31-2024 Albumin [Mass/Vol] 3.5 g/dL Normal 3.2-5.0 [facility] Comment on above: Performed By: #### L 502.0250, L500.4050, L501.9985, L500.4100, L506.1001, L501.9520, L100.0100 #### [facility] Laboratory [address] [place], [address] ALK P 43 U/L Low 45-117 [facility] Comment on above: Performed By: #### L 502.0250, L500.4050, L501.9985, L500.4100, L506.1001, L501.9520, L100.0100 #### [facility] Laboratory [address] [place], [address] ALT [Catalytic activity/Vol] 37 U/L Normal 16-61 [facility] Comment on above: Performed By: #### L 502.0250, L500.4050, L501.9985, L500.4100, L506.1001, L501.9520, L100.0100 #### [facility] Laboratory [address] [place], [address] AST [Catalytic activity/Vol] 22 U/L Normal 15-37 [facility] Comment on above: Performed By: #### L 502.0250, L500.4050, L501.9985, L500.4100, L506.1001, L501.9520, L100.0100 #### [facility] Laboratory [address] [place], [address] Bilirubin [Mass/Vol] 0.50 mg/dL Normal 0.20-1.00 [facility] Comment on above: Result Comment: For patients on eltrombopag therapy, use of Dimension [place]angel[place] TBIL is not recommended. Performed By: #### L 502.0250, L500.4050, L501.9985, L500.4100, L506.1001, L501.9520, L100.0100 #### [facility] Laboratory [address] [place], [address] Bilirubin.direct [Mass/Vol] 0.16 mg/dL Normal 0.00-0.30 [facility] Comment on above: Performed By: #### L 502.0250, L500.4050, L501.9985, L500.4100, L506.1001, L501.9520, L100.0100 #### [facility] Laboratory [address] [place], [address] Globulin (S) [Mass/Vol] 3.4 g/dL Normal 2.2-4.2 [facility] Comment on above: Performed By: #### L 502.0250, L500.4050, L501.9985, L500.4100, L506.1001, L501.9520, L100.0100 #### [facility] Laboratory [address] [place], [address] T PROT 6.9 g/dL Normal 6.4-8.2 [facility] Comment on above: Performed By: #### L 502.0250, L500.4050, L501.9985, L500.4100, L506.1001, L501.9520, L100.0100 #### [facility] Laboratory [address] [place], [place], [id number] Low density lipoprotein (LDL ) cholesterol measurementOrdered By: Lamont Kaiser on 10-31-2024 Cholesterol in LDL [Mass/Vol] 45 mg/dL 0-130 [facility] Serum globulin measurementOr dered By: Lamont Kaiser on 10-31-2024 Globulin (S) [Mass/Vol] 3.4 g/dL 2.2-4.2 [facility] Serum or plasma alanine landaverde otransferase (ALT) measurementOrdered By: Lamont Kaiser on 10-31-2024 ALT [Catalytic activity/Vol] 37 U/L 16-61 [facility] Serum or plasma albumin emmy urement (mass/volume)Ordered By: Lamont Kaiser on 10-31-2024 Albumin [Mass/Vol] 3.5 g/dL 3.2-5.0 [facility] Serum or plasma alkaline ciro sphatase measurementOrdered By: Lamont Kaiser on 10-31-2024 ALP [Catalytic activity/Vol] 43 U/L Low 45-117 [facility] Serum or plasma cholesterol measurement (mass/volume)Ordered By: Lamont Kaiser on 10-31-2024 Cholesterol [Mass/Vol] 107 mg/dL <200 [facility] Comment on above: <200 mg/dL Desirable 200-240 mg/dL Borderline >240 mg/dL High Risk Total proteinOrdered By: Kashmir Kaiser on 10-31-2024 Protein [Mass/Vol] 6.9 g/dL 6.4-8.2 [facility] Triglycerides measurementOrd ered By: Lamont Kaiser on 10-31-2024 Triglyceride [Mass/Vol] 69 mg/dL <199 [facility] Comment on above: The drugs N-Acetylcy steine and Metamizole may falsely depress this assay.Serum Triglycerides Reference Interval Normal <150 mg/dL Borderline high 150 - 199 mg/dL High 200 - 499 mg/dL Very High > or = 500 mg/dL Very low density lipoprotein (VLDL) cholesterol measurementOrdered By: Lamont Kaiser on 10-31-2024 VLDL Cholesterol 14 mg/dL 5-40 [facility] [id number] 06-12-2024 SARS-CoV-2 (COVID-19) Ab IA Ql FLUABV+SARS-CoV-2+RS V Pnl Resp HANNAH+probe Copy of report sent to Infection Control Printer [id number] 06/12/24 1700 MDREXLER. SARS-CoV-2 (COVID 19) A Positive A INFLUENZA A Negative INFLUENZA B Negative RSV PCR Negative SARS-CoV-2 (COVID 19 PCR) Normal [facility] Comment on above: Performed By: #### L 502.0250, L500.4050, L501.9985, L500.4100, L506.1001, L501.9520, L100.0100 #### [facility] [address] [place], [address] CBC W/Diff, Automatedon 05-22 Absolute Lymph 1.87 X10 3/uL Normal 0.83-4.51 [facility] Comment on above: Performed By: #### L 500.4050, L100.0100, L501.9985, L500.4100, L501.9520, L506.1000 #### [facility] [address] [place], [address] Absolute Neut 4.1 X10 3/uL Normal 2.0-7.7 [facility] Comment on above: Performed By: #### L 500.4050, L100.0100, L501.9985, L500.4100, L501.9520, L506.1000 #### [facility] [address] [place], [address] Basophils/100 WBC (Bld) 0.7 % Normal 0-1 [facility] Comment on above: Performed By: #### L 500.4050, L100.0100, L501.9985, L500.4100, L501.9520, L506.1000 #### [facility] [address] [place], [address] Eosinophils/100 WBC (Bld) 4.6 % Normal 0-5 [facility] Comment on above: Performed By: #### L 500.4050, L100.0100, L501.9985, L500.4100, L501.9520, L506.1000 #### [facility] [address] [place], [address] Erythrocyte distribution width (RBC) [Ratio] 13.3 % Normal 11.6-14.6 [facility] Comment on above: Performed By: #### L 500.4050, L100.0100, L501.9985, L500.4100, L501.9520, L506.1000 #### [facility] [address] [place], [address] Hematocrit (Bld) [Volume fraction] 45.4 % Normal 40-54 [facility] Comment on above: Performed By: #### L 500.4050, L100.0100, L501.9985, L500.4100, L501.9520, L506.1000 #### [facility] [address] [place], [address] Hemoglobin (Bld) [Mass/Vol] 14.6 g/dL Normal 13.0-16.5 [facility] Comment on above: Performed By: #### L 500.4050, L100.0100, L501.9985, L500.4100, L501.9520, L506.1000 #### [facility] [address] [place], [address] IG% 0.400 Normal 0.0-0.9 [facility] Comment on above: Result Comment: IG% - Immature Granulocytes (promyelocytes, myelocytes and metamyelocytes) > 1% indicates that a LEFT SHIFT is Present. Performed By: #### L 500.4050, L100.0100, L501.9985, L500.4100, L501.9520, L506.1000 #### [facility] [address] [place], [address] Lymphocytes/100 WBC (Bld) 25.5 % Normal 19-41 [facility] Comment on above: Performed By: #### L 500.4050, L100.0100, L501.9985, L500.4100, L501.9520, L506.1000 #### [facility] [address] [place], [address] MCH (RBC) [Entitic mass] 30.2 pg Normal 27.0-32.0 [facility] Comment on above: Performed By: #### L 500.4050, L100.0100, L501.9985, L500.4100, L501.9520, L506.1000 #### [facility] [address] [place], [address] MCHC (RBC) [Mass/Vol] 32.2 g/dL Normal 32-36 [facility] Comment on above: Performed By: #### L 500.4050, L100.0100, L501.9985, L500.4100, L501.9520, L506.1000 #### [facility] [address] [place], [address] MCV (RBC) [Entitic vol] 93.8 fL Normal 80-94 [facility] Comment on above: Performed By: #### L 500.4050, L100.0100, L501.9985, L500.4100, L501.9520, L506.1000 #### [facility] [address] [place], [address] Monocytes/100 WBC (Bld) 12.3 % High 0-10 [facility] Comment on above: Performed By: #### L 500.4050, L100.0100, L501.9985, L500.4100, L501.9520, L506.1000 #### [facility] [address] [place], [address] Neutrophils/100 WBC (Bld) 56.5 % Normal 47-70 [facility] Comment on above: Performed By: #### L 500.4050, L100.0100, L501.9985, L500.4100, L501.9520, L506.1000 #### [facility] [address] [place], [address] Nucleated RBC (Bld) [#/Vol] 0 10*3/uL Normal 0-5 [facility] Comment on above: Performed By: #### L 500.4050, L100.0100, L501.9985, L500.4100, L501.9520, L506.1000 #### [facility] [address] [place], [address] Platelet mean volume (Bld) [Entitic vol] 10.2 fL Normal 6.2-12.0 [facility] Comment on above: Performed By: #### L 500.4050, L100.0100, L501.9985, L500.4100, L501.9520, L506.1000 #### [facility] [address] [place], [address] Platelets (Bld) [#/Vol] 254 10*3/uL Normal 150-450 [facility] Comment on above: Performed By: #### L 500.4050, L100.0100, L501.9985, L500.4100, L501.9520, L506.1000 #### [facility] [address] [place], [address] RBC (Bld) [#/Vol] 4.84 10*6/uL Normal 4.6-6.2 [facility] Comment on above: Performed By: #### L 500.4050, L100.0100, L501.9985, L500.4100, L501.9520, L506.1000 #### [facility] [address] [place], [address] RDW SD 45.6 fl High 35.1-43.9 [facility] Comment on above: Performed By: #### L 500.4050, L100.0100, L501.9985, L500.4100, L501.9520, L506.1000 #### [facility] [address] [place], [address] WBC (Bld) [#/Vol] 7.3 10*3/uL Normal 4.4-11.0 [facility] Comment on above: Performed By: #### L 500.4050, L100.0100, L501.9985, L500.4100, L501.9520, L506.1000 #### [facility] [address] [place], [address] [facility] 06-09-2024 Albumin [Mass/Vol] 3.7 g/dL Normal 3.2-5.0 [facility] Comment on above: Performed By: #### L 500.4050, L100.0100, L501.9985, L500.4100, L501.9520, L506.1000 #### [facility] [address] [place], [address] Albumin/Globulin [Mass ratio] 1.1 {ratio} Normal 0.9-2.4 [facility] Comment on above: Performed By: #### L 500.4050, L100.0100, L501.9985, L500.4100, L501.9520, L506.1000 #### [facility] [address] [place], [address] ALK P 49 U/L Normal 45-117 [facility] Comment on above: Performed By: #### L 500.4050, L100.0100, L501.9985, L500.4100, L501.9520, L506.1000 #### [facility] [address] [place], [address] ALT [Catalytic activity/Vol] 40 U/L Normal 16-61 [facility] Comment on above: Performed By: #### L 500.4050, L100.0100, L501.9985, L500.4100, L501.9520, L506.1000 #### [facility] [address] [place], [address] AST [Catalytic activity/Vol] 23 U/L Normal 15-37 [facility] Comment on above: Performed By: #### L 500.4050, L100.0100, L501.9985, L500.4100, L501.9520, L506.1000 #### [facility] [address] [place], [address] Bilirubin [Mass/Vol] 0.60 mg/dL Normal 0.20-1.00 [facility] Comment on above: Result Comment: For patients on eltrombopag therapy, use of Dimension [place] TBIL is not recommended. Performed By: #### L 500.4050, L100.0100, L501.9985, L500.4100, L501.9520, L506.1000 #### [facility] [address] [place], [address] BUN/CRE 15.3 RATIO Normal 10-20 [facility] Comment on above: Performed By: #### L 500.4050, L100.0100, L501.9985, L500.4100, L501.9520, L506.1000 #### [facility] [address] [place], [address] CA,Total 9.2 mg/dL Normal 8.5-10.1 [facility] Comment on above: Performed By: #### L 500.4050, L100.0100, L501.9985, L500.4100, L501.9520, L506.1000 #### [facility] [address] [place], [address] Chloride [Moles/Vol] 110 mmol/L High 98-107 [facility] Comment on above: Performed By: #### L 500.4050, L100.0100, L501.9985, L500.4100, L501.9520, L506.1000 #### [facility] [address] [place], [address] CO2 [Moles/Vol] 23.0 mmol/L Normal 21.0-32.0 [facility] Comment on above: Performed By: #### L 500.4050, L100.0100, L501.9985, L500.4100, L501.9520, L506.1000 #### [facility] [address] [place], [address] Creatinine [Mass/Vol] 0.98 mg/dL Normal 0.70-1.30 [facility] Comment on above: Result Comment: The validity of the calculated GFR GFRAA in patients over 70 years has not been determined. Clinical correlation is essential. Performed By: #### L 500.4050, L100.0100, L501.9985, L500.4100, L501.9520, L506.1000 #### [facility] [address] [place], [address] EST GFR - AA 95 mL/min Normal >60 [facility] Comment on above: Result Comment: Afri can Afghan GFR Calc Performed By: #### L 500.4050, L100.0100, L501.9985, L500.4100, L501.9520, L506.1000 #### [facility] [address] [place], [address] GAP 7 Normal 5-15 [facility] Comment on above: Performed By: #### L 500.4050, L100.0100, L501.9985, L500.4100, L501.9520, L506.1000 #### [facility] [address] [place], [address] GFR/1.73 sq M.predicted among non-blacks MDRD (S/P/Bld) [Vol rate/Area] 78 mL/min/{1.73_m2} Normal >60 [facility] Comment on above: Result Comment: Non- GFR Calc Performed By: #### L 500.4050, L100.0100, L501.9985, L500.4100, L501.9520, L506.1000 #### [facility] [address] [place], [address] Globulin (S) [Mass/Vol] 3.3 g/dL Normal 2.2-4.2 [facility] Comment on above: Performed By: #### L 500.4050, L100.0100, L501.9985, L500.4100, L501.9520, L506.1000 #### [facility] [address] [place], [address] Glucose [Mass/Vol] 153 mg/dL High 74-106 [facility] Comment on above: Result Comment: Fast ing Glucose result greater than or equal to 126 mg/dL suggests DIABETES MELLITUS per A.D.A. criteria. Performed By: #### L 500.4050, L100.0100, L501.9985, L500.4100, L501.9520, L506.1000 #### [facility] [address] [place], [address] Potassium [Moles/Vol] 4.1 mmol/L Normal 3.5-5.1 [facility] Comment on above: Performed By: #### L 500.4050, L100.0100, L501.9985, L500.4100, L501.9520, L506.1000 #### [facility] [address] [place], [address] Sodium [Moles/Vol] 140 mmol/L Normal 136-145 [facility] Comment on above: Performed By: #### L 500.4050, L100.0100, L501.9985, L500.4100, L501.9520, L506.1000 #### [facility] [address] [place], [address] T PROT 7.0 g/dL Normal 6.4-8.2 [facility] Comment on above: Performed By: #### L 500.4050, L100.0100, L501.9985, L500.4100, L501.9520, L506.1000 #### [facility] [address] [place], [address] Urea nitrogen [Mass/Vol] 15 mg/dL Normal 7-18 [facility] Comment on above: Performed By: #### L 500.4050, L100.0100, L501.9985, L500.4100, L501.9520, L506.1000 #### [facility] [address] [place], [address] Hemoglobin A1con 06-09-2024 HbA1c (Bld) [Mass fraction] 7.5 % High 3.8-5.6 [facility] Comment on above: Result Comment: Norm al < 5.7 % Prediabetic 5.7 - 6.4 % Diabetic >or= 6.5 % Please note range changes. Performed By: #### L 502.0250, L500.4050, L501.9985, L500.4100, L506.1001, L501.9520, L100.0100 #### [facility] [address] [place], [address] Lipid Profileon 06-09-2024 Cholesterol [Mass/Vol] 105 mg/dL Normal 200 [facility] Comment on above: Result Comment: <200 mg/dL Desirable 200-240 mg/dL Borderline >240 mg/dL High Risk Performed By: #### L 500.4050, L100.0100, L501.9985, L500.4100, L501.9520, L506.1000 #### [facility] [address] [place], [address] Cholesterol in HDL [Mass/Vol] 49 mg/dL Normal [facility] Comment on above: Result Comment: The drugs N-Acetylcysteine and Metamizole may falsely depress this assay. Reference Range HDL <40 mg/dL Low HDL Cholesterol HDL >or= 60 mg/dL High HDL Cholesterol Performed By: #### L 500.4050, L100.0100, L501.9985, L500.4100, L501.9520, L506.1000 #### [facility] [address] [place], [address] Cholesterol in LDL [Mass/Vol] 39 mg/dL Normal 0-130 [facility] Comment on above: Performed By: #### L 500.4050, L100.0100, L501.9985, L500.4100, L501.9520, L506.1000 #### [facility] [address] [place], [address] Cholesterol in VLDL [Mass/Vol] 17 mg/dL Normal 5-40 [facility] Comment on above: Performed By: #### L 500.4050, L100.0100, L501.9985, L500.4100, L501.9520, L506.1000 #### [facility] [address] [place], [address] Triglyceride [Mass/Vol] 83 mg/dL Normal [facility] Comment on above: Result Comment: The drugs N-Acetylcysteine and Metamizole may falsely depress this assay. Serum Triglycerides Reference Interval Normal <150 mg/dL Borderline high 150 - 199 mg/dL High 200 - 499 mg/dL Very High > or = 500 mg/dL Performed By: #### L 500.4050, L100.0100, L501.9985, L500.4100, L501.9520, L506.1000 #### [facility] [address] [place], [address] Thyroid Stim Hormone (TSH)on 06-09-2024 TSH 2.820 uIU/mL Normal 0.358-3.740 [facility] Comment on above: Performed By: #### L 502.0250, L500.4050, L501.9985, L500.4100, L506.1001, L501.9520, L100.0100 #### [facility] [address] [place], [place], [id number] Vitamin D,25 Hydroxyon 06-09 Vitamin D 25-OH 37.3 ng/mL Normal [facility] Comment on above: Result Comment: Yessenia min D 25(OH) Status Range Deficiency <20 ng/mL (50nmol/L) Insufficiency 20 - 30 ng/mL (50 - 75 nmol/L) Sufficiency 30 - 100 ng/mL (75 - 250 nmol/L) Toxicity >100 ng/mL (>250 nmol/L) Performed By: #### L 502.0250, L500.4050, L501.9985, L500.4100, L506.1001, L501.9520, L100.0100 #### [facility] [address] [place], [address] Absolute lymphocyte countOrd ered By: Gustavo Vinson on 12-08-2023 Lymphocytes Auto (Unsp spec) [#/Vol] 1.19 10*3/uL 0.83-4.51 [facility] Automated lymphocyte count a s percentage of total leukocytesOrdered By: Gustavo Vinson on 12-08-2023 Lymphocytes/100 WBC Auto (Unsp spec) 18.9 % 19-41 [facility] Basophil percentageOrdered B y: Gustavo Vinson on 12-08-2023 Basophils/100 WBC (Bld) 0.8 % 0-1 [facility] Bilirubin [Mass/Vol] 0.70 mg/dL 0.20-1.00 [facility] Comment on above: For patients on eltr ombopag therapy, use of Dimension [place] TBIL is not recommended. Chloride [Moles/Vol] 107 mmol/L 98-107 [facility] Cholesterol [Mass/Vol] 109 mg/dL <200 [facility] Comment on above: <200 mg/dL Desirable 200-240 mg/dL Borderline >240 mg/dL High Risk Eosinophils/100 WBC (Bld) 5.2 % 0-5 [facility] Glucose [Mass/Vol] 150 mg/dL 74-106 [facility] Comment on above: Fasting Glucose resu lt greater than or equal to 126 mg/dL suggests DIABETES MELLITUS per A.D.A. criteria. Hemoglobin (Bld) [Mass/Vol] 15.0 g/dL 13.0-16.5 [facility] Monocytes/100 WBC (Bld) 11.9 % 0-10 [facility] Neutrophils (Bld) [#/Vol] 4.0 10*3/uL 2.0-7.7 [facility] Neutrophils/100 WBC (Bld) 62.9 % 47-70 [facility] Potassium [Moles/Vol] 4.3 mmol/L 3.5-5.1 [facility] Protein [Mass/Vol] 7.0 g/dL 6.4-8.2 [facility] Sodium [Moles/Vol] 139 mmol/L 136-145 [facility] Triglyceride [Mass/Vol] 63 mg/dL <199 [facility] Comment on above: The drugs N-Acetylcy steine and Metamizole may falsely depress this assay.Serum Triglycerides Reference Interval Normal <150 mg/dL Borderline high 150 - 199 mg/dL High 200 - 499 mg/dL Very High > or = 500 mg/dL WBC (Bld) [#/Vol] 6.3 10*3/uL 4.4-11.0 [facility] Determination of erythrocyte mean corpuscular volume (MCV)Ordered By: Gustavo Vinson on 12-08-2023 MCV (RBC) [Entitic vol] 93.2 fL 80-94 [facility] Erythrocyte distribution wid th ratioOrdered By: [facility] Erythrocyte distribution width (RBC) [Ratio] 13.3 % 11.6-14.6 [facility] Erythrocyte distribution wid th standard deviationOrdered By: [facility] on 12-08-2023 Erythrocyte distribution width (RBC) [Entitic vol] 45.1 fL 35.1-43.9 [facility] Hematocrit Auto (Bld) [Volum e fraction]Ordered By: [facility] on 12-08-2023 Hematocrit (Bld) [Volume fraction] 46.8 % 40-54 [facility] Immature granulocytes/100 WB C Auto (Bld)Ordered By: [facility] on 12-08-2023 Immature granulocytes/100 WBC (Bld) 0.300 % 0.0-0.9 [facility] Comment on above: IG% - Immature Granu locytes (promyelocytes, myelocytes and metamyelocytes) > 1% indicates that a LEFT SHIFT is Present. Laboratory - Chemistry and C hemistry - challengeOrdered By: [facility] 12-08-2023 Albumin/Globulin [Mass ratio] 1.1 {ratio} 0.9-2.4 [facility] ALP [Catalytic activity/Vol] 43 U/L 45-117 [facility] ALT [Catalytic activity/Vol] 42 U/L 16-61 [facility] Cholesterol in HDL [Mass/Vol] 46 mg/dL >40 [facility] Comment on above: The drugs N-Acetylcy steine and Metamizole may falsely depress this assay. Reference Range HDL <40 mg/dL Low HDL Cholesterol HDL >or= 60 mg/dL High HDL Cholesterol Cholesterol in LDL [Mass/Vol] 50 mg/dL 0-130 [facility] CO2 [Moles/Vol] 26.0 mmol/L 21.0-32.0 [facility] Globulin (S) [Mass/Vol] 3.4 g/dL 2.2-4.2 [facility] Urea nitrogen/Creatinine [Mass ratio] 17.0 mg/mg 10-20 [facility] Laboratory - Hematology and Cell countsOrdered By: Gustavo Karel 12-08-2023 MCH (RBC) [Entitic mass] 29.9 pg 27.0-32.0 [facility] MCHC (RBC) [Mass/Vol] 32.1 g/dL 32-36 [facility] Nucleated RBC/100 WBC (Bld) [Ratio] 0 % 0-5 [facility] Platelet mean volume (Bld) [Entitic vol] 10.3 fL 6.2-12.0 [facility] Platelets (Bld) [#/Vol] 248 10*3/uL 150-450 [facility] No Panel InformationOrdered By: Gustavo Vinson on 12-08-2023 Estimated GFR (MDRD) Amer 100 mL/min >60 [facility] Comment on above: GFR Calc Estimated GFR (MDRD) Non-Af Amer 82 mL/min >60 [facility] Comment on above: Non- GFR Calc Vitamin D 25-Hydroxy 45.5 ng/mL [facility] Comment on above: Vitamin D 25(OH) Sta tus Range Deficiency <20 ng/mL (50nmol/L) Insufficiency 20 - 30 ng/mL (50 - 75 nmol/L) Sufficiency 30 - 100 ng/mL (75 - 250 nmol/L) Toxicity >100 ng/mL (>250 nmol/L) VLDL Cholesterol 13 mg/dL 5-40 [facility] RBC Auto (Bld) [#/Vol]Ordere d By: Gustaov Vinson on 12-08-2023 RBC (Bld) [#/Vol] 5.02 10*6/uL 4.6-6.2 [facility] Serum or plasma calcium emmy urement (mass/volume)Ordered By: Gustavo Vinson on 12-08-2023 Calcium [Mass/Vol] 9.5 mg/dL 8.5-10.1 [facility] Serum or plasma creatinine m easurement (mass/volume)Ordered By: Gustavo Vinson on 12-08-2023 Creatinine [Mass/Vol] 0.94 mg/dL 0.70-1.30 [facility] Comment on above: The validity of the calculated GFR & GFRAA in patients over 70 years has not been determined. Clinical correlation is essential. Serum or plasma thyroid stim ulating hormone (TSH) measurement (units/volume)Ordered By: Gustavo Vinson on 12-08-2023 TSH Qn 1.39 uIU/mL 0.358-3.74 [facility] Serum or plasma urea nitroge n measurement (mass/volume)Ordered By: Gustavo Vinson on 12-08-2023 Urea nitrogen [Mass/Vol] 16 mg/dL 7-18 [facility] Thin prep Papanicolaou smear with manual screeningOrdered By: Gustavo Vinson on 12-08-2023 Thin prep Papanicolaou smear with manual screening 3.6 g/dL 3.2-5.0 [facility] Thin prep Papanicolaou smear with manual screening 21 U/L 15-37 [facility] Thin prep Papanicolaou smear with manual screening 6 5-15 [facility] Whole blood hemoglobin A1c/t otal hemoglobin ratio (mass fraction)Ordered By: Gustavo Vinson on 12-08-2023 HbA1c (Bld) [Mass fraction] 7.4 % 3.8-5.6 [facility] Comment on above: Normal < 5.7 % Predi abetic 5.7 - 6.4 % Diabetic >or= 6.5 % Please note range changes. Basophil percentageOrdered B y: Lisha Barnard on 08-28-2023 Bilirubin [Mass/Vol] 0.80 mg/dL 0.20-1.00 [facility] Comment on above: For patients on eltr ombopag therapy, use of Dimension [place] TBIL is not recommended. Cholesterol [Mass/Vol] 112 mg/dL <200 [facility] Comment on above: <200 mg/dL Desirable 200-240 mg/dL Borderline >240 mg/dL High Risk Protein [Mass/Vol] 7.0 g/dL 6.4-8.2 [facility] Triglyceride [Mass/Vol] 72 mg/dL <199 [facility] Comment on above: The drugs N-Acetylcy steine and Metamizole may falsely depress this assay.Serum Triglycerides Reference Interval Normal <150 mg/dL Borderline high 150 - 199 mg/dL High 200 - 499 mg/dL Very High > or = 500 mg/dL Direct bilirubinOrdered By: Lisha Barnard on 08-28-2023 Bilirubin.direct [Mass/Vol] 0.22 mg/dL 0.00-0.30 [facility] Laboratory - Chemistry and C hemistry - challengeOrdered By: Lisha Barnard on 08-28-2023 ALP [Catalytic activity/Vol] 42 U/L 45-117 [facility] ALT [Catalytic activity/Vol] 37 U/L 16-61 [facility] Globulin (S) [Mass/Vol] 3.5 g/dL 2.2-4.2 [facility] Serum or plasma albumin emmy urement (mass/volume)Ordered By: Lisha Barnard on 08-28-2023 Albumin [Mass/Vol] 3.5 g/dL 3.2-5.0 [facility] Serum or plasma cholesterol in HDL measurement (mass/volume)Ordered By: Lisha Barnard on 08-28-2023 Cholesterol in HDL [Mass/Vol] 47 mg/dL >40 [facility] Comment on above: The drugs N-Acetylcy steine and Metamizole may falsely depress this assay. Reference Range HDL <40 mg/dL Low HDL Cholesterol HDL >or= 60 mg/dL High HDL Cholesterol Serum or plasma cholesterol in VLDL measurement (mass/volume)Ordered By: Lisha Barnard on 08-28-2023 Cholesterol in VLDL [Mass/Vol] 14 mg/dL 5-40 [facility] Serum or plasma low density lipoprotein (LDL) cholesterol measurement (mass/volume)Ordered By: Lisha Barnard on 08-28-2023 Cholesterol in LDL [Mass/Vol] 51 mg/dL 0-130 [facility] Thin prep Papanicolaou smear with manual screeningOrdered By: Lisha Barnard on 08-28-2023 Thin prep Papanicolaou smear with manual screening 22 U/L 15-37 [facility] Absolute lymphocyte countOrd ered By: Gustavo Vinson on 06-07-2023 Lymphocytes Auto (Unsp spec) [#/Vol] 1.30 10*3/uL 0.83-4.51 [facility] Basophil percentageOrdered B y: Gustavo Vinson on 06-07-2023 Basophils/100 WBC (Bld) 0.8 % 0-1 [facility] Bilirubin [Mass/Vol] 0.70 mg/dL 0.20-1.00 [facility] Comment on above: For patients on eltr ombopag therapy, use of Dimension [place] TBIL is not recommended. Chloride [Moles/Vol] 106 mmol/L 98-107 [facility] Eosinophils/100 WBC (Bld) 3.8 % 0-5 [facility] Glucose [Mass/Vol] 146 mg/dL 74-106 [facility] Comment on above: Fasting Glucose resu lt greater than or equal to 126 mg/dL suggests DIABETES MELLITUS per A.D.A. criteria. Neutrophils (Bld) [#/Vol] 4.1 10*3/uL 2.0-7.7 [facility] Neutrophils/100 WBC (Bld) 65.1 % 47-70 [facility] Potassium [Moles/Vol] 4.1 mmol/L 3.5-5.1 [facility] Protein [Mass/Vol] 7.0 g/dL 6.4-8.2 [facility] Sodium [Moles/Vol] 140 mmol/L 136-145 [facility] WBC (Bld) [#/Vol] 6.3 10*3/uL 4.4-11.0 [facility] Blood erythrocytes count (nu mber/volume)Ordered By: Gustavo Vinson on 06-07-2023 RBC (Bld) [#/Vol] 4.91 10*6/uL 4.6-6.2 [facility] Blood hemoglobin measurement (mass/volume)Ordered By: Gustavo Vinson on 06-07-2023 Hemoglobin (Bld) [Mass/Vol] 14.8 g/dL 13.0-16.5 [facility] Blood lymphocytes/100 leukoc ytesOrdered By: Gustavo Vinson on 06-07-2023 Lymphocytes/100 WBC (Bld) 20.6 % 19-41 [facility] Blood monocytes/100 leukocyt esOrdered By: Gustavo Vinson on 06-07-2023 Monocytes/100 WBC (Bld) 9.2 % 0-10 [facility] Blood platelet mean volumeOr dered By: Gustavo Vinson on 06-07-2023 Platelet mean volume (Bld) [Entitic vol] 10.2 fL 6.2-12.0 [facility] Determination of erythrocyte mean corpuscular volume (MCV)Ordered By: Gustavo Vinson on 06-07-2023 MCV (RBC) [Entitic vol] 94.5 fL 80-94 [facility] Hematocrit Auto (Bld) [Volum e fraction]Ordered By: Gustavo Vinson on 06-07-2023 Hematocrit (Bld) [Volume fraction] 46.4 % 40-54 [facility] Laboratory - Chemistry and C hemistry - challengeOrdered By: Gustavo Vinson on 06-07-2023 ALP [Catalytic activity/Vol] 44 U/L 45-117 [facility] ALT [Catalytic activity/Vol] 42 U/L 16-61 [facility] CO2 [Moles/Vol] 28.0 mmol/L 21.0-32.0 [facility] Globulin (S) [Mass/Vol] 3.3 g/dL 2.2-4.2 [facility] Urea nitrogen/Creatinine [Mass ratio] 14.7 mg/mg 10-20 [facility] Laboratory - Hematology and Cell countsOrdered By: Gustavo Vinson on 06-07-2023 Erythrocyte distribution width (RBC) [Entitic vol] 46.3 fL 35.1-43.9 [facility] Erythrocyte distribution width (RBC) [Ratio] 13.4 % 11.6-14.6 [facility] Immature granulocytes/100 WBC (Bld) 0.500 % 0.0-0.9 [facility] Comment on above: IG% - Immature Granu locytes (promyelocytes, myelocytes and metamyelocytes) > 1% indicates that a LEFT SHIFT is Present. MCH (RBC) [Entitic mass] 30.1 pg 27.0-32.0 [facility] Nucleated RBC/100 WBC (Bld) [Ratio] 0 % 0-5 [facility] MCHC Auto (RBC) [Mass/Vol]Or dered By: Gustavo Vinson on 06-07-2023 MCHC (RBC) [Mass/Vol] 31.9 g/dL 32-36 [facility] No Panel InformationOrdered By: Gustavo Karel on 06-07-2023 Estimated GFR (MDRD) Amer 91 mL/min >60 [facility] Comment on above: GFR Calc Estimated GFR (MDRD) Non-Af Amer 75 mL/min >60 [facility] Comment on above: Non- GFR Calc Thyroid Stimulating Hormone (TSH) 2.67 uIU/mL 0.358-3.74 [facility] Vitamin D 25-Hydroxy 48.7 ng/mL [facility] Comment on above: Vitamin D 25(OH) Sta tus Range Deficiency <20 ng/mL (50nmol/L) Insufficiency 20 - 30 ng/mL (50 - 75 nmol/L) Sufficiency 30 - 100 ng/mL (75 - 250 nmol/L) Toxicity >100 ng/mL (>250 nmol/L) Platelets bldOrdered By: Gustavo Vinson on 06-07-2023 Platelets (Bld) [#/Vol] 245 10*3/uL 150-450 [facility] Serum or plasma albumin emmy urement (mass/volume)Ordered By: Gustavo Vinson on 06-07-2023 Albumin [Mass/Vol] 3.7 g/dL 3.2-5.0 [facility] Serum or plasma albumin/glob ulin mass ratioOrdered By: Gustavo Vinson on 06-07-2023 Albumin/Globulin [Mass ratio] 1.1 {ratio} 0.9-2.4 [facility] Serum or plasma calcium emmy urement (mass/volume)Ordered By: Gustavo Vinson on 06-07-2023 Calcium [Mass/Vol] 9.3 mg/dL 8.5-10.1 [facility] Serum or plasma creatinine m easurement (mass/volume)Ordered By: Gustavo Vinson on 06-07-2023 Creatinine [Mass/Vol] 1.02 mg/dL 0.70-1.30 [facility] Comment on above: The validity of the calculated GFR & GFRAA in patients over 70 years has not been determined. Clinical correlation is essential. Serum or plasma urea nitroge n measurement (mass/volume)Ordered By: Gustavo Vinson on 06-07-2023 Urea nitrogen [Mass/Vol] 15 mg/dL 18 [facility] Thin prep Papanicolaou smear with manual screeningOrdered By: Gustavo Vinson on 06-07-2023 Thin prep Papanicolaou smear with manual screening 23 U/L 15-37 [facility] Thin prep Papanicolaou smear with manual screening 6 5-15 [facility] Absolute lymphocyte countOrd ered By: Lisha Barnard on 03-01-2023 Lymphocytes Auto (Unsp spec) [#/Vol] 1.44 10*3/uL 0.83-4.51 [facility] Basophil percentageOrdered B y: Lisha Barnard on 03-01-2023 Basophils/100 WBC (Bld) 0.8 % 0-1 [facility] Eosinophils/100 WBC (Bld) 5.2 % 0-5 [facility] Neutrophils (Bld) [#/Vol] 4.1 10*3/uL 2.0-7.7 [facility] Neutrophils/100 WBC (Bld) 62.1 % 47-70 [facility] WBC (Bld) [#/Vol] 6.5 10*3/uL 4.4-11.0 [facility] Bilirubin [Mass/Vol] 0.70 mg/dL 0.20-1.00 [facility] Comment on above: For patients on eltr ombopag therapy, use of Dimension [place] TBIL is not recommended. Cholesterol [Mass/Vol] 99 mg/dL <200 [facility] Comment on above: <200 mg/dL Desirable 200-240 mg/dL Borderline >240 mg/dL High Risk Protein [Mass/Vol] 7.0 g/dL 6.4-8.2 [facility] Triglyceride [Mass/Vol] 71 mg/dL <199 [facility] Comment on above: The drugs N-Acetylcy steine and Metamizole may falsely depress this assay.Serum Triglycerides Reference Interval Normal <150 mg/dL Borderline high 150 - 199 mg/dL High 200 - 499 mg/dL Very High > or = 500 mg/dL Blood erythrocytes count (nu mber/volume)Ordered By: Lisha Barnard on 03-01-2023 RBC (Bld) [#/Vol] 4.85 10*6/uL 4.6-6.2 [facility] Blood hemoglobin measurement (mass/volume)Ordered By: Lisha Barnard on 03-01-2023 Hemoglobin (Bld) [Mass/Vol] 14.9 g/dL 13.0-16.5 [facility] Blood lymphocytes/100 leukoc ytesOrdered By: Lisha Barnard on 03-01-2023 Lymphocytes/100 WBC (Bld) 22.1 % 19-41 [facility] Blood monocytes/100 leukocyt esOrdered By: Lisha Barnard on 03-01-2023 Monocytes/100 WBC (Bld) 9.5 % 0-10 [facility] Blood platelet mean volumeOr dered By: Lisha Barnard on 03-01-2023 Platelet mean volume (Bld) [Entitic vol] 10.0 fL 6.2-12.0 [facility] Determination of erythrocyte mean corpuscular volume (MCV)Ordered By: Lisha Barnard on 03-01-2023 MCV (RBC) [Entitic vol] 96.1 fL 80-94 [facility] Direct bilirubinOrdered By: Lisha Barnard on 03-01-2023 Bilirubin.direct [Mass/Vol] 0.23 mg/dL 0.00-0.30 [facility] Hematocrit Auto (Bld) [Volum e fraction]Ordered By: Lisah Barnard on 03-01-2023 Hematocrit (Bld) [Volume fraction] 46.6 % 40-54 [facility] Laboratory - Chemistry and C hemistry - challengeOrdered By: Lisha Barnard on 03-01-2023 ALP [Catalytic activity/Vol] 43 U/L 45-117 [facility] ALT [Catalytic activity/Vol] 34 U/L 16-61 [facility] Globulin (S) [Mass/Vol] 3.5 g/dL 2.2-4.2 [facility] Laboratory - Hematology and Cell countsOrdered By: Lisha Barnard on 03-01-2023 Erythrocyte distribution width (RBC) [Entitic vol] 46.6 fL 35.1-43.9 [facility] Erythrocyte distribution width (RBC) [Ratio] 13.1 % 11.6-14.6 [facility] Immature granulocytes/100 WBC (Bld) 0.300 % 0.0-0.9 [facility] Comment on above: IG% - Immature Granu locytes (promyelocytes, myelocytes and metamyelocytes) > 1% indicates that a LEFT SHIFT is Present. MCH (RBC) [Entitic mass] 30.7 pg 27.0-32.0 [facility] Nucleated RBC/100 WBC (Bld) [Ratio] 0 % 0-5 [facility] MCHC Auto (RBC) [Mass/Vol]Or dered By: Lisha Barnard on 03-01-2023 MCHC (RBC) [Mass/Vol] 32.0 g/dL 32-36 [facility] No Panel InformationOrdered By: Lisha Barnard on 03-01-2023 Vitamin D 25-Hydroxy 62.7 ng/mL [facility] Comment on above: Vitamin D 25(OH) Sta tus Range Deficiency <20 ng/mL (50nmol/L) Insufficiency 20 - 30 ng/mL (50 - 75 nmol/L) Sufficiency 30 - 100 ng/mL (75 - 250 nmol/L) Toxicity >100 ng/mL (>250 nmol/L) Thyroid Stimulating Hormone (TSH) 1.31 uIU/mL 0.358-3.74 [facility] Platelets bldOrdered By: Alon Barnard on 03-01-2023 Platelets (Bld) [#/Vol] 227 10*3/uL 150-450 [facility] Serum or plasma albumin emmy urement (mass/volume)Ordered By: Lisha Barnard on 03-01-2023 Albumin [Mass/Vol] 3.5 g/dL 3.2-5.0 [facility] Serum or plasma cholesterol in HDL measurement (mass/volume)Ordered By: Lisha Barnard on 03-01-2023 Cholesterol in HDL [Mass/Vol] 43 mg/dL >40 [facility] Comment on above: The drugs N-Acetylcy steine and Metamizole may falsely depress this assay. Reference Range HDL <40 mg/dL Low HDL Cholesterol HDL >or= 60 mg/dL High HDL Cholesterol Serum or plasma cholesterol in VLDL measurement (mass/volume)Ordered By: Lisha Barnard on 03-01-2023 Cholesterol in VLDL [Mass/Vol] 14 mg/dL 5-40 [facility] Serum or plasma low density lipoprotein (LDL) cholesterol measurement (mass/volume)Ordered By: Lisha Barnard on 03-01-2023 Cholesterol in LDL [Mass/Vol] 42 mg/dL 0-130 [facility] Thin prep Papanicolaou smear with manual screeningOrdered By: Lisha Barnard on 03-01-2023 Thin prep Papanicolaou smear with manual screening 20 U/L 15-37 [facility] Calcium oxalate dihydrate cr ystals detection in stone by infrared spectroscopyOrdered By: Dr. Trimble on 01-04-2023 Calcium oxalate dihydrate crystals Infrared spectroscopy Ql (Stone) 20 % [facility] Color of specimen determinat ionOrdered By: Dr. Trimble on 01-04-2023 Color (Unsp spec) Espinoza [facility] Laboratory - Miscellaneous t estsOrdered By: Dr. Trimble on 01-04-2023 Service comment (Unsp spec) [Interp] See comment [facility] Comment on above: Physician questions regarding Calculi Analysis [facility] at: [phone]. Calculi report will follow via computer, mail or courierdelivery. Measurement of weight of sto neOrdered By: Dr. Trimble on 01-04-2023 Weight (Stone) 170 mg [facility] No Panel InformationOrdered By: Dr. Trimble on 01-04-2023 Stone Analysis (T) See comment [facility] Comment on above: Percentage (Represen ts the % composition) Stone Calcium Oxalate Monohydrate 80 % [facility] Origin of StoneOrdered By: Ronnie Trimble on 01-04-2023 Origin Nom (Stone) Not Provided [facility] Size of stoneOrdered By: Dr. Trimble on 01-04-2023 Size (Stone) [Entitic vol] 5x8 mm [facility] Comment on above: Single piece receive d. Thin prep Papanicolaou smear with manual screeningOrdered By: Dr. Trimble on 01-04-2023 Thin prep Papanicolaou smear with manual screening See comment [facility] Comment on above: Photograph will foll ow under a separate cover Absolute lymphocyte countOrd ered By: Dr. Davalos on 12-25-2022 Lymphocytes Auto (Unsp spec) [#/Vol] 1.43 10*3/uL 0.83-4.51 [facility] Basophil percentageOrdered B y: Dr. Davalos on 12-25-2022 Basophils/100 WBC (Bld) 0.7 % 0-1 [facility] Chloride [Moles/Vol] 109 mmol/L 98-107 [facility] Eosinophils/100 WBC (Bld) 2.0 % 0-5 [facility] Glucose [Mass/Vol] 153 mg/dL 74-106 [facility] Comment on above: Fasting Glucose resu lt greater than or equal to 126 mg/dL suggests DIABETES MELLITUS per A.D.A. criteria. Neutrophils (Bld) [#/Vol] 4.9 10*3/uL 2.0-7.7 [facility] Neutrophils/100 WBC (Bld) 65.2 % 47-70 [facility] Potassium [Moles/Vol] 4.1 mmol/L 3.5-5.1 [facility] Sodium [Moles/Vol] 142 mmol/L 136-145 [facility] WBC (Bld) [#/Vol] 7.5 10*3/uL 4.4-11.0 [facility] Basophil percentageOrdered B y: ED PROVIDER on 12-25-2022 Basophil percentage 0 SEEN /hpf 0-5 [facility] Bilirubin Test strip Ql (U)O rdered By: ED PROVIDER on 12-25-2022 Bilirubin Ql (U) Negative Negative [facility] Blood erythrocytes count (nu mber/volume)Ordered By: Dr. Davalos on 12-25-2022 RBC (Bld) [#/Vol] 4.79 10*6/uL 4.6-6.2 [facility] Blood hemoglobin measurement (mass/volume)Ordered By: Dr. Davalos on 12-25-2022 Hemoglobin (Bld) [Mass/Vol] 14.8 g/dL 13.0-16.5 [facility] Blood lymphocytes/100 leukoc ytesOrdered By: Dr. Davalos on 12-25-2022 Lymphocytes/100 WBC (Bld) 19.1 % 19-41 [facility] Blood monocytes/100 leukocyt esOrdered By: Dr. Davalos on 12-25-2022 Monocytes/100 WBC (Bld) 12.7 % 0-10 [facility] Blood platelet mean volumeOr dered By: Dr. Davalos on 12-25-2022 Platelet mean volume (Bld) [Entitic vol] 10.4 fL 6.2-12.0 [facility] Determination of erythrocyte mean corpuscular volume (MCV)Ordered By: Dr. Davalos on 12-25-2022 MCV (RBC) [Entitic vol] 93.9 fL 80-94 [facility] Hematocrit Auto (Bld) [Volum e fraction]Ordered By: Dr. Davalos on 12-25-2022 Hematocrit (Bld) [Volume fraction] 45.0 % 40-54 [facility] Ketones Test strip Ql (U)Ord ered By: ED PROVIDER on 12-25-2022 Ketones Ql (U) 5 mg/dl Negative [facility] Laboratory - Chemistry and C hemistry - challengeOrdered By: Dr. Davalos on 12-25-2022 CO2 [Moles/Vol] 28.0 mmol/L 21.0-32.0 [facility] Urea nitrogen/Creatinine [Mass ratio] 13.3 mg/mg 10-20 [facility] Laboratory - Hematology and Cell countsOrdered By: Dr. Davalos on 12-25-2022 Erythrocyte distribution width (RBC) [Entitic vol] 46.6 fL 35.1-43.9 [facility] Erythrocyte distribution width (RBC) [Ratio] 13.5 % 11.6-14.6 [facility] Immature granulocytes/100 WBC (Bld) 0.300 % 0.0-0.9 [facility] Comment on above: IG% - Immature Granu locytes (promyelocytes, myelocytes and metamyelocytes) > 1% indicates that a LEFT SHIFT is Present. MCH (RBC) [Entitic mass] 30.9 pg 27.0-32.0 [facility] Nucleated RBC/100 WBC (Bld) [Ratio] 0 % 0-5 [facility] MCHC Auto (RBC) [Mass/Vol]Or dered By: Dr. Davalos on 12-25-2022 MCHC (RBC) [Mass/Vol] 32.9 g/dL 32-36 [facility] Mucus LM Ql (Urine sed)Order ed By: ED PROVIDER on 12-25-2022 Mucus Ql (Urine sed) 0 SEEN /hpf [facility] Nitrite Test strip Ql (U)Ord ered By: ED PROVIDER on 12-25-2022 Nitrite Ql (U) Negative Negative [facility] No Panel InformationOrdered By: Dr. Davalos on 12-25-2022 Estimated Creatinine Clearance Calc 42.57 ml/min [facility] Estimated GFR (MDRD) Amer 61 mL/min >60 [facility] Comment on above: GFR Calc Estimated GFR (MDRD) Non-Af Amer 51 mL/min >60 [facility] Comment on above: Non- GFR Calc Platelets bldOrdered By: Dr. Davalos on 12-25-2022 Platelets (Bld) [#/Vol] 267 10*3/uL 150-450 [facility] Protein Test strip Ql (U)Ord ered By: ED PROVIDER on 12-25-2022 Protein Ql (U) 30 mg/dl Negative [facility] Serum or plasma calcium emmy urement (mass/volume)Ordered By: Dr. Davalos on 12-25-2022 Calcium [Mass/Vol] 10.0 mg/dL 8.5-10.1 [facility] Serum or plasma creatinine m easurement (mass/volume)Ordered By: Dr. Davalos on 12-25-2022 Creatinine [Mass/Vol] 1.43 mg/dL 0.70-1.30 [facility] Comment on above: The validity of the calculated GFR & GFRAA in patients over 70 years has not been determined. Clinical correlation is essential. Serum or plasma urea nitroge n measurement (mass/volume)Ordered By: Dr. Davalos on 12-25-2022 Urea nitrogen [Mass/Vol] 19 mg/dL 7-18 [facility] Squamous epithelial cells de tection in urine sediment by light microscopyOrdered By: ED PROVIDER on 12-25-2022 Epithelial cells.squamous LM Ql (Urine sed) 0 SEEN /hpf 0-5 [facility] Thin prep Papanicolaou smear with manual screeningOrdered By: Dr. Davalos on 12-25-2022 Thin prep Papanicolaou smear with manual screening 5 5-15 [facility] Urine blood detectionOrdered By: ED PROVIDER on 12-25-2022 RBC Ql (U) 150 /ul Negative [facility] RBC Ql (U) 0-5 SEEN /hpf 0-5 [facility] Urine clarityOrdered By: ED PROVIDER on 12-25-2022 Clarity (U) Clear Clear [facility] Urine color determinationOrd ered By: ED PROVIDER on 12-25-2022 Color (U) Yellow Yellow [facility] Urine glucose detectionOrder ed By: ED PROVIDER on 12-25-2022 Glucose Ql (U) Normal mg/dl Normal [facility] Urine leukocyte esterase det ection by dipstickOrdered By: ED PROVIDER on 12-25-2022 Leukocyte esterase Test strip Ql (U) Negative Negative [facility] Urine pHOrdered By: ED PROVI MIHIR on 12-25-2022 pH (U) 5.0 [pH] 5.0 - 8.0 [facility] Urine sediment bacteria coun t by microscopy (number/high power field)Ordered By: ED PROVIDER on 12-25-2022 Bacteria LM.HPF (Urine sed) [#/Area] 0 /[HPF] None Seen [facility] Urine specific gravity measu rementOrdered By: ED PROVIDER on 12-25-2022 Specific gravity (U) [Rel density] 1.025 1.002-1.030 [facility] Urobilinogen Auto test strip Ql (U)Ordered By: ED PROVIDER on 12-25-2022 Urobilinogen Ql (U) Normal mg/dl Normal [facility] Absolute lymphocyte countOrd ered By: Dr. Vinson on 12-03-2022 Lymphocytes Auto (Unsp spec) [#/Vol] 1.28 10*3/uL 0.83-4.51 [facility] Basophil percentageOrdered B y: Dr. Vinson on 12-03-2022 Basophils/100 WBC (Bld) 0.4 % 0-1 [facility] Bilirubin [Mass/Vol] 0.80 mg/dL 0.20-1.00 [facility] Comment on above: For patients on eltr ombopag therapy, use of Dimension [place] TBIL is not recommended. Chloride [Moles/Vol] 108 mmol/L 98-107 [facility] Eosinophils/100 WBC (Bld) 2.5 % 0-5 [facility] Glucose [Mass/Vol] 147 mg/dL 74-106 [facility] Comment on above: Fasting Glucose resu lt greater than or equal to 126 mg/dL suggests DIABETES MELLITUS per A.D.A. criteria. Neutrophils (Bld) [#/Vol] 5.5 10*3/uL 2.0-7.7 [facility] Neutrophils/100 WBC (Bld) 71.0 % 47-70 [facility] Potassium [Moles/Vol] 4.3 mmol/L 3.5-5.1 [facility] Protein [Mass/Vol] 7.0 g/dL 6.4-8.2 [facility] Sodium [Moles/Vol] 142 mmol/L 136-145 [facility] Testosterone [Mass/Vol] 634.61 ng/dL [facility] Comment on above: CENTRAL 90% REFERENC E RANGES MALE AGE <50 197.44 - 669.58 ng/dL MALE AGE > or = 50 187.72 - 684.19 ng/dL FEMALE AGE <50 8.38 - 35.01 ng/dL FEMALE AGE > or = 50 <7.00 - 35.92 ng/dL Effective as of 04/15/21 WBC (Bld) [#/Vol] 7.7 10*3/uL 4.4-11.0 [facility] Blood erythrocytes count (nu mber/volume)Ordered By: Dr. Vinson on 12-03-2022 RBC (Bld) [#/Vol] 4.82 10*6/uL 4.6-6.2 [facility] Blood hemoglobin measurement (mass/volume)Ordered By: Dr. Vinson on 12-03-2022 Hemoglobin (Bld) [Mass/Vol] 14.9 g/dL 13.0-16.5 [facility] Blood lymphocytes/100 leukoc ytesOrdered By: Dr. Vinson on 12-03-2022 Lymphocytes/100 WBC (Bld) 16.6 % 19-41 [facility] Blood monocytes/100 leukocyt esOrdered By: Dr. Vinson on 12-03-2022 Monocytes/100 WBC (Bld) 8.7 % 0-10 [facility] Blood platelet mean volumeOr dered By: Dr. Vinson on 12-03-2022 Platelet mean volume (Bld) [Entitic vol] 9.7 fL 6.2-12.0 [facility] Determination of erythrocyte mean corpuscular volume (MCV)Ordered By: Dr. Vinson on 12-03-2022 MCV (RBC) [Entitic vol] 94.8 fL 80-94 [facility] Hematocrit Auto (Bld) [Volum e fraction]Ordered By: Dr. Vinson on 12-03-2022 Hematocrit (Bld) [Volume fraction] 45.7 % 40-54 [facility] Laboratory - Chemistry and C hemistry - challengeOrdered By: Dr. Vinson on 12-03-2022 ALP [Catalytic activity/Vol] 45 U/L 45-117 [facility] ALT [Catalytic activity/Vol] 42 U/L 16-61 [facility] CO2 [Moles/Vol] 25.0 mmol/L 21.0-32.0 [facility] Globulin (S) [Mass/Vol] 3.5 g/dL 2.2-4.2 [facility] Urea nitrogen/Creatinine [Mass ratio] 17.7 mg/mg 10-20 [facility] Laboratory - Hematology and Cell countsOrdered By: Dr. Vinson on 12-03-2022 Erythrocyte distribution width (RBC) [Entitic vol] 44.9 fL 35.1-43.9 [facility] Erythrocyte distribution width (RBC) [Ratio] 12.8 % 11.6-14.6 [facility] Immature granulocytes/100 WBC (Bld) 0.800 % 0.0-0.9 [facility] Comment on above: IG% - Immature Granu locytes (promyelocytes, myelocytes and metamyelocytes) > 1% indicates that a LEFT SHIFT is Present. MCH (RBC) [Entitic mass] 30.9 pg 27.0-32.0 [facility] Nucleated RBC/100 WBC (Bld) [Ratio] 0 % 0-5 [facility] MCHC Auto (RBC) [Mass/Vol]Or dered By: Dr. Vinson on 12-03-2022 MCHC (RBC) [Mass/Vol] 32.6 g/dL 32-36 [facility] No Panel InformationOrdered By: Dr. Vinson on 12-03-2022 Estimated GFR (MDRD) Amer 97 mL/min >60 [facility] Comment on above: GFR Calc Estimated GFR (MDRD) Non-Af Amer 80 mL/min >60 [facility] Comment on above: Non- GFR Calc Thyroid Stimulating Hormone (TSH) 1.54 uIU/mL 0.358-3.74 [facility] Vitamin D 25-Hydroxy 39.2 ng/mL [facility] Comment on above: Vitamin D 25(OH) Sta tus Range Deficiency <20 ng/mL (50nmol/L) Insufficiency 20 - 30 ng/mL (50 - 75 nmol/L) Sufficiency 30 - 100 ng/mL (75 - 250 nmol/L) Toxicity >100 ng/mL (>250 nmol/L) Platelets bldOrdered By: Dr. Vinson on 12-03-2022 Platelets (Bld) [#/Vol] 274 10*3/uL 150-450 [facility] Serum or plasma albumin emmy urement (mass/volume)Ordered By: Dr. Vinson on 12-03-2022 Albumin [Mass/Vol] 3.5 g/dL 3.2-5.0 [facility] Serum or plasma albumin/glob ulin mass ratioOrdered By: Dr. Vinson on 12-03-2022 Albumin/Globulin [Mass ratio] 1.0 {ratio} 0.9-2.4 [facility] Serum or plasma calcium emmy urement (mass/volume)Ordered By: Dr. Vinson on 12-03-2022 Calcium [Mass/Vol] 10.0 mg/dL 8.5-10.1 [facility] Serum or plasma creatinine m easurement (mass/volume)Ordered By: Dr. Vinson on 12-03-2022 Creatinine [Mass/Vol] 0.96 mg/dL 0.70-1.30 [facility] Comment on above: The validity of the calculated GFR & GFRAA in patients over 70 years has not been determined. Clinical correlation is essential. Serum or plasma urea nitroge n measurement (mass/volume)Ordered By: Dr. Vinson on 12-03-2022 Urea nitrogen [Mass/Vol] 17 mg/dL 7-18 [facility] Thin prep Papanicolaou smear with manual screeningOrdered By: Dr. Vinson on 12-03-2022 Thin prep Papanicolaou smear with manual screening 22 U/L 15-37 [facility] Thin prep Papanicolaou smear with manual screening 9 5-15 [facility] Basophil percentageOrdered B y: Dr. Hoff on 09-27-2022 Basophil percentage 0 SEEN /hpf 0-5 [facility] Bilirubin Test strip Ql (U)O rdered By: Dr. Hoff on 09-27-2022 Bilirubin Ql (U) Negative Negative [facility] Ketones Test strip Ql (U)Ord ered By: Dr. Hoff on 09-27-2022 Ketones Ql (U) 5 mg/dl Negative [facility] Mucus LM Ql (Urine sed)Order ed By: Dr. Hoff on 09-27-2022 Mucus Ql (Urine sed) 0 SEEN /hpf [facility] Nitrite Test strip Ql (U)Ord ered By: Dr. Hoff on 09-27-2022 Nitrite Ql (U) Negative Negative [facility] Protein Test strip Ql (U)Ord ered By: Dr. Hoff on 09-27-2022 Protein Ql (U) 30 mg/dl Negative [facility] Squamous epithelial cells de tection in urine sediment by light microscopyOrdered By: Dr. Hoff on 09-27-2022 Epithelial cells.squamous LM Ql (Urine sed) 0-5 SEEN /hpf 0-5 [facility] Urine blood detectionOrdered By: Dr. Hoff on 09-27-2022 RBC Ql (U) 250 /ul Negative [facility] RBC Ql (U) 25-50 SEEN /hpf 0-5 [facility] Urine clarityOrdered By: Dr. Hoff on 09-27-2022 Clarity (U) Clear Clear [facility] Urine color determinationOrd ered By: Dr. Hoff on 09-27-2022 Color (U) Yellow Yellow [facility] Urine glucose detectionOrder ed By: Dr. Hoff on 09-27-2022 Glucose Ql (U) Normal mg/dl Normal [facility] Urine leukocyte esterase det ection by dipstickOrdered By: Dr. Hoff on 09-27-2022 Leukocyte esterase Test strip Ql (U) Negative Negative [facility] Urine pHOrdered By: Dr. Katey marina on 09-27-2022 pH (U) 5.0 [pH] 5.0 - 8.0 [facility] Urine sediment bacteria coun t by microscopy (number/high power field)Ordered By: Dr. Hoff on 09-27-2022 Bacteria LM.HPF (Urine sed) [#/Area] 0 /[HPF] None Seen [facility] Urine specific gravity measu rementOrdered By: Dr. Hoff on 09-27-2022 Specific gravity (U) [Rel density] 1.020 1.002-1.030 [facility] Urobilinogen Auto test strip Ql (U)Ordered By: Dr. Hoff on 09-27-2022 Urobilinogen Ql (U) Normal mg/dl Normal [facility] Absolute lymphocyte countOrd ered By: Dr. Vinson on 09-03-2022 Lymphocytes Auto (Unsp spec) [#/Vol] 1.43 10*3/uL 0.83-4.51 [facility] Basophil percentageOrdered B y: Dr. Vinson on 09-03-2022 Basophils/100 WBC (Bld) 0.7 % 0-1 [facility] Bilirubin [Mass/Vol] 0.60 mg/dL 0.20-1.00 [facility] Comment on above: For patients on eltr ombopag therapy, use of Dimension [place] TBIL is not recommended. Chloride [Moles/Vol] 107 mmol/L 98-107 [facility] Eosinophils/100 WBC (Bld) 5.1 % 0-5 [facility] Glucose [Mass/Vol] 155 mg/dL 74-106 [facility] Comment on above: Fasting Glucose resu lt greater than or equal to 126 mg/dL suggests DIABETES MELLITUS per A.D.A. criteria. Neutrophils (Bld) [#/Vol] 3.5 10*3/uL 2.0-7.7 [facility] Neutrophils/100 WBC (Bld) 59.7 % 47-70 [facility] Potassium [Moles/Vol] 3.8 mmol/L 3.5-5.1 [facility] Protein [Mass/Vol] 6.8 g/dL 6.4-8.2 [facility] Sodium [Moles/Vol] 140 mmol/L 136-145 [facility] Testosterone [Mass/Vol] 663.54 ng/dL [facility] Comment on above: CENTRAL 90% REFERENC E RANGES MALE AGE <50 197.44 - 669.58 ng/dL MALE AGE > or = 50 187.72 - 684.19 ng/dL FEMALE AGE <50 8.38 - 35.01 ng/dL FEMALE AGE > or = 50 <7.00 - 35.92 ng/dL Effective as of 04/15/21 WBC (Bld) [#/Vol] 5.9 10*3/uL 4.4-11.0 [facility] Blood erythrocytes count (nu mber/volume)Ordered By: Dr. Vinson on 09-03-2022 RBC (Bld) [#/Vol] 4.89 10*6/uL 4.6-6.2 [facility] Blood hemoglobin measurement (mass/volume)Ordered By: Dr. Vinson on 09-03-2022 Hemoglobin (Bld) [Mass/Vol] 14.7 g/dL 13.0-16.5 [facility] Blood lymphocytes/100 leukoc ytesOrdered By: Dr. Vinson on 09-03-2022 Lymphocytes/100 WBC (Bld) 24.2 % 19-41 [facility] Blood monocytes/100 leukocyt esOrdered By: Dr. Vinson on 09-03-2022 Monocytes/100 WBC (Bld) 10.0 % 0-10 [facility] Blood platelet mean volumeOr dered By: Dr. Vinson on 09-03-2022 Platelet mean volume (Bld) [Entitic vol] 10.1 fL 6.2-12.0 [facility] Determination of erythrocyte mean corpuscular volume (MCV)Ordered By: Dr. Vinson on 09-03-2022 MCV (RBC) [Entitic vol] 94.5 fL 80-94 [facility] Hematocrit Auto (Bld) [Volum e fraction]Ordered By: Dr. Vinson on 09-03-2022 Hematocrit (Bld) [Volume fraction] 46.2 % 40-54 [facility] Laboratory - Chemistry and C hemistry - challengeOrdered By: Dr. Vinson on 09-03-2022 ALP [Catalytic activity/Vol] 39 U/L 45-117 [facility] ALT [Catalytic activity/Vol] 41 U/L 16-61 [facility] CO2 [Moles/Vol] 26.0 mmol/L 21.0-32.0 [facility] Globulin (S) [Mass/Vol] 3.3 g/dL 2.2-4.2 [facility] Urea nitrogen/Creatinine [Mass ratio] 17.1 mg/mg 10-20 [facility] Laboratory - Hematology and Cell countsOrdered By: Dr. Vinson on 09-03-2022 Erythrocyte distribution width (RBC) [Entitic vol] 45.4 fL 35.1-43.9 [facility] Erythrocyte distribution width (RBC) [Ratio] 13.1 % 11.6-14.6 [facility] Immature granulocytes/100 WBC (Bld) 0.300 % 0.0-0.9 [facility] Comment on above: IG% - Immature Granu locytes (promyelocytes, myelocytes and metamyelocytes) > 1% indicates that a LEFT SHIFT is Present. MCH (RBC) [Entitic mass] 30.1 pg 27.0-32.0 [facility] Nucleated RBC/100 WBC (Bld) [Ratio] 0 % 0-5 [facility] MCHC Auto (RBC) [Mass/Vol]Or dered By: Dr. Vinson on 09-03-2022 MCHC (RBC) [Mass/Vol] 31.8 g/dL 32-36 [facility] No Panel InformationOrdered By: Dr. Vinson on 09-03-2022 Estimated GFR (MDRD) Amer 100 mL/min >60 [facility] Comment on above: GFR Calc Estimated GFR (MDRD) Non-Af Amer 83 mL/min >60 [facility] Comment on above: Non- GFR Calc Thyroid Stimulating Hormone (TSH) 2.35 uIU/mL 0.358-3.74 [facility] Vitamin D 25-Hydroxy 44.2 ng/mL [facility] Comment on above: Vitamin D 25(OH) Sta tus Range Deficiency <20 ng/mL (50nmol/L) Insufficiency 20 - 30 ng/mL (50 - 75 nmol/L) Sufficiency 30 - 100 ng/mL (75 - 250 nmol/L) Toxicity >100 ng/mL (>250 nmol/L) Platelets bldOrdered By: Dr. Vinson on 09-03-2022 Platelets (Bld) [#/Vol] 229 10*3/uL 150-450 [facility] Serum or plasma albumin emmy urement (mass/volume)Ordered By: Dr. Vinson on 09-03-2022 Albumin [Mass/Vol] 3.5 g/dL 3.2-5.0 [facility] Serum or plasma albumin/glob ulin mass ratioOrdered By: Dr. Vinson on 09-03-2022 Albumin/Globulin [Mass ratio] 1.1 {ratio} 0.9-2.4 [facility] Serum or plasma calcium emmy urement (mass/volume)Ordered By: Dr. Vinson on 09-03-2022 Calcium [Mass/Vol] 9.5 mg/dL 8.5-10.1 [facility] Serum or plasma creatinine m easurement (mass/volume)Ordered By: Dr. Vinson on 09-03-2022 Creatinine [Mass/Vol] 0.94 mg/dL 0.70-1.30 [facility] Comment on above: The validity of the calculated GFR & GFRAA in patients over 70 years has not been determined. Clinical correlation is essential. Serum or plasma urea nitroge n measurement (mass/volume)Ordered By: Dr. Vinson on 09-03-2022 Urea nitrogen [Mass/Vol] 16 mg/dL 7-18 [facility] Thin prep Papanicolaou smear with manual screeningOrdered By: Dr. Vinson on 09-03-2022 Thin prep Papanicolaou smear with manual screening 20 U/L 1537 [facility] Thin prep Papanicolaou smear with manual screening 7 5-15 [facility] Basophil percentageOrdered B y: Dr. Kaiser on 08-31-2022 Bilirubin [Mass/Vol] 0.80 mg/dL 0.20-1.00 [facility] Comment on above: For patients on eltr ombopag therapy, use of Dimension [place] TBIL is not recommended. Cholesterol [Mass/Vol] 101 mg/dL <200 [facility] Comment on above: <200 mg/dL Desirable 200-240 mg/dL Borderline >240 mg/dL High Risk Protein [Mass/Vol] 6.7 g/dL 6.4-8.2 [facility] Triglyceride [Mass/Vol] 47 mg/dL <199 [facility] Comment on above: The drugs N-Acetylcy steine and Metamizole may falsely depress this assay.Serum Triglycerides Reference Interval Normal <150 mg/dL Borderline high 150 - 199 mg/dL High 200 - 499 mg/dL Very High > or = 500 mg/dL Direct bilirubinOrdered By: Dr. Kaiser on 08-31-2022 Bilirubin.direct [Mass/Vol] 0.24 mg/dL 0.00-0.30 [facility] Laboratory - Chemistry and C hemistry - challengeOrdered By: Dr. Kaiser on 08-31-2022 ALP [Catalytic activity/Vol] 41 U/L 45-117 [facility] ALT [Catalytic activity/Vol] 51 U/L 16-61 [facility] Globulin (S) [Mass/Vol] 3.1 g/dL 2.2-4.2 [facility] Serum or plasma albumin emmy urement (mass/volume)Ordered By: Dr. Kaiser on 08-31-2022 Albumin [Mass/Vol] 3.6 g/dL 3.2-5.0 [facility] Serum or plasma cholesterol in HDL measurement (mass/volume)Ordered By: Dr. Kaiser on 08-31-2022 Cholesterol in HDL [Mass/Vol] 46 mg/dL >40 [facility] Comment on above: The drugs N-Acetylcy steine and Metamizole may falsely depress this assay. Reference Range HDL <40 mg/dL Low HDL Cholesterol HDL >or= 60 mg/dL High HDL Cholesterol Serum or plasma cholesterol in VLDL measurement (mass/volume)Ordered By: Dr. Kaiser on 08-31-2022 Cholesterol in VLDL [Mass/Vol] 9 mg/dL 5-40 [facility] Serum or plasma low density lipoprotein (LDL) cholesterol measurement (mass/volume)Ordered By: Dr. Kaiser on 08-31-2022 Cholesterol in LDL [Mass/Vol] 46 mg/dL 0-130 [facility] Thin prep Papanicolaou smear with manual screeningOrdered By: Dr. Kaiser on 08-31-2022 Thin prep Papanicolaou smear with manual screening 25 U/L 15-37 [facility] No Panel Informationon 07-14 Thyroid Stimulating Hormone (TSH) 1.69 uIU/mL 0.358-3.74 [facility] Work Phone: Absolute lymphocyte counton 06-01-2022 Lymphocytes Auto (Unsp spec) [#/Vol] 1.75 10*3/uL 0.83-4.51 [facility] Work Phone: Basophil percentageon 2021 Basophils/100 WBC (Bld) 0.6 % 0-1 [facility] Work Phone: Bilirubin [Mass/Vol] 0.70 mg/dL 0.20-1.00 [facility] Work Phone: Comment on above: For patients on eltr ombopag therapy, use of Dimension [place] TBIL is not recommended. Chloride [Moles/Vol] 107 mmol/L 98-107 [facility] Work Phone: [phone] Eosinophils/100 WBC (Bld) 5.0 % 0-5 [facility] Work Phone: [phone] Glucose [Mass/Vol] 144 mg/dL 74-106 [facility] Work Phone: [phone] Comment on above: Fasting Glucose resu lt greater than or equal to 126 mg/dL suggests DIABETES MELLITUS per A.D.A. criteria. Neutrophils (Bld) [#/Vol] 4.3 10*3/uL 2.0-7.7 [facility] Work Phone: [phone] Neutrophils/100 WBC (Bld) 60.2 % 47-70 [facility] Work Phone: [phone] Potassium [Moles/Vol] 4.2 mmol/L 3.5-5.1 [facility] Work Phone: [phone] Protein [Mass/Vol] 7.2 g/dL 6.4-8.2 [facility] Work Phone: [phone] Sodium [Moles/Vol] 139 mmol/L 136-145 [facility] Work Phone: [phone] Testosterone [Mass/Vol] 697.07 ng/dL [facility] Work Phone: [phone] Comment on above: CENTRAL 90% REFERENC E RANGES MALE AGE <50 197.44 - 669.58 ng/dL MALE AGE > or = 50 187.72 - 684.19 ng/dL FEMALE AGE <50 8.38 - 35.01 ng/dL FEMALE AGE > or = 50 <7.00 - 35.92 ng/dL Effective as of 04/15/21 WBC (Bld) [#/Vol] 7.2 10*3/uL 4.4-11.0 [facility] Work Phone: [phone] Blood erythrocytes count (nu mber/volume)on 06-01-2022 RBC (Bld) [#/Vol] 4.97 10*6/uL 4.6-6.2 [facility] Work [facility]: Blood hemoglobin measurement (mass/volume)on 06-01-2022 Hemoglobin (Bld) [Mass/Vol] 15.7 g/dL 13.0-16.5 [facility] Work Phone: Blood lymphocytes/100 leukoc yteson 06-01-2022 Lymphocytes/100 WBC (Bld) 24.5 % 19-41 [facility] Work Phone: Blood monocytes/100 leukocyt eson 06-01-2022 Monocytes/100 WBC (Bld) 9.4 % 0-10 [facility] Work Phone: Blood platelet mean volumeon 06-01-2022 Platelet mean volume (Bld) [Entitic vol] 10.1 fL 6.2-12.0 [facility] Work Phone: Determination of erythrocyte mean corpuscular volume (MCV)on 06-01-2022 MCV (RBC) [Entitic vol] 93.4 fL 80-94 [facility] Work Phone: Hematocrit Auto (Bld) [Volum e fraction]on 06-01-2022 Hematocrit (Bld) [Volume fraction] 46.4 % 40-54 [facility] Work Phone: Laboratory - Chemistry and C hemistry - challengeon 06-01-2022 ALP [Catalytic activity/Vol] 43 U/L 45-117 [facility] Work Phone: ALT [Catalytic activity/Vol] 46 U/L 16-61 [facility] Work Phone: CO2 [Moles/Vol] 25.0 mmol/L 21.0-32.0 [facility] Work Phone: Globulin (S) [Mass/Vol] 3.6 g/dL 2.2-4.2 [facility] Work Phone: Urea nitrogen/Creatinine [Mass ratio] 22.8 mg/mg 10-20 [facility] Work Phone: Laboratory - Hematology and Cell countson 06-01-2022 Erythrocyte distribution width (RBC) [Entitic vol] 44.1 fL 35.1-43.9 [facility] Work Phone: Erythrocyte distribution width (RBC) [Ratio] 13.0 % 11.6-14.6 [facility] Work Phone: Immature granulocytes/100 WBC (Bld) 0.300 % 0.0-0.9 [facility] Work Phone: Comment on above: IG% - Immature Granu locytes (promyelocytes, myelocytes and metamyelocytes) > 1% indicates that a LEFT SHIFT is Present. MCH (RBC) [Entitic mass] 31.6 pg 27.0-32.0 [facility] Work Phone: Nucleated RBC/100 WBC (Bld) [Ratio] 0 % 0-5 [facility] Work Phone: MCHC Auto (RBC) [Mass/Vol]on 06-01-2022 MCHC (RBC) [Mass/Vol] 33.8 g/dL 32-36 [facility] Work Phone: No Panel Informationon 06-01 Estimated GFR (MDRD) Amer 102 mL/min >60 [facility] Work Phone: Comment on above: GFR Calc Estimated GFR (MDRD) Non-Af Amer 85 mL/min >60 [facility] Work Phone: Comment on above: Non- GFR Calc Thyroid Stimulating Hormone (TSH) 4.50 uIU/mL 0.358-3.74 [facility] Work Phone: Vitamin D 25-Hydroxy 42.6 ng/mL [facility] Work Phone: Comment on above: Vitamin D 25(OH) Sta tus Range Deficiency <20 ng/mL (50nmol/L) Insufficiency 20 - 30 ng/mL (50 - 75 nmol/L) Sufficiency 30 - 100 ng/mL (75 - 250 nmol/L) Toxicity >100 ng/mL (>250 nmol/L) Platelets bldon 06-01-2022 Platelets (Bld) [#/Vol] 269 10*3/uL 150-450 [facility] Work Phone: Serum or plasma albumin emmy urement (mass/volume)on 06-01-2022 Albumin [Mass/Vol] 3.6 g/dL 3.2-5.0 [facility] Work Phone: Serum or plasma albumin/glob ulin mass ratioon 06-01-2022 Albumin/Globulin [Mass ratio] 1.0 {ratio} 0.9-2.4 [facility] Work Phone: Serum or plasma calcium emmy urement (mass/volume)on 06-01-2022 Calcium [Mass/Vol] 10.3 mg/dL 8.5-10.1 [facility] Work Phone: Serum or plasma creatinine m easurement (mass/volume)on 06-01-2022 Creatinine [Mass/Vol] 0.92 mg/dL 0.70-1.30 [facility] Work Phone: Comment on above: The validity of the calculated GFR & GFRAA in patients over 70 years has not been determined. Clinical correlation is essential. Serum or plasma urea nitroge n measurement (mass/volume)on 06-01-2022 Urea nitrogen [Mass/Vol] 21 mg/dL 7-18 [facility] Work Phone: Thin prep Papanicolaou smear with manual screeningon 06-01-2022 Thin prep Papanicolaou smear with manual screening 24 U/L 15-37 [facility] Work Phone: Thin prep Papanicolaou smear with manual screening 7 5-15 [facility] Work Phone: Absolute lymphocyte counton 02-23-2022 Lymphocytes Auto (Unsp spec) [#/Vol] 1.48 10*3/uL 0.83-4.51 [facility] Work Phone: Basophil percentageon 2021 Basophils/100 WBC (Bld) 0.6 % 0-1 [facility] Work Phone: [phone] Bilirubin [Mass/Vol] 0.70 mg/dL 0.20-1.00 [facility] Work Phone: [phone] Comment on above: For patients on eltr ombopag therapy, use of Dimension [place] TBIL is not recommended. Chloride [Moles/Vol] 108 mmol/L 98-107 [facility] Work Phone: [phone] Eosinophils/100 WBC (Bld) 4.2 % 0-5 [facility] Work Phone: Glucose [Mass/Vol] 145 mg/dL 74-106 [facility] Work Phone: Comment on above: Fasting Glucose resu lt greater than or equal to 126 mg/dL suggests DIABETES MELLITUS per A.D.A. criteria. Neutrophils (Bld) [#/Vol] 3.8 10*3/uL 2.0-7.7 [facility] Work Phone: Neutrophils/100 WBC (Bld) 61.0 % 47-70 [facility] Work Phone: [phone] Potassium [Moles/Vol] 4.2 mmol/L 3.5-5.1 [facility] Work Phone: [phone] Protein [Mass/Vol] 6.7 g/dL 6.4-8.2 [facility] Work Phone: [phone] Sodium [Moles/Vol] 139 mmol/L 136-145 [facility] Work Phone: [phone] Testosterone [Mass/Vol] 714.46 ng/dL [facility] Work Phone: [phone] Comment on above: CENTRAL 90% REFERENC E RANGES MALE AGE <50 197.44 - 669.58 ng/dL MALE AGE > or = 50 187.72 - 684.19 ng/dL FEMALE AGE <50 8.38 - 35.01 ng/dL FEMALE AGE > or = 50 <7.00 - 35.92 ng/dL Effective as of 04/15/21 WBC (Bld) [#/Vol] 6.2 10*3/uL 4.4-11.0 [facility]: Blood erythrocytes count (nu mber/volume)on 02-23-2022 RBC (Bld) [#/Vol] 4.58 10*6/uL 4.6-6.2 [facility] Work Phone: Blood hemoglobin measurement (mass/volume)on 02-23-2022 Hemoglobin (Bld) [Mass/Vol] 14.1 g/dL 13.0-16.5 [facility] Work Phone: Blood lymphocytes/100 leukoc yteson 02-23-2022 Lymphocytes/100 WBC (Bld) 23.9 % 19-41 [facility] Work Phone: Blood monocytes/100 leukocyt eson 02-23-2022 Monocytes/100 WBC (Bld) 10.0 % 0-10 [facility] Work Phone: Blood platelet mean volumeon 02-23-2022 Platelet mean volume (Bld) [Entitic vol] 9.9 fL 6.2-12.0 [facility] Work Phone: Determination of erythrocyte mean corpuscular volume (MCV)on 02-23-2022 MCV (RBC) [Entitic vol] 93.2 fL 80-94 [facility] Work Phone: Hematocrit Auto (Bld) [Volum e fraction]on 02-23-2022 Hematocrit (Bld) [Volume fraction] 42.7 % 40-54 [facility] Work Phone: Laboratory - Chemistry and C hemistry - challengeon 02-23-2022 ALP [Catalytic activity/Vol] 41 U/L 45-117 [facility] Work Phone: ALT [Catalytic activity/Vol] 43 U/L 16-61 [facility] Work Phone: CO2 [Moles/Vol] 24.0 mmol/L 21.0-32.0 [facility] Work Phone: Globulin (S) [Mass/Vol] 3.2 g/dL 2.2-4.2 [facility] Work Phone: Urea nitrogen/Creatinine [Mass ratio] 15.5 mg/mg 10-20 [facility] Work Phone: Laboratory - Hematology and Cell countson 02-23-2022 Erythrocyte distribution width (RBC) [Entitic vol] 45.1 fL 35.1-43.9 [facility] Work Phone: Erythrocyte distribution width (RBC) [Ratio] 13.2 % 11.6-14.6 [facility] Work Phone: Immature granulocytes/100 WBC (Bld) 0.300 % 0.0-0.9 [facility] Work Phone: Comment on above: IG% - Immature Granu locytes (promyelocytes, myelocytes and metamyelocytes) > 1% indicates that a LEFT SHIFT is Present. MCH (RBC) [Entitic mass] 30.8 pg 27.0-32.0 [facility] Work Phone: Nucleated RBC/100 WBC (Bld) [Ratio] 0 % 0-5 [facility] Work Phone: MCHC Auto (RBC) [Mass/Vol]on 02-23-2022 MCHC (RBC) [Mass/Vol] 33.0 g/dL 32-36 [facility] Work Phone: No Panel Informationon 02-23 Estimated GFR (MDRD) Amer 105 mL/min >60 [facility] Work Phone: Comment on above: GFR Calc Estimated GFR (MDRD) Non-Af Amer 86 mL/min >60 [facility] Work Phone: Comment on above: Non- GFR Calc Thyroid Stimulating Hormone (TSH) 1.67 uIU/mL 0.358-3.74 [facility] Work Phone: Vitamin D 25-Hydroxy 49.5 ng/mL [facility] Work Phone: Comment on above: Vitamin D 25(OH) Sta tus Range Deficiency <20 ng/mL (50nmol/L) Insufficiency 20 - 30 ng/mL (50 - 75 nmol/L) Sufficiency 30 - 100 ng/mL (75 - 250 nmol/L) Toxicity >100 ng/mL (>250 nmol/L) Platelets bldon 02-23-2022 Platelets (Bld) [#/Vol] 237 10*3/uL 150-450 [facility] Work Phone: Serum or plasma albumin emmy urement (mass/volume)on 02-23-2022 Albumin [Mass/Vol] 3.5 g/dL 3.2-5.0 [facility] Work Phone: Serum or plasma albumin/glob ulin mass ratioon 02-23-2022 Albumin/Globulin [Mass ratio] 1.1 {ratio} 0.9-2.4 [facility] Work Phone: Serum or plasma calcium emmy urement (mass/volume)on 02-23-2022 Calcium [Mass/Vol] 9.5 mg/dL 8.5-10.1 [facility] Work Phone: Serum or plasma creatinine m easurement (mass/volume)on 02-23-2022 Creatinine [Mass/Vol] 0.90 mg/dL 0.70-1.30 [facility] Work Phone: Comment on above: The validity of the calculated GFR & GFRAA in patients over 70 years has not been determined. Clinical correlation is essential. Serum or plasma urea nitroge n measurement (mass/volume)on 02-23-2022 Urea nitrogen [Mass/Vol] 14 mg/dL 7-18 [facility] Work Phone: Thin prep Papanicolaou smear with manual screeningon 02-23-2022 Thin prep Papanicolaou smear with manual screening 24 U/L 15-37 [facility] Work Phone: Thin prep Papanicolaou smear with manual screening 7 5-15 [facility] Work Phone: No Panel Informationon 01-19 Thyroid Stimulating Hormone (TSH) 3.26 uIU/mL 0.358-3.74 [facility] Work Phone: Absolute lymphocyte counton 11-25-2021 Lymphocytes Auto (Unsp spec) [#/Vol] 1.39 10*3/uL 0.83-4.51 [facility] Work Phone: Basophil percentageon 2021 Basophils/100 WBC (Bld) 0.6 % 0-1 [facility] Work Phone: Bilirubin [Mass/Vol] 0.60 mg/dL 0.20-1.00 [facility] Work Phone: Comment on above: For patients on eltr ombopag therapy, use of Dimension [place] TBIL is not recommended. Chloride [Moles/Vol] 105 mmol/L 98-107 [facility] Work Phone: Eosinophils/100 WBC (Bld) 5.2 % 0-5 [facility] Work Phone: Glucose [Mass/Vol] 133 mg/dL 74-106 [facility] Work Phone: Comment on above: Fasting Glucose resu lt greater than or equal to 126 mg/dL suggests DIABETES MELLITUS per A.D.A. criteria. Neutrophils (Bld) [#/Vol] 2.8 10*3/uL 2.0-7.7 [facility] Work Phone: Neutrophils/100 WBC (Bld) 50.7 % 47-70 [facility] Work Phone: Potassium [Moles/Vol] 4.1 mmol/L 3.5-5.1 [facility] Work Phone: Protein [Mass/Vol] 7.3 g/dL 6.4-8.2 [facility] Work Phone: Sodium [Moles/Vol] 137 mmol/L 136-145 [facility] Work Phone: Testosterone [Mass/Vol] 465.58 ng/dL [facility] Work Phone: Comment on above: CENTRAL 90% REFERENC E RANGES MALE AGE <50 197.44 - 669.58 ng/dL MALE AGE > or = 50 187.72 - 684.19 ng/dL FEMALE AGE <50 8.38 - 35.01 ng/dL FEMALE AGE > or = 50 <7.00 - 35.92 ng/dL Effective as of 04/15/21 WBC (Bld) [#/Vol] 5.4 10*3/uL 4.4-11.0 [facility] Work Phone: Blood erythrocytes count (nu mber/volume)on 11-25-2021 RBC (Bld) [#/Vol] 5.08 10*6/uL 4.6-6.2 [facility] Work Phone: Blood hemoglobin measurement (mass/volume)on 11-25-2021 Hemoglobin (Bld) [Mass/Vol] 15.5 g/dL 13.0-16.5 [facility] Work Phone: Blood lymphocytes/100 leukoc yteson 11-25-2021 Lymphocytes/100 WBC (Bld) 25.6 % 19-41 [facility] Work Phone: Blood monocytes/100 leukocyt eson 11-25-2021 Monocytes/100 WBC (Bld) 17.5 % 0-10 [facility] Work Phone: Blood platelet mean volumeon 11-25-2021 Platelet mean volume (Bld) [Entitic vol] 10.2 fL 6.2-12.0 [facility] Work Phone: Determination of erythrocyte mean corpuscular volume (MCV)on 11-25-2021 MCV (RBC) [Entitic vol] 93.5 fL 80-94 [facility] Work Phone: Hematocrit Auto (Bld) [Volum e fraction]on 11-25-2021 Hematocrit (Bld) [Volume fraction] 47.5 % 40-54 [facility] Work Phone: Laboratory - Chemistry and C hemistry - challengeon 11-25-2021 ALP [Catalytic activity/Vol] 44 U/L 45-117 [facility] Work Phone: [phone] ALT [Catalytic activity/Vol] 58 U/L 16-61 [facility] Work Phone: [phone] CO2 [Moles/Vol] 26.0 mmol/L 21.0-32.0 [facility] Work Phone: [phone] Globulin (S) [Mass/Vol] 3.8 g/dL 2.2-4.2 [facility] Work Phone: [phone] Urea nitrogen/Creatinine [Mass ratio] 13.9 mg/mg 10-20 [facility] Work Phone: [phone] Laboratory - Hematology and Cell countson 11-25-2021 Erythrocyte distribution width (RBC) [Entitic vol] 44.7 fL 35.1-43.9 [facility] Work Phone: [phone] Erythrocyte distribution width (RBC) [Ratio] 13.1 % 11.6-14.6 [facility] Work Phone: [phone] Immature granulocytes/100 WBC (Bld) 0.400 % 0.0-0.9 [facility] Work Phone: Comment on above: IG% - Immature Granu locytes (promyelocytes, myelocytes and metamyelocytes) > 1% indicates that a LEFT SHIFT is Present. MCH (RBC) [Entitic mass] 30.5 pg 27.0-32.0 [facility] Work Phone: Nucleated RBC/100 WBC (Bld) [Ratio] 0 % 0-5 [facility] Work Phone: [phone] MCHC Auto (RBC) [Mass/Vol]on 11-25-2021 MCHC (RBC) [Mass/Vol] 32.6 g/dL 32-36 [facility] Work [facility]: No Panel Informationon 11-25 Estimated GFR (MDRD) Amer 92 mL/min >60 [facility] Work Phone: Comment on above: GFR Calc Estimated GFR (MDRD) Non-Af Amer 76 mL/min >60 [facility] Work Phone: Comment on above: Non- GFR Calc Thyroid Stimulating Hormone (TSH) 6.01 uIU/mL 0.358-3.74 [facility] Work Phone: Vitamin D 25-Hydroxy 46.9 ng/mL [facility] Work Phone: Comment on above: Vitamin D 25(OH) Sta tus Range Deficiency <20 ng/mL (50nmol/L) Insufficiency 20 - 30 ng/mL (50 - 75 nmol/L) Sufficiency 30 - 100 ng/mL (75 - 250 nmol/L) Toxicity >100 ng/mL (>250 nmol/L) Platelets bldon 11-25-2021 Platelets (Bld) [#/Vol] 225 10*3/uL 150-450 [facility] Work Phone: Serum or plasma albumin emmy urement (mass/volume)on 11-25-2021 Albumin [Mass/Vol] 3.5 g/dL 3.2-5.0 [facility] Work Phone: Serum or plasma albumin/glob ulin mass ratioon 11-25-2021 Albumin/Globulin [Mass ratio] 0.9 {ratio} 0.9-2.4 [facility] Work Phone: Serum or plasma calcium emmy urement (mass/volume)on 11-25-2021 Calcium [Mass/Vol] 9.6 mg/dL 8.5-10.1 [facility] Work Phone: Serum or plasma creatinine m easurement (mass/volume)on 11-25-2021 Creatinine [Mass/Vol] 1.01 mg/dL 0.70-1.30 [facility] Work Phone: Comment on above: The validity of the calculated GFR & GFRAA in patients over 70 years has not been determined. Clinical correlation is essential. Serum or plasma urea nitroge n measurement (mass/volume)on 11-25-2021 Urea nitrogen [Mass/Vol] 14 mg/dL 7-18 [facility] Work Phone: Thin prep Papanicolaou smear with manual screeningon 11-25-2021 Thin prep Papanicolaou smear with manual screening 33 U/L 15-37 [facility] Work Phone: Thin prep Papanicolaou smear with manual screening 6 5-15 [facility] Work Phone: Vital Signs Date Time Vital Sign Value Performing Clinician Faci lity 10-31-2024 13:51-0500 Body height 175.[address] Gustavo Vinson MD Work Phone: [facility] 10-31-2024 13:51-0500 Body mass index (BMI) [Ratio] 34.8 kg/m2 Dr. Gustavo Vinson MD Work Phone: [facility] 10-31-2024 13:51-0500 Body weight 107.[address] Gustavo Vinson MD Work Phone: [facility] 10-31-2024 13:51-0500 Diastolic blood pressure 94 mm[Hg] Dr. Gustavo Vinson MD Work Phone: [facility] 10-31-2024 13:51-0500 Heart rate 68 /min Dr. Gustavo Vinson MD Work Phone: [facility] 10-31-2024 13:51-0500 Respiratory rate 18 /min Dr. Gustavo Vinson MD Work Phone: [facility] 10-31-2024 13:51-0500 Systolic blood pressure 153 mm[Hg] Dr. Gustavo Vinson MD Work Phone: [facility] 08-30-2023 10:44-0500 Body height 175.[address] Gustavo Vinson Work Phone: [facility] 08-30-2023 10:44-0500 Diastolic blood pressure 88 mm[Hg] Dr. Gustavo Vinson Work Phone: [facility] 08-30-2023 10:44-0500 Systolic blood pressure 138 mm[Hg] Dr. Gustavo Vinson Work Phone: [facility] 08-30-2023 10:37-0500 Body mass index (BMI) [Ratio] 34.9 kg/m2 Dr. Gustavo Vinson Work Phone: [facility] 08-30-2023 10:37-0500 Body weight 107.[address] Gustavo Vinson Work Phone: [facility] 08-30-2023 10:37-0500 Heart rate 78 /min Dr. Gustavo Vinson Work Phone: [facility] 08-30-2023 10:37-0500 Respiratory rate 22 /min Dr. Gustavo Vinson Work Phone: [facility] 08-30-2023 10:37-0500 SaO2% (BldA) [Mass fraction] 95 % Dr. uGstavo Vinson Work Phone: [facility] 12-25-2022 23:39-0400 Diastolic blood pressure 64 mm[Hg] Dr. Gustavo Vinson Work Phone: [facility] 12-25-2022 23:39-0400 Heart rate 75 /min Dr. Gustavo Vinson Work Phone: [facility] 12-25-2022 23:39-0400 SaO2% (BldA) [Mass fraction] 95 % Dr. Gustavo Vinson Work Phone: [facility] 12-25-2022 23:39-0400 Systolic blood pressure 132 mm[Hg] Dr. Gustavo Vinson Work Phone: [facility] 12-25-2022 21:01-0400 Body height 175.[address] Gustavo Vinson Work Phone: [facility] 12-25-2022 21:01-0400 Body mass index (BMI) [Ratio] 34.9 kg/m2 Dr. Gustavo Vinson Work Phone: [facility] 12-25-2022 21:01-0400 Body temperature 97.5 [degF] Dr. Gustavo Vinson Work Phone: [facility] 12-25-2022 21:01-0400 Body weight 107.[address] Gustavo Vinson Work Phone: [facility] 12-25-2022 21:01-0400 Respiratory rate 15 /min Dr. Gustavo Vinson Work Phone: [facility] 09-27-2022 23:15-0500 Body mass index (BMI) [Ratio] 35.7 kg/m2 Dr. Gustavo Vinson Work Phone: [phone] [place] [address] 09-27-2022 23:15-0500 Body temperature 97.3 [degF] Dr. Gustavo Vinson Work Phone: [phone] [place] [address] 09-27-2022 23:15-0500 Body weight 109.[address] Gustavo Vinson Work Phone: [facility] 09-27-2022 23:15-0500 Diastolic blood pressure 92 mm[Hg] Dr. Gustavo Vinson Work Phone: [facility] 09-27-2022 23:15-0500 Heart rate 76 /min Dr. Gustavo Vinson Work Phone: [facility] 09-27-2022 23:15-0500 Respiratory rate 15 /min Dr. Gustavo Vinson Work Phone: [facility] 09-27-2022 23:15-0500 SaO2% (BldA) [Mass fraction] 98 % Dr. Gustavo Vinson Work Phone: [facility] 09-27-2022 23:15-0500 Systolic blood pressure 162 mm[Hg] Dr. Gustavo Vinson Work Phone: [facility] 09-08-2022 13:30-0500 Body height 175.[address] Gustavo Vinson Work Phone: [facility] Work Phone: 09-08-2022 13:30-0500 Body mass index (BMI) [Ratio] 35.4 kg/m2 Dr. Gustavo Vinson Work Phone: [facility] 09-08-2022 13:30-0500 Body weight 108.[address] Gustavo Vinson Work Phone: [facility] 09-08-2022 13:30-0500 Diastolic blood pressure 69 mm[Hg] Dr. Gustavo Vinson Work Phone: [facility] 09-08-2022 13:30-0500 Heart rate 84 /min Dr. Gustavo Vinson Work Phone: [facility] 09-08-2022 13:30-0500 Respiratory rate 18 /min Dr. Gustavo Vinson Work Phone: [facility] 09-08-2022 13:30-0500 Systolic blood pressure 124 mm[Hg] Dr. Gustavo Vinson Work Phone: [facility] Encounters Encounter Date Encounter Type Care Provider Facility Start: 12-08-2024 End: 12-08-[address] Gustavo Vinson MD Work Phone: [facility] Work Phone: Start: 12-08-2024 End: 12-08-[address] Gustavo Vinson MD -Laboratory, Phy Office 3rd [facility] Start: 12-08-2024 End: 12-08-2024 ambulatory Gustavo Skinny Vinson Facility:[facility] Start: 10-31-2024 End: 10-31-[address] Lamont Kaiser MD -[facility] Work Phone: Start: 10-31-2024 End: 10-31-2024 ambulatory Gustavo Vinson Facility:[facility] Start: 10-31-2024 End: 10-31-[address] Lamont Kaiser MD -Laboratory Work Phone: Start: 10-31-2024 End: 10-31-2024 ambulatory Lamont Kaiser Facility:[facility] Start: 06-12-2024 End: 06-12-2024 ambulatory [facility] Facility:[facility] Start: 06-09-2024 End: 06-09-2024 ambulatory [facility] [place] Facility:[facility] Start: 12-08-2023 End: 12-08-[address] Gustavo Vinson Work Phone: [facility] Work Phone: Start: 12-08-2023 End: 12-08-[address] Gustavo Vinson Work Phone: [facility]-Laboratory, Phy Office 3rd Flr Start: 10-05-2023 End: 10-05-[address] Gustavo Vinson Work Phone: [facility]-Laboratory, Specimen Work Phone: Start: 08-30-2023 End: 08-30-[address] Gustavo Vinson Work Phone: [facility] Work Phone: Start: 08-28-2023 End: 08-28-[address] Gustavo Vinson Work Phone: [facility] Work Phone: Start: 08-28-2023 End: 08-28-[address] Gustavo Vinson Work Phone: [facility]-Laboratory Work Phone: Start: 06-07-2023 End: 06-07-2023 ambulatory [facility] Work Phone: Start: 06-07-2023 End: 06-07-2023 Patient encounter procedure [facility]-Laboratory, Phy Office 3rd Flr Start: 03-01-2023 End: 03-01-2023 ambulatory [facility] Work Phone: Start: 03-01-2023 End: 03-01-2023 Patient encounter procedure [facility]-Laboratory Start: 02-26-2023 End: 02-26-2023 [facility] Start: 01-04-2023 End: 01-04-2023 ambulatory [facility] Work Phone: Start: 01-04-2023 End: 01-04-2023 Patient encounter procedure [facility]-Laboratory, Specimen Start: 12-25-2022 End: 12-25-2022 Emergency department patient visit Dr. Gustavo Vinson Work Phone: [facility]-Emergency Department Start: 12-03-2022 End: 12-03-[address] Gustavo Vinson Work Phone: [facility]-Laboratory Start: 10-27-2022 End: 10-27-[address] Gustavo Vinson Work Phone: [facility] Start: 09-27-2022 End: 09-28-2022 Emergency department patient visit Dr. Gustavo Vinson Work Phone: [facility]-Emergency Department Start: 09-08-2022 End: 09-08-[address] Gustavo Vinson Work Phone: [facility] Start: 09-03-2022 End: 09-03-[address] Gustavo Vinson Work Phone: [facility] Work Phone: Start: 09-03-2022 End: 09-03-2022 Patient encounter procedure [facility]-Laboratory, Phy Office 3rd Flr Start: 08-31-2022 End: 08-31-2022 ambulatory [facility] Work Phone: Start: 08-31-2022 End: 08-31-2022 Patient encounter procedure [facility]-Laboratory Start: 07-14-2022 End: 07-14-2022 ambulatory [facility] Work Phone: Start: 07-14-2022 End: 07-14-2022 Patient encounter procedure [facility]-Laboratory Start: 06-01-2022 End: 06-01-2022 ambulatory [facility] Work Phone: Start: 06-01-2022 End: 06-01-2022 Patient encounter procedure [facility]-Laboratory, [facility] Office 3rd Flr Start: 02-23-2022 End: 02-23-2022 Patient encounter procedure [facility]-Laboratory Start: 01-19-2022 End: 01-19-2022 [facility] Start: 11-25-2021 End: 11-25-2021 [facility] Flr Procedures Date Procedure Procedure Detail Performing Clinician Start: 02-26-2023 CT of abdomen and pe lvis without contrast Start: 12-25-2022 CT of abdomen and pe lvis without contrast Dr. Gustavo Vinson Work Phone: Start: 10-27-2022 Radiologic examinati on of knee Dr. Gustavo Vinson Work Phone: Start: 10-27-2022 CT of head without contrast Dr. Gustavo Vinson Work Phone: Start: 01-01-1999 History of placement of stent for coronary artery disease History of coronary artery stent placement Comment on above: IUU-Cjaew-Mbih LAD w / 4.0 x 13 mm Duet Stent 01/01/99 Plan of Treatment Date Care Activity Detail Author Calculus analysis [facility] Measurement of weigh t of calculus [facility] Origin of Stone [facility] Patient Education ED Kidney Ston e w/ Colic [facility] Work Phone: Patient referral [facility] Work Phone: Specimen color determination [facility] Immunizations Immunization Date Immunization Notes Care Provider Fa cility 12-17-2020 Covid (Pfizer) [facility] 11-26-2020 Covid (Pfizer) [facility] 07-03-2014 Influenza virus vaccine [facility] 07-21-2013 Pneumococcal Vaccine [facility] Work Phone: 07-21-2013 pneumococcal vaccine , unspecified formulation [facility] Payers Date Payer Category Payer Self-pay [id number] 2012 Unknown [id number] Medicare [id number] Unknown [id number] Unknown [id number] Unknown [id number] Unknown [id number] [id number] [id number] Unknown [id number] [id number] Unknown [id number] [id number] Social History Date Type Detail Facility Start: 08-11-2021 End: 08-30-2023 Tobacco smoking status VTIS Unknown if ever smoked [facility] Start: 08-18-2020 None [facility] Start: 09-18-2020 Non-smoker [facility] Start: 1945 Sex Assigned At Male [facility] Start: 08-30-2023 [facility] Start: 12-14-2024 Sex Male (finding) [facility] Medical Equipment Procedure Code Equipment Code Equipment Origin al Text Equipment Identifier Dates Lithotripsy, ESWL STENT,URETERAL PIGTAIL [id number] FDA Start: 09-27-2020 Lithotripsy, ESWL STENT,URETERAL PIGTAIL 6FRx26 FDA Start: 09-27-2020 Lithotripsy, ESWL STENT,URETERAL PIGTAIL 6FRx26 FDA Start: 09-27-2020 Lithotripsy, ESWL STENT,URETERAL PIGTAIL 6FRx26 FDA Start: 09-27-2020 Lithotripsy, ESWL STENT,URETERAL PIGTAIL 6FRx26 FDA Start: 09-27-2020 Lithotripsy, ESWL STENT,URETERAL PIGTAIL 6FRx26 FDA Start: 09-27-2020 Lithotripsy, ESWL STENT,URETERAL PIGTAIL 6FRx26 FDA Start: 09-27-2020 Lithotripsy, ESWL STENT,URETERAL PIGTAIL 6FRx26 FDA Start: 09-27-2020 Lithotripsy, ESWL STENT,URETERAL PIGTAIL 6FRx26 FDA Start: 09-27-2020 Lithotripsy, ESWL STENT,URETERAL PIGTAIL 6FRx26 FDA Start: 09-27-2020 Lithotripsy, ESWL STENT,URETERAL PIGTAIL 6FRx26 FDA Start: 09-27-2020 Lithotripsy, ESWL STENT,URETERAL PIGTAIL 6FRx26 FDA Start: 09-27-2020 Lithotripsy, ESWL STENT,URETERAL PIGTAIL 6FRx26 FDA Start: 09-27-2020 Cystoscopic insertion of stent STENT,URETERAL PIGTAIL 6FRx26 FDA Start: 08-24-2020 Cystoscopic insertion of stent STENT,URETERAL PIGTAIL 6FRx26 FDA Start: 08-24-2020 Cystoscopic insertion of stent STENT,URETERAL PIGTAIL 6FRx26 FDA Start: 08-24-2020 Cystoscopic insertion of stent STENT,URETERAL PIGTAIL 6FRx26 FDA Start: 08-24-2020 Cystoscopic insertion of stent STENT,URETERAL PIGTAIL 6FRx26 FDA Start: 08-24-2020 Cystoscopic insertion of stent STENT,URETERAL PIGTAIL 6FRx26 FDA Start: 08-24-2020 Cystoscopic insertion of stent STENT,URETERAL PIGTAIL 6FRx26 FDA Start: 08-24-2020 Cystoscopic insertion of stent STENT,URETERAL PIGTAIL 6FRx26 FDA Start: 08-24-2020 Cystoscopic insertion of stent STENT,URETERAL PIGTAIL 6FRx26 FDA Start: 08-24-2020 Cystoscopic insertion of stent STENT,URETERAL PIGTAIL 6FRx26 FDA Start: 08-24-2020 Cystoscopic insertion of stent STENT,URETERAL PIGTAIL 6FRx26 FDA Start: 08-24-2020 Cystoscopic insertion of stent STENT,URETERAL PIGTAIL 6FRx26 FDA Start: 08-24-2020 Cystoscopic insertion of stent STENT,URETERAL PIGTAIL 6FRx26 FDA Start: 08-24-2020 STENT,URETERAL PIGTAIL 6FRx26 FDA Start: 08-28-2020 STENT,URETERAL PIGTAIL 6FRx26 FDA Start: 08-28-2020 STENT,URETERAL PIGTAIL 6FRx26 FDA Start: 08-28-2020 STENT,URETERAL PIGTAIL 6FRx26 FDA Start: 08-28-2020 STENT,URETERAL PIGTAIL 6FRx26 FDA Start: 08-28-2020 STENT,URETERAL PIGTAIL 6FRx26 FDA Start: 08-28-2020 STENT,URETERAL PIGTAIL 6FRx26 FDA Start: 08-28-2020 STENT,URETERAL PIGTAIL 6FRx26 FDA Start: 08-28-2020 STENT,URETERAL PIGTAIL 6FRx26 FDA Start: 08-28-2020 STENT,URETERAL PIGTAIL 6FRx26 FDA Start: 08-28-2020 STENT,URETERAL PIGTAIL 6FRx26 FDA Start: 08-28-2020 STENT,URETERAL PIGTAIL 6FRx26 FDA Start: 08-28-2020 STENT,URETERAL PIGTAIL 6FRx26 FDA Start: 08-28-2020 Goals Date Patient Goal Desired Activity /State Mental Status Date Assessment Result Facility 12-25-2022 Cognitive function Level Of Cons ciousness Awake;Alert;Appropriate;Follow s Commands [facility] Work Phone: 09-27-2022 Cognitive function Level Of Cons ciousness Awake;Alert;Appropriate;Follow s Commands [facility] Work Phone: Evaluation note 10-31-2024 Note Date & Type Note Facility 10-31-2024 Evaluation note Diagnosis Onset Date Resolution Atherosclerosis of coronary artery of [place] heart without angina pectoris chronic October 31 025 1:50pm Essential (primary) hypertension chronic October 31 025 1:50pm Hyperlipidemia chronic October 212024 1:50pm Paroxysmal supraventricular tachycardia chronic October 31 025 1:50pm [facility] Work Phone: Evaluation note Note Date & Type Note Facility Evaluation note No assessment information availa [facility] Work Phone: Evaluation note Note Date & Type Note Facility Evaluation note Diagnosis Onset Date Atherosclerosis of coronary artery of [place] heart without angina pectoris chronic Essential (primary) hypertension chronic Hyperlipidemia chronic Paroxysmal supraventricular tachycardia [facility] Work Phone: Reason for referral (narrative) Note Date & Type Note Facility Reason for referral (narrative) No reason for referral information available [facility] Work Phone: Family History Relationship Condition Age at Onset Recorded Date/T alberto Not Specified Arthritis Unknown Cardiac disease Unknown Hypertension Unknown mother Coronary artery disease Unknown Myocardial infarction Unknown Advance Directives Advance Directive Response Recorded Date/ Time Advance Directives No April 12 10:40am Living Will Yes June 09, 2021 10:19am Power of Plant Nursery Worker Yes May 10:19am Advance Directive Response Recorded Date/ Time Advance Directives No April 12 9:40am Living Will Yes June 09, 2021 9:19am Power of Plant Nursery Worker Yes May 9:19am Advance Directive Response Recorded Date/ Time Name of Medical Power of Plant Nursery Worker September 28, 2022 12:57am Advance Directives No April 12 10:40am Living Will No December 25, 2022 10:46pm Power of Plant Nursery Worker No December 25 10:46pm Advance Directive Response Recorded Date/ Time Advance Directives No April 12 10:40am Living Will No December 25, 2022 10:46pm Power of Plant Nursery Worker No December 25 10:46pm Advance Directive Response Recorded Date/ Time Advance Directives No April 12 9:40am Living Will No December 25, 2022 9:46pm Power of Plant Nursery Worker No December 25 9:46pm Advance Directive Response Recorded Date/ Time Living Will No December 25, 2022 10:46pm Do you have a Healthcare Power of Plant Nursery Worker? No December 25, 2022 10:46pm Advance Directives No April 12 10:40am Chief Complaint and Reason for Visit Chief Complaint E ORDERS Chief Complaint E ORDERS 1 Y FU Reason for Visit Atherosclerosis of c oronary artery of [place] heart without angina pectoris Essential (primary) hypertension Hyperlipidemia Paroxysmal supraventricular tachycardia Chief Complaint E ORDERS 1 Y FU kidney stones head injury RIGHT FLANK PAIN Reason for Visit Atherosclerosis of c oronary artery of [place] heart without angina pectoris Essential (primary) hypertension Hyperlipidemia Paroxysmal supraventricular tachycardia Chief Complaint kidney stones head injury RIGHT FLANK PAIN Chief Complaint RIGHT FLANK PAIN CALCULUS OF URETER Chief Complaint CALCULUS OF URETER Chief Complaint EORDERS 1 Y FU Reason for Visit Atherosclerosis of c oronary artery of [place] heart without angina pectoris Essential (primary) hypertension Hyperlipidemia Paroxysmal supraventricular tachycardia Chief Complaint Admit Date INT LABS October 31, 2024 7:39am 1 Y FU October 31, 2024 1:50pm Reason for Visit Admit Date Atherosclerosis of coronary artery of [place] heart without angina pectoris October 31, 2024 1:50pm Essential (primary) hypertension Februar y 2024 1:50pm Hyperlipidemia October 31, 2024 1:50pm Paroxysmal supraventricular tachycardia October 31, 2024 1:50pm Summary Purpose Additional Source Comments Care Teams (unrecognized sec tion and content) Team Status: Active Member Role Status Dates Dr. Gustavo Vinson MD Family Provider Active Dr. Gustavo Vinson MD Primary Care Provider Active Team Status: Inactive Member Role Status Dates Dr. Gustavo Vinson MD Primary Care Provider, Referring Provider Active Dr. Lamont Kaiser MD Attending Provider Active Team Status: Inactive Member Role Status Dates Dr. Gustavo Vinson MD Primary Care Provider Active Dr. Lamont Kaiser MD Attending Provider, Referring Pro vider Active Team Status: Inactive Member Role Status Dates Dr. Gustavo Vinson MD Primary Care Provider, Attending Provider Active Team Status: Inactive Member Role Status Dates Dr. Gustavo Vinson MD Primary Care Provider Active Dr. Jonny Hoff MD Attending Provider, Emergency Provider Active Team Status: Inactive Member Role Status Dates Dr. Gustavo Vinson MD Primary Care Provi mihir, Attending Provider, Referring Provider Active Team Status: Inactive Member Role Status Dates Dr. Gustavo Vinson MD Primary Care Provider Active Dr. Erika Davalos MD Emergency Provider Active Team Status: Inactive Member Role Status Dates Dr. Gustavo Vinson MD Primary Care Provider Active Dr. Erika Davalos MD Attending Provider, Emergency Provider Active Team Status: Inactive Member Role Status Dates Dr. Gustavo Vinson MD Primary Care Provider Active Dr. Alex Trimble MD Attending Provider, Referr ing Provider Active Team Status: Inactive Member Role Status Dates Dr. Gustavo Vinson MD Primary Care Provider Active Lisha Barnard SHOTBLAST EQUIPMENT OPERATOR, SHOTBLAST EQUIPMENT OPERATOR-C Attending Provider, Referring P clay Active Team Status: Inactive Member Role Status Dates Dr. Gustavo Vinson MD Primary Care Provider, Referring Provider Active Lisha Barnard SHOTBLAST EQUIPMENT OPERATOR, SHOTBLAST EQUIPMENT OPERATOR-C Attending Provider Active Team Status: Inactive Member Role Status Dates Dr. Gustavo Vinson MD Primary Care Provider Active Start: October 31, 2024 End: October 31, 2024 Dr. Lamont Kaiser MD Attending Provider Active S tart: October 31, 2024 End: October 31, 2024 Dr. Lamont Kaiser MD Referring Provider Active S tart: October 31, 2024 End: October 31, 2024 Team Status: Inactive Member Role Status Dates Dr. Gustavo Vinson MD Primary Care Provider Active Start: October 31, 2024 End: October 31, 2024 Dr. Gustavo Vinson MD Referring Provider Active Start: October 31, 2024 End: October 31, 2024 Dr. Lamont Kaiser MD Attending Provider Active S tart: October 31, 2024 End: October 31, 2024 Team Status: Inactive Member Role Status Dates Dr. Gustavo Vinson MD Primary Care Provider Active Start: December 08, 2024 End: December 08, 2024 Dr. Gustavo Vinson MD Attending Provider Active Start: December 08, 2024 End: December 08, 2024 (unrecognized sect ion and content) No Status Records Found INFORMATION SOURCE (unrecogn ized section and content) DATE CREATED AUTHOR 12/15/2024 [facility] FOR RECORDS PERTAINING TO PATIENTS WHO ARE OR HAVE BEEN ENROLLED IN A CHEMICAL DEPENDENCY/SUBSTANCEABUSE PROGRAM, SOME INFORMATION MAY BE OMITTED. This clinical summary was aggregated from multiple sources. Caution should be exercised in using it in the provision of clinical care. This summary normalizes information from multiple sources, and as a consequence, information in this document may materially change the coding, format and clinical context of patient data. In addition, data may be omitted in some cases. CLINICAL DECISIONS SHOULD BE BASED ON THE PRIMARY CLINICAL RECORDS. [email or web address] provides no warranty or guarantee of the accuracy or completeness of information in this document.
== END | disposition home or self-care (01) ==
LOC: LAB 11:49
PROVIDERS: PCP Family Medicine Geriatric Medicine; Referring Provider Specialist; Visit Provider Specialist
DX: E11.9 Type 2 diabetes mellitus without complications (principal)
CPT/HCPCS: 36415; 83036

== ENCOUNTER → 2025-04-20 | Outpatient (CLI) | payer MEDICARE, SELFPAY ==
[2025-04-20 11:59] LABS: AST(SGOT) 22 U/L (<=37); Alanine Aminotransfer ALT/SGPT 27 U/L (<=46); Albumin, Serum 3.9 g/dL (3.4-4.8); Alkaline Phosphatase 44 U/L (40-129); Bilirubin, Direct 0.18 mg/dL (0.00-0.30); Cholesterol 109 mg/dL (<=200); Globulin 2.6 g/dL (2.2-4.2); Low Density Lipoprotein Calc. 51 mg/dL; Triglycerides 62 mg/dL; Very Low Density Lipoprotein 12 mg/dL (5-40); cholesterol:hdl ratio screen 2.41
[2025-04-20 13:00] LABS: Hematocrit 43.7 % (40-54); Hemoglobin 14.1 g/dL (13.0-16.5); Immature Granulocytes Count 0.020 X10^3/uL (0.0-0.0); Mean Corp Hgb Conc 32.3 g/dL (32-36); Mean Corpuscular Volume 93.8 fL (80-94); Mean Platelet Vol. 10.1 fl (6.2-12.0); NRBC Flagged by Analyzer 0 % (0-5); Platelet Count 225 K/mm3 (150-450); RBC Distribution Width CV 13.2 % (11.6-14.6); RBC Distribution Width SD 45.2 fl (35.1-43.9); Red Blood Count 4.66 M/mm3 (4.6-6.2); White Blood Count 7.1 K/mm3 (4.4-11.0)
== END | disposition home or self-care (01) ==
LOC: LAB 10:14
PROVIDERS: Physician Assistant Medical; PCP Family Medicine Geriatric Medicine; Referring Provider Specialist; Visit Provider Specialist
DX: E11.9 Type 2 diabetes mellitus without complications (principal); I10 Essential (primary) hypertension
CPT/HCPCS: 36415; 80061; 80076; 85025

== ENCOUNTER 2025-05-03 09:19 | Observation (INO) | payer OTHER, SELFPAY ==
[2025-05-03] VITALS (8 sets, daily range): BP systolic 152–181; BP diastolic 85–105; PULSE 89–120; RESP 16–20; TEMP 36.7–37.3; O2SAT 93–97; BMI 39.3; BMI 34.6
--- NOTE | 2025-05-03 09:45 | RAD_ITS ---
PROCEDURE: CHEST PA AND LATERAL 05/03/2025 REASON FOR EXAM: NONPRODUCTIVE COUGH AND HYPOXIA TECHNIQUE: CHEST PA AND LATERAL COMPARISON: 06/09/2021 FINDINGS: Hardware: EKG leads overlie the chest Heart: Stable borderline cardiomegaly. Mediastinum: The mediastinal contour is stable. Lungs: Chronic interstitial changes in both lung pretty without a superimposed acute pulmonary process. Bones: Degenerative changes are identified within the thoracic spine. RAD/Chest PA and Lateral IMPRESSION: Chronic interstitial changes, no superimposed acute pulmonary process, no inter ketan change Reading Location: [id number]
[2025-05-03 09:47] LABS: Hematocrit 40.0 % (40-54); Hemoglobin 13.2 g/dL (13.0-16.5); Immature Granulocytes Count 0.040 X10^3/uL (0.0-0.0); Mean Corp Hgb Conc 33.0 g/dL (32-36); Mean Corpuscular Volume 92.8 fL (80-94); Mean Platelet Vol. 10.4 fl (6.2-12.0); NRBC Flagged by Analyzer 0 % (0-5); Platelet Count 218 K/mm3 (150-450); RBC Distribution Width CV 13.4 % (11.6-14.6); RBC Distribution Width SD 45.5 fl (35.1-43.9); Red Blood Count 4.31 M/mm3 (4.6-6.2); White Blood Count 10.3 K/mm3 (4.4-11.0)
--- NOTE | 2025-05-03 10:04 | EDS_ITS ---
HPI History of Present Illness Chief Complaint: Weakness Detail of Chief Complaint: Generalized weakness, altered mental status, nocturia Informant: patient and spouse/S.O. Onset/Context/Timing Onset: Yesterday (Last evening patient apparently was not acting his normal self per . This was before he received pain medicine) Context: Sudden Onset Timing: Intermittent Quality: Generalized weakness, altered mental status and pain Location: Right knee pain, right sided abdominal pain and Current Severity: Moderate Maximum Severity: Severe Worsened by: Status post right total knee arthroplasty May 01 Relieved by: Nothing Associated Symptoms Associated Symptoms: Altered mental status last evening and this morning Narrative Narrative: Patient is an 79-year-old male. He complains of sore throat and cough since his surgery. He has not coughed anything up. He states he swallowed it this morning. He apparently had altered mental status last evening. He is not complained of fever or chills. He has had no complaint of headache. He denies double vision blurred vision loss of vision. He does endorse mild nasal congestion. He denies shortness of breath. He denies pain with breathing. He denies abdominal pain. He denies nausea, vomiting or diarrhea. He does endorse frequency and nocturia. He states he was placed on Flomax by urology. This improved. He apparently awoke 4 times last evening to urinate. He has not notice any blood. Patient denies nausea, vomiting or constipation. Patient denies rash or disch arge from wound. Patient has a medicated dressing on. He does have some edema both lower extremities. He has history of asthma as a child. He smoked for 1 to 2 years while he was in the service. He has not smoked in over 50 years. Prior similar symptoms: No Recent Illness/Hospitalization: Yes (Overnight stay at outside facility post right total knee arthroplasty.) [facility] Medical History Left renal stone Ureterolithiasis Renal colic on right side Obstructive sleep apnea Paroxysmal supraventricular tachycardia Segmental and somatic dysfunction of thoracic region Segmental and somatic dysfunction of lumbar region Segmental and somatic dysfunction of pelvic region Atherosclerosis of coronary artery of [place] heart without angina pectoris Essential (primary) hypertension Hyperlipidemia Anterolisthesis Type 2 diabetes mellitus Bilateral headaches Asthma Arthritis Environmental allergies Home Medications ?Medication ?Instructions ?Recorded ?Last Taken ?Type nitroglycerin 0.4 mg sublingual 0.4 mg sublingual Q5M PRN Chest 12/20/13 Unknown History tablet Pain metformin 1,000 mg tablet 1,000 mg PO BID 07/28/18 Unk nown History aspirin 81 mg tablet,delayed 81 mg PO QHS 07/27/1901/07 History release (Adult Aspirin Regimen) pioglitazone 30 mg tablet 30 mg PO DAILY 08/08/20 Unkn own History sildenafil 100 mg tablet 100 mg PO DAILY PRN other Unknown History levothyroxine 75 mcg tablet 75 mcg PO DAILY 09/08/22 U nknown History atorvastatin 80 mg tablet 80 mg PO QHS #90 TABLETS Unknown Rx metoprolol tartrate 100 mg tablet 100 mg PO BID for bl ood pressure 04/03/24 Unknown Rx #180 TABLETS glucosamine 750 mg-msm 125 1 tab PO BID 10/31/24 Unkno wn History mg-chondroitin 600 mg-D3 1,000 unit tablet famotidine 20 mg tablet 20 mg PO DAILY 05/03/25 Unkn own History finasteride 5 mg tablet 5 mg PO DAILY 05/03/25 Unkno wn History glimepiride 4 mg tablet 4 mg PO DAILY 05/03/25 Unkno wn History meloxicam 7.5 mg tablet 7.5 mg PO BID 05/03/25 Unkno wn History oxycodone 5 mg tablet 5 mg PO Q4H PRN pain 5 Unknown History sennosides 8.6 mg-docusate sodium 2 tab-cap PO BID Unknown History 50 mg tablet (Senna Plus) tamsulosin 0.4 mg capsule 0.4 mg PO QHS 05/03/25 Unkno wn History Allergy/AdvReac Type Severity Reaction Status Date / Time No Known Allergies Allergy Verified 05/03/25 09:25 Family History Mother CAD (coronary artery disease) Myocardial infarction Father No problems noted. Other Arthritis Heart disease Hypertension Surgical History History of ankle surgery History of coronary artery stent placement (01/01/99) Social History Smoking Status: Former smoker how long ago did patient quit smokin alcohol intake: current alcohol intake frequency: a few times a month Alcohol type: beer and wine substance use type: does not use caffeine: Yes Type: tea Number of servings: 1 what type of physical activity do you participate in: none ROS ROS ED
--- NOTE | 2025-05-03 10:04 | EX.ED.DYSGE1 ---
HPI History of Present Illness Chief Complaint: Weakness Detail of Chief Complaint: Generalized weakness, altered mental status, nocturia Informant: patient and spouse/S.O. Onset/Context/Timing Onset: Yesterday (Last evening patient apparently was not acting his normal self per . This was before he received pain medicine) Context: Sudden Onset Timing: Intermittent Quality: Generalized weakness, altered mental status and pain Location: Right knee pain, right sided abdominal pain and Current Severity: Moderate Maximum Severity: Severe Worsened by: Status post right total knee arthroplasty May 01 Relieved by: Nothing Associated Symptoms Associated Symptoms: Altered mental status last evening and this morning Narrative Narrative: Patient is an 79-year-old male. He complains of sore throat and cough since his surgery. He has not coughed anything up. He states he swallowed it this morning. He apparently had altered mental status last evening. He is not complained of fever or chills. He has had no complaint of headache. He denies double vision blurred vision loss of vision. He does endorse mild nasal congestion. He denies shortness of breath. He denies pain with breathing. He denies abdominal pain. He denies nausea, vomiting or diarrhea. He does endorse frequency and nocturia. He states he was placed on Flomax by urology. This improved. He apparently awoke 4 times last evening to urinate. He has not notice any blood. Patient denies nausea, vomiting or constipation. Patient denies rash or discharge from wound. Patient has a medicated dressing on. He does have some edema both lower extremities. He has history of asthma as a child. He smoked for 1 to 2 years while he was in the service. He has not smoked in over 50 years. Prior similar symptoms: No Recent Illness/Hospitalization: Yes (Overnight stay at outside facility post right total knee arthroplasty.) [facility] Medical History Left renal stone Ureterolithiasis Renal colic on right side Obstructive sleep apnea Paroxysmal supraventricular tachycardia Segmental and somatic dysfunction of thoracic region Segmental and somatic dysfunction of lumbar region Segmental and somatic dysfunction of pelvic region Atherosclerosis of coronary artery of [place] heart without angina pectoris Essential (primary) hypertension Hyperlipidemia Anterolisthesis Type 2 diabetes mellitus Bilateral headaches Asthma Arthritis Environmental allergies Home Medications ?Medication ?Instructions ?Recorded ?Last Taken ?Type nitroglycerin 0.4 mg sublingual 0.4 mg sublingual Q5M PRN Chest 12/20/13 Unknown History tablet Pain metformin 1,000 mg tablet 1,000 mg PO BID 07/28/18 Unknown History aspirin 81 mg tablet,delayed 81 mg PO QHS 07/27/19 08/23/20 History release (Adult Aspirin Regimen) pioglitazone 30 mg tablet 30 mg PO DAILY 08/08/20 Unknown History sildenafil 100 mg tablet 100 mg PO DAILY PRN other 08/08/20 Unknown History levothyroxine 75 mcg tablet 75 mcg PO DAILY 09/08/22 Unknown History atorvastatin 80 mg tablet 80 mg PO QHS #90 TABLETS 04/03/24 Unknown Rx metoprolol tartrate 100 mg tablet 100 mg PO BID for blood pressure 04/03/24 Unknown Rx #180 TABLETS glucosamine 750 mg-msm 125 1 tab PO BID 10/31/24 Unknown History mg-chondroitin 600 mg-D3 1,000 unit tablet famotidine 20 mg tablet 20 mg PO DAILY 05/03/25 Unknown History finasteride 5 mg tablet 5 mg PO DAILY 05/03/25 Unknown History glimepiride 4 mg tablet 4 mg PO DAILY 05/03/25 Unknown History meloxicam 7.5 mg tablet 7.5 mg PO BID 05/03/25 Unknown History oxycodone 5 mg tablet 5 mg PO Q4H PRN pain 05/03/25 Unknown History sennosides 8.6 mg-docusate sodium 2 tab-cap PO BID 05/03/25 Unknown History 50 mg tablet (Senna Plus) tamsulosin 0.4 mg capsule 0.4 mg PO QHS 05/03/25 Unknown History Allergy/AdvReac Type Severity Reaction Status Date / Time No Known Allergies Allergy Verified 05/03/25 09:25 Family History Mother CAD (coronary artery disease) Myocardial infarction Father No problems noted. Other Arthritis Heart disease Hypertension Surgical History History of ankle surgery History of coronary artery stent placement (01/01/99) Social History Smoking Status: Former smoker how long ago did patient quit smokin alcohol intake: current alcohol intake frequency: a few times a month Alcohol type: beer and wine substance use type: does not use caffeine: Yes Type: tea Number of servings: 1 what type of physical activity do you participate in: none ROS ROS ED Constitutional Constitutional ED: Denies chills, fever(s), subjective, sweats or weight loss Eyes Eyes: Denies blurry vision or change in vision ENT ENT ED: Reports sore throat; Denies ear pain or rhinorrhea Cardiovascular Cardiovascular: Denies chest pain, orthopnea, palpitations, paroxysmal nocturnal dyspnea or racing heartbeat Respiratory/Chest Respiratory/Chest: Reports cough, dyspnea and sputum; Denies dyspnea on exertion, orthopnea or paroxysmal nocturnal dyspnea Gastrointestinal Gastrointestinal: Denies abdominal pain, diarrhea, melena, nausea or vomiting Genitourinary Genitourinary ED: Reports urinary frequency and other Details: Nocturia, history of BPH ; Denies dysuria or hematuria Musculoskeletal Musculoskeletal: Reports other Details: Right flank pain and knee pain ; Denies arthralgias, back pain, myalgias or neck pain Integumentary Denies rash Neurologic Neurologic: Denies paresthesias or weakness Endocrine Endocrinology: Denies cold intolerance, heat intolerance, polydipsia or polyuria Hematologic/Lymphatic Hematologic/Lymphatic: Reports systems reviewed and no addt'l complaints, except as documented EXAM Physical Exam Const Vital Signs: 05/03/25 09:20 05/03/25 09:24 05/03/25 11:19 Temperature 99.1 F Temperature Source Oral Pulse Rate 89 92 Respiratory Rate 20 H 16 Respiratory Effort Normal Non-Labored Respiratory Pattern Normal Blood Pressure 181/104 H 172/95 H Blood Pressure Mean 129 120 Pulse Ox 93 96 Oxygen Delivery Method Room Air Nasal Cannula Oxygen Flow Rate (L/min) 2 05/03/25 13:00 05/03/25 14:16 Temperature 99.1 F Temperature Source Pulse Rate 120 H 120 H Respiratory Rate 18 18 Respiratory Effort Respiratory Pattern Blood Pressure 176/88 H 176/88 H Blood Pressure Mean 117 117 Pulse Ox 93 93 Oxygen Delivery Method Room Air Oxygen Flow Rate (L/min) Positive well nourished and well developed Constitutional Narrative: BMI is 39.3. General Appearance ED: well developed and NAD; Negative for pallor HEENT Reports dry mucous membranes HEENT Narrative: There is atraumatic normocephalic. Ears normal. Nares patent. Posterior pharynx is normal. Mouth ED: Yes dry mucous membranes Mouth: dry mucous membranes Eyes PERRL and EOMs intact bilaterally General Eye ED: Negative for pale conjunctiva or scleral icterus Neck no lymphadenopathy, supple and no JVD Chest Wall inspection of chest normal and palpation of chest normal Resp normal respiratory effort and clear to auscultation bilaterally Cardio regular rate, regular rhythm, S1 normal heart sound, S2 normal heart sound and no murmurs GI normal to inspection, nondistended, normoactive bowel sounds, non-tender, non-distended and no masses; Negative for hepatosplenomegaly Back/Spine no CVA tenderness Extremity Extremity Narrative: Patient has edema both lower extremities. Is compression hose on. His dressing is intact. There is no erythema extending past the dressing. This was not removed since it is a medicated dressing. Neuro oriented x3 and CN's II-XII intact bilaterally Sensorium / Orientation: alert Motor Exam: strength 5/5 throughout Psych mental status grossly normal Skin no rashes or lesions noted and skin turgor normal General Skin Exam: Negative for jaundice or pallor MDM MDM MDM Narrative Medical decision making narrative: Altered mental status may be due to opiate analgesia, with him having a productive cough will obtain chest x-ray to rule out pneumonia, with him having nocturia and flank pain will obtain UA to assess for possible urinary tract infection. Patient took a dose of his oxycodone after arrival. Because of his reported altered mental status and sleeping more than normal and concern for possible CO2 retention since his BMI is close to 40 will obtain ABG to assess acid-base status, CO2 and O2. Patient was informed of results. Plan was to discharge to home. inform me that because of his weight and the fact that she has a compression fracture and she is unable to help him. She asked for suggestions. Consult was placed to case management for outpatient resources. Case management did see patient. Patient unable to ambulate even with walker. Per case management he will need pre-CERT. Therefore we will contact hospitalist for observation/admission to MedSur unit. Lab Data Labs: Laboratory Results - last 24 hr 05/03/25 05/03/25 05/03/25 09:20 10:00 10:20 WBC 10.3 RBC 4.31 L Hgb 13.2 Hct 40.0 MCV 92.8 MCH 30.6 MCHC 33.0 RDW Std Deviation 45.5 H RDW Coeff of Zainab 13.4 Plt Count 218 MPV 10.4 Immature Gran % (Auto) 0.400 Neut % (Auto) 73.7 H Lymph % (Auto) 11.2 L Hall % (Auto) 14.0 H Eos % (Auto) 0.3 Baso % (Auto) 0.4 Absolute Neuts (auto) 7.6 Absolute Lymphs (auto) 1.15 Nucleated RBC % 0 Sodium 138 Potassium 4.0 Chloride 103 Carbon Dioxide 24.6 Anion Gap 11 BUN 20 H Creatinine 0.87 Estim Creat Clear Calc 86.92 Est GFR (MDRD) Non-Af 87 BUN/Creatinine Ratio 23.4 H Glucose 142 H Lactic Acid 1.4 Calcium 9.5 Total Bilirubin 0.83 AST 25 ALT 20 Alkaline Phosphatase 45 Total Protein 6.5 Albumin 3.9 Globulin 2.6 Albumin/Globulin Ratio 1.5 Urine Color Yellow Urine Clarity Clear Urine pH 7.0 Ur Specific [place] 1.010 Urine Protein 30 H Urine Glucose (UA) Normal Urine Ketones 5 H Urine Occult Blood 10 H Urine Nitrite Negative Urine Bilirubin Negative Urine Urobilinogen Normal Ur Leukocyte Esterase Negative Urine RBC 0 SEEN Urine WBC 0 SEEN Ur Squamous Epith Cells 0-5 SEEN Urine Bacteria 0 SEEN Urine Mucus 0 SEEN ABG Data ABG results: ABG 05/03/25 11:27 Specimen Type ART Sample Site L Brach pH 7.45 Bicarbonate Actual 29.1 H Total CO2 30 Base Excess 5 H O2 Saturation 97 ABG pCO2 42.2 ABG pO2 84 O2 Delivery Device Room Air Vent Mode Not entered Radiography Chest X-Ray - ED: 2 View, Read by ED Physician, Unchanged, Mediastinum, Bony Structures, No Acute Disease and Chronic Changes (There is mild cardiomegaly. There is no effusion or infiltrate noted. This independent reviewed interpreted by me at 1005.) Diagnostic Testing: Clinical Impression(s) from Imaging Studies Chest X-Ray 05/03/25 09:45 IMPRESSION: Chronic interstitial changes, no superimposed acute pulmonary process, no interval change Reading Location: [facility] EKG Initial EKG: Attestation: I personally reviewed and interpreted this EKG as follows: Interpretation: Sinus Rhythm (Rate is 84. There is sinus arrhythmia noted. EKG is normal. UT interval is 152 ms. QS duration 78 ms. QT durations were 60 ms. [place] is normal.) Management Discussion w/another healthcare provider: dialysis social worker/Case management Discharge Plan Dx/Rx/DC Orders Clinical Impression: Inability to ambulate due to right knee, Hyperlipidemia, Atherosclerosis of coronary artery of [place] heart without angina pectoris, Hypertension, Status post total right knee replacement Disposition Disposition: Acute Care Hospital [facility] Discharge Date/Time: 05/03/25 14:37
[2025-05-03 10:23] LABS: Mucous, Urine 0 SEEN /hpf (<or=2+); Red Blood Cells-Urine 0 SEEN /hpf (0-5)
[2025-05-03 10:34] LABS: Color, Urine Yellow (Yellow); Glucose, Dipstick Normal (Normal); Ketone-Dipstick 5 mg/dl (Negative); Leukocyte Esterase-Dipstick Negative /ul (Negative); Nitrite-Dipstick Negative (Negative); Occult Blood-Urine 10 /ul (Negative); Protein-Dipstick 30 mg/dl (Negative); Specific Gravity, Urine 1.010 (1.002-1.030); Urine Bilirubin Dipstick Negative (Negative)
[2025-05-03 10:35] LABS: AST(SGOT) 25 U/L (<=37); Alanine Aminotransfer ALT/SGPT 20 U/L (<=46); Albumin, Serum 3.9 g/dL (3.4-4.8); Alkaline Phosphatase 45 U/L (40-129); Anion Gap 11 (5-15); BUN 20 mg/dL (4-19); BUN/Creat Ratio 23.4 RATIO (10-20); Calcium,Total 9.5 mg/dL (7.6-11.0); Carbon Dioxide 24.6 mmol/L (21.0-32.0); Chloride 103 mmol/L (98-108); Estimated Creatinine Clearance 86.92 ml/min (50-250); Globulin 2.6 g/dL (2.2-4.2); Glucose 142 mg/dL (70-99); Potassium 4.0 mmol/L (3.3-5.1)
[2025-05-03 10:48] LABS: Squamous Epithelial Cells - UA 0-5 SEEN /hpf (0-5)
[2025-05-03 11:31] LABS: Base Excess 5 mmol/L (-2 to +2); PO2 84 mmHG (75-100); SITE L Brach; SO2 97 % (95-99)
--- NOTE | 2025-05-03 13:00 | CM.ED ---
Addendum entered by Sofy Amin 05/03/25 22:27: Social work Patient and patient's received resources of [facility], [facility], and other private duty aides list. SELENA Lerma, MARYLIN Original Note: Social work Reason for referral: limited support Referral source: Dr. Dale ELAM entered patient's room, introducing self and role at [facility]. Patient was sleeping initially, but patient's (Cierra) was bedside and woke patient. Patient and patient's informed SW together of patient's recent knee surgery and how patient has outpatient PT tomorrow with Dr. Gallardo's office and were simply in need of other outpatient resources. Patient and patient's stated not having much help at home outside of patient's neighbor who reportedly had to help patient up off the toilet this morning and help call for a squad due to patient's inability to ambulate. Patient stated having the following DME: cane, walker, walk in shower, and ice machine. Patient stated outpatient PT to be MWF, with starting tomorrow (Wednesday05/04/25). Patient stated being able to bathe by self once patient is up, though patient stated inability to ambulate. SW broached topic of safety issues at home being present, including getting in the car to even make it to outpatient PT. Patient hesitant to agree to SNF and patient, along with patient's , expressed desire to go home and see how outpatient PT goes tomorrow. Patient was unable to ambulate in the ED and required admission to acute. Plan: handoff to acute; RNCM/SW team to follow for discharge planning needs that may arise. SELENA Lerma, MARYLIN
--- NOTE | 2025-05-03 14:20 | PCM.HP.STD ---
HPI - General General Date of Admission: 05/03/25 Date of Service: 05/03/25 Chief Complaint: Weakness and right leg pain HPI Narrative SYEDA LOBO, is a 79-year-old male history of coronary artery disease with stenting, diabetes, hypothyroidism, BPH, GERD scented to [facility] ED 05/03/2025 with generalized weakness and not acting himself per notes last evening. Had a right total knee arthroplasty May [address] Gallardo and was ultimately sent home. In the ED patient with temperature 99.1, heart rate of 89, blood pressure 181/104, respiratory rate 20 and pulse ox 92% on room air. Lab workup unrevealing for any acute etiology and chest x-ray with chronic changes but no superimposed acute pulmonary process. Patient virtually almost unable to ambulate in the ED due to weakness and pain and cannot care for patient at home so hospitalist contacted for admission for placement. Patient evaluated bedside. Reportedly he had felt fairly well before being discharged home however since he has been home he is noticed the pain more and generalized weakness, has also intermittently gotten some right buttock pain, did confirm the weakness is generalized and not just 1 or bilateral lower extremities. Urinates frequently but this is not new, has had a little bit of a cough and sore throat since the surgery but denies any shortness of breath or chest pain, no fevers, no nausea or diarrhea, denies any kind of concerns or foul drainage from surgical site. No other new acute complaints [facility] Medical History Left renal stone Ureterolithiasis Renal colic on right side Obstructive sleep apnea Paroxysmal supraventricular tachycardia Segmental and somatic dysfunction of thoracic region Segmental and somatic dysfunction of lumbar region Segmental and somatic dysfunction of pelvic region Atherosclerosis of coronary artery of [place] heart without angina pectoris Essential (primary) hypertension Hyperlipidemia Anterolisthesis Type 2 diabetes mellitus Bilateral headaches Asthma Arthritis Environmental allergies Home Medications ?Medication ?Instructions ?Recorded ?Last Taken ?Type nitroglycerin 0.4 mg sublingual 0.4 mg sublingual Q5M PRN Chest 12/20/13 Unknown History tablet Pain metformin 1,000 mg tablet 1,000 mg PO BID 07/28/18 Unknown History aspirin 81 mg tablet,delayed 81 mg PO QHS 07/27/19 08/23/20 History release (Adult Aspirin Regimen) pioglitazone 30 mg tablet 30 mg PO DAILY 08/08/20 Unknown History sildenafil 100 mg tablet 100 mg PO DAILY PRN other 08/08/20 Unknown History levothyroxine 75 mcg tablet 75 mcg PO DAILY 09/08/22 Unknown History atorvastatin 80 mg tablet 80 mg PO QHS #90 TABLETS 04/03/24 Unknown Rx metoprolol tartrate 100 mg tablet 100 mg PO BID for blood pressure 04/03/24 Unknown Rx #180 TABLETS glucosamine 750 mg-msm 125 1 tab PO BID 10/31/24 Unknown History mg-chondroitin 600 mg-D3 1,000 unit tablet famotidine 20 mg tablet 20 mg PO DAILY 05/03/25 Unknown History finasteride 5 mg tablet 5 mg PO DAILY 05/03/25 Unknown History glimepiride 4 mg tablet 4 mg PO DAILY 05/03/25 Unknown History meloxicam 7.5 mg tablet 7.5 mg PO BID 05/03/25 Unknown History oxycodone 5 mg tablet 5 mg PO Q4H PRN pain 05/03/25 Unknown History sennosides 8.6 mg-docusate sodium 2 tab-cap PO BID 05/03/25 Unknown History 50 mg tablet (Senna Plus) tamsulosin 0.4 mg capsule 0.4 mg PO QHS 05/03/25 Unknown History Allergy/AdvReac Type Severity Reaction Status Date / Time No Known Allergies Allergy Verified 05/03/25 09:25 Family History Mother CAD (coronary artery disease) Myocardial infarction Father No problems noted. Other Arthritis Heart disease Hypertension Surgical History History of ankle surgery History of coronary artery stent placement (01/01/99) Social History Smoking Status: Former smoker how long ago did patient quit smokin alcohol intake: current alcohol intake frequency: a few times a month Alcohol type: beer and wine substance use type: does not use caffeine: Yes Type: tea Number of servings: 1 what type of physical activity do you participate in: none ROS ROS Narrative General: Denies fever/chills HENT: Denies headache, denies stuffy nose, low bit of a sore throat EYES: Denies changes in vision Resp: Slight cough since surgery, denies shortness of breath Cardiac: Denies chest pain GI: Denies abdominal pain, denies changes in bowel, denies nausea/vomiting : Denies changes in urination, has frequent urination which is not new Extremity: Denies swelling MSK: Diffuse weakness, right knee pain and symptoms right buttock pain Neuro: Denies any numbness/tingling Heme: Denies any bleeding or bruising Skin: Denies rashes Psychiatric: No complaints voiced Vital Signs Vital Signs Vital Signs: 05/03/25 09:20 05/03/25 09:24 05/03/25 11:19 Temperature 99.1 F Temperature Source Oral Pulse Rate 89 92 Respiratory Rate 20 H 16 Respiratory Effort Normal Non-Labored Respiratory Pattern Normal Blood Pressure 181/104 H 172/95 H Blood Pressure Mean 129 120 Pulse Ox 93 96 Oxygen Delivery Method Room Air Nasal Cannula Oxygen Flow Rate (L/min) 2 05/03/25 13:00 05/03/25 14:16 Temperature 99.1 F Temperature Source Pulse Rate 120 H 120 H Respiratory Rate 18 18 Respiratory Effort Respiratory Pattern Blood Pressure 176/88 H 176/88 H Blood Pressure Mean 117 117 Pulse Ox 93 93 Oxygen Delivery Method Room Air Oxygen Flow Rate (L/min) Weight Weight: 120.8 kg Body Mass Index (BMI) 39.3 Physical Exam Narrative General: Alert, oriented, no apparent distress HEENT: Atraumatic, normocephalic Eyes: Anicteric, normal conjunctiva, extraocular movements grossly intact Neck: Supple Respiratory: Clear to auscultation bilaterally, normal respiratory effort Cardiovascular: Low-grade sinus tachycardia, reports presently being in pain GI: Soft, nontender Extremities: No significant pitting edema Musculoskeletal: Moving all extremities Neuro: No overt focal neurological deficits Skin: No rashes appreciated Psych: Cooperative Results Lab / Micro Data 05/03/25 09:20 05/03/25 09:20 Labs: Laboratory Results - last 24 hr 05/03/25 09:20: WBC 10.3, RBC 4.31 L, Hgb 13.2, Hct 40.0, MCV 92.8, MCH 30.6, MCHC 33.0, RDW Std Deviation 45.5 H, RDW Coeff of Zainab 13.4, Plt Count 218, MPV 10.4, Immature Gran % (Auto) 0.400, Neut % (Auto) 73.7 H, Lymph % (Auto) 11.2 L, [place] % (Auto) 14.0 H, Eos % (Auto) 0.3, Baso % (Auto) 0.4, Absolute Neuts (auto) 7.6, Absolute Lymphs (auto) 1.15, Nucleated RBC % 0, Sodium 138, Potassium 4.0, Chloride 103, Carbon Dioxide 24.6, Anion Gap 11, BUN 20 H, Creatinine 0.87, Estim Creat Clear Calc 86.92, Est GFR (MDRD) Non-Af 87, BUN/Creatinine Ratio 23.4 H, Glucose 142 H, Calcium 9.5, Total Bilirubin 0.83, AST 25, ALT 20, Alkaline Phosphatase 45, Total Protein 6.5, Albumin 3.9, Globulin 2.6, Albumin/Globulin Ratio 1.5 05/03/25 10:00: Lactic Acid 1.4 05/03/25 10:20: Urine Color Yellow, Urine Clarity Clear, Urine pH 7.0, Ur Specific [place] 1.010, Urine Protein 30 H, Urine Glucose (UA) Normal, Urine Ketones 5 H, Urine Occult Blood 10 H, Urine Nitrite Negative, Urine Bilirubin Negative, Urine Urobilinogen Normal, Ur Leukocyte Esterase Negative, Urine RBC 0 SEEN, Urine WBC 0 SEEN, Ur Squamous Epith Cells 0-5 SEEN, Urine Bacteria 0 SEEN, Urine Mucus 0 SEEN ABG Data ABG results: ABG 05/03/25 11:27 Specimen Type ART Sample Site L Brach pH 7.45 Bicarbonate Actual 29.1 H Total CO2 30 Base Excess 5 H O2 Saturation 97 ABG pCO2 42.2 ABG pO2 84 O2 Delivery Device Room Air Vent Mode Not entered Imaging Radiology Impression Chest X-Ray 05/03/25 09:45 IMPRESSION: Chronic interstitial changes, no superimposed acute pulmonary process, no interval change Reading Location: [id number] Assessment & Plan Assessment/Plan (1) Inability to ambulate due to right knee: PLAN: Plan # Weakness status post right total knee arthroplasty - Surgery May 01 at [facility] facility with Dr. Gallardo - PT/OT - Case management/social work - Supportive care #Hx of CAD -w/ previous stenting -Continue home medications #Type 2 diabetes mellitus -Glucose checks and sliding scale insulin #Hypothyroidism -Continue Synthroid #Chronic BPH with obstruction -Continue home medications #GERD -Continue famotidine #DVT ppx: Lovenox subcu Nayla Hawley MD Charges/Coding Visit Charges Inpatient E&M: 89138 Init Hosp L2
--- NOTE | 2025-05-03 14:22 | PCA ---
THIS US CALLED [facility] AND LEFT VOICEMAIL
--- NOTE | 2025-05-03 15:29 | PCM.PN.ORT ---
Subjective Subjective Patient, office this morning was noted to have decreased energy and responsiveness by his . He was directed to the emergency department. He was admitted this afternoon. Patient notes he feels better now and seems much better than what was described over the phone by his . He was admitted to the hospital for generalized weakness and likely placement regards to his total knee replacement surgery done on May 01 of this year. Objective Data Objective Data Vital Signs: Vital Signs Temp Pulse Resp BP Pulse Ox O2 Del Method O2 Flow Rate 98.1 F 94 18 164/105 H 97 Room Air 2 05/03/25 14:53 05/03/25 14:53 05/03/25 14:53 05/03/25 14:53 05/03/25 14:53 05/03/25 14:53 05/03/25 11:19 Oxygen Flow Rate (L/min) 2 Oxygen Delivery Method Room Air Weight: 234 lb 6.4 oz Body Mass Index (BMI) 34.6 Lab / Micro Data Attestation: I reviewed the patient's lab results. 05/03/25 09:20 05/03/25 09:20 Labs: Laboratory Results - last 24 hr 05/03/25 09:20: WBC 10.3, RBC 4.31 L, Hgb 13.2, Hct 40.0, MCV 92.8, MCH 30.6, MCHC 33.0, RDW Std Deviation 45.5 H, RDW Coeff of Zainab 13.4, Plt Count 218, MPV 10.4, Immature Gran % (Auto) 0.400, Neut % (Auto) 73.7 H, Lymph % (Auto) 11.2 L, [place] % (Auto) 14.0 H, Eos % (Auto) 0.3, Baso % (Auto) 0.4, Absolute Neuts (auto) 7.6, Absolute Lymphs (auto) 1.15, Nucleated RBC % 0, Sodium 138, Potassium 4.0, Chloride 103, Carbon Dioxide 24.6, Anion Gap 11, BUN 20 H, Creatinine 0.87, Estim Creat Clear Calc 86.92, Est GFR (MDRD) Non-Af 87, BUN/Creatinine Ratio 23.4 H, Glucose 142 H, Calcium 9.5, Total Bilirubin 0.83, AST 25, ALT 20, Alkaline Phosphatase 45, Total Protein 6.5, Albumin 3.9, Globulin 2.6, Albumin/Globulin Ratio 1.5 05/03/25 10:00: Lactic Acid 1.4 05/03/25 10:20: Urine Color Yellow, Urine Clarity Clear, Urine pH 7.0, Ur Specific [place] 1.010, Urine Protein 30 H, Urine Glucose (UA) Normal, Urine Ketones 5 H, Urine Occult Blood 10 H, Urine Nitrite Negative, Urine Bilirubin Negative, Urine Urobilinogen Normal, Ur Leukocyte Esterase Negative, Urine RBC 0 SEEN, Urine WBC 0 SEEN, Ur Squamous Epith Cells 0-5 SEEN, Urine Bacteria 0 SEEN, Urine Mucus 0 SEEN ABG Data ABG results: ABG 05/03/25 11:27 Specimen Type ART Sample Site L Brach pH 7.45 Bicarbonate Actual 29.1 H Total CO2 30 Base Excess 5 H O2 Saturation 97 ABG pCO2 42.2 ABG pO2 84 O2 Delivery Device Room Air Vent Mode Not entered Radiography Diagnostic Testing: Radiology Impression Chest X-Ray 05/03/25 09:45 IMPRESSION: Chronic interstitial changes, no superimposed acute pulmonary process, no interval change Reading Location: [id number] Physical Exam Const alert, oriented x3 and no apparent distress Extremity Extremity Narrative: Right lower extremity: Calves are soft and supple. Stockings are left in place. Minimal erythema of the knee. No excessive swelling of the knee. Dressings are clean dry and intact. Neurovascular intact distally. Assessment & Plan Assessment/Plan (1) Status post total right knee replacement: PLAN: Patient is to be improved from description given over the phone this morning. Ultimately he initially did well after surgery and was discharged on postop day 1. However likely based on age and medical comorbidities he did not continue to improve at home and noticed decline. His was unable to take care of him. At this time patient would likely benefit from placement on discharge. Please follow previous discharge instructions from his previous hospital stay upon discharge from this facility including risk ratified due to prophylaxis protocol. Please call orthopedics any further questions or concerns. Appreciate your participation in this patient's medical care. ANTWAN [facility] Office:
[2025-05-03] MEDS: Aspirin E.C. 81 MG Tablet PO (21:26)
[2025-05-03] MEDS: Senna/Docusate Sodium 1 Tablet 2 TABLET PO (21:27)
[2025-05-04 03:00] VITALS: BP 144/73; PULSE 83; RESP 16; TEMP 36.7; O2SAT 93; O2SAT 97
[2025-05-04 06:06] LABS: Hematocrit 39.8 % (40-54); Hemoglobin 13.4 g/dL (13.0-16.5); Immature Granulocytes Count 0.040 X10^3/uL (0.0-0.0); Mean Corp Hgb Conc 33.7 g/dL (32-36); Mean Corpuscular Volume 92.6 fL (80-94); Mean Platelet Vol. 10.2 fl (6.2-12.0); NRBC Flagged by Analyzer 0 % (0-5); Platelet Count 201 K/mm3 (150-450); RBC Distribution Width CV 13.4 % (11.6-14.6); RBC Distribution Width SD 45.7 fl (35.1-43.9); Red Blood Count 4.30 M/mm3 (4.6-6.2); White Blood Count 9.1 K/mm3 (4.4-11.0)
[2025-05-04 06:35] LABS: Anion Gap 9 (5-15); BUN 12 mg/dL (4-19); BUN/Creat Ratio 15.8 RATIO (10-20); Calcium,Total 9.3 mg/dL (7.6-11.0); Carbon Dioxide 23.7 mmol/L (21.0-32.0); Chloride 103 mmol/L (98-108); Estimated Creatinine Clearance 88.49 ml/min (50-250); Glucose 140 mg/dL (70-99); Potassium 3.9 mmol/L (3.3-5.1)
[2025-05-04] MEDS: Pioglitazone Hydrochloride 30 MG Tablet PO (07:41)
[2025-05-04 07:42] VITALS: PULSE 87
[2025-05-04] MEDS: Senna/Docusate Sodium 1 Tablet 2 TABLET PO (07:42)
--- NOTE | 2025-05-04 07:45 | PN.HOSP_ITS ---
Reason for Visit Chief Complaint: Weakness and right leg pain Objective Data Objective Data Vital Signs: Vital Signs Temp Pulse Resp BP Pulse Ox O2 Del Method O2 Flow Rate 98.1 F 87 16 144/73 H 97 Nasal Cannula 2 05/04/25 03:00 05/04/25 07:42 05/04/25 03:00 05/04/25 03:00 05/04/25 03:00 05/04/25 03:00 05/04/25 03:00 Oxygen Flow Rate (L/min) 2 Oxygen Delivery Method Nasal Cannula Weight: 234 lb 6.4 oz Body Mass Index (BMI) 34.6 Intake & Output: Intake and Output for Last 24 Hours 05/02/25 05/03/25 05/04/25 23:59 23:59 23:59 Output Total 850 / 850 Balance -850 / -850 Lab / Micro Data 05/04/25 05:36 05/04/25 05:36 Labs: Laboratory Results - last 24 hr 05/03/25 09:20: WBC 10.3, RBC 4.31 L, Hgb 13.2, Hct 40.0, MCV 92.8, MCH 30.6, MCHC 33.0, RDW Std Deviation 45.5 H, RDW Coeff of Zainab 13.4, Plt Count 218, MPV 10.4, Immature Gran % (Auto) 0.400, Neut % (Auto) 73.7 H, Lymph % (Auto) 11.2 L, [place] % (Auto) 14.0 H, Eos % (Auto) 0.3, Baso % (Auto) 0.4, Absolute Neuts (auto) 7.6, Absolute Lymphs (auto) 1.15, Nucleated RBC % 0, Sodium 138, Potassium 4.0, Chloride 103, Carbon Dioxide 24.6, Anion Gap 11, BUN 20 H, Creatinine 0.87, Estim Creat Clear Calc 86.92, Est GFR (MDRD) Non-Af 87, BUN/Creatinine Ratio 23.4 H, Glucose 142 H, Calcium 9.5, Total Bilirubin 0.83, AST 25, ALT 20, Alkaline Phosphatase 45, Total Protein 6.5, Albumin 3.9, Globulin 2.6, Albumin/Globulin Ratio 1.5 05/03/25 10:00: Lactic Acid 1.4 05/03/25 10:20: Urine Color Yellow, Urine Clarity Clear, Urine pH 7.0, Ur Specific [place] 1.010, Urine Protein 30 H, Urine Glucose (UA) Normal, Urine Ketones 5 H, Urine Occult Blood 10 H, Urine Nitrite Negative, Urine Bilirubin Negative, Urine Urobilinogen Normal, Ur Leukocyte Esterase Negative, Urine RBC 0 SEEN, Urine WBC 0 SEEN, Ur Squamous Epith Cells 0-5 SEEN, Urine Bacteria 0 SEEN, Urine Mucus 0 SEEN 05/03/25 15:59: POC Glucose 153 H 05/03/25 22:28: POC Glucose 143 H 05/04/25 05:36: WBC 9.1, RBC 4.30 L, Hgb 13.4, Hct 39.8 L, MCV 92.6, MCH 31.2, MCHC 33.7, RDW Std Deviation 45.7 H, RDW Coeff of Zainab 13.4, Plt Count 201, MPV 10.2, Immature Gran % (Auto) 0.400, Neut % (Auto) 70.0, Lymph % (Auto) 13.3 L, M [place] % (Auto) 12.7 H, Eos % (Auto) 3.1, Baso % (Auto) 0.5, Absolute Neuts (auto) 6.4, Absolute Lymphs (auto) 1.21, Nucleated RBC % 0, Sodium 136, Potassium 3.9, Chloride 103, Carbon Dioxide 23.7, Anion Gap 9, BUN 12, Creatinine 0.77, Estim Creat Clear Calc 88.49, Est GFR (MDRD) Non-Af 91, BUN/Creatinine Ratio 15.8, G lucose 140 H, Calcium 9.3 05/04/25 06:55: POC Glucose 150 H ABG Data ABG results: ABG 05/03/25 11:27 Specimen Type ART Sample Site L Brach pH 7.45 Bicarbonate Actual 29.1 H Total CO2 30 Base Excess 5 H O2 Saturation 97 ABG pCO2 42.2 ABG pO2 84 O2 Delivery Device Room Air Vent Mode Not entered Radiography Diagnostic Testing: Radiology Impression Chest X-Ray 05/03/25 09:45 IMPRESSION: Chronic interstitial changes, no superimposed acute pulmonary process, no interval change Reading Location: [id number] Assessment & Plan Assessment/Plan (1) Inability to ambulate due to right knee: PLAN: Plan 79-year-old gentleman came to ED with a with confusion, generalized weakness felt loopy/altered mental status lasted on opioid pain medications. Patient also has sore throat or cough since surgery but mainly it is dry. No fever or chills. No headache. # Weakness status post right total knee arthroplasty - Surgery May 01 at [facility] with Dr. Gallardo - PT/OT - Case management/social work - Supportive care #Hx of CAD -w/ previous stenting -Continue home medications #Type 2 diabetes mellitus -Glucose checks and sliding scale insulin #Hypothyroidism -Continue Synthroid #Chronic BPH with obstruction -Continue home medications #GERD -Continue famotidine #DVT ppx: Lovenox subcu Nayla Hawley MD
[2025-05-04 07:47] VITALS: RESP 18; O2SAT 97
[2025-05-04 09:00] VITALS: BP 156/85; PULSE 87; RESP 18; TEMP 36.6; O2SAT 98
[2025-05-04] MEDS: Polyethylene Glycol 3350 17 GM PACKET PO (10:30)
--- NOTE | 2025-05-04 10:56 | DCINST_ITS ---
Discharge Instructions DC O2, CPAP, BIPAP needs Home O2 Discharge instructions: No Dressing / Incision Discharge Activity: Return to Normal Activity Weight Bearing Status: Weight bearing as tolerated Dressing / Incision Call your doctor if you observe: Fever of 101 or Higher, Coldness, Increased Pain, Numbness or Tingling, Change in Color, Inability to urinate, Inability to have a bowel movement, Shortness of breath, Dizziness, Fainting spells, Swelling in the ankles, Chest pain, Prolonged hiccupping, Increased palpitations (irregular heartbeat) and Calf discomfort Follow Up Care When: IN 2 WEEKS Test Results: Test results from this visit will be discussed in further detail at your follow- up appointment, if applicable. Discharge Plan Admission Admit Date/Time: 05/03/25 14:20 Primary Reason for Your Visit: Recent right knee TKR Attending Provider: Tavares Avila Primary Care Provider: Gustavo Vinson [employer] Providers: Nayla Hawley Discharge Orders/Prescriptions Prescriptions: New acetaminophen 500 mg Tablet 1,000 mg PO Q8 Qty: 0 0RF Rx Instructions: 1 g Q8 hourly for 1 week and then Q8 hourly as needed for severe pain Eliquis 2.5 mg tablet 2.5 mg PO BID 10 Days Qty: 20 0RF Continued metformin 1,000 mg tablet 1,000 mg PO BID pioglitazone 30 mg tablet 30 mg PO DAILY sildenafil 100 mg tablet 100 mg PO DAILY PRN (Reason: other) Patient Comments: take 1 tablet by mouth by mouth prior to intercourse levothyroxine 75 mcg tablet 75 mcg PO DAILY nitroglycerin 0.4 MG tablet 0.4 mg sublingual Q5M PRN (Reason: Chest Pain) Patient Comments: CHEST PAIN [id number]-vit D3 750 mg-125 mg -600 mg tablet 1 tab PO BID glimepiride 4 mg tablet 4 mg PO DAILY sennosides-docusate sodium [Senna Plus] 8.6-50 mg tablet 2 tab-cap PO BID tamsulosin 0.4 mg capsule 0.4 mg PO QHS finasteride 5 mg tablet 5 mg PO DAILY oxycodone 5 mg tablet 5 mg PO Q4H PRN (Reason: pain) Rx Instructions: 1-2 tabs famotidine 20 mg tablet 20 mg PO DAILY meloxicam 7.5 mg tablet 7.5 mg PO BID 3 Days Qty: 0 0RF Rx Instructions: For short-term metoprolol tartrate 100 mg tablet 100 mg PO BID Qty: 180 3RF atorvastatin 80 mg tablet 80 mg PO QHS Qty: 90 3RF Held aspirin [Adult Aspirin Regimen] 81 mg tablet,delayed release (DR/EC) 81 mg PO QHS Hold Instructions: Hold baby aspirin while taking Eliquis Patient Comments: stopped for surgery Referrals / Follow Up: Parminder Gallardo MD [Med Staff - Active Staff] - Within 2 Weeks Gustavo Vinson Chi, MD [Primary Care Provider] - Disposition Disposition (needs filled in before D/C Order can be placed): Home Health Service
--- NOTE | 2025-05-04 11:26 | CASEMGMT ---
Social Work- SW met with pt for validation of directives. Pt reports he did well with therapy and is agreeable to home d/c with OP therapy, which has already been scheduled. Pt reports no needs at this time. MARYLIN Ellsworth
--- NOTE | 2025-05-04 13:16 | PCM.DC.SUM ---
Providers Date of Admission: 05/03/25 Primary Care Physician: Dr. Gustavo Vinson MD Reason For Visit: weakness Diagnosis Discharge Diagnosis (1) Inability to ambulate due to right knee: Status: Acute Code(s): R26.2 - Difficulty in walking, not elsewhere classified Plan 79-year-old gentleman came to ED with a with confusion, generalized weakness felt loopy/altered mental status lasted on opioid pain medications. Patient also has sore throat or cough since surgery but mainly it is dry. No fever or chills. No headache. # Weakness status post right total knee arthroplasty - Surgery May 01 at outlying facility with Dr. Gallardo - PT/OT - Case management/social work - Supportive care. Prescription given for Eliquis 2.5 mg twice daily for 10 days for DVT prophylaxis. On meloxicam 7.5 mg twice daily, at home Advised for next 3 to 4 days. 05/04: Patient did well with physical therapy. Discussed with the oil field caser. Discharge home with home health. Patient has prescription for oxycodone. Chronic constipation: Patient has senna S2 tablet twice daily. Prescription given for MiraLAX 17 g twice daily for 1 week with holding parameter 1 BM per day. Dulcolax suppository once a day [id number]-[id number] as needed Severe constipation . Follow-up with PCP next 2 days if no BM. Metformin does not involve any #Hx of CAD -w/ previous stenting -Continue home medications #Type 2 diabetes mellitus -Glucose checks and sliding scale insulin #Hypothyroidism -Continue Synthroid #Chronic BPH with obstruction -Continue home medications #GERD -Continue famotidine #DVT ppx: Lovenox subcu Discharge medication reconciliation done. Discharge follow-up instructions completed. Discharge process discussed with the patient and all questions were answered to patient's satisfaction. Follow with PCP in 1 to 2 weeks Total time spent, exact 35 minutes on discharge meds reconciliation, examination, coordination of care with nurses and ancillary staff, review of imaging and blood test and discussion with the patient on follow-up instructions. Medications at Discharge Home Medications nitroglycerin 0.4 mg sublingual tablet 0.4 mg sublingual Q5M PRN Chest Pain 12/20/13 metformin 1,000 mg tablet 1,000 mg PO BID 07/28/18 aspirin 81 mg tablet,delayed release (Adult Aspirin Regimen) 81 mg PO QHS 07/27/19 Held on 05/04/25. Instructions: Hold baby aspirin while taking Eliquis pioglitazone 30 mg tablet 30 mg PO DAILY 08/08/20 sildenafil 100 mg tablet 100 mg PO DAILY PRN other 08/08/20 levothyroxine 75 mcg tablet 75 mcg PO DAILY 09/08/22 atorvastatin 80 mg tablet 80 mg PO QHS #90 TABLETS 04/03/24 metoprolol tartrate 100 mg tablet 100 mg PO BID for blood pressure #180 TABLETS 04/03/24 glucosamine 750 mg-msm 125 mg-chondroitin 600 mg-D3 1,000 unit tablet 1 tab PO BID 10/31/24 famotidine 20 mg tablet 20 mg PO DAILY 05/03/25 finasteride 5 mg tablet 5 mg PO DAILY 05/03/25 glimepiride 4 mg tablet 4 mg PO DAILY 05/03/25 oxycodone 5 mg tablet 5 mg PO Q4H PRN pain 05/03/25 sennosides 8.6 mg-docusate sodium 50 mg tablet (Senna Plus) 2 tab-cap PO BID 05/03/25 tamsulosin 0.4 mg capsule 0.4 mg PO QHS 05/03/25 acetaminophen 500 mg tablet 1,000 mg (2 x 500 mg) PO Q8 #0 tabs 05/04/25 apixaban 2.5 mg tablet (Eliquis) 2.5 mg PO BID 10 days #20 tabs 05/04/25 meloxicam 7.5 mg tablet 7.5 mg PO BID 3 days #0 tabs 05/04/25 polyethylene glycol 3350 17 gram/dose oral powder (Miralax) 17 g PO BID 1 week #238 grams 05/04/25 Physical Exam Narrative Seen and examined Patient admitted yesterday with mild lethargic, difficulty to understand and difficulty Dexycu to function as per the . AMS probably from oxycodone Chronic constipation. Did not move bowel since Wednesday, about 3 days ago Physical exam General: Alert, Oriented x3, Cooperative. Obesity grade 1, BMI 34.6 kg/m?. HEENT: Atraumatic, PERRLA, EOMI, Normocephalic. Oral: No Gingival or Mucosal Lesions/ Ulcerations Neck: Supple, No JVD, Negative Carotid Bruits Chest wall/Lungs: Air entry diminished in bilateral lung bases. No crepitation/rhonchi Cardiovascular: Regular rate and rhythm, Normal S1,S2, No M/G/R Abdomen: Bowel Sounds Present, Soft, Non Tender, Non-Distended : No dysuria. No renal angle tenderness. No suprapubic tenderness. Extremities: No edema, Capillary Refill Less than 3 Seconds Skin: No rashes, No breakdown Musculoskeletal: Right knee TKA. Dressing is dry. No surrounding tenderness. No Tenderness to Palpation of other joints or Extremities Neurological: Cranial nerves II-XII grossly intact, DTR 2+/4. No acute focal neurological deficit. Psych/Mental Status: Normal Affect, Appropriate. Weight / BMI Weight Weight: 234 lb 6.4 oz Body Mass Index (BMI) 34.6 ABG / Lab / Microbiology Data 05/04/25 05:36 05/04/25 05:36 Laboratory: Laboratory Results - last 24 hr 05/03/25 15:59: POC Glucose 153 H 05/03/25 22:28: POC Glucose 143 H 05/04/25 05:36: WBC 9.1, RBC 4.30 L, Hgb 13.4, Hct 39.8 L, MCV 92.6, MCH 31.2, MCHC 33.7, RDW Std Deviation 45.7 H, RDW Coeff of Zainab 13.4, Plt Count 201, MPV 10.2, Immature Gran % (Auto) 0.400, Neut % (Auto) 70.0, Lymph % (Auto) 13.3 L, [place] % (Auto) 12.7 H, Eos % (Auto) 3.1, Baso % (Auto) 0.5, Absolute Neuts (auto) 6.4, Absolute Lymphs (auto) 1.21, Nucleated RBC % 0, Sodium 136, Potassium 3.9, Chloride 103, Carbon Dioxide 23.7, Anion Gap 9, BUN 12, Creatinine 0.77, Estim Creat Clear Calc 88.49, Est GFR (MDRD) Non-Af 91, BUN/Creatinine Ratio 15.8, Glucose 140 H, Calcium 9.3 05/04/25 06:55: POC Glucose 150 H 05/04/25 11:15: POC Glucose 182 H D/C Instructions Weight Bearing Status: Weight bearing as tolerated Call your doctor if you observe: Fever of 101 or Higher, Coldness, Increased Pain, Numbness or Tingling, Change in Color, Inability to urinate, Inability to have a bowel movement, Shortness of breath, Dizziness, Fainting spells, Swelling in the ankles, Chest pain, Prolonged hiccupping, Increased palpitations (irregular heartbeat) and Calf discomfort DC O2, CPAP, BIPAP Needs Home O2 Discharge instructions: No When: IN 2 WEEKS Meaningful Use Info Meaningful Use Meaningful Use Diagnoses (Choose all that apply): None applicable Discharge Plan Admission Admit Date/Time: 05/03/25 14:20 Primary Reason for Your Visit: Recent right knee TKR Attending Provider: Tavares Avila Primary Care Provider: Gustavo Vinson [employer] Providers: Nayla Hawley Instructions Additional Instructions / Restrictions: [id number] Dulcolax suppository as needed for your constipation Discharge Orders/Prescriptions Prescriptions: New acetaminophen 500 mg Tablet 1,000 mg PO Q8 Qty: 0 0RF Rx Instructions: 1 g Q8 hourly for 1 week and then Q8 hourly as needed for severe pain Eliquis 2.5 mg tablet 2.5 mg PO BID 10 Days Qty: 20 0RF polyethylene glycol 3350 [Miralax] 17 gram/dose powder 17 g PO BID 7 Days Qty: 238 0RF Rx Instructions: Hold if more than 1 BM per day Continued metformin 1,000 mg tablet 1,000 mg PO BID pioglitazone 30 mg tablet 30 mg PO DAILY sildenafil 100 mg tablet 100 mg PO DAILY PRN (Reason: other) Patient Comments: take 1 tablet by mouth by mouth prior to intercourse levothyroxine 75 mcg tablet 75 mcg PO DAILY nitroglycerin 0.4 MG tablet 0.4 mg sublingual Q5M PRN (Reason: Chest Pain) Patient Comments: CHEST PAIN clhpmhbw-ekm-femmxvadz-vit D3 750 mg-125 mg -600 mg tablet 1 tab PO BID glimepiride 4 mg tablet 4 mg PO DAILY sennosides-docusate sodium [Senna Plus] 8.6-50 mg tablet 2 tab-cap PO BID tamsulosin 0.4 mg capsule 0.4 mg PO QHS finasteride 5 mg tablet 5 mg PO DAILY oxycodone 5 mg tablet 5 mg PO Q4H PRN (Reason: pain) Rx Instructions: 1-2 tabs famotidine 20 mg tablet 20 mg PO DAILY meloxicam 7.5 mg tablet 7.5 mg PO BID 3 Days Qty: 0 0RF Rx Instructions: For short-term metoprolol tartrate 100 mg tablet 100 mg PO BID Qty: 180 3RF atorvastatin 80 mg tablet 80 mg PO QHS Qty: 90 3RF Held aspirin [Adult Aspirin Regimen] 81 mg tablet,delayed release (DR/EC) 81 mg PO QHS Hold Instructions: Hold baby aspirin while taking Eliquis Patient Comments: stopped for surgery Referrals / Follow Up: Parminder Gallardo MD [Med Staff - Active Staff] - Within 2 Weeks Gustavo Vinson Chi, MD [Primary Care Provider] - Disposition Disposition (needs filled in before D/C Order can be placed): Home Health Service Charges/Coding Visit Charges Inpatient E&M: 33950 Disch Hosp >30min
[2025-05-04 13:28] VITALS: BP 138/70; PULSE 93; RESP 18; TEMP 36.6; O2SAT 93
--- NOTE | 2025-05-04 14:23 | CASEMGMT ---
Patient is discharging on Eliquis. RN CM called [facility], copay is $15.60. RN CM updated patient, patient had no further questions or concerns.
--- NOTE | 2025-05-04 15:24 | PHA.DC_ITS ---
Pharmacy [facility] Counseling Pharmacy Service has performed discharge medication reconciliation and counseling for this patient. 1. ACETAMINOPHEN 1000MG PO Q8 X 7 DAYS, THEN Q8H PRN PAIN 2. APIXABAN 2.5MG PO BID X 10 DAYS, HOLD ASPIRIN WHILE ON APIXABAN 3. MIRALAX 17GM PO BID The patient's discharge medication list was reviewed for discrepancies and discrepancies were resolved. The patient was counseled on the following discharge medications and changes in medications for homegoing were reviewed. The Reason for Use, instructions for use, and potential side effects were reviewed for all new medications. The patient's questions regarding all of their medications were answered. The patient was able to verbally demonstrate an understanding of their discharge medications. Medications at Discharge Home Medications nitroglycerin 0.4 mg sublingual tablet 0.4 mg sublingual Q5M PRN Chest Pain 12/20/13 metformin 1,000 mg tablet 1,000 mg PO BID 07/28/18 aspirin 81 mg tablet,delayed release (Adult Aspirin Regimen) 81 mg PO QHS 07/27/19 Held on 05/04/25. Instructions: Hold baby aspirin while taking Eliquis pioglitazone 30 mg tablet 30 mg PO DAILY 08/08/20 sildenafil 100 mg tablet 100 mg PO DAILY PRN other 08/08/20 levothyroxine 75 mcg tablet 75 mcg PO DAILY 09/08/22 atorvastatin 80 mg tablet 80 mg PO QHS #90 TABLETS 04/03/24 metoprolol tartrate 100 mg tablet 100 mg PO BID for blood pressure #180 TABLETS 04/03/24 glucosamine 750 mg-msm 125 mg-chondroitin 600 mg-D3 1,000 unit tablet 1 tab PO BID 10/31/24 famotidine 20 mg tablet 20 mg PO DAILY 05/03/25 finasteride 5 mg tablet 5 mg PO DAILY 05/03/25 glimepiride 4 mg tablet 4 mg PO DAILY 05/03/25 oxycodone 5 mg tablet 5 mg PO Q4H PRN pain 05/03/25 sennosides 8.6 mg-docusate sodium 50 mg tablet (Senna Plus) 2 tab-cap PO BID 05/03/25 tamsulosin 0.4 mg capsule 0.4 mg PO QHS 05/03/25 acetaminophen 500 mg tablet 1,000 mg (2 x 500 mg) PO Q8 #0 tabs 05/04/25 apixaban 2.5 mg tablet (Eliquis) 2.5 mg PO BID 10 days #20 tabs 05/04/25 meloxicam 7.5 mg tablet 7.5 mg PO BID 3 days #0 tabs 05/04/25 polyethylene glycol 3350 17 gram/dose oral powder (Miralax) 17 g PO BID 1 week #238 grams 05/04/25
== END 2025-05-04 15:23 | disposition home health service (06) ==
LOC: ED 14:03 → MS3 14:44
PROVIDERS: Admitting Provider Internal Medicine; Emergency Provider Emergency Medicine; PCP Family Medicine Geriatric Medicine; Visit Provider Internal Medicine
DX: R26.2 Difficulty in walking, not elsewhere classified (principal); E11.9 Type 2 diabetes mellitus without complications; I25.10 Atherosclerotic heart disease of native coronary artery without angina pectoris; R53.1 Weakness; Z87.891 Personal history of nicotine dependence; Z79.82 Long term (current) use of aspirin; Z96.651 Presence of right artificial knee joint; Z79.891 Long term (current) use of opiate analgesic; M79.604 Pain in right leg; R09.81 Nasal congestion; Z79.890 Hormone replacement therapy; Z79.84 Long term (current) use of oral hypoglycemic drugs; E78.5 Hyperlipidemia, unspecified; Z82.49 Family history of ischemic heart disease and other diseases of the circulatory system; R35.1 Nocturia; I10 Essential (primary) hypertension; R41.82 Altered mental status, unspecified; Z79.1 Long term (current) use of non-steroidal anti-inflammatories (NSAID); E03.9 Hypothyroidism, unspecified; K59.09 Other constipation; Z95.5 Presence of coronary angioplasty implant and graft; N40.1 Benign prostatic hyperplasia with lower urinary tract symptoms; N13.8 Other obstructive and reflux uropathy; K21.9 Gastro-esophageal reflux disease without esophagitis; R05.9 Cough, unspecified; J02.9 Acute pharyngitis, unspecified; R41.0 Disorientation, unspecified
CPT/HCPCS: 36415; 36600; 71046; 80048; 80053; 81001; 82803; 82962; 83605; 85025; 93005; 96372; 97162; 97166; 97802; 99221; 99285; A4216; G0378

== ENCOUNTER → 2025-06-04 | Outpatient (CLI) | payer OTHER, SELFPAY ==
[2025-06-04 09:43] LABS: Hematocrit 40.6 % (40-54); Hemoglobin 13.3 g/dL (13.0-16.5); Immature Granulocytes Count 0.020 X10^3/uL (0.0-0.0); Mean Corp Hgb Conc 32.8 g/dL (32-36); Mean Corpuscular Volume 94.2 fL (80-94); Mean Platelet Vol. 9.9 fl (6.2-12.0); NRBC Flagged by Analyzer 0 % (0-5); Platelet Count 216 K/mm3 (150-450); RBC Distribution Width CV 14.0 % (11.6-14.6); RBC Distribution Width SD 47.7 fl (35.1-43.9); Red Blood Count 4.31 M/mm3 (4.6-6.2); White Blood Count 8.2 K/mm3 (4.4-11.0)
[2025-06-04 10:29] LABS: AST(SGOT) 23 U/L (<=37); Alanine Aminotransfer ALT/SGPT 24 U/L (<=46); Albumin, Serum 4.0 g/dL (3.4-4.8); Alkaline Phosphatase 58 U/L (40-129); Anion Gap 10 (5-15); BUN 19 mg/dL (4-19); BUN/Creat Ratio 21.9 RATIO (10-20); Calcium,Total 10.0 mg/dL (7.6-11.0); Carbon Dioxide 22.3 mmol/L (21.0-32.0); Chloride 111 mmol/L (98-108); Globulin 2.7 g/dL (2.2-4.2); Glucose 81 mg/dL (70-99); Potassium 4.4 mmol/L (3.3-5.1); Vitamin D,25 Hydroxy 32.2 ng/mL (30-100)
[2025-06-04 17:27] LABS: Xtra Tube Kwok EXTRA TUBE
== END | disposition home or self-care (01) ==
LOC: POLAB3 09:25
PROVIDERS: PCP Family Medicine Geriatric Medicine; Visit Provider Family Medicine Geriatric Medicine
DX: I10 Essential (primary) hypertension (principal); E11.65 Type 2 diabetes mellitus with hyperglycemia; E03.9 Hypothyroidism, unspecified; E55.9 Vitamin D deficiency, unspecified
CPT/HCPCS: 36415; 80053; 82306; 83036; 84443; 85025

== ENCOUNTER 2025-09-03 11:38 | Emergency (ER) | payer OTHER, SELFPAY ==
[2025-09-03 11:38] VITALS: BP 152/71; PULSE 73; RESP 16; TEMP 36.4; O2SAT 98; BMI 35.4
--- NOTE | 2025-09-03 11:49 | VDLE_ITS ---
Reason For Study Reason For Study: RLE Pain RIGHT LEFT GSV is normal. CFV is compressible, spontaneous, phasic, competent, CFV is compressible, spontaneous, phasic, competent and demonstrates normal augmentation. and demonstrates normal augmentation. FV is compressible, spontaneous, phasic, competent and demonstrates normal augmentation. POP V is compressible, spontaneous, phasic, competent and demonstrates normal augmentation. T/P Trunk is compressible. PTV is compressible. RT PerV is compressible. Procedure This is a venous duplex using B-mode, color flow and spectral Doppler. Exam performed in department. The exam was diagnostic. A preliminary report was called and/or faxed to [facility] ED / Zachery RN. VL/Venous Duplex US, Unilateral Interpretation Summary Deep veins of the right lower extremity are patent and compressible segmentally . There is no evidence of right lower extremity deep vein thrombosis. Valvular competence appears intact within the p roximal deep venous system on the right . The right great saphenous vein appears patent and compressible segmentally. The left common femoral vein is patent and compressible . Ordering Physician: Loc Gotti Referring Physician: Gustavo Vinson Chi Performed By: Mor Rodríguez RVT
--- NOTE | 2025-09-03 16:07 | EDS_ITS ---
HPI History of Present Illness Chief Complaint: Lower Extremity Injury [facility] Medical History Left renal stone Ureterolithiasis Renal colic on right side Obstructive sleep apnea Paroxysmal supraventricular tachycardia Segmental and somatic dysfunction of thoracic region Segmental and somatic dysfunction of lumbar region Segmental and somatic dysfunction of pelvic region Atherosclerosis of coronary artery of [place] without angina pectoris Essential (primary) hypertension Hyperlipidemia Anterolisthesis Type 2 diabetes mellitus Bilateral headaches Asthma Arthritis Environmental allergies Home Medications ?Medication ?Instructions ?Recorded ?Last Taken ?Type nitroglycerin 0.4 mg sublingual 0.4 mg sublingual Q5M PRN Chest 12/20/13 Unknown History tablet Pain metformin 1,000 mg tablet 1,000 mg PO BID 07/28/18 Unk nown History aspirin 81 mg tablet,delayed 81 mg PO QHS 07/27/1901/07 History release (Adult Aspirin Regimen) Held on 05/04/25. Instructions: Hold baby aspirin while taking Eliquis pioglitazone 30 mg tablet 30 mg PO DAILY 08/08/20 Unkn own History sildenafil 100 mg tablet 100 mg PO DAILY PRN other Unknown History levothyroxine 75 mcg tablet 75 mcg PO DAILY 09/08/22 U nknown History metoprolol tartrate 100 mg tablet 100 mg PO BID for bl ood pressure 04/03/24 Unknown Rx #180 TABLETS glucosamine 750 mg-msm 125 1 tab PO BID 10/31/24 Unkno wn History mg-chondroitin 600 mg-D3 1,000 unit tablet famotidine 20 mg tablet 20 mg PO DAILY 05/03/25 Unkn own History finasteride 5 mg tablet 5 mg PO DAILY 05/03/25 Unkno wn History glimepiride 4 mg tablet 4 mg PO DAILY 05/03/25 Unkno wn History oxycodone 5 mg tablet 5 mg PO Q4H PRN pain 5 Unknown History sennosides 8.6 mg-docusate sodium 2 tab-cap PO BID Unknown History 50 mg tablet (Senna Plus) tamsulosin 0.4 mg capsule 0.4 mg PO QHS 05/03/25 Unkno wn History acetaminophen 500 mg tablet 1,000 mg (2 x 500 mg) PO Q 8 #0 tabs 05/04/25 Unknown Rx apixaban 2.5 mg tablet (Eliquis) 2.5 mg PO BID 10 days #20 tabs 05/04/25 Unknown Rx meloxicam 7.5 mg tablet 7.5 mg PO BID 3 days #0 tabs 05/04/25 Unknown Rx polyethylene glycol 3350 17 17 g PO BID 1 week #238 gr ams 05/04/25 Unknown Rx gram/dose oral powder (Miralax) atorvastatin 80 mg tablet 80 mg PO QHS #90 TABLETS 08/14 Unknown Rx Allergy/AdvReac Type Severity Reaction Status Date / Time oxycodone Allergy Severe Other Verified 09/03/25 11:39 Family History Mother CAD (coronary artery disease) Myocardial infarction Father No problems noted. Other Arthritis Heart disease Hypertension Surgical History History of ankle surgery History of coronary artery stent placement (01/01/99) Social History Smoking Status: Former smoker how long ago did patient quit smokin alcohol intake: current alcohol intake frequency: a few times a month Alcohol type: beer and wine substance use type: does not use caffeine: Yes Type: tea Number of servings: 1 what type of physical activity do you participate in: none EXAM Physical Exam Const Vital Signs: 09/03/25 11:38 Temperature 97.6 F L Temperature Source Temporal Pulse Rate 73 Respiratory Rate 16 Blood Pressure 152/71 H Blood Pressure Mean 98 Pulse Ox 98 MDM MDM MDM Narrative Medical decision making narrative: HISTORY OF PRESENT ILLNESS: Chief complaint: Leg pain 80-year-old male history of type 2 diabetes, hypertension, lipidemia, SUSANNA paroxysmal severe tachycardia, CAD. The patient is currently not on anticoagulation. He presents with leg pain. Patient notes he was at PT today when rehabbing after right knee surgery 4 months ago. He noted at therapy got a cramp in his right calf and complains of swelling the right calf. He notes his PT set up on him evaluated for blood clot. The patient denies chest pain or shortness of breath. Denies syncope. REVIEW OF SYSTEMS: Pertinent positives: Right leg pain Pertinent negatives: As per HPI PHYSICAL EXAM: Nursing triage notes reviewed, Vital signs reviewed Constitutional: please see [facility] Extremities: Slight swelling to the right lower extremity greater than the left. Calf tenderness noted on the right lower extremity Neuro: intact sensation L1-S1 dermatomal distributions. Intact 5/5 strength in hip flexion (T12-L3). Knee extension (L2-L4). Ankle dorsiflexion (L4-L5). Ankle plantar flexion (S1). Great toe extension (L5). 2+ patellar and Achilles DTRs. Skin: No rash or lesions noted MEDICAL DECISION MAKING: Chief Complaint: please see [facility] External records reviewed: Reviewed prior medication Factors affecting care: As per [facility] Social determinants of health: none History obtained from others: Consults: none [facility] Narrative: The patient was initially hemodynamically stable, afebrile and nontoxic- appearing. Exam with a slightly swollen right lower extremity and calf tenderness to palpation. I considered the following differential diagnosis: Musculoskeletal pain, DVT, postop pain I obtained duplex ultrasound of the right lower extremity to further determine if the patient was suffering from a life-threatening etiology. ALL IMAGES (IF OBTAINED) HAVE BEEN PERSONALLY REVIEWED AND INTERPRETED BY MYSELF. DVT study negative. Likely post-op swelling Encouraged elevation, muscle pumps, compression PCP follow-up. The patient and/or family, caregivers express understanding. The patient and/or family, caregivers agrees with the plan. Shared decision making: I will have a discussion with the patient and or visitors regarding risk/benefits of further testing or admission. They will be made aware of of the risk/benefits inherent in this decision they will be given the opportunity to voice understanding. Total critical care time today provided was at least 0 minutes. This excludes separately billable procedures. Critical care time (if documented) is secondary to the patient having high probability of clinically significant/life threatening deterioration in the patient's condition which required my urgent intervention. Impression: 1. Acute right leg pain 2. Right leg swelling Dispo: discharge home This note was generated with [employer] dictation software. It may contain incorrect words, spelling, and punctuation that were not noted in review of the chart prior to signing. Discharge Plan Triage Chief Complaint: Lower Extremity Injury ED Provider: Hay Lyn Dx/Rx/DC Orders Prescriptions: No Action metformin 1,000 mg tablet 1,000 mg PO BID aspirin [Adult Aspirin Regimen] 81 mg tablet,delayed release (DR/EC) 81 mg PO QHS Patient Comments: stopped for surgery pioglitazone 30 mg tablet 30 mg PO DAILY sildenafil 100 mg tablet 100 mg PO DAILY PRN (Reason: other) Patient Comments: take 1 tablet by mouth by mouth prior to intercourse levothyroxine 75 mcg tablet 75 mcg PO DAILY nitroglycerin 0.4 MG tablet 0.4 mg sublingual Q5M PRN (Reason: Chest Pain) Patient Comments: CHEST PAIN lwtdhyje-yss-fyifzqeng-vit D3 750 mg-125 mg -600 mg tablet 1 tab PO BID glimepiride 4 mg tablet 4 mg PO DAILY sennosides-docusate sodium [Senna Plus] 8.6-50 mg tablet 2 tab-cap PO BID tamsulosin 0.4 mg capsule 0.4 mg PO QHS finasteride 5 mg tablet 5 mg PO DAILY oxycodone 5 mg tablet 5 mg PO Q4H PRN (Reason: pain) Rx Instructions: 1-2 tabs famotidine 20 mg tablet 20 mg PO DAILY acetaminophen 500 mg Tablet 1,000 mg PO Q8 Qty: 0 0RF Rx Instructions: 1 g Q8 hourly for 1 week and then Q8 hourly as needed for severe pain Eliquis 2.5 mg tablet 2.5 mg PO BID 10 Days Qty: 20 0RF meloxicam 7.5 mg tablet 7.5 mg PO BID 3 Days Qty: 0 0RF Rx Instructions: For short-term polyethylene glycol 3350 [Miralax] 17 gram/dose powder 17 g PO BID 7 Days Qty: 238 0RF Rx Instructions: Hold if more than 1 BM per day metoprolol tartrate 100 mg tablet 100 mg PO BID Qty: 180 3RF atorvastatin 80 mg tablet 80 mg PO QHS Qty: 90 3RF Primary Care Provider: Gustavo Vinson Chi Referrals: Gustavo Vinson Chi, MD [Primary Care Provider, Geriatrics] Print Language: Welsh
[2025-09-03 16:44] VITALS: BP 160/84; PULSE 87; RESP 16; TEMP 36.6; O2SAT 99
== END 2025-09-03 16:45 | disposition home or self-care (01) ==
LOC: ED 16:45
PROVIDERS: Emergency Provider Emergency Medicine; Visit Provider Emergency Medicine
DX: M79.604 Pain in right leg (principal); E11.9 Type 2 diabetes mellitus without complications; I25.10 Atherosclerotic heart disease of native coronary artery without angina pectoris; M79.89 Other specified soft tissue disorders; G47.33 Obstructive sleep apnea (adult) (pediatric); Z87.891 Personal history of nicotine dependence; Z95.5 Presence of coronary angioplasty implant and graft
CPT/HCPCS: 93971; 99282

== ENCOUNTER → 2025-09-11 | Outpatient (CLI) | payer MEDICARE, OTHER, SELFPAY ==
[2025-09-11 09:59] LABS: Hematocrit 42.2 % (40-54); Hemoglobin 13.7 g/dL (13.0-16.5); Immature Granulocytes Count 0.020 X10^3/uL (0.0-0.0); Mean Corp Hgb Conc 32.5 g/dL (32-36); Mean Corpuscular Volume 92.5 fL (80-94); Mean Platelet Vol. 10.1 fl (6.2-12.0); NRBC Flagged by Analyzer 0 % (0-5); Platelet Count 237 K/mm3 (150-450); RBC Distribution Width CV 13.2 % (11.6-14.6); RBC Distribution Width SD 44.8 fl (35.1-43.9); Red Blood Count 4.56 M/mm3 (4.6-6.2); White Blood Count 6.4 K/mm3 (4.4-11.0)
[2025-09-11 10:16] LABS: CRP < 3.00 mg/L (0.0-3.0)
== END | disposition home or self-care (01) ==
LOC: MTLAB 09:16
PROVIDERS: Referring Provider Specialist; Visit Provider Specialist
DX: Z09 Encounter for follow-up examination after completed treatment for conditions other than malignant neoplasm (principal); Z96.651 Presence of right artificial knee joint; M25.461 Effusion, right knee
CPT/HCPCS: 36415; 85025; 85652; 86140